=== PATIENT | female | born 1975 | race American Indian/Alaskan Native ===

== ENCOUNTER 2017-04-21 12:28 | Emergency (ER) | payer MEDICAID ==
[2017-04-21 13:13] LABS: Basophils % (Auto) 1.2 % (0.0-1.8); Hematocrit 33.8 % (30.3-42.9); Hemoglobin 10.9 gm/dl (10.1-14.3); Mean Corpuscular HGB Conc 32 % (30-34); Platelet Count 304 K/mm3 (140-440); Red Blood Count 5.28 M/mm3 (3.65-5.03); Red Cell Distribution Width 16.6 % (13.2-15.2); White Blood Count 9.1 K/mm3 (4.5-11.0)
[2017-04-21 13:24] LABS: Mean Corpuscular Hemoglobin 21 pg (28-32); Mean Corpuscular Volume 64 fl (79-97)
[2017-04-21 13:28] LABS: Anion Gap 18 mmol/L; BUN/Creatinine Ratio 24.28; Blood Urea Nitrogen 17 mg/dL (7-17); Calcium 8.9 mg/dL (8.4-10.2); Carbon Dioxide 24 mmol/L (22-30); Chloride 96.5 mmol/L (98-107); Glucose 283 mg/dL (65-100); Potassium 4.4 mmol/L (3.6-5.0); Sodium 134 mmol/L (137-145)
[2017-04-21 15:47] LABS: Bilirubin,Urine NEG (Negative); Blood,Urine NEG (Negative); Ketones,Urine NEG (Negative); Leukocyte Esterase,Urine NEG (Negative); Nitrite,Urine NEG (Negative); Urobilinogen,Urine < 2.0 mg/dL (<2.0); WBC,Urine < 1.0 /HPF (0.0-6.0)
[2017-04-21 19:59] VITALS: BP 123/82
[2017-04-21] MEDS ORDERED: NACL 0.9% 1000 ML 1,000 ML IV ONE (20:08)
[2017-04-21] MEDS ORDERED: MORPHINE IV ONE (21:03)
[2017-04-21] MEDS ORDERED: ZOFRAN IV ONE (21:03)
--- NOTE | 2017-04-21 23:24 | Emergency Department Report ---
HPI - General Chief Complaint: Hyperglycemia Time Seen by Provider: 04/21/17 20:06 - HPI HPI: The patient is a 41-year-old female presents for evaluation of abdominal pain. The patient reports upper abdominal pain for the past one week, progressive, constant for the past one day, 10/10 in severity, cramping in quality, exacerbated with retching. She reports associated intermittent lightheadedness with position changes, mild in severity, improved with supine positioning, and nausea, and multiple episodes of nonbilious, nonbloody emesis. The patient denies fever, chills, night sweats, diarrhea, blood in the stool, dark tarry stool, dysuria, hematuria, flank pain, genital discharge, inability to pass flatus. ED Past Medical Hx - Past Medical History Previous Medical History?: Yes Hx Hypertension: Yes Hx Heart Attack/AMI: No Hx Congestive Heart Failure: No Hx Diabetes: Yes Hx Deep Vein Thrombosis: No Hx Pulmonary Embolism: No Hx Liver Disease: No Hx Renal Disease: No Hx Sickle Cell Disease: No Hx Arthritis: No Hx Headaches / Migraines: Yes Hx Seizures: No Hx Kidney Stones: No Hx Psychiatric Treatment: Yes (Anxiety) Hx Asthma: Yes Hx COPD: No Hx Tuberculosis: No Hx Dementia: No Hx HIV: No Additional medical history: gastroparesis, DKA, neuropathy, peptic ulcer disease , high cholesterol - Surgical History Past Surgical History?: Yes Hx Coronary Stent: No Hx Open Heart Surgery: No Hx Pacemaker: No Hx Internal Defibrillator: No Hx Cholecystectomy: Yes Hx Appendectomy: No Hx Breast Surgery: No Additional Surgical History: - Social History Smoking Status: Never Smoker Substance Use Type: Prescribed - Medications Home Medications: Home Medications Medication Instructions Recorded Confirmed Last Taken Type ALPRAZolam [Xanax TAB] 1 mg PO TID PRN #30 tablet 05/08/15 11/23/15 11/20/15 09: 30 Rx Butalb/Acetamin/Caff 50-325-40 2 tab PO Q8H PRN #20 tablet 05/08/15 11/20/15 Unknown Rx [Fioricet] Carvedilol [Coreg] 3.125 mg PO BID #60 tablet 05/08/15 11/23/15 11/20/15 09:30 Rx Furosemide [Lasix TAB] 40 mg PO QDAY #30 tablet 10/02/1311/23/15 11/20/15 09: 30 Rx Insulin Glargine [Lantus VIAL] 60 units SQ BID #1 vial 05/08/15 11/23/15 09:30 Rx Insulin Lispro [HumaLOG VIAL] 30 unit SQ TID #1 vial 05/08/15 11/23/15 11/20/15 09:30 Rx Pravastatin (Nf) [Pravachol] 20 mg PO QHS #30 tablet 05/08/15 11/23/15 11/19/15 20:00 Rx Potassium Chloride [K-Dur] 10 meq PO TID 11/20/15 11/23/15 11/20/15 09:30 History Dicyclomine [Bentyl] 20 mg PO QID PRN #20 tablet 11/22/15 Unknown Rx ALBUTEROL Inhaler [ProAir HFA 2 puff IH QID PRN #1 inhalation 11/24/15 Unknown Rx Inhaler] Dicyclomine [Bentyl] 40 mg PO QID #20 tablet 04/02/16 Unknown Rx Ondansetron [Zofran TAB] 4 mg PO Q6HR PRN #20 tablet 04/02/16 Unknown Rx Promethazine [Phenergan TAB] 25 mg PO Q6HR PRN #30 tab 04/02/16 Unknown Rx Ondansetron [Zofran TAB] 4 mg PO Q8HR PRN #15 tablet 04/21/17 Unknown Rx traMADol [Ultram 50 MG tab] 50 mg PO Q6HR PRN #15 tablet 04/21/17 Unknown Rx ED Review of Systems ROS: Stated complaint: BLOOD SUGAR HIGH Other details as noted in HPI Constitutional: denies: fever ENT: denies: throat or neck pain Respiratory: denies: cough, shortness of breath Cardiovascular: denies: chest pain Endocrine: denies unexplained weight loss or gain Gastrointestinal: reports abdominal pain, nausea Genitourinary: denies: dysuria Musculoskeletal: denies: leg swelling Skin: denies: rash Neurological: denies: headache Hematological/Lymphatic: denies: easy bleeding or easy bruising Psych: denies sadness or hopelessness Physical Exam - Physical Exam Vital Signs: Vital Signs 04/21/17 04/21/17 04/21/17 12:47 19:30 21:38 Temperature 98.5 F 98.4 F Pulse Rate 90 92 H Respiratory 18 18 20 Rate Blood Pressure 111/64 Blood Pressure 123/82 [Right] O2 Sat by Pulse 98 99 Oximetry Physical Exam: General: well-nourished, well-developed, no acute distress Head: Normocephalic, atraumatic Eyes: normal sclera ENT: Mucous membranes are pale and dry Neck: No neck stiffness, no cervical adenopathy Respiratory: Breath sounds equal bilaterally, no wheezing, rales, or rhonchi Cardio: S1 and S2 present, no murmurs, rubs, gallops, capillary refill is delayed Abdomen: Normoactive bowel sounds, soft abdomen, left upper quadrant and right upper quadrant tenderness to palpation present, no rigidity, no guarding or rebound tenderness Chest WALL/Back: No tenderness to palpation of the chest wall, no CVA tenderness with percussion Musc: No pitting edema Skin: No rash Neuro: no facial drooping, normal speech Psych: Normal affect ED Course Vital Signs 04/21/17 04/21/17 04/21/17 12:47 19:30 21:38 Temperature 98.5 F 98.4 F Pulse Rate 90 92 H Respiratory 18 18 20 Rate Blood Pressure 111/64 Blood Pressure 123/82 [Right] O2 Sat by Pulse 98 99 Oximetry ED Medical Decision Making - Lab Data Result diagrams: 04/21/17 12:56 04/21/17 12:56 - Medical Decision Making The patient was seen and examined by myself. The patient is placed on a cardiac surgeon and continuous pulse ox. On initial evaluation, the patient was found to be in no distress. Evaluation orders are placed. Blood sugar on Accu- Chek 305. IV access is established and the patient is given 1 L normal saline fluid bolus for treatment of dehydration, and Zofran for nausea, and IV morphine for pain. The patient is given IV insulin for treatment of hyperglycemia as well. Lab results revealed elevated glucose level with normal bicarbonate level, venous pH, and anion gap, not consistent with DKA. Labs otherwise Were non-concerning including WBC, hemoglobin, hematocrit, renal function, LFTs, lipase, and urinalysis. The patient was reevaluated and reported that their symptoms were markedly improved. The patient is stable for discharge with outpatient follow-up. The patient is given follow-up and return instructions. The patient expressed understanding and agreed with the plan. The patient is discharged in stable condition. Critical care attestation.: If time is entered above; I have spent that time in minutes in the direct care of this critically ill patient, excluding procedure time. ED Disposition Clinical Impression: Acute hyperglycemia, Dehydration, Acute abdominal pain in left upper quadrant, Acute abdominal pain in right upper quadrant Disposition: - TO HOME OR SELFCARE Is pt being admited?: No Does the pt Need Aspirin: No Condition: Stable Instructions: Acute Abdominal Pain (ED), Dehydration (ED), Diabetic Hyperglycemia (ED) Additional Instructions: Do not take more than the prescribed dose of pain medicine, or combine or take the pain medicine prescribed to you today with other pain medicine, sleeping medicine or other sedatives, or with alcohol, as doing so may cause central nervous system sedation and respiratory depression, and potentially cause you to stop breathing and . Additionally, do not drive a vehicle, operate heavy machinery, or engage in any activity that would cause harm to yourself or others after taking the pain medicine prescribed to you. Prescriptions: Ondansetron [Zofran TAB] 4 mg PO Q8HR PRN #15 tablet PRN Reason: Nausea traMADol [Ultram 50 MG tab] 50 mg PO Q6HR PRN #15 tablet PRN Reason: Pain Referrals: PRIMARY CARE, [Primary Care Provider] - 3-5 Days Forms: Work/School Release Form(ED) Time of Disposition: 22:30
== END 2017-04-21 23:51 | disposition home or self-care (01) ==
LOC: ED 12:28
DX: E11.65 Type 2 diabetes mellitus with hyperglycemia (principal); K31.84 Gastroparesis; E13.10 Other specified diabetes mellitus with ketoacidosis without coma; E11.40 Type 2 diabetes mellitus with diabetic neuropathy, unspecified; R10.11 Right upper quadrant pain; R10.12 Left upper quadrant pain; E86.0 Dehydration; I10 Essential (primary) hypertension; J45.909 Unspecified asthma, uncomplicated; Z79.4 Long term (current) use of insulin
CPT/HCPCS: 36415; 80048; 81001; 82805; 82962; 85025; 96361; 96374; 96375; 99284; J2270; J2405; J7030; J1815

== ENCOUNTER 2017-07-15 15:46 | Emergency (ER) | payer MEDICAID ==
[2017-07-15] MEDS ORDERED: SUBLIMAZE IV ONE (16:45)
[2017-07-15] MEDS ORDERED: ZOFRAN IV ONE (16:45)
[2017-07-15] MEDS ORDERED: NACL 0.9% 1000 ML 1,000 ML IV ONE (16:48)
--- NOTE | 2017-07-15 16:50 | Emergency Department Report ---
HPI - General Chief Complaint: Pain General Time Seen by Provider: 07/15/17 16:36 - HPI HPI: Room 26 The patient is a 41-year-old female presented with a chief complaint of fatigue and muscle cramping. The patient states for the past 2 days she's been feeling fatigued and weak. Patient noticed dyspnea on exertion and intermittent cramping "jeffrey horses" in bilateral lower and upper extremities. The patient states her glucoses been trending upwards over the past week despite being compliant with her diabetes medication. The patient states she has had "charley horses" in the past when she was in DKA. Patient denies nausea vomiting or diarrhea. Patient denies any other forms of pain Location: [See above] Duration: [See above] Quality: Cramping Severity: Severe Modifying factors: [see above] Context: [see above] Mode of transportation: [not driving] ED Past Medical Hx - Past Medical History Hx Hypertension: Yes Hx Diabetes: Yes Hx Headaches / Migraines: Yes Hx Psychiatric Treatment: Yes (Anxiety) Hx Asthma: Yes Additional medical history: gastroparesis, DKA, neuropathy, peptic ulcer disease , high cholesterol - Surgical History Hx Cholecystectomy: Yes Additional Surgical History: - Family History Family history: no significant - Social History Smoking Status: Never Smoker Substance Use Type: Prescribed - Medications Home Medications: Home Medications Medication Instructions Recorded Confirmed Last Taken Type ALPRAZolam [Xanax TAB] 1 mg PO TID PRN #30 tablet 05/08/15 11/23/15 11/20/15 09: 30 Rx Butalb/Acetamin/Caff 50-325-40 2 tab PO Q8H PRN #20 tablet 05/08/15 11/20/15 Unknown Rx [Fioricet] Carvedilol [Coreg] 3.125 mg PO BID #60 tablet 05/08/15 11/23/15 11/20/15 09:30 Rx Furosemide [Lasix TAB] 40 mg PO QDAY #30 tablet 05/08/15 11/23/15 11/20/15 09: 30 Rx Insulin Glargine [Lantus VIAL] 60 units SQ BID #1 vial 05/08/15 11/23/15 09:30 Rx Insulin Lispro [HumaLOG VIAL] 30 unit SQ TID #1 vial 05/08/15 11/23/1511/19/16 09:30 Rx Pravastatin [Pravachol] 20 mg PO QHS #30 tablet 05/08/15 11/23/15 11/19/15 20: 00 Rx Potassium Chloride [K-Dur] 10 meq PO TID 11/20/15 11/23/15 11/20/15 09:30 History Dicyclomine [Bentyl] 20 mg PO QID PRN #20 tablet 11/22/15 Unknown Rx ALBUTEROL Inhaler [ProAir HFA 2 puff IH QID PRN #1 inhalation 11/24/15 Unknown Rx Inhaler] Dicyclomine [Bentyl] 40 mg PO QID #20 tablet 04/02/16 Unknown Rx Ondansetron [Zofran TAB] 4 mg PO Q6HR PRN #20 tablet 04/02/16 Unknown Rx Promethazine [Phenergan TAB] 25 mg PO Q6HR PRN #30 tab 04/02/16 Unknown Rx Ondansetron [Zofran TAB] 4 mg PO Q8HR PRN #15 tablet 04/21/17 Unknown Rx traMADol [Ultram 50 MG tab] 50 mg PO Q6HR PRN #15 tablet 04/21/17 Unknown Rx Cyclobenzaprine [Flexeril] 10 mg PO TID PRN #14 tablet 07/15/17 Unknown Rx ED Review of Systems ROS: Stated complaint: MUSCLE SPASMSIN ARMS,LEGS Other details as noted in HPI Constitutional: denies: fever Eyes: denies: eye pain ENT: denies: throat pain Respiratory: shortness of breath Cardiovascular: denies: chest pain Gastrointestinal: denies: abdominal pain, nausea, vomiting, diarrhea Genitourinary: denies: dysuria Musculoskeletal: myalgia Neurological: denies: headache Physical Exam - Physical Exam Vital Signs: Vital Signs 07/15/17 15:52 Temperature 97.6 F Pulse Rate 97 H Respiratory 20 Rate Blood Pressure 159/93 O2 Sat by Pulse 99 Oximetry Physical Exam: GENERAL: The patient is well-developed well-nourished female lying on stretcher appearing to be in moderate discomfort. [] HEENT: Normocephalic. Atraumatic. Extraocular motions are intact. Patient has moist mucous membranes. NECK: Supple. Trachea midline CHEST/LUNGS: Clear to auscultation. There is no respiratory distress noted. HEART/CARDIOVASCULAR: Regular. There is no tachycardia. There is no gallop rub or murmur. ABDOMEN: Abdomen is soft, nontender. Patient has normal bowel sounds. There is no abdominal distention. SKIN: There is no rash. There is no edema. There is no diaphoresis. NEURO: The patient is awake, alert, and oriented. The patient is cooperative. The patient has normal speech MUSCULOSKELETAL:There is no evidence of acute injury. ED Course Vital Signs 07/15/17 15:52 Temperature 97.6 F Pulse Rate 97 H Respiratory 20 Rate Blood Pressure 159/93 O2 Sat by Pulse 99 Oximetry ED Medical Decision Making - Lab Data Result diagrams: 07/15/17 17:08 07/15/17 17:08 Laboratory Tests 07/15/17 07/15/17 07/15/17 17:08 17:08 17:08 WBC 9.1 RBC 5.45 H Hgb 10.7 Hct 35.0 MCV 64 L MCH 20 L MCHC 31 RDW 17.9 H Plt Count 292 Lymph % (Auto) 12.7 L Hayes % (Auto) 4.7 Eos % (Auto) 0.3 Baso % (Auto) 0.8 Lymph # 1.2 Hayes # 0.4 Eos # 0.0 Baso # 0.1 Seg Neutrophils % 81.5 H Seg Neutrophils # 7.4 VBG pH Sodium 132 L Potassium 4.7 Chloride 94.7 L Carbon Dioxide 23 Anion Gap 19 BUN 16 Creatinine 0.8 Estimated GFR > 60 BUN/Creatinine Ratio 20 Glucose 518 H* POC Glucose Calcium 8.7 Magnesium Total Bilirubin 0.20 AST 10 ALT 13 Alkaline Phosphatase 83 Total Creatine Kinase 104 CK-MB (CK-2) 2.5 CK-MB (CK-2) Rel Index 2.4 Troponin T < 0.010 Total Protein 6.7 Albumin 4.1 Albumin/Globulin Ratio 1.6 TSH Free T4 HCG, Qual Negative 07/15/17 07/15/17 07/15/17 17:08 17:08 17:08 WBC RBC Hgb Hct MCV MCH MCHC RDW Plt Count Lymph % (Auto) Hayes % (Auto) Eos % (Auto) Baso % (Auto) Lymph # Hayes # Eos # Baso # Seg Neutrophils % Seg Neutrophils # VBG pH 7.383 Sodium Potassium Chloride Carbon Dioxide Anion Gap BUN Creatinine Estimated GFR BUN/Creatinine Ratio Glucose POC Glucose Calcium Magnesium 1.80 Total Bilirubin AST ALT Alkaline Phosphatase Total Creatine Kinase CK-MB (CK-2) CK-MB (CK-2) Rel Index Troponin T Total Protein Albumin Albumin/Globulin Ratio TSH 0.985 Free T4 1.25 HCG, Qual 07/15/17 07/15/17 07/15/17 18:25 19:41 20:41 WBC RBC Hgb Hct MCV MCH MCHC RDW Plt Count Lymph % (Auto) Hayes % (Auto) Eos % (Auto) Baso % (Auto) Lymph # Hayes # Eos # Baso # Seg Neutrophils % Seg Neutrophils # VBG pH Sodium Potassium Chloride Carbon Dioxide Anion Gap BUN Creatinine Estimated GFR BUN/Creatinine Ratio Glucose POC Glucose 480 H 341 H 275 H Calcium Magnesium Total Bilirubin AST ALT Alkaline Phosphatase Total Creatine Kinase CK-MB (CK-2) CK-MB (CK-2) Rel Index Troponin T Total Protein Albumin Albumin/Globulin Ratio TSH Free T4 HCG, Qual - Differential Diagnosis DKA, rhabdomyolysis, hypokalemia Critical care attestation.: If time is entered above; I have spent that time in minutes in the direct care of this critically ill patient, excluding procedure time. ED Disposition Clinical Impression: Muscle cramps, Hyperglycemia Disposition: DC-01 TO HOME OR SELFCARE Is pt being admited?: No Does the pt Need Aspirin: No Condition: Stable Instructions: Diabetic Hyperglycemia (ED) Additional Instructions: Return to the emergency department immediately should you develop worsening symptoms, fever, inability to tolerate food or liquid or any other concerns. Prescriptions: Cyclobenzaprine [Flexeril] 10 mg PO TID PRN #14 tablet PRN Reason: Muscle Spasm Referrals: INGRID HUNTER MD [Primary Care Provider] - 3-5 Days Time of Disposition: 20:46
[2017-07-15 17:21] LABS: Basophils % (Auto) 0.8 % (0.0-1.8); Eosinophils % (Auto) 0.3 % (0.0-4.3); Hemoglobin 10.7 gm/dl (10.1-14.3); Mean Corpuscular HGB Conc 31 % (30-34); Platelet Count 292 K/mm3 (140-440); Red Blood Count 5.45 M/mm3 (3.65-5.03); Red Cell Distribution Width 17.9 % (13.2-15.2); White Blood Count 9.1 K/mm3 (4.5-11.0)
[2017-07-15 17:29] LABS: Mean Corpuscular Hemoglobin 20 pg (28-32); Mean Corpuscular Volume 64 fl (79-97)
[2017-07-15 17:57] LABS: Creatine Kinase MB 2.5 ng/mL (0.0-4.0)
[2017-07-15 17:59] LABS: Alanine Aminotransferase 13 units/L (7-56); Albumin 4.1 g/dL (3.9-5); Albumin/Globulin Ratio 1.6 %; Alkaline Phosphatase 83 units/L (35-129); Anion Gap 19 mmol/L; BUN/Creatinine Ratio 20; Blood Urea Nitrogen 16 mg/dL (7-17); Calcium 8.7 mg/dL (8.4-10.2); Carbon Dioxide 23 mmol/L (22-30); Chloride 94.7 mmol/L (98-107); Creatine Kinase 104 units/L (30-135); Potassium 4.7 mmol/L (3.6-5.0); Sodium 132 mmol/L (137-145); Total Protein 6.7 g/dL (6.3-8.2)
[2017-07-15 18:10] LABS: Glucose 518 mg/dL (65-100)
[2017-07-15] MEDS ORDERED: NACL 0.9% 500 ML 500 ML IV ONE (19:45)
[2017-07-15 21:12] VITALS: BP 135/72
== END 2017-07-15 21:13 | disposition home or self-care (01) ==
LOC: ED 15:46
DX: M79.1 Myalgia (principal); E11.65 Type 2 diabetes mellitus with hyperglycemia; I10 Essential (primary) hypertension; G43.909 Migraine, unspecified, not intractable, without status migrainosus; J45.909 Unspecified asthma, uncomplicated
CPT/HCPCS: 36415; 80053; 82550; 82553; 82805; 82962; 83735; 84439; 84443; 84484; 84703; 85025; 96361; 96374; 96375; 96376; 99283; J2405; J3010; J7030; J7040; J1815

== ENCOUNTER 2018-02-11 12:57 | Emergency (ER) | payer MEDICAID ==
[2018-02-11 13:59] LABS: Hematocrit 35.8 % (30.3-42.9); Hemoglobin 11.2 gm/dl (10.1-14.3); Mean Corpuscular HGB Conc 31 % (30-34); Platelet Count 257 K/mm3 (140-440); Red Blood Count 5.62 M/mm3 (3.65-5.03); Red Cell Distribution Width 17.2 % (13.2-15.2)
[2018-02-11 14:01] LABS: Mean Corpuscular Hemoglobin 20 pg (28-32); Mean Corpuscular Volume 64 fl (79-97)
[2018-02-11 14:12] LABS: Alanine Aminotransferase 14 units/L (7-56); Albumin 4.3 g/dL (3.9-5); BUN/Creatinine Ratio 19; Blood Urea Nitrogen 15 mg/dL (7-17); Calcium 9.4 mg/dL (8.4-10.2); Hemolysis Index 43
[2018-02-11 14:33] LABS: Anisocytosis 1+; Eosinophils % (Manual) 0 % (0.0-4.3); Hypochromasia 2+; Total Cells Counted 100
[2018-02-11 14:34] LABS: Platelet Estimate Cons; Toxic Granulation 1+
--- NOTE | 2018-02-11 14:52 | Emergency Department Report ---
<GITA CARLSON III - Last Filed: 02/11/18 21:21> ED N/V/D HPI - General Chief complaint: Nausea/Vomiting/Diarrhea Stated complaint: HIGH BLOOD SUGAR Time Seen by Provider: 02/11/18 14:35 - Related Data Home Medications Medication Instructions Recorded Confirmed Last Taken Potassium Chloride [K-Dur] 10 meq PO TID 11/20/15 11/23/15 11/20/15 09:30 Previous Rx's Medication Instructions Recorded Last Taken Type ALPRAZolam [Xanax TAB] 1 mg PO TID PRN #30 tablet 05/08/15 11/20/15 09:30 Rx Butalb/Acetamin/Caff 50-325-40 2 tab PO Q8H PRN #20 tablet 05/08/15 Unknown Rx [Fioricet] Carvedilol [Coreg] 3.125 mg PO BID #60 tablet 05/08/15 11/20/15 09:30 Rx Furosemide [Lasix TAB] 40 mg PO QDAY #30 tablet 05/08/15 11/20/15 09:30 Rx Insulin Glargine [Lantus VIAL] 60 units SQ BID #1 vial 05/08/15 11/20/15 09:30 Rx Insulin Lispro [HumaLOG VIAL] 30 unit SQ TID #1 vial 05/08/15 11/20/15 09:30 Rx Pravastatin [Pravachol] 20 mg PO QHS #30 tablet 05/08/15 11/19/15 20:00 Rx Dicyclomine [Bentyl] 20 mg PO QID PRN #20 tablet 11/22/15 Unknown Rx ALBUTEROL Inhaler [ProAir HFA 2 puff IH QID PRN #1 inhalation 11/24/15 Unknown Rx Inhaler] Dicyclomine [Bentyl] 40 mg PO QID #20 tablet 04/02/16 Unknown Rx Promethazine [Phenergan TAB] 25 mg PO Q6HR PRN #30 tab 04/02/16 Unknown Rx Ondansetron [Zofran TAB] 4 mg PO Q8HR PRN #15 tablet 04/21/17 Unknown Rx traMADol [Ultram 50 MG tab] 50 mg PO Q6HR PRN #15 tablet 04/21/17 Unknown Rx Cyclobenzaprine [Flexeril] 10 mg PO TID PRN #14 tablet 07/15/17 Unknown Rx Ondansetron [Zofran TAB] 4 mg PO Q6HR PRN #20 tablet 02/11/18 Unknown Rx Allergies Allergy/AdvReac Type Severity Reaction Status Date / Time lisinopril Allergy Itching Verified 11/20/15 13:44 ED Review of Systems ROS: Stated complaint: HIGH BLOOD SUGAR Other details as noted in HPI ED Past Medical Hx - Medications Home Medications: Home Medications Medication Instructions Recorded Confirmed Last Taken Type ALPRAZolam [Xanax TAB] 1 mg PO TID PRN #30 tablet 05/08/15 11/23/15 11/20/15 09: 30 Rx Butalb/Acetamin/Caff 50-325-40 2 tab PO Q8H PRN #20 tablet 05/08/15 11/20/15 Unknown Rx [Fioricet] Carvedilol [Coreg] 3.125 mg PO BID #60 tablet 05/08/15 11/23/15 11/20/15 09:30 Rx Furosemide [Lasix TAB] 40 mg PO QDAY #30 tablet 05/08/15 11/23/15 11/20/15 09: 30 Rx Insulin Glargine [Lantus VIAL] 60 units SQ BID #1 vial 05/08/15 11/23/15 09:30 Rx Insulin Lispro [HumaLOG VIAL] 30 unit SQ TID #1 vial 05/08/15 11/23/15 11/20/15 09:30 Rx Pravastatin [Pravachol] 20 mg PO QHS #30 tablet 05/08/15 11/23/15 11/19/15 20: 00 Rx Potassium Chloride [K-Dur] 10 meq PO TID 11/20/15 11/23/15 11/20/15 09:30 History Dicyclomine [Bentyl] 20 mg PO QID PRN #20 tablet 11/22/15 Unknown Rx ALBUTEROL Inhaler [ProAir HFA 2 puff IH QID PRN #1 inhalation 11/24/15 Unknown Rx Inhaler] Dicyclomine [Bentyl] 40 mg PO QID #20 tablet 04/02/16 Unknown Rx Promethazine [Phenergan TAB] 25 mg PO Q6HR PRN #30 tab 04/02/16 Unknown Rx Ondansetron [Zofran TAB] 4 mg PO Q8HR PRN #15 tablet 04/21/17 Unknown Rx traMADol [Ultram 50 MG tab] 50 mg PO Q6HR PRN #15 tablet 04/21/17 Unknown Rx Cyclobenzaprine [Flexeril] 10 mg PO TID PRN #14 tablet 07/15/17 Unknown Rx Ondansetron [Zofran TAB] 4 mg PO Q6HR PRN #20 tablet 02/11/18 Unknown Rx ED Course Vital Signs 02/11/18 02/11/18 02/11/18 13:02 17:10 20:32 Temperature 97.7 F 98.4 F Pulse Rate 110 H 108 H Respiratory 20 20 20 Rate Blood Pressure 154/78 Blood Pressure 132/72 [Left] O2 Sat by Pulse 99 98 Oximetry - Reevaluation(s) Reevaluation #1: pt signed out to me to check ua from Dr Omer at 2030 work good except ua pending. Patient states she feels good. Patient states her nausea and vomiting have resolved. Patient states her abdominal pain and back pain have resolved. Patient is tolerating by mouth fluid patient is ambulatory and just finished using the bathroom. Patient is stable for discharge UA is negative for infection . 02/11/18 21:11 02/11/18 21:21 ED Medical Decision Making - Lab Data Result diagrams: 02/11/18 13:18 02/11/18 13:18 Critical care attestation.: If time is entered above; I have spent that time in minutes in the direct care of this critically ill patient, excluding procedure time. 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 Return to the ED if your condition worsens. Prescriptions: Ondansetron [Zofran TAB] 4 mg PO Q6HR PRN #20 tablet PRN Reason: Nausea And Vomiting Referrals: PRIMARY CARE, [Primary Care Provider] - 3-5 Days Time of Disposition: 21:14 <RAMSEY OMER - Last Filed: 02/12/18 16:53> ED N/V/D HPI - General Source: patient Mode of arrival: Ambulatory Limitations: No Limitations - History of Present Illness MD complaint: nausea, vomiting, abdominal pain -: days(s) (2) Description of Vomiting: watery, bilious Location: diffuse Radiation: none Severity: moderate Pain Scale: 5 Quality: cramping, sharp Consistency: constant Improves with: none Worsens with: none Associated Symptoms: loss of appetite, nausea/vomiting ED Review of Systems Comment: All other systems reviewed and negative Constitutional: denies: chills, fever Eyes: denies: eye pain, eye discharge ENT: denies: ear pain Respiratory: denies: cough, shortness of breath Cardiovascular: denies: chest pain, palpitations Endocrine: increased thirst Gastrointestinal: abdominal pain, nausea, vomiting. denies: diarrhea Genitourinary: denies: urgency, dysuria, frequency Musculoskeletal: denies: back pain Skin: denies: rash Neurological: denies: headache, weakness, numbness, paresthesias Psychiatric: denies: anxiety, depression Hematological/Lymphatic: denies: easy bleeding, easy bruising ED Past Medical Hx - Past Medical History Hx Hypertension: Yes Hx Diabetes: Yes Hx Headaches / Migraines: Yes Hx Psychiatric Treatment: Yes (Anxiety) Hx Asthma: Yes Additional medical history: gastroparesis, DKA, neuropathy, peptic ulcer disease , high cholesterol - Surgical History Hx Cholecystectomy: Yes Additional Surgical History: - Social History Smoking Status: Never Smoker Substance Use Type: None ED Physical Exam - General Limitations: No Limitations General appearance: alert, in no apparent distress, obese - Head Head exam: Present: atraumatic, normocephalic, normal inspection - Eye Eye exam: Present: normal appearance, PERRL, EOMI Pupils: Present: normal accommodation - ENT ENT exam: Present: normal exam, mucous membranes dry - Neck Neck exam: Present: normal inspection, full ROM. Absent: tenderness - Respiratory Respiratory exam: Present: normal lung sounds bilaterally. Absent: respiratory distress, wheezes - Cardiovascular Cardiovascular Exam: Present: regular rate, normal rhythm, normal heart sounds - GI/Abdominal GI/Abdominal exam: Present: soft, tenderness, guarding, hyperactive bowel sounds. Absent: distended, rebound - Rectal Rectal exam: Present: deferred - Extremities Exam Extremities exam: Present: normal inspection, full ROM. Absent: tenderness - Back Exam Back exam: Present: normal inspection, full ROM. Absent: tenderness - Neurological Exam Neurological exam: Present: alert, oriented X3, CN II-XII intact - Psychiatric Psychiatric exam: Present: normal affect, normal mood - Skin Skin exam: Present: warm, dry, intact, normal color, rash ED Course - Reevaluation(s) Reevaluation #1: 02/12/18 16:52 Patient was signed out to Dr. Carlson pending urinalysis result, reevaluation and disposition. ED Medical Decision Making - Lab Data Result diagrams: 02/11/18 13:18 02/11/18 13:18 - Radiology Data Radiology results: report reviewed, image reviewed - Medical Decision Making Diabetic Gastroparesis. Nausea and Vomiting. Abdominal Pain. ED Disposition Is pt being admited?: No Does the pt Need Aspirin: No
[2018-02-11] MEDS ORDERED: NACL 0.9% 1000 ML 1,000 ML IV ONE ×2 (14:55)
[2018-02-11] MEDS ORDERED: MORPHINE IV ONE (14:56)
[2018-02-11] MEDS ORDERED: REGLAN IV ONE (14:56)
--- NOTE | 2018-02-11 17:51 | Cat Scan Report ---
FINAL REPORT EXAM: CT ABDOMEN PELVIS W CON HISTORY: abdominal pain. nausea and vomiting TECHNIQUE: Spiral CT scanning of the abdomen and pelvis after the uneventful administration of IV contrast. Multiplanar reformations. PRIORS: None. FINDINGS: Abdomen: Visualized lung bases show mild atelectatic change or scarring bilaterally. Gallbladder surgically absent. Liver without significant abnormality. Spleen without significant abnormality. Pancreas without significant abnormality. Kidneys without significant abnormality. Left renal cyst measures approximately 1.6 cm. Adrenal glands without significant abnormality. Pelvis: Bowel grossly unremarkable, with mild diverticular change in the sigmoid colon. Appendix within normal limits. No significant free peritoneal fluid, discrete abscess or apparent adenopathy. Abdominal aorta non-aneurysmal. Tampon artifact noted in the vagina. IMPRESSION: 1. No acute findings. Please see above for further details.
[2018-02-11 20:35] VITALS: BP 132/72
[2018-02-11 20:59] LABS: HCG Qualitative,Urine Negative (Negative)
[2018-02-11 21:00] LABS: Bilirubin,Urine NEG (Negative); Blood,Urine MOD (Negative); Color,Urine Yellow (Yellow); Mucus,Urine FEW /HPF; Urobilinogen,Urine < 2.0 mg/dL (<2.0); WBC,Urine < 1.0 /HPF (0.0-6.0)
== END 2018-02-11 21:33 | disposition home or self-care (01) ==
LOC: ED 12:57
DX: K52.9 Noninfective gastroenteritis and colitis, unspecified (principal); E11.65 Type 2 diabetes mellitus with hyperglycemia; R11.2 Nausea with vomiting, unspecified; I10 Essential (primary) hypertension; G43.909 Migraine, unspecified, not intractable, without status migrainosus; F41.9 Anxiety disorder, unspecified; J45.909 Unspecified asthma, uncomplicated; E78.00 Pure hypercholesterolemia, unspecified; Z90.49 Acquired absence of other specified parts of digestive tract; Z79.4 Long term (current) use of insulin; Z88.8 Allergy status to other drugs, medicaments and biological substances
CPT/HCPCS: 36415; 51701; 74177; 80053; 81001; 81025; 82140; 82962; 83036; 83690; 85007; 85025; 96361; 96374; 96375; 99284; J2270; J2765; J7030; Q9967

== ENCOUNTER 2018-03-07 21:06 | Emergency (ER) | payer MEDICAID ==
[2018-03-07 22:11] LABS: Basophils # (Auto) 0.1 K/mm3 (0.0-0.1); Basophils % (Auto) 1.1 % (0.0-1.8); Eosinophils % (Auto) 0.5 % (0.0-4.3); Hematocrit 33.5 % (30.3-42.9); Hemoglobin 10.8 gm/dl (10.1-14.3); Lymphocytes # (Auto) 1.5 K/mm3 (1.2-5.4); Lymphocytes % (Auto) 17.3 % (13.4-35.0); Mean Corpuscular HGB Conc 32 % (30-34); Monocytes # (Auto) 0.5 K/mm3 (0.0-0.8); Monocytes % (Auto) 5.6 % (0.0-7.3); Platelet Count 258 K/mm3 (140-440); Red Blood Count 5.25 M/mm3 (3.65-5.03); Red Cell Distribution Width 17.7 % (13.2-15.2)
[2018-03-07 22:16] LABS: Mean Corpuscular Hemoglobin 21 pg (28-32); Mean Corpuscular Volume 64 fl (79-97)
[2018-03-07 22:30] LABS: BUN/Creatinine Ratio 13; Blood Urea Nitrogen 12 mg/dL (7-17); Calcium 9.4 mg/dL (8.4-10.2); Hemolysis Index 5
[2018-03-07] MEDS ORDERED: HumuLIN R SUB-Q ONE (22:41)
[2018-03-08] MEDS ORDERED: HumuLIN R ONE ×2 (05:24→05:27)
[2018-03-08] MEDS ORDERED: HumuLIN R IV ONE (10:03)
[2018-03-08] MEDS ORDERED: NACL 0.9% 1000 ML 1,000 ML IV ONE (10:03)
--- NOTE | 2018-03-08 10:58 | Emergency Department Report ---
ED General Adult HPI - General Chief complaint: Hyperglycemia Stated complaint: SOB/NAUSEA/HIGH BLOOD SUGAR Time Seen by Provider: 03/08/18 09:55 Source: patient Mode of arrival: Ambulatory Limitations: No Limitations - History of Present Illness Initial comments: Patient presents to emergency department per request of her primary care physician for evaluation of DKA. Patient has a history of what appears to be juvenile diabetes and states she's been in DKA before. Patient complains of her blood glucose levels been elevated at home for last couple days along with increased respirations. Patient also complains of being fatigued and having increased urination. Patient denies chest pain, abdominal pain, headaches. Radiation: non-radiation Improves with: none Worsens with: none Associated Symptoms: denies other symptoms Treatments Prior to Arrival: none - Related Data Home Medications Medication Instructions Recorded Confirmed Last Taken Potassium Chloride [K-Dur] 10 meq PO TID 11/20/15 11/23/15 11/20/15 09:30 Previous Rx's Medication Instructions Recorded Last Taken Type ALPRAZolam [Xanax TAB] 1 mg PO TID PRN #30 tablet 05/08/15 11/20/15 09:30 Rx Butalb/Acetamin/Caff 50-325-40 2 tab PO Q8H PRN #20 tablet 05/08/15 Unknown Rx [Fioricet] Carvedilol [Coreg] 3.125 mg PO BID #60 tablet 05/08/15 11/20/15 09:30 Rx Furosemide [Lasix TAB] 40 mg PO QDAY #30 tablet 05/08/15 11/20/15 09:30 Rx Insulin Glargine [Lantus VIAL] 60 units SQ BID #1 vial 05/08/15 11/20/15 09:30 Rx Insulin Lispro [HumaLOG VIAL] 30 unit SQ TID #1 vial 05/08/15 11/20/15 09:30 Rx Pravastatin [Pravachol] 20 mg PO QHS #30 tablet 05/08/15 11/19/15 20:00 Rx Dicyclomine [Bentyl] 20 mg PO QID PRN #20 tablet 11/22/15 Unknown Rx ALBUTEROL Inhaler [ProAir HFA 2 puff IH QID PRN #1 inhalation 11/24/15 Unknown Rx Inhaler] Dicyclomine [Bentyl] 40 mg PO QID #20 tablet 04/02/16 Unknown Rx Promethazine [Phenergan TAB] 25 mg PO Q6HR PRN #30 tab 04/02/16 Unknown Rx Ondansetron [Zofran TAB] 4 mg PO Q8HR PRN #15 tablet 04/21/17 Unknown Rx traMADol [Ultram 50 MG tab] 50 mg PO Q6HR PRN #15 tablet 04/21/17 Unknown Rx Cyclobenzaprine [Flexeril] 10 mg PO TID PRN #14 tablet 07/15/17 Unknown Rx Ondansetron [Zofran TAB] 4 mg PO Q6HR PRN #20 tablet 02/11/18 Unknown Rx HYDROcodone/APAP 5-325 [Friendship 1 each PO Q6HR PRN #12 tablet 03/08/18 Unknown Rx 5/325] Metoclopramide [Reglan] 10 mg PO TID #20 tab 03/08/18 Unknown Rx Sulfamethoxazole/Trimethoprim 1 each PO BID #14 tablet 03/08/18 Unknown Rx [Bactrim Ds Tablet] Allergies Allergy/AdvReac Type Severity Reaction Status Date / Time lisinopril Allergy Itching Verified 11/20/15 13:44 ED Review of Systems ROS: Stated complaint: SOB/NAUSEA/HIGH BLOOD SUGAR Other details as noted in HPI Comment: All other systems reviewed and negative Constitutional: denies: chills, fever Eyes: denies: eye pain, eye discharge, vision change ENT: denies: ear pain, throat pain Respiratory: denies: cough, shortness of breath, wheezing Cardiovascular: denies: chest pain, palpitations Endocrine: no symptoms reported Gastrointestinal: denies: abdominal pain, nausea, diarrhea Genitourinary: denies: urgency, dysuria, discharge Musculoskeletal: denies: back pain, joint swelling, arthralgia Skin: denies: rash, lesions Neurological: denies: headache, weakness, paresthesias Psychiatric: denies: anxiety, depression Hematological/Lymphatic: denies: easy bleeding, easy bruising ED Past Medical Hx - Past Medical History Hx Hypertension: Yes Hx Diabetes: Yes Hx Headaches / Migraines: Yes Hx Psychiatric Treatment: Yes (Anxiety) Hx Asthma: Yes Additional medical history: gastroparesis, DKA, neuropathy, peptic ulcer disease , high cholesterol - Surgical History Hx Cholecystectomy: Yes Additional Surgical History: - Social History Smoking Status: Never Smoker Substance Use Type: None - Medications Home Medications: Home Medications Medication Instructions Recorded Confirmed Last Taken Type ALPRAZolam [Xanax TAB] 1 mg PO TID PRN #30 tablet 05/08/15 11/23/15 11/20/15 09: 30 Rx Butalb/Acetamin/Caff 50-325-40 2 tab PO Q8H PRN #20 tablet 05/08/15 11/20/15 Unknown Rx [Fioricet] Carvedilol [Coreg] 3.125 mg PO BID #60 tablet 05/08/15 11/23/15 11/20/15 09:30 Rx Furosemide [Lasix TAB] 40 mg PO QDAY #30 tablet 05/08/15 11/23/15 11/20/15 09: 30 Rx Insulin Glargine [Lantus VIAL] 60 units SQ BID #1 vial 05/08/15 11/23/15 09:30 Rx Insulin Lispro [HumaLOG VIAL] 30 unit SQ TID #1 vial 05/08/15 11/23/15 11/20/15 09:30 Rx Pravastatin [Pravachol] 20 mg PO QHS #30 tablet 05/08/15 11/23/15 11/19/15 20: 00 Rx Potassium Chloride [K-Dur] 10 meq PO TID 11/20/15 11/23/15 11/20/15 09:30 History Dicyclomine [Bentyl] 20 mg PO QID PRN #20 tablet 11/22/15 Unknown Rx ALBUTEROL Inhaler [ProAir HFA 2 puff IH QID PRN #1 inhalation 11/24/15 Unknown Rx Inhaler] Dicyclomine [Bentyl] 40 mg PO QID #20 tablet 04/02/16 Unknown Rx Promethazine [Phenergan TAB] 25 mg PO Q6HR PRN #30 tab 04/02/16 Unknown Rx Ondansetron [Zofran TAB] 4 mg PO Q8HR PRN #15 tablet 04/21/17 Unknown Rx traMADol [Ultram 50 MG tab] 50 mg PO Q6HR PRN #15 tablet 04/21/17 Unknown Rx Cyclobenzaprine [Flexeril] 10 mg PO TID PRN #14 tablet 12/14/17 Unknown Rx Ondansetron [Zofran TAB] 4 mg PO Q6HR PRN #20 tablet 02/11/18 Unknown Rx HYDROcodone/APAP 5-325 [Friendship 1 each PO Q6HR PRN #12 tablet 03/08/18 Unknown Rx 5/325] Metoclopramide [Reglan] 10 mg PO TID #20 tab 03/08/18 Unknown Rx Sulfamethoxazole/Trimethoprim 1 each PO BID #14 tablet 03/08/18 Unknown Rx [Bactrim Ds Tablet] ED Physical Exam - General Limitations: No Limitations General appearance: alert, in no apparent distress - Head Head exam: Present: atraumatic, normocephalic - Eye Eye exam: Present: normal appearance - ENT ENT exam: Present: other (dry mucous membranes) - Neck Neck exam: Present: normal inspection - Respiratory Respiratory exam: Present: normal lung sounds bilaterally. Absent: respiratory distress, wheezes, rales - Cardiovascular Cardiovascular Exam: Present: normal rhythm, other (tachycardic). Absent: systolic murmur, diastolic murmur, rubs, gallop - GI/Abdominal GI/Abdominal exam: Present: soft, normal bowel sounds. Absent: distended, tenderness - Extremities Exam Extremities exam: Present: normal inspection - Back Exam Back exam: Present: normal inspection - Neurological Exam Neurological exam: Present: alert, oriented X3, CN II-XII intact, motor sensory deficit - Psychiatric Psychiatric exam: Present: normal affect, normal mood - Skin Skin exam: Present: warm, dry, intact, normal color. Absent: rash ED Course Vital Signs 03/07/18 03/08/18 21:39 11:47 Temperature 99.2 F Pulse Rate 107 H 94 H Respiratory 22 18 Rate Blood Pressure 172/86 Blood Pressure 142/78 [Right] O2 Sat by Pulse 97 98 Oximetry ED Medical Decision Making - Lab Data Result diagrams: 03/07/18 21:56 03/07/18 21:56 - Medical Decision Making Discussed results with patient Critical care attestation.: If time is entered above; I have spent that time in minutes in the direct care of this critically ill patient, excluding procedure time. ED Disposition Clinical Impression: Hyperglycemia due to type 1 diabetes mellitus, UTI (urinary tract infection) Disposition: DC-01 TO HOME OR SELFCARE Is pt being admited?: No Does the pt Need Aspirin: No Condition: Stable Instructions: Urinary Tract Infection in Women (ED), Diabetic Hyperglycemia (ED ), Diabetes Mellitus Type 2 in Adults (ED) Additional Instructions: return if worse Prescriptions: HYDROcodone/APAP 5-325 [Friendship 5/325] 1 each PO Q6HR PRN #12 tablet PRN Reason: Pain Metoclopramide [Reglan] 10 mg PO TID #20 tab Sulfamethoxazole/Trimethoprim [Bactrim Ds Tablet] 1 each PO BID #14 tablet Referrals: PRIMARY MD CLAY [Primary Care Provider] - 3-5 Days ERNST DSOUZA MD [Staff Physician] - 3-5 Days Time of Disposition: 13:18
--- NOTE | 2018-03-08 11:42 | XRay Report ---
Single view chest: Compared to 11/22/15. History: Tachycardia. Findings: Normal cardiomediastinal silhouette. Trachea is midline. No consolidation, pneumothorax or pleural effusion. Impression: No acute cardiopulmonary findings.
[2018-03-08] MEDS ORDERED: NORCO 5/325 ONE (12:04)
[2018-03-08 12:14] VITALS: BP 142/78
[2018-03-08] MEDS ORDERED: NORCO 5/325 PO ONE (12:15)
[2018-03-08 12:52] LABS: Bilirubin,Urine NEG (Negative); Blood,Urine LG (Negative); Color,Urine Yellow (Yellow); Urobilinogen,Urine < 2.0 mg/dL (<2.0)
[2018-03-08 12:53] LABS: RBC,Urine > 182.0 /HPF (0.0-6.0)
== END 2018-03-08 13:38 | disposition home or self-care (01) ==
LOC: ED 21:06
DX: E10.65 Type 1 diabetes mellitus with hyperglycemia (principal); N39.0 Urinary tract infection, site not specified; I10 Essential (primary) hypertension; G43.909 Migraine, unspecified, not intractable, without status migrainosus; F41.9 Anxiety disorder, unspecified; J45.909 Unspecified asthma, uncomplicated; E10.43 Type 1 diabetes mellitus with diabetic autonomic (poly)neuropathy; K31.84 Gastroparesis; E10.40 Type 1 diabetes mellitus with diabetic neuropathy, unspecified; E78.00 Pure hypercholesterolemia, unspecified; Z79.4 Long term (current) use of insulin; Z88.8 Allergy status to other drugs, medicaments and biological substances; Z90.49 Acquired absence of other specified parts of digestive tract
CPT/HCPCS: 36415; 71045; 80048; 81001; 82010; 82805; 82962; 84703; 85025; 93005; 93010; 96361; 96372; 96374; 99284; J7030; J1815

== ENCOUNTER 2018-08-09 11:44 | Emergency (ER) | payer MEDICAID ==
[2018-08-09 11:55] VITALS: BP 158/73
--- NOTE | 2018-08-09 12:33 | XRay Report ---
RIGHT FOOT, 3 views: History: Trauma to right foot/toe, swelling and bruising A subtle avulsion injury is identified from the base of the middle phalanx of the second or third toe seen on the lateral view only. This appears to involve the second toe, correlate with the patient. The remaining bony structures are intact. No joint pathology. IMPRESSION: Avulsion fracture, middle phalanx, second toe.
[2018-08-09] MEDS ORDERED: ULTRAM PO ONE (13:00)
--- NOTE | 2018-08-09 13:03 | Emergency Department Report ---
ED Lower Extremity HPI - General Chief Complaint: Extremity Injury, Lower Stated Complaint: LFT FOOT/PAIN Time Seen by Provider: 08/09/18 12:58 Source: patient Mode of arrival: Ambulatory Limitations: No Limitations - History of Present Illness -: days(s) (2) Injury: Toes: Right (2ND) Place: home Improves With: nothing Worsens With: movement - Related Data Home Medications Medication Instructions Recorded Confirmed Last Taken Potassium Chloride [K-Dur] 10 meq PO TID 11/20/15 11/23/15 11/20/15 09:30 Previous Rx's Medication Instructions Recorded Last Taken Type ALPRAZolam [Xanax TAB] 1 mg PO TID PRN #30 tablet 05/08/15 11/20/15 09:30 Rx Butalb/Acetamin/Caff 50-325-40 2 tab PO Q8H PRN #20 tablet 05/08/15 Unknown Rx [Fioricet] Carvedilol [Coreg] 3.125 mg PO BID #60 tablet 05/08/15 11/20/15 09:30 Rx Furosemide [Lasix TAB] 40 mg PO QDAY #30 tablet 05/08/15 11/20/15 09:30 Rx Insulin Glargine [Lantus VIAL] 60 units SQ BID #1 vial 05/08/15 11/20/15 09:30 Rx Insulin Lispro [HumaLOG VIAL] 30 unit SQ TID #1 vial 05/08/15 11/20/15 09:30 Rx Pravastatin [Pravachol] 20 mg PO QHS #30 tablet 05/08/15 11/19/15 20:00 Rx Dicyclomine [Bentyl] 20 mg PO QID PRN #20 tablet 11/22/15 Unknown Rx ALBUTEROL Inhaler (OR & NICU) 2 puff IH QID PRN #1 inhalation 11/24/15 Unknown Rx [ProAir HFA Inhaler] Dicyclomine [Bentyl] 40 mg PO QID #20 tablet 04/02/16 Unknown Rx Promethazine [Phenergan TAB] 25 mg PO Q6HR PRN #30 tab 04/02/16 Unknown Rx Ondansetron [Zofran TAB] 4 mg PO Q8HR PRN #15 tablet 04/21/17 Unknown Rx traMADol [Ultram 50 MG tab] 50 mg PO Q6HR PRN #15 tablet 04/21/17 Unknown Rx Cyclobenzaprine [Flexeril] 10 mg PO TID PRN #14 tablet 07/15/17 Unknown Rx Ondansetron [Zofran TAB] 4 mg PO Q6HR PRN #20 tablet 02/11/18 Unknown Rx HYDROcodone/APAP 5-325 [Gilbert 1 each PO Q6HR PRN #12 tablet 03/08/18 Unknown Rx 5/325] Metoclopramide [Reglan] 10 mg PO TID #20 tab 03/08/18 Unknown Rx Sulfamethoxazole/Trimethoprim 1 each PO BID #14 tablet 03/08/18 Unknown Rx [Bactrim Ds Tablet] Acetaminophen/Codeine [Tylenol 1 tab PO Q6H PRN #14 tab 07/18/18 Unknown Rx /Codeine # 3 tab] predniSONE [Deltasone] 50 mg PO QDAY 3 Days #3 tab 07/18/18 Unknown Rx Allergies Allergy/AdvReac Type Severity Reaction Status Date / Time lisinopril Allergy Itching Verified 11/20/15 13:44 ibuprofen [From Motrin] AdvReac Bleeding Verified 07/17/18 19:31 ED Review of Systems ROS: Stated complaint: LFT FOOT/PAIN Other details as noted in HPI Comment: All other systems reviewed and negative Constitutional: denies: see HPI Eyes: denies: eye pain ENT: denies: ear pain Respiratory: denies: cough Cardiovascular: denies: dyspnea on exertion Endocrine: denies: flushing Gastrointestinal: denies: abdominal pain Genitourinary: denies: urgency Musculoskeletal: other (R 2ND TOE PAIN). denies: back pain Skin: denies: lesions Neurological: denies: weakness Psychiatric: denies: anxiety Hematological/Lymphatic: denies: easy bleeding ED Past Medical Hx - Past Medical History Previous Medical History?: Yes Hx Hypertension: Yes Hx Diabetes: Yes Hx Headaches / Migraines: Yes Hx Psychiatric Treatment: Yes (Anxiety) Hx Asthma: Yes Additional medical history: gastroparesis, DKA, neuropathy, peptic ulcer dise ase, high cholesterol - Surgical History Past Surgical History?: Yes Hx Cholecystectomy: Yes Additional Surgical History: - Social History Smoking Status: Never Smoker Substance Use Type: None - Medications Home Medications: Home Medications Medication Instructions Recorded Confirmed Last Taken Type ALPRAZolam [Xanax TAB] 1 mg PO TID PRN #30 tablet 05/08/15 11/23/15 11/20/15 09:30 Rx Butalb/Acetamin/Caff 50-325-40 2 tab PO Q8H PRN #20 tablet 05/08/15 11/20/15 Unknown Rx [Fioricet] Carvedilol [Coreg] 3.125 mg PO BID #60 tablet 05/08/15 11/23/15 11/20/15 09:30 Rx Furosemide [Lasix TAB] 40 mg PO QDAY #30 tablet 05/08/15 11/23/15 11/20/15 09:30 Rx Insulin Glargine [Lantus VIAL] 60 units SQ BID #1 vial 05/08/15 11/23/15 11/20/15 09:30 Rx Insulin Lispro [HumaLOG VIAL] 30 unit SQ TID #1 vial 05/08/15 11/23/15 11/20/15 09:30 Rx Pravastatin [Pravachol] 20 mg PO QHS #30 tablet 05/08/15 11/23/15 11/19/15 20:00 Rx Potassium Chloride [K-Dur] 10 meq PO TID 11/20/15 11/23/15 11/20/15 09:30 History Dicyclomine [Bentyl] 20 mg PO QID PRN #20 tablet 11/22/15 Unknown Rx ALBUTEROL Inhaler (OR & NICU) 2 puff IH QID PRN #1 inhalation 11/24/15 Unknown Rx [ProAir HFA Inhaler] Dicyclomine [Bentyl] 40 mg PO QID #20 tablet 04/02/16 Unknown Rx Promethazine [Phenergan TAB] 25 mg PO Q6HR PRN #30 tab 04/02/16 Unknown Rx Ondansetron [Zofran TAB] 4 mg PO Q8HR PRN #15 tablet 04/21/17 Unknown Rx traMADol [Ultram 50 MG tab] 50 mg PO Q6HR PRN #15 tablet 04/21/17 Unknown Rx Cyclobenzaprine [Flexeril] 10 mg PO TID PRN #14 tablet 07/15/17 Unknown Rx Ondansetron [Zofran TAB] 4 mg PO Q6HR PRN #20 tablet 02/11/18 Unknown Rx HYDROcodone/APAP 5-325 [Gilbert 1 each PO Q6HR PRN #12 tablet 03/08/18 Unknown Rx 5/325] Metoclopramide [Reglan] 10 mg PO TID #20 tab 03/08/18 Unknown Rx Sulfamethoxazole/Trimethoprim 1 each PO BID #14 tablet 03/08/18 Unknown Rx [Bactrim Ds Tablet] Acetaminophen/Codeine [Tylenol 1 tab PO Q6H PRN #14 tab 07/18/18 Unknown Rx /Codeine # 3 tab] predniSONE [Deltasone] 50 mg PO QDAY 3 Days #3 tab 07/18/18 Unknown Rx ED Physical Exam - General Limitations: No Limitations General appearance: alert - Head Head exam: Present: atraumatic - Eye Eye exam: Present: normal appearance - ENT ENT exam: Present: normal exam - Neck Neck exam: Present: normal inspection - Respiratory Respiratory exam: Present: normal lung sounds bilaterally - Cardiovascular Cardiovascular Exam: Present: regular rate - GI/Abdominal GI/Abdominal exam: Present: soft - Rectal Rectal exam: Present: deferred - Expanded Lower Extremity Exam Right Lower Leg exam: Present: normal inspection Ankle exam: Present: normal inspection Foot/Toe exam: Present: swelling (OVER 2 TOE), ecchymosis Neuro vascular tendon exam: Present: no vascular compromise. Absent: abnormal cap refill Gait: Positive: observed and normal 1 - BRUISING 2 - SWELLING AND BRUISING ED Course Vital Signs 08/09/18 11:51 Temperature 98.8 F Pulse Rate 75 Respiratory 18 Rate Blood Pressure 158/73 O2 Sat by Pulse 100 Oximetry ED Lower Extremity MDM - Radiology Data Radiology results: report reviewed, image reviewed - Medical Decision Making FX 2ND TOE KENIA TAPE ORTHO SHOE MEDICATED FOR PAIN - Differential Diagnosis RO FX Critical care attestation.: If time is entered above; I have spent that time in minutes in the direct care of this critically ill patient, excluding procedure time. ED Disposition Clinical Impression: Toe fracture, Contusion Disposition: - TO HOME OR SELFCARE Is pt being admited?: No Does the pt Need Aspirin: No Condition: Stable Instructions: Toe Fracture (ED) Additional Instructions: ICE REST KEEP TAPED X 1 WEEK ORTHO SHOE FOR 1 WEEK FOLLOW UP WITH ORTHO REFERRAL BELOW OTC MOTRIN OR TYLENOL FOR PAIN IMMOBILIZING WILL HELP PAIN Referrals: DAVID PERKINS MD [Staff Physician] - 3-5 Days Time of Disposition: 13:02
== END 2018-08-09 13:30 | disposition home or self-care (01) ==
LOC: ED 11:44
DX: S92.521A Displaced fracture of middle phalanx of right lesser toe(s), initial encounter for closed fracture (principal); I10 Essential (primary) hypertension; G43.909 Migraine, unspecified, not intractable, without status migrainosus; E11.40 Type 2 diabetes mellitus with diabetic neuropathy, unspecified; E78.00 Pure hypercholesterolemia, unspecified; Z79.4 Long term (current) use of insulin; Z90.49 Acquired absence of other specified parts of digestive tract; Z88.6 Allergy status to analgesic agent; Z88.8 Allergy status to other drugs, medicaments and biological substances; X58.XXXA Exposure to other specified factors, initial encounter; Y93.89 Activity, other specified; Y92.89 Other specified places as the place of occurrence of the external cause; Y99.8 Other external cause status
CPT/HCPCS: 99283

== ENCOUNTER 2019-02-04 12:28 | Emergency (ER) | payer MEDICAID ==
[2019-02-04 12:41] VITALS: BP 168/94
--- NOTE | 2019-02-04 12:43 | Event Note ---
ED Screening Note Date of service: 02/04/19 Time: 12:39 ED Screening Note: This is a 43 y.o. F. that presents to the ER with left neck, shoulder, and left wrist pain s/p work injury. A large drum fell on the left side of her body. Patient states the drum fell onto left side of her head and neck. Denies LOC Reports dizziness Seen at [facility] but told to follow up in ER. This initial assessment/diagnostic orders/clinical plan/treatment(s) is/are subject to change based on patients health status, clinical progression and re- assessment by fellow clinical providers in the ED. Further treatment and workup at subsequent clinical providers discretion. Patient/guardian urged not to elope from the ED as their condition may be serious if not clinically assessed and managed. Initial orders include: CT of head, XR left shoulder, and C-spine
--- NOTE | 2019-02-04 13:27 | XRay Report ---
Cervical spine-4 views INDICATION: MAIN: neck pain PATIENT STATES THAT SHE HAD A 300 LB DRUM FALL ON HER AT WORK.. COMPARISON: None. IMPRESSION: Normal alignment. No significant discogenic DJD or facet arthropathy. No acute osseous or soft tissue abnormality. Signer Name: Romeo Johnson MD Signed: 02/04/2019 1:23 PM Workstation Name: [id number]
--- NOTE | 2019-02-04 13:27 | XRay Report ---
LEFT SHOULDER 3 VIEWS INDICATION / CLINICAL INFORMATION: Injury at work with left shoulder/AC joint pain. COMPARISON: None available. FINDINGS: BONES / JOINT(S): The joint spaces are well-maintained. There is no evidence of fracture or dislocati on. SOFT TISSUES: No significant abnormality. ADDITIONAL FINDINGS: The visualized portion of the left lung is clear. IMPRESSION: No acute abnormality. Signer Name: Drew Mullen MD Signed: 02/04/2019 1:23 PM Workstation Name: [id number]
--- NOTE | 2019-02-04 14:26 | XRay Report ---
THORACIC SPINE 2 VIEWS INDICATION / CLINICAL INFORMATION: Injury at work with back pain. COMPARISON: None available. FINDINGS: BONES / JOINT(S): The vertebral body heights and disc spaces are well-maintained. The pedicles are in tact. There is no evidence of fracture or subluxation. SOFT TISSUES: No significant abnormality. ADDITIONAL FINDINGS: None. IMPRESSION: No acute abnormality. Signer Name: Drew Mullen MD Signed: 02/04/2019 2:21 PM Workstation Name: [id number]
--- NOTE | 2019-02-04 14:27 | XRay Report ---
LUMBOSACRAL SPINE 3 VIEWS INDICATION / CLINICAL INFORMATION: Injury at work with low back pain. COMPARISON: None available. FINDINGS: BONES / JOINT(S): There is mild degenerative disc disease at L4-5. The pedicles are intact and the SI joints are normal. There is no evidence of fracture or subluxation. SOFT TISSUES: No significant abnormality. ADDITIONAL FINDINGS: None. IMPRESSION: No acute abnormality. Signer Name: Drew Mullen MD Signed: 02/04/2019 2:22 PM Workstation Name: [id number]
[2019-02-04] MEDS ORDERED: TYLENOL PO ONE (14:28)
--- NOTE | 2019-02-04 14:36 | Emergency Department Report ---
Head Injury w/o Laceration - HPI Chief Complaint: Head Injury Stated Complaint: W/C DRUM FELL ON HER Time Seen by Provider: 02/04/19 12:39 Occurred When: Today Mechanism: Direct Blow Severity: severe Head Inj w/o Lac: Yes Nausea, Yes Blurred Vision, Yes Headache, No Loss of Consciousness, No Altered Mental Status, No Focal Deficit, No Swelling, No Bruising, No Break in Skin, No Bleeding Other History: 43-year-old [place] female presents to the emergency room stating 300 pound drum fell on her head at work at 7:30 AM. Patient reports that he hit her head and sat there for about 2-3 minutes. Patient denies any loss of consciousness but reports that she was dizzy and feels like the room is spinning-like sensitivity and nausea. Patient has a past medical history of diabetes and hypertension she does take her medications but she has not taken anything for pain. Patient reports she was seen at [facility] and evaluated and sent to the emergency room for further evaluation. Also complaining of back pain neck pain and shoulder pain. ED General PMH - Social History Smoking Status: Never Smoker Head Injury W/O Lac Exam - Exam General: Vital signs noted. No distress. Alert and acting appropriately. Head: Yes Pupils are PERRL, No Hemotympanum, No Hematoma/Ecchymosis, No Epistaxis, No Stepoff/Deformity, No Laceration, No Abrasion Chest, Abd, & Ext: Yes Clear Lung Sounds, Yes Regular Heart Rhythm, No Neck Pain, No Chest Injury/Pain, No Heart Murmur, No Abdominal Tenderness, No Back Tenderness, No Extremity Injury Neuroligical (Head Inj W/O Lac: Yes Normal Speech, Yes Normal Gait, No Lethargy, No Disorientation, No Focal Numbness, No Focal Weakness ED Disposition Clinical Impression: Minor head injury without loss of consciousness Qualifiers: Encounter type: initial encounter Qualified Code(s): S09.90XA - Unspecified injury of head, initial encounter Back pain Qualifiers: Back pain location: thoracic back pain Chronicity: acute Back pain laterality: midline Qualified Code(s): M54.6 - Pain in thoracic spine Cervical strain, acute Qualifiers: Encounter type: initial encounter Qualified Code(s): S16.1XXA - Strain of muscle, fascia and tendon at neck level, initial encounter Disposition: DC-01 TO HOME OR SELFCARE Is pt being admited?: No Does the pt Need Aspirin: No Condition: Stable Additional Instructions: All x-rays were negative for any acute fractures or abnormalities. Take pain medication and muscle relaxant as prescribed. Please rest follow-up with [facility] or your primary care provider if symptoms persist or gets worse. Prescriptions: Baclofen [Lioresal] 10 mg PO TID #15 tab traMADol [Ultram 50 MG tab] 50 mg PO Q6HR PRN #12 tablet PRN Reason: Pain Referrals: [facility] MD KALEB [Primary Care Provider] - 3-5 Days Forms: Work/School Release Form(ED) ED Medical Decision Making - Radiology Data Radiology results: report reviewed Patient: LUDA FLORES MR#: [id number] : 1975 Acct:[id number] Age/Sex: 43 / F ADM Date: 02/04/19 Loc: ED Attending Dr: Ordering Physician: AMRIK KO Date of Service: 02/04/19 Procedure(s): XR spine thoracic 2V Accession Number(s): [id number] cc: AMRIK KO Fluoro Time In Minutes: THORACIC SPINE 2 VIEWS INDICATION / CLINICAL INFORMATION: Injury at work with back pain. COMPARISON: None available. FINDINGS: BONES / JOINT(S): The vertebral body heights and disc spaces are well- maintained. The pedicles are intact. There is no evidence of fracture or subluxation. SOFT TISSUES: No significant abnormality. ADDITIONAL FINDINGS: None. IMPRESSION: No acute abnormality. Signer Name: Drew Mullen MD Signed: 02/04/2019 2:21 PM Workstation Name: [id number] Transcribed By: RT Dictated By: Drew Mullen MD Electronically Authenticated By: Drew Mullen MD Signed Date/Time: 02/04/19 1421 DD/ 1420 TD/TT: Patient: LUDA FLORES MR#: [id number] : 1975 Acct:[id number] Age/Sex: 43 / F ADM Date: 02/04/19 Loc: ED Attending Dr: Ordering Physician: AMRIK KO Date of Service: 02/04/19 Procedure(s): XR spine lumbosacral 2-3V Accession Number(s): [id number] cc: AMRIK KO Fluoro Time In Minutes: LUMBOSACRAL SPINE 3 VIEWS INDICATION / CLINICAL INFORMATION: Injury at work with low back pain. COMPARISON: None available. FINDINGS: BONES / JOINT(S): There is mild degenerative disc disease at L4-5. The pedicles are intact and the SI joints are normal. There is no evidence of fracture or subluxation. SOFT TISSUES: No significant abnormality. ADDITIONAL FINDINGS: None. IMPRESSION: No acute abnormality. Signer Name: Drew Mullen MD Signed: 02/04/2019 2:22 PM Workstation Name: [id number] Transcribed By: RT Dictated By: Drew Mullen MD Electronically Authenticated By: Drew Mullen MD Signed Date/Time: 02/04/19 1422 DD/ 1421 TD/TT: Patient: LUDA FLORES MR#: [id number] : 1975 Acct:[id number] Age/Sex: 43 / F ADM Date: 02/04/19 Loc: ED Attending Dr: Ordering Physician: NICKY VASQUEZ Date of Service: 02/04/19 Procedure(s): XR shoulder 2+V LT Accession Number(s): [id number] cc: NICKY VASQUEZ Fluoro Time In Minutes: LEFT SHOULDER 3 VIEWS INDICATION / CLINICAL INFORMATION: Injury at work with left shoulder/AC joint pain. COMPARISON: None available. FINDINGS: BONES / JOINT(S): The joint spaces are well-maintained. There is no evidence of fracture or dislocation. SOFT TISSUES: No significant abnormality. ADDITIONAL FINDINGS: The visualized portion of the left lung is clear. IMPRESSION: No acute abnormality. Signer Name: Drew Mullen MD Signed: 02/04/2019 1:23 PM Workstation Name: [id number] Transcribed By: RT Dictated By: Drew Mullen MD Electronically Authenticated By: Drew Mullen MD Signed Date/Time: 02/04/19 1323 DD/ 1322 TD/TT: Patient: LUDA FLORES MR#: [id number] : 1975 Acct:[id number] Age/Sex: 43 / F ADM Date: 02/04/19 Loc: ED Attending Dr: Ordering Physician: NICKY VASQUEZ Date of Service: 02/04/19 Procedure(s): CT head/brain wo con Accession Number(s): [id number] cc: NICKY VASQUEZ CT HEAD WITHOUT CONTRAST INDICATION / CLINICAL INFORMATION: head injury, dizziness. TECHNIQUE: All CT scans at this location are performed using CT dose reduction for ALARA by means of automated exposure control. COMPARISON: Head CT 05/07/2015 FINDINGS: HEMORRHAGE: No evidence of intracranial hemorrhage or extra-axial fluid collection. EXTRA-AXIAL SPACES: Cortical sulci, sylvian fissures and basilar cisterns have an unremarkable appearance. VENTRICULAR SYSTEM: The ventricular system is of normal size and configuration. CEREBRAL PARENCHYMA: No areas of abnormal brain parenchymal attenuation are identified. There is no indication of recent infarction. MIDLINE SHIFT OR HERNIATION: There is no mass effect. CEREBELLUM / BRAINSTEM: Brainstem and cerebellum have an unremarkable appearance. INTRACRANIAL VESSELS:No ossified atherosclerotic plaque is seen along the course of the cavernous segment of the left internal carotid artery. A similar finding is seen at the distal left vertebral artery. These findings reflect the presence of premature intercranial atheroscle rotic disease. ORBITS: No abnormality.. SOFT TISSUES of HEAD: No significant abnormality. CALVARIUM: Evaluation of bone windows reveals no abnormalities. PARANASAL SINUSES / MASTOID AIR CELLS: Paranasal sinuses are free from inflammatory mucosal disease. Mastoid air cells are normally pneumatized. IMPRESSION: 1. No acute intracranial abnormality. No significant interval change. Signer Name: Mars Ceballos MD Signed: 02/04/2019 2:42 PM Workstation Name: [id number] Transcribed By: Dictated By: Mars Ceballos MD Electronically Authenticated By: Mars Ceballos MD Signed Date/Time: 02/04/19 1442 DD/ 1438 TD/TT: - Medical Decision Making 43-year-old male comes in for being hit in the head with a 300 pound drum. All x-rays are within normal limits. Patient was given Tylenol for pain management. Patient be discharged home with ibuprofen for pain and baclofen for muscle spasms. Patient will be taken out of work for a few days to rest. Patient is to follow-up with her primary care provider or [facility]. 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
--- NOTE | 2019-02-04 14:46 | Cat Scan Report ---
CT HEAD WITHOUT CONTRAST INDICATION / CLINICAL INFORMATION: head injury, dizziness. TECHNIQUE: All CT scans at this location are performed using CT dose reduction for ALARA by means of automated e xposure control. COMPARISON: Head CT 05/07/2015 FINDINGS: HEMORRHAGE: No evidence of intracranial hemorrhage or extra-axial fluid collection. EXTRA-AXIAL SPACES: Cortical sulci, sylvian fissures and basilar cisterns have an unremarkable appear ance. VENTRICULAR SYSTEM: The ventricular system is of normal size and configuration. CEREBRAL PARENCHYMA: No areas of abnormal brain parenchymal attenuation are identified. There is no i ndication of recent infarction. MIDLINE SHIFT OR HERNIATION: There is no mass effect. CEREBELLUM / BRAINSTEM: Brainstem and cerebellum have an unremarkable appearance. INTRACRANIAL VESSELS:No ossified atherosclerotic plaque is seen along the course of the cavernous seg ment of the left internal carotid artery. A similar finding is seen at the distal left vertebral monique ry. These findings reflect the presence of premature intercranial atherosclerotic disease. ORBITS: No abnormality.. SOFT TISSUES of HEAD: No significant abnormality. CALVARIUM: Evaluation of bone windows reveals no abnormalities. PARANASAL SINUSES / MASTOID AIR CELLS: Paranasal sinuses are free from inflammatory mucosal disease. Mastoid air cells are normally pneumatized. IMPRESSION: 1. No acute intracranial abnormality. No significant interval change. Signer Name: Mars Ceballos MD Signed: 02/04/2019 2:42 PM Workstation Name: [email or web address]
== END 2019-02-04 15:20 | disposition home or self-care (01) ==
LOC: ED 12:28
DX: S16.1XXA Strain of muscle, fascia and tendon at neck level, initial encounter (principal); S09.90XA Unspecified injury of head, initial encounter; M54.6 Pain in thoracic spine; W20.8XXA Other cause of strike by thrown, projected or falling object, initial encounter; Y93.89 Activity, other specified; Y92.89 Other specified places as the place of occurrence of the external cause; Y99.8 Other external cause status
CPT/HCPCS: 70450; 72040; 72070; 72100; 99284; Q9967

== ENCOUNTER 2019-07-13 14:05 | Emergency (ER) | payer MEDICAID ==
[2019-07-13 14:26] VITALS: BP 163/76
--- NOTE | 2019-07-13 14:28 | Event Note ---
ED Screening Note Date of service: 07/13/19 Time: 14:24 ED Screening Note: 43 y/o female comes in for SOB and lower leg edema. History of recent head concussion in January followed by neurologist. History of fever. Cough Tried OTC. This initial assessment/diagnostic orders/clinical plan/treatment(s) is/are subject to change based on patients health status, clinical progression and re- assessment by fellow clinical providers in the ED. Further treatment and workup at subsequent clinical providers discretion. Patient/guardian urged not to elope from the ED as their condition may be serious if not clinically assessed and managed. Initial orders include:
--- NOTE | 2019-07-13 15:14 | XRay Report ---
CHEST PA AND LATERAL VIEWS INDICATION: cough. COMPARISON: None. FINDINGS: Support devices: None. Heart: Within normal limits. Lungs/Pleura: No acute pulmonary or pleural findings. IMPRESSION: 1. No significant abnormality. Signer Name: Jonn Terrazas MD Signed: 07/13/2019 3:10 PM Workstation Name: [email or web address] in My [id number]
--- NOTE | 2019-07-13 16:18 | Emergency Department Report ---
Minor Respiratory - HPI Chief Complaint: Dyspnea/Respdistress Stated Complaint: COUGHING/ DIFFICULTY BREATHING Time Seen by Provider: 07/13/19 14:24 Duration: 2 weeks Pain Location: Chest Severity: mild Minor Respiratory: Yes Cough, Yes Sick Contacts, Yes Shortness of Breath, No Rhinorrhea, No Sore Throat, No Able to Tolerate Fluids, No Ear Pain, No Hemoptysis, No Chest Pain, No Fever Other History: This is a 43-year-old female who presents to ED complaining of coughing for the past 2 weeks. Patient also states that she's been having short ness of breath for the past week. Patient states she has a history of asthma and is out of her medication ED Review of Systems ROS: Stated complaint: COUGHING/ DIFFICULTY BREATHING Other details as noted in HPI Comment: All other systems reviewed and negative ED Past Medical Hx - Past Medical History Hx Hypertension: Yes Hx Diabetes: Yes Hx Headaches / Migraines: Yes Hx Psychiatric Treatment: Yes (Anxiety) Hx Asthma: Yes Additional medical history: gastroparesis, DKA, neuropathy, peptic ulcer disease, high cholesterol - Surgical History Hx Cholecystectomy: Yes Additional Surgical History: - Social History Smoking Status: Never Smoker Substance Use Type: None - Medications Home Medications: Home Medications Medication Instructions Recorded Confirmed Last Taken Type Butalb/Acetamin/Caff 50-325-40 2 tab PO Q8H PRN #20 tablet 05/08/15 11/20/15 Unknown Rx [Fioricet 50-325-40] Furosemide [Lasix TAB] 40 mg PO QDAY #30 tablet 05/08/15 11/23/15 11/20/15 09:30 Rx Insulin Glargine [Lantus VIAL] 60 units SQ BID #1 vial 05/08/15 11/23/15 11/20/15 09:30 Rx Insulin Lispro [HumaLOG VIAL] 30 unit SQ TID #1 vial 05/08/15 11/23/15 11/20/15 09:30 Rx Pravastatin [Pravachol] 20 mg PO QHS #30 tablet 05/08/15 11/23/15 11/19/15 20:00 Rx carvediloL [Coreg] 3.125 mg PO BID #60 tablet 05/08/15 11/23/15 11/20/15 09:30 Rx Dicyclomine [Bentyl] 20 mg PO QID PRN #20 tablet 11/22/15 Unknown Rx Baclofen [Lioresal] 10 mg PO TID #15 tab 02/04/19 Unknown Rx traMADoL [Ultram 50 MG tab] 50 mg PO Q6HR PRN #12 tablet 02/04/19 Unknown Rx ALBUTEROL Inhaler (OR & NICU) 2 puff IH QID PRN #1 inhalation 07/13/19 Unknown Rx [ProAir HFA Inhaler] Benzonatate [Tessalon Perles] 100 mg PO Q8HR #30 capsule 07/13/19 Unknown Rx Cyclobenzaprine [Flexeril 10 MG 10 mg PO QHS PRN #14 tablet 07/13/19 Unknown Rx TAB] Minor Respiratory Exam - Exam General: Vital signs noted. No distress. Alert and acting appropriately. HEENT: Yes Moist Mucous Membranes, No Pharyngeal Erythema, No Pharyngeal Exudates, No Rhinorrhea, No Conjuctival Injection, No Frontal Tenderness, No Maxillary Tenderness Ear: Neither TM Bulge, Neither TM Erythema, Neither EAC Pain, Neither EAC Discharge Neck: Yes Supple, No Adenopathy Lungs: Yes Good Air Exchange, No Wheezes, No Ronchi, No Stridor, No Cough, No Labored Respirations, No Retractions, No Use of Accessory Muscles, No Other Abnormal Lung Sounds Heart: Yes Regular, No Murmur Abdomen: Yes Normal Bowel Sounds, No Tenderness, No Peritoneal Signs Skin: No Rash, No Edema Neurologic: Alert and oriented, no deficits. Musculoskeletal: Unremarkable. ED Course Vital Signs 07/13/19 14:25 Temperature 98.0 F Pulse Rate 94 H Respiratory 16 Rate Blood Pressure 163/76 O2 Sat by Pulse 100 Oximetry ED Medical Decision Making - Radiology Data Radiology results: report reviewed, image reviewed CHEST PA AND LATERAL VIEWS INDICATION: cough. COMPARISON: None. FINDINGS: Support devices: None. Heart: Within normal limits. Lungs/Pleura: No acute pulmonary or pleural findings. IMPRESSION: 1. No significant abnormality. Signer Name: Jonn Terrazas MD Signed: 07/13/2019 3:10 PM Workstation Name: [id number] Transcribed By: ANGEL Dictated By: Jonn Terrazas MD Electronically Authenticated By: Jonn Terrazas MD Signed Date/Time: 07/13/19 1510 - Medical Decision Making 43-year-old female with asthma presents with upper respiratory infection bronchitis ED course: Patient received prednisone, cough suppressant in the ED. Chest x-ray ordered, chest x-ray shows no acute findings. Patient had no respiratory distress in the ED. Post evaluation: No wheezing heard, no use of accessory muscles, I discussed with the patient to follow up with her primary care physician. I discussed with the patient will be going home on with albuterol inhaler as well as nebulizer Vital signs are normalized, patient is saturation at 99% on room air. I discussed with the patient is symptoms worsen to return to ED immediately. Critical care attestation.: If time is entered above; I have spent that time in minutes in the direct care of this critically ill patient, excluding procedure time. ED Disposition Clinical Impression: Upper respiratory infection, Asthma Disposition: - TO HOME OR SELFCARE Is pt being admited?: No Does the pt Need Aspirin: No Condition: Stable Instructions: Asthma (ED), Upper Respiratory Infection (ED) Additional Instructions: Make sure to follow up with the primary care physician as discussed. Take all your medications as you've been prescribed. If you have any worsening symptoms or develop new symptoms please return to ED immediately. Prescriptions: Cyclobenzaprine [Flexeril 10 MG TAB] 10 mg PO QHS PRN #14 tablet PRN Reason: Muscle Spasm ALBUTEROL Inhaler (OR & NICU) [ProAir HFA Inhaler] 2 puff IH QID PRN #1 inhalation PRN Reason: Shortness Of Breath Benzonatate [Tessalon Perles] 100 mg PO Q8HR #30 capsule Referrals: PRIMARY CARE, [Primary Care Provider] - 3-5 Days [facility] [Outside] - 3-5 Days [facility] [Outside] - 3-[address] [facility] [Provider Group] - 3-5 Days [facility] [Provider Group] - 3-5 Days Forms: Work/School Release Form(ED) Time of Disposition: 16:25
[2019-07-13] MEDS ORDERED: predniSONE 20 MG TAB PO ONE (16:22)
== END 2019-07-13 17:01 | disposition home or self-care (01) ==
LOC: ED 14:05
DX: J45.909 Unspecified asthma, uncomplicated (principal); J06.9 Acute upper respiratory infection, unspecified; I10 Essential (primary) hypertension; E11.9 Type 2 diabetes mellitus without complications; G43.909 Migraine, unspecified, not intractable, without status migrainosus; F41.9 Anxiety disorder, unspecified; E78.00 Pure hypercholesterolemia, unspecified; Z79.899 Other long term (current) drug therapy; Z88.8 Allergy status to other drugs, medicaments and biological substances; Z88.6 Allergy status to analgesic agent; Z79.4 Long term (current) use of insulin
CPT/HCPCS: 71046; 99283; J7512

== ENCOUNTER 2019-09-01 13:39 | Inpatient (IN) | payer MEDICAID ==
--- NOTE | 2019-09-01 14:18 | Cat Scan Report ---
CT HEAD WITHOUT CONTRAST INDICATION : MAIN: CODE STROKE CALL [phone] LEFT SIDE WEAKNESS LAST KNOWN WELL TIME 1300. TECHNIQUE: Axial imaging performed from the skull apex through the skull base without IV contrast. All CT scans at this location are performed using CT dose reduction for ALARA by means of automated e xposure control. COMPARISON: 02/04/[address] FINDINGS: Noncontrast head CT demonstrates normal ventricles and sulci. Slight periventricular hypod ensities. No acute or recent infarct, hemorrhage, mass effect or midline shift. No abnormal extra-ax ial fluid collections. Grossly normal posterior fossa with preserved basilar cisterns. Normal imaged eye globes. Rightward nasal septal deviation. Hypoplastic/aplastic bilateral frontal sinuses. Clear remainder aerated paranasal sinuses and mastoid air cells. Intact calvarium. Normal s calp. Few radiopaque dental material and missing teeth noted. IMPRESSION: No acute intracranial CT abnormality, as described. Please note that MRI is more sensitive in detecting subtle acute ischemia. I phoned the above results to Dr. Aguayo in the ER, 1:10 PM EST, 09/01/2019. Signer Name: Amor Lehman Signed: 09/01/2019 2:14 PM Workstation Name: [id number]
--- NOTE | 2019-09-01 14:20 | Emergency Department Report ---
ED Neuro Deficit HPI - General Chief Complaint: Neuro Symptoms/Deficit Stated Complaint: POSS CVA Source: EMS Mode of arrival: Ambulatory Limitations: No Limitations - History of Present Illness Initial Comments: [facility] Date of Service: 09/01/2019 13:44:51 Impression: RO Acute Ischemic Stroke Left Hemispheric Infarct Comments: the patient has a normal blood pressure are reassuring CT of the head per preliminary review. Certainly cannot exclude stroke syndrome versus migrainous phenomenon given the nausea vomiting and headache that she's had for several days. Likely the nausea and vomiting are more related to her gastroparesis however. She hasn't really felt well for several days although it sounds like the more focal symptoms develop today. Her NIH is a 1 for which she feels like a hypersensitivity in the right face and arm and leg with a tingling not really a sensory deficit per se. For this reason her NIH is a one not really a tpa candidate. While she c/o speech issues when asked questions she spoke appropriately gave accurate hx/did not make errors and speech was clear and oriented. Metrics: Last Known Well: 09/01/2019 13:00:00 [facility] Notification Time: 09/01/2019 13:44:51 Arrival Time: 09/01/2019 13:39:00 Stamp Time: 09/01/2019 13:44:51 Time First Login Attempt: 09/01/2019 13:52:08 Video Start Time: 09/01/2019 13:52:08 Symptoms: right arm, numbness NIHSS Start Assessment Time: 09/01/2019 13:53:48 Patient is not a candidate for tPA. Patient was not deemed candidate for tPA thrombolytics because of Resolved symptoms. Video End Time: 09/01/2019 14:07:20 CT head showed no acute hemorrhage or acute core infarct. Presentation is not suggestive of Large Vessel Occlusive disease. Advanced imaging was not obtained as the presentation was not suggestive of Large Vessel Occlusive Disease. ED Physician notified of diagnostic impression and management plan on 09/01/2019 14:07:28 Our recommendations are outlined below. Recommendations: Activate Stroke Protocol Admission/Order Set Stroke/Telemetry Floor Neuro Checks Bedside Swallow Eval DVT Prophylaxis IV Fluids, Normal Saline Head of Bed Below 30 Degrees Euglycemia and Avoid Hyperthermia (PRN Acetaminophen) Initiate Aspirin 325 MG Daily Recommended Scan: MRI Head MRA Head Without Contrast Carotid Dopplers Echocardiogram - Transthoracic Echocardiogram Lipid Panel to Be Obtained, if Not Done in the Last Three Months Therapies: Physical Therapy, Occupational Therapy, Speech Therapy Assessment When Applicable Dysphaghia Screen: Swallow Evaluation, Bedside NPO Until Swallow Evaluation DVT prophylaxis: Choice of Primary Team Disposition: Follow up with Teleneurology Follow up Sign Out: Discussed with Emergency Department Provider History of Present Illness: Patient is a 43 year old Female. Patient was brought by EMS for symptoms of right arm, numbness She says her right arm is weak and heavy since 1pm. Shes had n/v for mx days, shes had a HATFIELD for several days also. Has DM with gastroparesis, HTN, also HLD. Her arm has improved it seems. she endorsed some trouble getting her words out as well and initially CT head showed no acute hemorrhage or acute core infarct. Examination: Pulse(142/67), Blood Glucose(350) 1A: Level of Consciousness - Alert; keenly responsive + 0 1B: Ask Month and Age - Both Questions Right + 0 1C: Blink Eyes & Squeeze Hands - Performs Both Tasks + 0 2: Test Horizontal Extraocular Movements - Normal + 0 3: Test Visual Byrd - No Visual Loss + 0 4: Test Facial Palsy (Use Grimace if Obtunded) - Normal symmetry + 0 5A: Test Left Arm Motor Drift - No Drift for 10 Seconds + 0 5B: Test Right Arm Motor Drift - No Drift for 10 Seconds + 0 6A: Test Left Leg Motor Drift - No Drift for 5 Seconds + 0 6B: Test Right Leg Motor Drift - No Drift for 5 Seconds + 0 7: Test Limb Ataxia (FNF/Heel-Berg) - No Ataxia + 0 8: Test Sensation - Mild-Moderate Loss: Less Sharp/More Dull + 1 9: Test Language/Aphasia - Normal; No aphasia + 0 10: Test Dysarthria - Normal + 0 11: Test Extinction/Inattention - No abnormality + 0 NIHSS Score: 1 Patient was informed the Neurology Consult would happen via TeleHealth consult by way of interactive audio and video telecommunications and consented to receiving care in this manner. Due to the immediate potential for life-threatening deterioration due to underlying acute neurologic illness, I spent 35 minutes providing critical care. This time includes time for face to face visit via telemedicine, review of medical records, imaging studies and discussion of findings with providers, the patient and/or family. Dr Bouchra Patricio [facility] Case [id number] - Related Data Home Medications: Previous Rx's Medication Instructions Recorded Last Taken Type Butalb/Acetamin/Caff 50-325-40 2 tab PO Q8H PRN #20 tablet 05/08/15 Unknown Rx [Fioricet 50-325-40] Furosemide [Lasix TAB] 40 mg PO QDAY #30 tablet 05/08/15 11/20/15 09:30 Rx Insulin Glargine [Lantus VIAL] 60 units SQ BID #1 vial 05/08/15 11/20/15 09:30 Rx Insulin Lispro [HumaLOG VIAL] 30 unit SQ TID #1 vial 05/08/15 11/20/15 09:30 Rx Pravastatin [Pravachol] 20 mg PO QHS #30 tablet 05/08/15 11/19/15 20:00 Rx carvediloL [Coreg] 3.125 mg PO BID #60 tablet 05/08/15 11/20/15 09:30 Rx Dicyclomine [Bentyl] 20 mg PO QID PRN #20 tablet 11/22/15 Unknown Rx Baclofen [Lioresal] 10 mg PO TID #15 tab 02/04/19 Unknown Rx traMADoL [Ultram 50 MG tab] 50 mg PO Q6HR PRN #12 tablet 02/04/19 Unknown Rx Albuterol INH(or & Nicu Only) 2 puff IH QID PRN #1 inhalation 07/13/19 Unknown Rx [ProAir HFA Inhaler] Benzonatate [Tessalon Perles] 100 mg PO Q8HR #30 capsule 07/13/19 Unknown Rx Cyclobenzaprine [Flexeril 10 MG 10 mg PO QHS PRN #14 tablet 07/13/19 Unknown Rx TAB] Allergies/Adverse Reactions: Allergies Allergy/AdvReac Type Severity Reaction Status Date / Time lisinopril Allergy Itching Verified 07/13/19 14:10 Penicillins Allergy Unknown Verified 07/13/19 14:10 ibuprofen [From Motrin] AdvReac Bleeding Verified 07/13/19 14:10 ED Review of Systems ROS: Stated complaint: POSS CVA Other details as noted in HPI ED Past Medical Hx - Past Medical History Previous Medical History?: Yes Hx Hypertension: Yes Hx Diabetes: Yes Hx Headaches / Migraines: Yes Hx Psychiatric Treatment: Yes (Anxiety) Hx Asthma: Yes Additional medical history: gastroparesis, DKA, neuropathy, peptic ulcer disease, high cholesterol - Surgical History Past Surgical History?: Yes Hx Cholecystectomy: Yes Additional Surgical History: - Social History Smoking Status: Never Smoker Substance Use Type: None - Medications Home Medications: Home Medications Medication Instructions Recorded Confirmed Last Taken Type Butalb/Acetamin/Caff 50-325-40 2 tab PO Q8H PRN #20 tablet 05/08/15 11/20/15 Unknown Rx [Fioricet 50-325-40] Furosemide [Lasix TAB] 40 mg PO QDAY #30 tablet 05/08/15 11/23/15 11/20/15 09:30 Rx Insulin Glargine [Lantus VIAL] 60 units SQ BID #1 vial 05/08/15 11/23/15 11/20/15 09:30 Rx Insulin Lispro [HumaLOG VIAL] 30 unit SQ TID #1 vial 05/08/15 11/23/15 11/20/15 09:30 Rx Pravastatin [Pravachol] 20 mg PO QHS #30 tablet 05/08/15 11/23/15 11/19/15 20:00 Rx carvediloL [Coreg] 3.125 mg PO BID #60 tablet 05/08/15 11/23/15 11/20/15 09:30 Rx Dicyclomine [Bentyl] 20 mg PO QID PRN #20 tablet 11/22/15 Unknown Rx Baclofen [Lioresal] 10 mg PO TID #15 tab 02/04/19 Unknown Rx traMADoL [Ultram 50 MG tab] 50 mg PO Q6HR PRN #12 tablet 02/04/19 Unknown Rx Albuterol INH(or & Nicu Only) 2 puff IH QID PRN #1 inhalation 07/13/19 Unknown Rx [ProAir HFA Inhaler] Benzonatate [Tessalon Perles] 100 mg PO Q8HR #30 capsule 07/13/19 Unknown Rx Cyclobenzaprine [Flexeril 10 MG 10 mg PO QHS PRN #14 tablet 07/13/19 Unknown Rx TAB] ED Neuro Physical Exam - General Limitations: No Limitations Suspected Stroke: Yes - NIHSS Assessment Interval: Baseline 1a. Level of Consciousness: alert/keenly responsive 1b. LOC Questions: answers both correctly 1c. LOC Commands: performs tasks correctly 2. Best Gaze: normal 3. Visual: no visual loss 4. Facial Palsy: normal symmetrical movement 5b. Motor Arm Right: no drift 5a. Motor Arm Left: no drift 6a. Motor Leg Left: no drift 6b. Motor Leg Right: no drift 7. Limb Ataxia: absent 8. Sensory: mild/moderate sensory loss 9. Best Language: no aphasia 10. Dysarthria: normal 11. Extinction/Inattention: no abnormality Total Score: 1 Stroke Severity: Minor Stroke ED Course Vital Signs 09/01/19 14:09 Temperature 98.3 F Pulse Rate 89 Respiratory 12 Rate Blood Pressure 142/67 Blood Pressure 142/67 [Right] O2 Sat by Pulse 98 Oximetry Critical care attestation.: If time is entered above; I have spent that time in minutes in the direct care of this critically ill patient, excluding procedure time. ED Disposition Clinical Impression: Stroke Qualifiers: CVA mechanism: unspecified Qualified Code(s): I63.9 - Cerebral infarction, unspecified Disposition: OP ADMIT IP TO THIS HOSP Is pt being admited?: Yes Condition: Stable
[2019-09-01 14:23] LABS: Basophils # (Auto) 0.1 K/mm3 (0.0-0.1); Basophils % (Auto) 0.7 % (0.0-1.8); Eosinophils % (Auto) 0.2 % (0.0-4.3); Hemoglobin 7.7 gm/dl (10.1-14.3); Lymphocytes # (Auto) 1.4 K/mm3 (1.2-5.4); Lymphocytes % (Auto) 12.8 % (13.4-35.0); Mean Corpuscular HGB Conc 34 % (30-34); Mean Corpuscular Volume 69 fl (79-97); Monocytes # (Auto) 0.7 K/mm3 (0.0-0.8); Platelet Count 274 K/mm3 (140-440); Red Blood Count 3.32 M/mm3 (3.65-5.03); Red Cell Distribution Width 15.8 % (13.2-15.2)
--- NOTE | 2019-09-01 14:30 | Emergency Department Report ---
ED Neuro Deficit HPI - General Chief Complaint: Neuro Symptoms/Deficit Stated Complaint: POSS CVA Time Seen by Provider: 09/01/19 14:02 Source: EMS Mode of arrival: Ambulatory Limitations: No Limitations - History of Present Illness Initial Comments: Patient is a 43-year-old female that presented some marginal complaints of facial and Oddi tingling. Patient states her symptoms started at 1 PM. Patient states she also had some dizziness just prior. Patient states she had some chest pain as well. Patient states HER symptoms started at 1 PM. Patient states that her symptoms are constant. Patient states that her chest pain has resolved. Patient states her chest pain was a 3 out of 10. Patient states she only has chest pain when she palpates her chest. Patient states that the tingling is bilateral face and bilateral extremities. -: Sudden Location: left face, right face, left arm, right arm, left leg, right leg History of same: No Place: home Severity: severe Quality: constant Improves With: time, rest Worsens With: none On Anticoagulants: No Context: sudden onset Associated Symptoms: weakness. denies: confusion, chest pain, cough, diaphoresis, fever/chills, headaches, loss of appetite, malise, nausea/vomiting, vertigo, seizures, shortness of breath, syncope Treatments Prior to Arrival: none - Related Data Home Medications: Previous Rx's Medication Instructions Recorded Last Taken Type Butalb/Acetamin/Caff 50-325-40 2 tab PO Q8H PRN #20 tablet 05/08/15 Unknown Rx [Fioricet 50-325-40] Furosemide [Lasix TAB] 40 mg PO QDAY #30 tablet 05/08/15 11/20/15 09:30 Rx Insulin Glargine [Lantus VIAL] 60 units SQ BID #1 vial 05/08/15 11/20/15 09:30 Rx Insulin Lispro [HumaLOG VIAL] 30 unit SQ TID #1 vial 05/08/15 11/20/15 09:30 Rx Pravastatin [Pravachol] 20 mg PO QHS #30 tablet 05/08/15 11/19/15 20:00 Rx carvediloL [Coreg] 3.125 mg PO BID #60 tablet 05/08/15 11/20/15 09:30 Rx Dicyclomine [Bentyl] 20 mg PO QID PRN #20 tablet 11/22/15 Unknown Rx Baclofen [Lioresal] 10 mg PO TID #15 tab 02/04/19 Unknown Rx traMADoL [Ultram 50 MG tab] 50 mg PO Q6HR PRN #12 tablet 02/04/19 Unknown Rx Albuterol INH(or & Nicu Only) 2 puff IH QID PRN #1 inhalation 07/13/19 Unknown Rx [ProAir HFA Inhaler] Benzonatate [Tessalon Perles] 100 mg PO Q8HR #30 capsule 07/13/19 Unknown Rx Cyclobenzaprine [Flexeril 10 MG 10 mg PO QHS PRN #14 tablet 07/13/19 Unknown Rx TAB] Allergies/Adverse Reactions: Allergies Allergy/AdvReac Type Severity Reaction Status Date / Time lisinopril Allergy Itching Verified 07/13/19 14:10 Penicillins Allergy Unknown Verified 07/13/19 14:10 ibuprofen [From Motrin] AdvReac Bleeding Verified 07/13/19 14:10 ED Review of Systems ROS: Stated complaint: POSS CVA Other details as noted in HPI Constitutional: weakness. denies: chills, fever Eyes: denies: eye pain, eye discharge, vision change ENT: denies: ear pain, throat pain Respiratory: denies: cough, shortness of breath, wheezing Cardiovascular: denies: chest pain, palpitations Endocrine: no symptoms reported Gastrointestinal: denies: abdominal pain, nausea, diarrhea Genitourinary: denies: urgency, dysuria, discharge Musculoskeletal: denies: back pain, joint swelling, arthralgia Skin: denies: rash, lesions Neurological: weakness. denies: headache Psychiatric: denies: anxiety, depression Hematological/Lymphatic: denies: easy bleeding, easy bruising ED Past Medical Hx - Past Medical History Previous Medical History?: Yes Hx Hypertension: Yes Hx Diabetes: Yes Hx Headaches / Migraines: Yes Hx Psychiatric Treatment: Yes (Anxiety) Hx Asthma: Yes Additional medical history: gastroparesis, DKA, neuropathy, peptic ulcer disease, high cholesterol - Surgical History Past Surgical History?: Yes Hx Cholecystectomy: Yes Additional Surgical History: - Family History Family history: no significant - Social History Smoking Status: Never Smoker Substance Use Type: None - Medications Home Medications: Home Medications Medication Instructions Recorded Confirmed Last Taken Type Butalb/Acetamin/Caff 50-325-40 2 tab PO Q8H PRN #20 tablet 05/08/15 11/20/15 Unknown Rx [Fioricet 50-325-40] Furosemide [Lasix TAB] 40 mg PO QDAY #30 tablet 05/08/15 11/23/15 11/20/15 09:30 Rx Insulin Glargine [Lantus VIAL] 60 units SQ BID #1 vial 05/08/15 11/23/15 11/20/15 09:30 Rx Insulin Lispro [HumaLOG VIAL] 30 unit SQ TID #1 vial 05/08/15 11/23/15 11/20/15 09:30 Rx Pravastatin [Pravachol] 20 mg PO QHS #30 tablet 05/08/15 11/23/15 11/19/15 20:00 Rx carvediloL [Coreg] 3.125 mg PO BID #60 tablet 05/08/15 11/23/15 11/20/15 09:30 Rx Dicyclomine [Bentyl] 20 mg PO QID PRN #20 tablet 11/22/15 Unknown Rx Baclofen [Lioresal] 10 mg PO TID #15 tab 02/04/19 Unknown Rx traMADoL [Ultram 50 MG tab] 50 mg PO Q6HR PRN #12 tablet 02/04/19 Unknown Rx Albuterol INH(or & Nicu Only) 2 puff IH QID PRN #1 inhalation 07/13/19 Unknown Rx [ProAir HFA Inhaler] Benzonatate [Tessalon Perles] 100 mg PO Q8HR #30 capsule 07/13/19 Unknown Rx Cyclobenzaprine [Flexeril 10 MG 10 mg PO QHS PRN #14 tablet 07/13/19 Unknown Rx TAB] ED Neuro Physical Exam - General Limitations: No Limitations General appearance: alert, in no apparent distress Suspected Stroke: No - Head Head exam: Present: atraumatic, normocephalic - Eye Eye exam: Present: normal appearance, PERRL, EOMI Pupils: Present: normal accommodation - ENT ENT exam: Present: mucous membranes moist - Neck Neck exam: Present: normal inspection - Respiratory Respiratory exam: Present: normal lung sounds bilaterally, chest wall tenderness. Absent: respiratory distress, wheezes - Cardiovascular Cardiovascular Exam: Present: regular rate, normal rhythm. Absent: systolic murmur, diastolic murmur, rubs, gallop - GI/Abdominal GI/Abdominal exam: Present: soft, normal bowel sounds - Extremities Exam Extremities exam: Present: normal inspection - Back Exam Back exam: Present: normal inspection - Neurological Exam Neurological exam: Present: alert, oriented X3 - NIHSS Assessment Interval: Baseline 1a. Level of Consciousness: alert/keenly responsive 1b. LOC Questions: answers both correctly 1c. LOC Commands: performs tasks correctly 2. Best Gaze: normal 3. Visual: no visual loss 4. Facial Palsy: normal symmetrical movement 5b. Motor Arm Right: no drift 5a. Motor Arm Left: no drift 6a. Motor Leg Left: no drift 6b. Motor Leg Right: no drift 7. Limb Ataxia: absent 8. Sensory: normal 9. Best Language: no aphasia 10. Dysarthria: normal 11. Extinction/Inattention: no abnormality Total Score: 0 Stroke Severity: No Stroke Symptoms - Psychiatric Psychiatric exam: Present: normal affect, normal mood - Skin Skin exam: Present: warm, dry, intact, normal color. Absent: rash ED Course Vital Signs 09/01/19 09/01/19 09/01/19 13:56 14:01 14:09 Temperature 98.3 F Pulse Rate 92 H 89 Respiratory 10 L 12 Rate Blood Pressure 121/68 142/67 142/67 Blood Pressure 142/67 [Right] O2 Sat by Pulse 98 Oximetry 09/01/19 09/01/19 09/01/19 14:15 14:26 14:31 Temperature Pulse Rate 91 H 92 H Respiratory 10 L 18 15 Rate Blood Pressure 142/67 121/68 Blood Pressure [Right] O2 Sat by Pulse 98 100 100 Oximetry 09/01/19 09/01/19 09/01/19 14:45 15:01 15:15 Temperature Pulse Rate 90 94 H 97 H Respiratory 10 L 15 12 Rate Blood Pressure 121/68 148/73 148/73 Blood Pressure [Right] O2 Sat by Pulse 99 99 99 Oximetry 09/01/19 09/01/19 09/01/19 15:31 15:45 16:01 Temperature Pulse Rate 92 H 102 H 99 H Respiratory 13 14 10 L Rate Blood Pressure 148/73 148/73 151/73 Blood Pressure [Right] O2 Sat by Pulse 100 100 100 Oximetry 09/01/19 09/01/19 09/01/19 16:15 16:31 16:45 Temperature Pulse Rate 95 H 95 H 95 H Respiratory 17 9 L 19 Rate Blood Pressure 151/73 151/73 151/73 Blood Pressure [Right] O2 Sat by Pulse 100 100 100 Oximetry 09/01/19 09/01/19 09/01/19 17:01 17:18 17:31 Temperature Pulse Rate 91 H 95 H Respiratory 14 14 Rate Blood Pressure 152/78 152/78 Blood Pressure [Right] O2 Sat by Pulse 100 98 99 Oximetry 09/01/19 09/01/19 09/01/19 17:45 18:01 18:15 Temperature Pulse Rate 97 H 96 H 99 H Respiratory 13 14 16 Rate Blood Pressure 152/78 158/70 158/70 Blood Pressure [Right] O2 Sat by Pulse 100 99 99 Oximetry 09/01/19 09/01/19 09/01/19 18:21 18:31 18:41 Temperature Pulse Rate 96 H 104 H 95 H Respiratory 14 14 15 Rate Blood Pressure 158/70 158/70 158/70 Blood Pressure [Right] O2 Sat by Pulse 98 100 97 Oximetry 09/01/19 09/01/19 09/01/19 18:51 19:01 19:11 Temperature Pulse Rate 96 H 98 H 100 H Respiratory 14 18 12 Rate Blood Pressure 158/70 125/59 125/59 Blood Pressure [Right] O2 Sat by Pulse 99 99 96 Oximetry - Reevaluation(s) Reevaluation #1: Discussed all results with patient. I discussed plan of care with patient. I discussed admission with patient. Patient agrees with admission. Patient will be admitted to the hospitalist service. 09/01/19 15:31 - Consultations Consultation #1: Neurology recommendations received. 09/01/19 14:04 Consultation #2: Hospitalist consult for admission. Hospitalist admitted patient. 09/01/19 15:33 - Lab Data Result diagrams: 09/01/19 14:08 09/01/19 14:08 Lab Results 09/01/19 09/01/19 09/01/19 Range/Units 14:08 14:08 14:08 WBC 10.9 (4.5-11.0) K/mm3 RBC 3.32 L (3.65-5.03) M/mm3 Hgb 7.7 L (10.1-14.3) gm/dl Hct 23.0 L (30.3-42.9) % MCV 69 L (79-97) fl MCH 23 L (28-32) pg MCHC 34 (30-34) % RDW 15.8 H (13.2-15.2) % Plt Count 274 (140-440) K/mm3 Lymph % (Auto) 12.8 L (13.4-35.0) % [place] % (Auto) 6.0 (0.0-7.3) % Eos % (Auto) 0.2 (0.0-4.3) % Baso % (Auto) 0.7 (0.0-1.8) % Lymph # 1.4 (1.2-5.4) K/mm3 [place] # 0.7 (0.0-0.8) K/mm3 Eos # 0.0 (0.0-0.4) K/mm3 Baso # 0.1 (0.0-0.1) K/mm3 Seg Neutrophils % 80.3 H (40.0-70.0) % Seg Neutrophils # 8.8 H (1.8-7.7) K/mm3 PT 13.1 (12.2-14.9) Sec. INR 0.98 (0.87-1.13) APTT 24.5 (24.2-36.6) Sec. Thrombin Time 14.7 L (15.1-19.6) Sec. Sodium 137 (137-145) mmol/L Potassium 4.4 (3.6-5.0) mmol/L Chloride 99.9 (98-107) mmol/L Carbon Dioxide 23 (22-30) mmol/L Anion Gap 19 mmol/L BUN 20 H (7-17) mg/dL Creatinine 1.1 (0.7-1.2) mg/dL Estimated GFR > 60 ml/min BUN/Creatinine Ratio 18 % Glucose 352 H (65-100) mg/dL Calcium 8.8 (8.4-10.2) mg/dL Troponin T < 0.010 (0.00-0.029) ng/mL - EKG Data -: EKG Interpreted by Fl EKG shows normal: sinus rhythm, axis, intervals, QRS complexes, ST-T waves Rate: normal - Radiology Data Radiology results: report reviewed CT HEAD WITHOUT CONTRAST INDICATION : MAIN: CODE STROKE CALL [phone] LEFT SIDE WEAKNESS LAST KNOWN WELL TIME 1300. TECHNIQUE: Axial imaging performed from the skull apex through the skull base without IV contrast. All CT scans at this location are performed using CT dose reduction for ALARA by means of automated exposure control. COMPARISON: 02/04/[address] FINDINGS: Noncontrast head CT demonstrates normal ventricles and sulci. Slight periventricular hypodensities. No acute or recent infarct, hemorrhage, mass effect or midline shift. No abnormal extra-axial fluid collections. Grossly normal posterior fossa with preserved basilar cisterns. Normal imaged eye globes. Rightward nasal septal deviation. Hypoplastic/aplastic bilateral frontal sinuses. Clear remainder aerated paranasal sinuses and mastoid air cells. Intact calvarium. Normal scalp. Few radiopaque dental material and missing teeth noted. IMPRESSION: No acute intracranial CT abnormality, as described. Please note that MRI is more sensitive in detecting subtle acute ischemia. - Medical Decision Making Patient is a 43-year-old female Emergency room with complaints of dizziness, no chest wall pain, numbness and tingling of her entire body. Patient was seen by her neurologist. Upon initial evaluation in triage, a code stroke was initiated. Neurologist recommends admission for further evaluation. CT of the head was done. Labs were unremarkable except for anemia. - Differential Diagnosis CVA, weakness, numbness, neuropathy, electrolyte imbalance, anemia. Critical Care Time: Yes Critical care time in (mins) excluding proc time.: 45 Critical care attestation.: If time is entered above; I have spent that time in minutes in the direct care of this critically ill patient, excluding procedure time. Critical Care Time: 45 minutes ED Disposition Clinical Impression: Hyperglycemia, Weakness, Numbness and tingling of both lower extremities, Numbness and tingling of both upper extremities, Facial numbness, Slurred speech, Dizziness Anemia Qualifiers: Anemia type: unspecified type Qualified Code(s): D64.9 - Anemia, unspecified Disposition: DC-09 OP ADMIT IP TO THIS HOSP Is pt being admited?: Yes Does the pt Need Aspirin: No Condition: Critical Time of Disposition: 15:35
[2019-09-01 14:33] LABS: INR 0.98 (0.87-1.13)
[2019-09-01 14:34] LABS: Partial Thromboplastin Time 24.5 Sec. (24.2-36.6); Thrombin Time 14.7 Sec. (15.1-19.6)
[2019-09-01 14:38] LABS: BUN/Creatinine Ratio 18; Blood Urea Nitrogen 20 mg/dL (7-17); Calcium 8.8 mg/dL (8.4-10.2); Hemolysis Index 1
[2019-09-01] MEDS ORDERED: CYCLOBENZAPRINE 10 MG TAB PO PRN (21:58)
[2019-09-01] MEDS ORDERED: DICYCLOMINE 20 MG TAB PO PRN (21:58)
[2019-09-01] MEDS ORDERED: BUTALB/ACETAMINOPHEN/CAFFEINE TAB PO PRN (21:58)
[2019-09-01] MEDS ORDERED: ALBUTEROL 8.5 GM INHALATION IH PRN (21:58)
[2019-09-01] MEDS ORDERED: ALBUTEROL 2.5 MG/3 ML NEBU IH PRN (22:30)
[2019-09-01] MEDS: PRAVASTATIN 20 MG TAB PO SCH (22:50)
[2019-09-01] MEDS: INSULIN GLARGINE 100 UNITS/ML SUB-Q SCH (22:55)
[2019-09-01] MEDS: carvediloL 3.125 MG TAB PO SCH (22:55)
[2019-09-01] MEDS: INSULIN LISPRO 100 UNIT/ML SUB-Q SCH (23:17)
[2019-09-02] MEDS: BENZONATATE 100 MG CAP PO SCH ×3 (06:41→22:18)
[2019-09-02 07:08] LABS: Chol/HDL Ratio 5.62 %
[2019-09-02] MEDS: INSULIN LISPRO 100 UNIT/ML SUB-Q SCH ×7 (08:32→22:20)
[2019-09-02] MEDS: BACLOFEN 10 MG TAB PO SCH ×3 (08:36→22:19)
--- NOTE | 2019-09-02 10:54 | Vascular Lab Report ---
"DUPLEX DOPPLER ULTRASOUND CAROTID, BILATERAL INDICATION: stroke. FINDINGS: RIGHT CAROTID: Mild atherosclerotic plaque. Right CCA velocity: 138 cm/sec. Right ICA peak systolic velocity: 87 cm/sec. ICA/CCA PSV Ratio: 1.5. Right Vertebral Artery: Antegrade flow. LEFT CAROTID: Minimal to mild atherosclerotic plaque. Left CCA velocity: 1:30 cm/sec. Left ICA peak systolic velocity: 15 cm/sec. ICA/CCA PSV Ratio: 0.9. Left Vertebral Artery: Antegrade flow. IMPRESSION: 1. Right Internal Carotid Artery: Less than 50% diameter stenosis. 2. Left Internal Carotid Artery: Less than 50% diameter stenosis. Velocity criteria are extrapolated from diameter data as defined by the Society of Radiologists in Ul trasound Consensus Conference, Radiology 2003; 229;340-346. Degree of || ICA PSV || Plaque || ICA/CCA Stenosis (%) || (cm/sec) || estimate (%) || PSV Ratio - Normal...............<125..............None.................<2.0 - <50....................<125..............<50....................<2.0 - 50-69................125-230.........>50....................2.0-4.0 - >70 but <100....>230..............>50....................>4.0 - Near...................High, low, .....visible................variable occlusion or none - Total...................None.............visible;................N/A occlusion no lumen to NASCET. Signer Name: Anthony Pichardo MD Signed: 09/02/2019 10:50 AM Workstation Name: [id number]"
[2019-09-02] MEDS: carvediloL 3.125 MG TAB PO SCH ×2 (11:58→22:19)
[2019-09-02] MEDS: ASPIRIN 325 MG TAB PO SCH (11:58)
[2019-09-02] MEDS ORDERED: FLU VACC QUAD 2019-20 (3 YR UP)/PF 60 MCG/0.5 ML SYRINGE IM ONE (12:00)
--- NOTE | 2019-09-02 12:02 | Progress Note ---
Subjective Date of service: 09/02/19 Interval history: patiient seen and went over all details of histort cklearly episode was either TIA or seizure could have been partial seizure since she was on Topamax... suspect checkinh MRI good idea... she has neurrologist Dr. Daly. prior hx of type I diabetes and concussion Objective - Vital Sign Vital Signs - 12hr 09/02/19 09/02/19 09/02/19 00:33 04:24 04:59 Temperature 98.0 F Pulse Rate 98 H 98 H 85 Respiratory 18 18 Rate Blood Pressure 110/53 Blood Pressure 132/57 [Right] O2 Sat by Pulse 97 Oximetry 09/02/19 07:51 Temperature 98.2 F Pulse Rate Respiratory 18 Rate Blood Pressure 109/40 Blood Pressure [Right] O2 Sat by Pulse Oximetry - Laboratory Findings CBC and BMP: 09/01/19 14:08 09/01/19 14:08 Abnormal Lab Findings: Abnormal Labs 09/01/19 09/01/19 09/01/19 14:08 14:08 14:08 RBC 3.32 L Hgb 7.7 L Hct 23.0 L MCV 69 L MCH 23 L RDW 15.8 H Lymph % (Auto) 12.8 L Seg Neutrophils % 80.3 H Seg Neutrophils # 8.8 H Thrombin Time 14.7 L BUN 20 H Glucose 352 H POC Glucose Hemoglobin A1c Triglycerides Cholesterol LDL Cholesterol Direct HDL Cholesterol 09/01/19 09/02/19 09/02/19 21:07 05:27 05:27 RBC Hgb Hct MCV MCH RDW Lymph % (Auto) Seg Neutrophils % Seg Neutrophils # Thrombin Time BUN Glucose POC Glucose 358 H Hemoglobin A1c 12.5 H Triglycerides 338 H Cholesterol 208 H LDL Cholesterol Direct 137 H HDL Cholesterol 37 L 09/02/19 09/02/19 07:59 11:21 RBC Hgb Hct MCV MCH RDW Lymph % (Auto) Seg Neutrophils % Seg Neutrophils # Thrombin Time BUN Glucose POC Glucose 193 H 62 L Hemoglobin A1c Triglycerides Cholesterol LDL Cholesterol Direct HDL Cholesterol
[2019-09-02] MEDS: INSULIN GLARGINE 100 UNITS/ML SUB-Q SCH ×2 (12:30→22:21)
[2019-09-02] MEDS ORDERED: NON-FORMULARY EACH (Alprazolam [Xanax Tab] 2 MG) PO SCH (12:45)
[2019-09-02] MEDS: ALPRAZolam 1 MG TAB PO SCH ×3 (12:49→22:19)
--- NOTE | 2019-09-02 13:19 | Event Note ---
Date: 09/01/19 See history and physical in the reports TIA versus acute CVA Right-sided numbness facial and right upper and right lower extremity Multiple comorbid conditions including hypertension and generalized anxiety disorder Insulin-dependent diabetes, Asthma
--- NOTE | 2019-09-02 14:10 | History and Physical Report ---
CHIEF COMPLAINT: Right-sided numbness since 1:00 p.m. HISTORY OF PRESENT ILLNESS: A 43-year-old female with past medical history of insulin-dependent diabetes, hypertension, hyperlipidemia, and generalized anxiety disorder, comes in for dizziness and right-sided facial numbness and right upper and lower extremity numbness. The patient also says that her chest pain has resolved. The patient stated the chest pain is on palpation of the chest wall. The patient states that the tingling is in the right upper and right lower extremity persists. No altered sensorium. No weakness in the right upper and right lower extremities. PAST MEDICAL HISTORY: Significant for: 1. Migraine. 2. CHF. 3. Insulin-dependent diabetes. 4. Hyperlipidemia. 5. Hypertension. 6. Asthma. 7. Muscle spasms. PAST SURGICAL HISTORY: Cholecystectomy, . FAMILY HISTORY: No significant family history. SOCIAL HISTORY: Does not smoke. No alcohol, no recreational drugs. REVIEW OF SYSTEMS: Significant for right facial and right upper and lower extremity numbness. Otherwise, review of systems is negative. PHYSICAL EXAMINATION: GENERAL: Middle-aged female, lying in bed comfortably. VITAL SIGNS: Blood pressure 110/53, temperature is 98, pulse is 98, respirations are 18. HEENT: Unremarkable. Pupils equal and reactive. NECK: Supple, no lymphadenopathy, no thyromegaly. LUNGS: Clear to auscultation and percussion. Good air entry. CARDIOVASCULAR: S1, S2 heard. No gallop, no murmur, no rub. Apical impulse in left fifth intercostal space and midclavicular line. ABDOMEN: Soft and benign. No hepatosplenomegaly, no guarding, no rigidity. Hernial orifices are normal. EXTREMITIES: Good pedal pulses. No pedal edema. CENTRAL NERVOUS SYSTEM: Alert and oriented x 4, nonfocal exam. Sensory system normal on the right side. The left side was also normal. Touch pain, vibration sense are normal. SKIN: Normal. LABORATORY DATA: White count is 10,900, H and H is 7.7 and 23, MCV is 69, MCHC is 23, platelet count is normal. Sodium is 137, potassium is 4.4, chloride is 99.9, BUN and creatinine is 20 and 1.1, glucose is 352. Troponin is less than 0.010. A1c is 12.5. Cholesterol is 208. Triglycerides are 338, LDL is 137, HDL is 37. Head CT was normal. No acute findings. DIAGNOSTIC DATA: EKG shows normal sinus rhythm, heart rate of 90 per minute, no acute ST-T wave changes. ASSESSMENT AND PLAN: 1. Transient ischemic attack versus acute cerebrovascular accident. The patient admitted in observation status. The patient to get MRI and carotid duplex scan and if necessary, echocardiogram. Neurology consult requested. 2. Hypertension. Continue antihypertensives. 3. Diabetes. Continue insulin and coverage. 4. Generalized anxiety disorder. Continue Xanax 3 times a day. 5. Hyperlipidemia. Continue statins. 6. Asthma. Continue albuterol inhaler. 7. Deep venous thrombosis prophylaxis, heparin 5000 q. 12. JOB# [id number] LUKE/YOU BOWIE
[2019-09-02] MEDS: FUROSEMIDE 40 MG TAB PO SCH (17:37)
[2019-09-02 18:39] LABS: % Iron Saturation 4.25 %
[2019-09-02] MEDS: traMADol 50 MG TAB PO PRN (18:41)
--- NOTE | 2019-09-02 20:28 | Magnetic Resonance Report ---
MRI BRAIN WITHOUT CONTRAST INDICATION / CLINICAL INFORMATION: stroke. TECHNIQUE: Multiplanar, multisequence MR images of the brain were obtained. COMPARISON: The study is compared to the previous MRI of 05/07/2015. FINDINGS: BRAIN / INTRACRANIAL CONTENTS: On the FLAIR sequences I, there are a couple small hyperintense foci i nvolving the frontal white matter which are nonspecific though may reflect microvascular changes at. The findings appear to developed from the previous MRI. However, the diffusion imaging reveals no zully dence of acute infarction. The ventricular system is within normal limits in size and configuration. No extra-axial fluid collec tions or significant mass effect is identified. CRANIOCERVICAL JUNCTION: No significant abnormality. VASCULAR FLOW-VOIDS: No significant abnormality. ORBITS: No significant abnormality of visualized orbits. SINUSES / MASTOIDS: No significant abnormality of the visualized paranasal sinuses or mastoid air thaddeus ls. ADDITIONAL FINDINGS: None. IMPRESSION: 1. There are a couple small hyperintense foci involving frontal white matter which are nonspecific th ough may reflect microvascular angiopathy. The MRI the brain is otherwise unremarkable without eviden ce of acute infarction. Signer Name: Torsten Stoll MD Signed: 09/02/2019 8:24 PM Workstation Name: [id number]
[2019-09-02] MEDS: PRAVASTATIN 20 MG TAB PO SCH (22:19)
[2019-09-03] MEDS: BENZONATATE 100 MG CAP PO SCH ×3 (06:10→21:18)
[2019-09-03] MEDS: ALPRAZolam 1 MG TAB PO SCH ×4 (06:11→21:30)
[2019-09-03] MEDS: INSULIN LISPRO 100 UNIT/ML SUB-Q SCH ×7 (08:39→21:19)
[2019-09-03] MEDS: BACLOFEN 10 MG TAB PO SCH ×3 (08:40→21:18)
[2019-09-03] MEDS: INSULIN GLARGINE 100 UNITS/ML SUB-Q SCH ×3 (08:40→21:20)
[2019-09-03] MEDS: ASPIRIN 325 MG TAB PO SCH (10:44)
[2019-09-03] MEDS: carvediloL 3.125 MG TAB PO SCH ×2 (10:44→21:18)
[2019-09-03] MEDS: FUROSEMIDE 40 MG TAB PO SCH (10:44)
[2019-09-03] MEDS: traMADol 50 MG TAB PO PRN (13:49)
--- NOTE | 2019-09-03 20:36 | Consultation ---
History of Present Illness Consult date: 09/03/19 Requesting physician: KATARZYNA JULIO Reason for consult: menorrhagia History of present illness: Patient is a 43-year-old white female LMP 08/08/19 that presented to [facility] ER with some marginal complaints of facial and Rt side tingling and numbness. Patient states her symptoms started at 1 PM. Patient states she also had some dizziness just prior. Patient states she had some chest pain as well. Patient states HER symptoms started at 1 PM. Patient states that her symptoms are constant. Patient states that her chest pain has resolved. Patient states her chest pain was a 3 out of 10. Patient states she only has chest pain when she palpates her chest. Patient states that the tingling is rt face and rt e xtremity. Resolved now. She also complained of prolonged heavy vaginal bleeding for which I have been consulted to address since she does not have a local Bottle Tester. Her H/H was 7.7/23.0 and pelvic u/s showed an enlarged uterus 10.6 x 4.7 x 5.2cm with an endometrial echo complex measuring 5mm, and a simple left ovarian cyst. Her bleeding is currently minimal. Past History Past Medical History: asthma, heart disease (CHF), hypertension, diabetes (IDDM), high cholesterol, migraines Past Surgical History: cholecystectomy, section Social history: no significant social history, single Medications and Allergies Allergies Allergy/AdvReac Type Severity Reaction Status Date / Time lisinopril Allergy Itching Verified 07/13/19 14:10 Penicillins Allergy Unknown Verified 07/13/19 14:10 ibuprofen [From Motrin] AdvReac Bleeding Verified 07/13/19 14:10 Home Medications Medication Instructions Recorded Confirmed Last Taken Type Butalb/Acetamin/Caff 50-325-40 2 tab PO Q8H PRN #20 tablet 05/08/15 09/02/19 Unknown Rx [Fioricet 50-325-40] Furosemide [Lasix TAB] 40 mg PO QDAY #30 tablet 05/08/15 09/02/19 11/20/15 09:30 Rx Insulin Glargine [Lantus VIAL] 60 units SQ BID #1 vial 05/08/15 09/02/19 11/20/15 09:30 Rx Insulin Lispro [HumaLOG VIAL] 30 unit SQ TID #1 vial 05/08/15 09/02/19 09/01/19 Rx Pravastatin [Pravachol] 20 mg PO QHS #30 tablet 05/08/15 09/02/19 09/01/19 Rx carvediloL [Coreg] 3.125 mg PO BID #60 tablet 05/08/15 09/02/19 09/01/19 Rx Dicyclomine [Bentyl] 20 mg PO QID PRN #20 tablet 11/22/15 09/02/19 Unknown Rx Baclofen [Lioresal] 10 mg PO TID #15 tab 02/04/19 09/02/19 09/01/19 Rx traMADoL [Ultram 50 MG tab] 50 mg PO Q6HR PRN #12 tablet 02/04/19 09/02/19 Unknown Rx Albuterol INH(or & Nicu Only) 2 puff IH QID PRN #1 inhalation 07/13/19 09/02/19 Unknown Rx [ProAir HFA Inhaler] Benzonatate [Tessalon Perles] 100 mg PO Q8HR #30 capsule 07/13/19 09/02/19 Unknown Rx Cyclobenzaprine [Flexeril 10 MG 10 mg PO QHS PRN #14 tablet 07/13/19 09/02/19 Unknown Rx TAB] ALPRAZolam [Xanax TAB] 2 mg PO TID 09/02/19 09/02/19 1 Day Ago History ~09/01/19 Active Meds: Active Medications Acetaminophen/Butalbital/Caffeine (Fioricet) 2 tab PO Q8H PRN PRN Reason: Headache Last Admin: 09/01/19 23:07 Dose: 2 tab Documented by: Albuterol (Proventil) 2.5 mg IH Q4HRT PRN PRN Reason: Shortness Of Breath Alprazolam (Xanax) 2 mg PO Q8HR [facility] Last Admin: 09/03/19 18:33 Dose: 2 mg Documented by: Aspirin (Aspirin) 325 mg PO QDAY [facility] Last Admin: 09/03/19 10:44 Dose: 325 mg Documented by: Baclofen (Lioresal) 10 mg PO TID [facility] Last Admin: 09/03/19 13:49 Dose: 10 mg Documented by: Benzonatate (Tessalon Perles) 100 mg PO Q8HR [facility] Last Admin: 09/03/19 13:49 Dose: 100 mg Documented by: Carvedilol (Coreg) 3.125 mg PO BID [facility] Last Admin: 09/03/19 10:44 Dose: 3.125 mg Documented by: Cyclobenzaprine HCl (Flexeril) 10 mg PO QHS PRN PRN Reason: Muscle Spasm Last Admin: 09/02/19 00:25 Dose: 10 mg Documented by: Dicyclomine HCl (Bentyl) 20 mg PO QID PRN PRN Reason: Epigastric pain Furosemide (Lasix) 40 mg PO QDAY [facility] Last Admin: 09/03/19 10:44 Dose: 40 mg Documented by: Insulin Glargine (Lantus) 45 units SUB-Q BID [facility] Last Admin: 09/03/19 10:44 Dose: Not Given Documented by: Insulin Human Lispro (Humalog) 30 unit SUB-Q TIDAC [facility] Last Admin: 09/03/19 17:25 Dose: 30 unit Documented by: Insulin Human Lispro (Humalog) 0 unit SUB-Q ACHS [facility]; Protocol Last Admin: 09/03/19 16:08 Dose: Not Given Documented by: Pravastatin Sodium (Pravachol) 20 mg PO QHS [facility] Last Admin: 09/02/19 22:19 Dose: 20 mg Documented by: Sodium Chloride (Sodium Chloride Flush Syringe 10 Ml) 10 ml IV PRN PRN PRN Reason: LINE FLUSH Tramadol HCl (Ultram) 50 mg PO Q6HR PRN PRN Reason: Pain, Moderate (4-6) Last Admin: 09/03/19 13:49 Dose: 50 mg Documented by: Review of Systems All systems: negative - Vital Signs Vital signs: Vital Signs BP 121/68 09/01/19 13:56 Temp Pulse Resp BP Pulse Ox 98.2 F 102 H 18 142/63 95 09/03/19 08:23 09/03/19 04:54 09/03/19 08:23 09/03/19 08:23 09/03/19 04:54 - Physical Exam Cardiovascular: Regular rate Lungs: Positive: Clear to auscultation Abdomen: Positive: normal appearance, soft Uterus: Positive: enlarged Extremities: Positive: normal Results Result Diagrams: 09/04/19 06:34 09/04/19 06:34 Abnormal lab results 02/08/2109/03/19 09/03/19 Range/Units 21:21 07:55 11:07 POC Glucose 332 H 372 H 404 H (70-105) 09/03/19 Range/Units 20:41 POC Glucose 126 H (70-105) All other labs normal. Ultrasound: report reviewed Assessment and Plan - Patient Problems (1) Menorrhagia with irregular cycle Onset Date: 09/04/19 Current Visit: Yes Status: Chronic Plan to address problem: A: Menorrhagia - most likely due to endometrial hyperplasia IDDM Chronic hypertension TIA Obesity P: Discussed with pt that she will need further evaluation in the office....such as a Pap and endometrial biopsy Follow up in the office next week (2) TIA (transient ischemic attack) Onset Date: 09/04/19 Current Visit: Yes Status: Acute (3) ALEJANDRA (generalized anxiety disorder) Onset Date: 09/04/19 Current Visit: Yes Status: Chronic (4) IDDM (insulin dependent diabetes mellitus) Onset Date: 09/04/19 Current Visit: Yes Status: Chronic (5) Hyperglycemia due to type 2 diabetes mellitus Onset Date: 09/04/19 Current Visit: No Status: Chronic Qualifiers: Diabetes mellitus terminal clerk insulin use: with terminal clerk use Qualified Code(s): E11.65 - Type 2 diabetes mellitus with hyperglycemia; Z79.4 - buttermaker helper (current) use of insulin (6) Morbid obesity with BMI of 45.0-49.9, adult Onset Date: 09/04/19 Current Visit: No Status: Chronic
[2019-09-03] MEDS: PRAVASTATIN 20 MG TAB PO SCH (21:18)
--- NOTE | 2019-09-03 22:59 | Ultrasound Report ---
Pelvic Ultrasound HISTORY: Menorrhagia. TECHNIQUE: Grayscale and color imaging performed. COMPARISON: CT abdomen from 02/11/2018 FINDINGS: Uterus measures 10.6 x 4.7 x 5.2 cm with endometrial echo complex measuring 5 mm. Both ovar ies are normal in size with a simple cyst on the left measuring 3.3 cm in maximal dimension. No pelvi c free fluid identified. IMPRESSION: Simple left ovarian cyst. Otherwise unremarkable exam. Signer Name: Romeo Johnson MD Signed: 09/03/2019 10:54 PM Workstation Name: [id number]
--- NOTE | 2019-09-04 06:10 | Progress Note ---
Assessment and Plan - Patient Problems (1) TIA (transient ischemic attack) Current Visit: Yes Status: Acute Plan to address problem: TIA victoria MR pending (2) IDDM (insulin dependent diabetes mellitus) Current Visit: Yes Status: Chronic Plan to address problem: Cont home insulin and coverage (3) Hypertension Current Visit: No Status: Chronic Qualifiers: Hypertension type: essential hypertension Qualified Code(s): I10 - Essential (primary) hypertension Plan to address problem: Cont antihypertensives (4) ALEJANDRA (generalized anxiety disorder) Current Visit: Yes Status: Chronic Plan to address problem: Cont anxiolytics (5) Anemia Current Visit: Yes Status: Chronic Qualifiers: Anemia type: iron deficiency Qualified Code(s): D64.9 - Anemia, unspecified Plan to address problem: Sec to menorrhagia (6) DVT prophylaxis Current Visit: Yes Status: Acute Plan to address problem: On SCD's and GI prophylaxis Subjective Date of service: 09/02/19 Principal diagnosis: TIA Interval history: Patient is a 43-year-old female that presented some marginal complaints of facial and Rt side tingling and numbness. Patient states her symptoms started at 1 PM. Patient states she also had some dizziness just prior. Patient states she had some chest pain as well. Patient states HER symptoms started at 1 PM. Patient states that her symptoms are constant. Patient states that her chest pain has resolved. Patient states her chest pain was a 3 out of 10. Patient states she only has chest pain when she palpates her chest. Patient states that the tingling is rt face and rt extremity.Resolved now. Objective - Constitutional Vitals: Vital Signs - 12hr 09/03/19 09/03/19 09/03/19 20:28 20:52 21:18 Temperature 98.1 F Pulse Rate 103 H 103 H 112 H Respiratory 18 Rate Blood Pressure 150/73 150/73 O2 Sat by Pulse 98 Oximetry 09/04/19 09/04/19 09/04/19 00:02 01:37 05:00 Temperature 97.8 F 97.8 F 98.2 F Pulse Rate 108 H 111 H 107 H Respiratory 20 20 20 Rate Blood Pressure 176/92 118/54 128/56 O2 Sat by Pulse 97 87 100 Oximetry General appearance: Present: no acute distress, well-nourished - EENT Eyes: PERRL, EOM intact ENT: hearing intact, clear oral mucosa Ears: bilateral: normal - Neck Neck: supple, normal ROM - Respiratory Respiratory effort: normal Respiratory: bilateral: CTA - Breasts Breasts: normal - Cardiovascular Heart rate: 78 Rhythm: regular Heart Sounds: Present: S1 & S2. Absent: gallop, rub Extremities: no ischemia, pulses intact, No edema, normal color, Full ROM - Gastrointestinal General gastrointestinal: Present: soft, non-tender, non-distended, normal bowel sounds - Genitourinary Female genitourinary: normal - Integumentary Integumentary: clear, warm, dry - Musculoskeletal Musculoskeletal: 1, strength equal bilaterally - Neurologic Neurologic: moves all extremities - Psychiatric Psychiatric: memory intact, appropriate mood/affect, intact judgment & insight - Labs CBC & Chem 7: 09/01/19 14:08 09/01/19 14:08 Labs: Abnormal lab results 09/03/19 09/03/19 09/03/19 Range/Units 07:55 11:07 20:41 POC Glucose 372 H 404 H 126 H (70-105)
[2019-09-04] MEDS: BENZONATATE 100 MG CAP PO SCH ×2 (06:20→14:42)
[2019-09-04] MEDS: ALPRAZolam 1 MG TAB PO SCH ×3 (06:21→17:50)
--- NOTE | 2019-09-04 06:21 | Death Summary ---
Summary - Providers Consults: 09/01/19 Consult to Physician [CONS] Routine Comment: Consulting Provider: JAXON LOPEZ Physician Instructions: Reason For Exam: TIA/CVA 09/01/19 22:01 Occupational Therapy Evaluate and Treat [CONS] Routine Comment: Reason For Exam: Neuro deficits Physical Therapy Evaluation and Treat [CONS] Routine Comment: Reason For Exam: Neuro deficits 09/03/19 18:51 Consult to Physician [CONS] Routine Comment: Consulting Provider: JENIFER WILLS Physician Instructions: Reason For Exam: Menorrhagia Attending: KATARZYNA JULIO - summary Date of admission: 09/01/19 18:08 - Final diagnosis (1) TIA (transient ischemic attack) Note: Final diagnosis: (2) IDDM (insulin dependent diabetes mellitus) Note: Final diagnosis: (3) Hypertension Qualifiers: Hypertension type: essential hypertension Qualified Code(s): I10 - Essential (primary) hypertension Note: Final diagnosis: (4) ALEJANDRA (generalized anxiety disorder) Note: Final diagnosis: (5) Anemia Qualifiers: Anemia type: iron deficiency Qualified Code(s): D64.9 - Anemia, unspecified Note: Final diagnosis: (6) DVT prophylaxis Note: Final diagnosis:
--- NOTE | 2019-09-04 06:28 | Progress Note ---
Assessment and Plan - Patient Problems (1) TIA (transient ischemic attack) Current Visit: Yes Status: Acute Plan to address problem: TIA victoria MRI normal. ASA 61 mg po qd (2) IDDM (insulin dependent diabetes mellitus) Current Visit: Yes Status: Chronic Plan to address problem: Cont home insulin and coverage (3) Hypertension Current Visit: No Status: Chronic Qualifiers: Hypertension type: essential hypertension Qualified Code(s): I10 - Essential (primary) hypertension Plan to address problem: Cont antihypertensives (4) ALEJANDRA (generalized anxiety disorder) Current Visit: Yes Status: Chronic Plan to address problem: Cont anxiolytics (5) Anemia Current Visit: Yes Status: Chronic Qualifiers: Anemia type: iron deficiency Qualified Code(s): D64.9 - Anemia, unspecified Plan to address problem: Sec to menorrhagia Iron deficient Iron supplements (6) Menorrhagia Current Visit: Yes Status: Acute Qualifiers: Menorrhagia type: with regular cycle Qualified Code(s): N92.0 - Excessive and frequent menstruation with regular cycle Plan to address problem: Discharge held up b/c if vaginal bleeding Pelvic ultrasound and Biodiesel Division Manager consult requested (7) DVT prophylaxis Current Visit: Yes Status: Acute Plan to address problem: On SCD's and GI prophylaxis (8) Discharge planning issues Current Visit: Yes Status: Acute Plan to address problem: Patient may be discharge in AM if H/h above 7 and on iron supplements and f/u with EMT DISPATCHER for menorrhagia Subjective Date of service: 09/03/19 Principal diagnosis: TIA Interval history: Patient is a 43-year-old female that presented some marginal complaints of facial and Rt side tingling and numbness. Patient states her symptoms started at 1 PM. Patient states she also had some dizziness just prior. Patient states she had some chest pain as well. Patient states HER symptoms started at 1 PM. Patient states that her symptoms are constant. Patient states that her chest pain has resolved. Patient states her chest pain was a 3 out of 10. Patient states she only has chest pain when she palpates her chest. Patient states that the tingling is rt face and rt extremity.Resolved now. Patient says she feels weak and having excessive vaginal bleeding which is c/w her periods . Objective - Constitutional Vitals: Vital Signs - 12hr 09/03/19 09/03/19 09/03/19 20:28 20:52 21:18 Temperature 98.1 F Pulse Rate 103 H 103 H 112 H Respiratory 18 Rate Blood Pressure 150/73 150/73 O2 Sat by Pulse 98 Oximetry 09/04/19 09/04/19 09/04/19 00:02 01:37 05:00 Temperature 97.8 F 97.8 F 98.2 F Pulse Rate 108 H 111 H 107 H Respiratory 20 20 20 Rate Blood Pressure 176/92 118/54 128/56 O2 Sat by Pulse 97 87 100 Oximetry General appearance: Present: no acute distress, well-nourished - EENT Eyes: PERRL, EOM intact ENT: hearing intact, clear oral mucosa Ears: bilateral: normal - Neck Neck: supple, normal ROM - Respiratory Respiratory effort: normal Respiratory: bilateral: CTA - Breasts Breasts: normal - Cardiovascular Heart rate: 78 Rhythm: regular Heart Sounds: Present: S1 & S2. Absent: gallop, rub Extremities: pulses intact, No edema, normal color, Full ROM - Gastrointestinal General gastrointestinal: Present: soft, non-tender, non-distended, normal bowel sounds - Genitourinary Female genitourinary: normal - Integumentary Integumentary: clear, warm, dry - Musculoskeletal Musculoskeletal: 1, strength equal bilaterally - Neurologic Neurologic: moves all extremities - Psychiatric Psychiatric: memory intact, appropriate mood/affect, intact judgment & insight - Labs CBC & Chem 7: 09/01/19 14:08 09/01/19 14:08 Labs: Abnormal lab results 09/03/19 09/03/19 09/03/19 Range/Units 07:55 11:07 20:41 POC Glucose 372 H 404 H 126 H (70-105)
--- NOTE | 2019-09-04 06:43 | Progress Note ---
Subjective Date of service: 09/04/19 Principal diagnosis: TIA Interval history: checked over the MRI and there is no acute stroke the MRI may likwly be representing the old concussion it is OK to discharge and follow up with her outpatient neurologist the MRI is clearly not acute stroke White matter changes most commonly is diabetic issue... she is Type I onset age 13 diabetic Objective - Vital Sign Vital Signs - 12hr 09/03/19 09/03/19 09/03/19 20:28 20:52 21:18 Temperature 98.1 F Pulse Rate 103 H 103 H 112 H Respiratory 18 Rate Blood Pressure 150/73 150/73 O2 Sat by Pulse 98 Oximetry 09/04/19 09/04/19 09/04/19 00:02 01:37 05:00 Temperature 97.8 F 97.8 F 98.2 F Pulse Rate 108 H 111 H 107 H Respiratory 20 20 20 Rate Blood Pressure 176/92 118/54 128/56 O2 Sat by Pulse 97 87 100 Oximetry - Laboratory Findings CBC and BMP: 09/01/19 14:08 09/01/19 14:08 Abnormal Lab Findings: Abnormal Labs 09/01/19 09/01/19 09/01/19 14:08 14:08 14:08 RBC 3.32 L Hgb 7.7 L Hct 23.0 L MCV 69 L MCH 23 L RDW 15.8 H Lymph % (Auto) 12.8 L Seg Neutrophils % 80.3 H Seg Neutrophils # 8.8 H Thrombin Time 14.7 L BUN 20 H Glucose 352 H POC Glucose Hemoglobin A1c Iron Triglycerides Cholesterol LDL Cholesterol Direct HDL Cholesterol 09/01/19 09/02/19 09/02/19 21:07 05:27 05:27 RBC Hgb Hct MCV MCH RDW Lymph % (Auto) Seg Neutrophils % Seg Neutrophils # Thrombin Time BUN Glucose POC Glucose 358 H Hemoglobin A1c 12.5 H Iron Triglycerides 338 H Cholesterol 208 H LDL Cholesterol Direct 137 H HDL Cholesterol 37 L 09/02/19 09/02/19 09/02/19 07:59 11:21 12:05 RBC Hgb Hct MCV MCH RDW Lymph % (Auto) Seg Neutrophils % Seg Neutrophils # Thrombin Time BUN Glucose POC Glucose 193 H 62 L 130 H Hemoglobin A1c Iron Triglycerides Cholesterol LDL Cholesterol Direct HDL Cholesterol 09/02/19 09/02/19 09/02/19 16:49 17:50 21:21 RBC Hgb Hct MCV MCH RDW Lymph % (Auto) Seg Neutrophils % Seg Neutrophils # Thrombin Time BUN Glucose POC Glucose 355 H 332 H Hemoglobin A1c Iron 15 L Triglycerides Cholesterol LDL Cholesterol Direct HDL Cholesterol 09/03/19 09/03/19 09/03/19 07:55 11:07 20:41 RBC Hgb Hct MCV MCH RDW Lymph % (Auto) Seg Neutrophils % Seg Neutrophils # Thrombin Time BUN Glucose POC Glucose 372 H 404 H 126 H Hemoglobin A1c Iron Triglycerides Cholesterol LDL Cholesterol Direct HDL Cholesterol
[2019-09-04 06:53] LABS: Basophils # (Auto) 0.1 K/mm3 (0.0-0.1); Basophils % (Auto) 0.9 % (0.0-1.8); Eosinophils # (Auto) 0.1 K/mm3 (0.0-0.4); Eosinophils % (Auto) 0.8 % (0.0-4.3); Hematocrit 20.9 % (30.3-42.9); Lymphocytes % (Auto) 11.5 % (13.4-35.0); Mean Corpuscular HGB Conc 33 % (30-34); Monocytes # (Auto) 0.5 K/mm3 (0.0-0.8); Monocytes % (Auto) 5.7 % (0.0-7.3); Platelet Count 241 K/mm3 (140-440)
[2019-09-04 06:55] LABS: Mean Corpuscular Volume 70 fl (79-97)
[2019-09-04 07:30] LABS: BUN/Creatinine Ratio 15; Blood Urea Nitrogen 16 mg/dL (7-17); Calcium 9.1 mg/dL (8.4-10.2); Hemolysis Index 3
[2019-09-04] MEDS: INSULIN LISPRO 100 UNIT/ML SUB-Q SCH ×6 (08:22→18:10)
[2019-09-04] MEDS: BACLOFEN 10 MG TAB PO SCH ×2 (08:24→14:42)
[2019-09-04] MEDS ORDERED: SODIUM CHLORIDE 0.9% 500 ML 500 ML IV ONE (10:00)
[2019-09-04] MEDS: carvediloL 3.125 MG TAB PO SCH (10:04)
[2019-09-04] MEDS: ASPIRIN 325 MG TAB PO SCH (10:05)
[2019-09-04] MEDS: FUROSEMIDE 40 MG TAB PO SCH (10:13)
[2019-09-04] MEDS: INSULIN GLARGINE 100 UNITS/ML SUB-Q SCH (11:42)
[2019-09-04] MEDS ORDERED: SODIUM CHLORIDE 0.9% 500 ML 500 ML ONE (12:42)
--- NOTE | 2019-09-04 12:51 | Discharge Summary ---
Providers - Providers Date of Admission: 09/01/19 18:08 Attending physician: BARRON SINCLAIR MD 09/01/19 Consult to Physician [CONS] Routine Comment: Consulting Provider: JAXON LOPEZ Physician Instructions: Reason For Exam: TIA/CVA 09/01/19 22:01 Occupational Therapy Evaluate and Treat [CONS] Routine Comment: Reason For Exam: Neuro deficits Physical Therapy Evaluation and Treat [CONS] Routine Comment: Reason For Exam: Neuro deficits 09/03/19 18:51 Consult to Physician [CONS] Routine Comment: Consulting Provider: JENIFER WILLS Physician Instructions: Reason For Exam: Menorrhagia Primary care physician: INGRID HUNTER Hospitalization Condition: Stable Hospital course: follow with TC OPERATOR fOLLOW WITH JESSICA TIA ruled out DM with Hyperglycemia Hyponatremia Disposition: TO HOME OR SELFCARE Exam - Constitutional Vitals: Temp Pulse Resp BP Pulse Ox 98.8 F 114 H 20 167/71 100 09/04/19 11:12 09/04/19 11:12 09/04/19 11:12 09/04/19 11:12 09/04/19 11:12 Plan Activity: advance as tolerated, fall precautions Diet: low fat Special Instructions: record daily BP diary, smoking cessation Follow up with: INGRID HUNTER MD [Primary Care Provider] - 3-5 Days JAXON LOPEZ MD [Staff Physician] - 7 Days JENIFER WILLS MD [Staff Physician] - 7 Days
[2019-09-04] MEDS: traMADol 50 MG TAB PO PRN (16:49)
[2019-09-04 16:59] VITALS: BP 134/74
== END 2019-09-04 18:48 | disposition home or self-care (01) | DRG 638 ==
LOC: ED 13:39 → 4A 18:08 → 3A 09-04 00:11
PROVIDERS: ADMIT Internal Medicine; ATTEND Internal Medicine
PROC: 30233N1 Transfusion of Nonautologous Red Blood Cells into Peripheral Vein, Percutaneous Approach (ICD-10-PCS; principal; 2019-09-04)
DX: E11.65 Type 2 diabetes mellitus with hyperglycemia (principal); E87.1 Hypo-osmolality and hyponatremia; Z68.43 Body mass index [BMI] 50.0-59.9, adult; N92.0 Excessive and frequent menstruation with regular cycle; J45.909 Unspecified asthma, uncomplicated; G43.909 Migraine, unspecified, not intractable, without status migrainosus; E78.5 Hyperlipidemia, unspecified; I11.0 Hypertensive heart disease with heart failure; E11.43 Type 2 diabetes mellitus with diabetic autonomic (poly)neuropathy; I50.9 Heart failure, unspecified; K31.84 Gastroparesis; E11.40 Type 2 diabetes mellitus with diabetic neuropathy, unspecified; K27.9 Peptic ulcer, site unspecified, unspecified as acute or chronic, without hemorrhage or perforation; E78.00 Pure hypercholesterolemia, unspecified; F41.1 Generalized anxiety disorder; E66.01 Morbid (severe) obesity due to excess calories; D64.9 Anemia, unspecified; N83.202 Unspecified ovarian cyst, left side; Z90.49 Acquired absence of other specified parts of digestive tract; Z88.1 Allergy status to other antibiotic agents; Z88.8 Allergy status to other drugs, medicaments and biological substances; Z88.6 Allergy status to analgesic agent; Z79.4 Long term (current) use of insulin
CPT/HCPCS: 36415; 36430; 70450; 70551; 76856; 80048; 80061; 82607; 82962; 83036; 83550; 84484; 85025; 85610; 85652; 85670; 85730; 86850; 86900; 86901; 86920; 90686; 93005; 93010; 93306; 93880; G0378; A9270-GY; J1815; J7040; P9016

== ENCOUNTER 2019-09-05 11:43 | Observation (INO) | payer MEDICAID ==
--- NOTE | 2019-09-05 12:25 | Emergency Department Report ---
ED General Adult HPI - General Stated complaint: CHEST PAIN Time Seen by Provider: 09/05/19 12:07 Source: patient, family, EMS Mode of arrival: Stretcher Limitations: No Limitations - History of Present Illness Initial comments: 43 yo AA female, dc from hosp yesterday, called 911 this AM due to l arm weakness, spotty vision in right eye, and chest pain. Pt tells me she was dc h ome p being told she had TIA - see EMR. PMH obese HTN HLD DM I talsemia Fe def anemia DUB- [employer] saw last week LMP- DUB stopped yesterday; pt was transfused yesterday. migraines anxiety hx heart palpitations Echo last week normal Stress test 5 years ago normal per pt Neuro consult on arrival see studies in EMR On arrival pos pronator drift LUE; I did not appreciate weakness (while on stre tcher to LLE). No difficulty with speech. Symmetric face. A/O x 3. BP 132/89, ST 105, sat room air 99% Pt describes chest pain as sharp radiating to her back. No n/v/d. No fever or chills. No headache. Endorses generalized weakness. -: Sudden, days(s) Location: chest Radiation: back Quality: stabbing Consistency: intermittent Improves with: none Worsens with: none Associated Symptoms: headaches, nausea/vomiting, weakness Treatments Prior to Arrival: other - Related Data Home Medications Medication Instructions Recorded Confirmed Last Taken ALPRAZolam [Xanax TAB] 2 mg PO TID 09/02/19 09/02/19 1 Day Ago ~09/01/19 Previous Rx's Medication Instructions Recorded Last Taken Type Butalb/Acetamin/Caff 50-325-40 2 tab PO Q8H PRN #20 tablet 05/08/15 Unknown Rx [Fioricet 50-325-40] Furosemide [Lasix TAB] 40 mg PO QDAY #30 tablet 05/08/15 11/20/15 09:30 Rx Insulin Glargine [Lantus VIAL] 60 units SQ BID #1 vial 05/08/15 11/20/15 09:30 Rx Insulin Lispro [HumaLOG VIAL] 30 unit SQ TID #1 vial 05/08/15 09/01/19 Rx Pravastatin [Pravachol] 20 mg PO QHS #30 tablet 05/08/15 09/01/19 Rx carvediloL [Coreg] 3.125 mg PO BID #60 tablet 05/08/15 09/01/19 Rx Allergies Allergy/AdvReac Type Severity Reaction Status Date / Time lisinopril Allergy Itching Verified 07/13/19 14:10 Penicillins Allergy Unknown Verified 07/13/19 14:10 ibuprofen [From Motrin] AdvReac Bleeding Verified 07/13/19 14:10 ED Review of Systems ROS: Stated complaint: CHEST PAIN Other details as noted in HPI Comment: All other systems reviewed and negative ED Past Medical Hx - Past Medical History Previous Medical History?: Yes Hx Hypertension: Yes Hx CVA: Yes Hx Heart Attack/AMI: No Hx Congestive Heart Failure: No Hx Diabetes: Yes Hx Deep Vein Thrombosis: No Hx Pulmonary Embolism: No Hx GERD: No Hx Liver Disease: No Hx Renal Disease: No Hx of Cancer: No Hx Sickle Cell Disease: No Hx Arthritis: No Hx Headaches / Migraines: Yes Hx Seizures: No Hx Kidney Stones: No Hx Psychiatric Treatment: Yes (Anxiety) Hx Asthma: Yes Hx COPD: No Hx Tuberculosis: No Hx Dementia: No Hx HIV: No Additional medical history: gastroparesis, DKA, neuropathy, peptic ulcer disea se, high cholesterol, thalcemia, low Fe, obese, palpitations (at one time was on metoprolol, DUB - Surgical History Past Surgical History?: Yes Hx Coronary Stent: No Hx Open Heart Surgery: No Hx Pacemaker: No Hx Internal Defibrillator: No Hx Cholecystectomy: Yes Hx Appendectomy: No Hx Breast Surgery: No Additional Surgical History: - Family History Family history: other (fam hx cad) - Social History Smoking Status: Never Smoker Substance Use Type: None - Medications Home Medications: Home Medications Medication Instructions Recorded Confirmed Last Taken Type Butalb/Acetamin/Caff 50-325-40 2 tab PO Q8H PRN #20 tablet 05/08/15 09/02/19 Unknown Rx [Fioricet 50-325-40] Furosemide [Lasix TAB] 40 mg PO QDAY #30 tablet 05/08/15 09/02/19 11/20/15 09:30 Rx Insulin Glargine [Lantus VIAL] 60 units SQ BID #1 vial 05/08/15 09/02/19 11/20/15 09:30 Rx Insulin Lispro [HumaLOG VIAL] 30 unit SQ TID #1 vial 05/08/15 09/02/19 09/01/19 Rx Pravastatin [Pravachol] 20 mg PO QHS #30 tablet 05/08/15 09/02/19 09/01/19 Rx carvediloL [Coreg] 3.125 mg PO BID #60 tablet 05/08/15 09/02/19 09/01/19 Rx ALPRAZolam [Xanax TAB] 2 mg PO TID 09/02/19 09/02/19 1 Day Ago History ~09/01/19 ED Physical Exam - General General appearance: alert, in no apparent distress - Head Head exam: Present: atraumatic, normocephalic - Eye Eye exam: Present: normal appearance - ENT ENT exam: Present: mucous membranes moist - Neck Neck exam: Present: normal inspection - Respiratory Respiratory exam: Present: normal lung sounds bilaterally. Absent: respiratory distress - Cardiovascular Cardiovascular Exam: Present: regular rate, normal rhythm. Absent: systolic murmur, diastolic murmur, rubs, gallop - GI/Abdominal GI/Abdominal exam: Present: soft, normal bowel sounds - Extremities Exam Extremities exam: Present: normal inspection - Back Exam Back exam: Present: normal inspection - Neurological Exam Neurological exam: Present: alert, oriented X3 - Psychiatric Psychiatric exam: Present: normal affect, normal mood - Skin Skin exam: Present: warm, dry, intact, normal color. Absent: rash ED Course Vital Signs 09/05/19 09/05/19 09/05/19 12:33 12:44 15:46 Temperature 97.9 F Pulse Rate 100 H 98 H Respiratory 17 17 16 Rate Blood Pressure 115/64 Blood Pressure 138/80 [Left] O2 Sat by Pulse 98 98 100 Oximetry 09/05/19 16:30 Temperature Pulse Rate 95 H Respiratory 10 L Rate Blood Pressure 152/87 Blood Pressure [Left] O2 Sat by Pulse 98 Oximetry - Reevaluation(s) Reevaluation #1: 09/05/19 14:45 home rx insulin coreg losartan xanax topamax zocor Fe every 3 months ED Medical Decision Making - Lab Data Result diagrams: 09/05/19 13:03 09/05/19 13:03 - EKG Data -: EKG Interpreted by Ak EKG shows normal: sinus rhythm Rate: normal - EKG Data When compared to previous EKG there are: no significant change Interpretation: no acute changes - Radiology Data Radiology results: report reviewed, image reviewed - Medical Decision Making Labs 09/05/19 09/05/19 09/05/19 13:03 13:03 13:26 WBC 9.6 RBC 3.41 L Hgb 7.8 L Hct 24.4 L MCV 71 L MCH 23 L MCHC 32 RDW 16.5 H Plt Count 244 Lymph % (Auto) 11.7 L [place] % (Auto) 7.5 H Eos % (Auto) 1.2 Baso % (Auto) 0.6 Lymph # 1.1 L [place] # 0.7 Eos # 0.1 Baso # 0.1 Seg Neutrophils % 79.0 H Seg Neutrophils # 7.6 Sodium 136 L Potassium 4.4 Chloride 97.8 L Carbon Dioxide 23 Anion Gap 20 BUN 19 H Creatinine 0.8 Estimated GFR > 60 BUN/Creatinine Ratio 24 Glucose 304 H POC Glucose 316 H Calcium 8.6 Total Bilirubin 0.30 AST 16 ALT 16 Alkaline Phosphatase 70 Troponin T 0.082 H D Total Protein 6.5 Albumin 3.7 L Albumin/Globulin Ratio 1.3 Vital Signs 09/05/19 09/05/19 12:33 12:44 Temperature 97.9 F Pulse Rate 100 H Respiratory 17 17 Rate Blood Pressure 138/80 [Left] O2 Sat by Pulse 98 98 Oximetry pt dc from hosp yesterday- see EMR consult to tele neuro- see reqs. labs noted ua pending CT head noted ekg noted xray chest noted CTA pending hyperglycemia treated- NS/insulin trop noted- 12 lead NAP echo last week normal Hgb 7.8- in trending hx pt is normallu -; she has had DUB cards notified- Dr Keane- serial trop/EKG/transfuse/Echo in AM; admit to [facility] [place] [address] Tyler HOWARD 1. CTA pending 2. serial trop/EKG 3. transfuse 1 U RBC 4. see neuro recs Dr Lara aware of admit. - Differential Diagnosis ro tia/demand ischemia/ACS/ao dissection/anxiety Critical care attestation.: If time is entered above; I have spent that time in minutes in the direct care of this critically ill patient, excluding procedure time. ED Disposition Clinical Impression: Hyperglycemia, Morbid obesity with BMI of 45.0-49.9, adult, Elevated troponin, Chest pain, Symptomatic anemia, IDDM (insulin dependent diabetes mellitus) Anemia Qualifiers: Anemia type: iron deficiency Qualified Code(s): D64.9 - Anemia, unspecified Disposition: OP ADMIT IP TO THIS HOSP Is pt being admited?: Yes Does the pt Need Aspirin: No Condition: Stable Instructions: Diabetes Mellitus Type 2 in Adults (ED) Referrals: INGRID HUNTER MD [Primary Care Provider] - 3-5 Days Time of Disposition: 16:28
[2019-09-05 13:47] LABS: Basophils # (Auto) 0.1 K/mm3 (0.0-0.1); Basophils % (Auto) 0.6 % (0.0-1.8); Eosinophils # (Auto) 0.1 K/mm3 (0.0-0.4); Eosinophils % (Auto) 1.2 % (0.0-4.3); Hematocrit 24.4 % (30.3-42.9); Hemoglobin 7.8 gm/dl (10.1-14.3); Lymphocytes # (Auto) 1.1 K/mm3 (1.2-5.4); Lymphocytes % (Auto) 11.7 % (13.4-35.0); Mean Corpuscular HGB Conc 32 % (30-34); Mean Corpuscular Volume 71 fl (79-97); Monocytes # (Auto) 0.7 K/mm3 (0.0-0.8); Monocytes % (Auto) 7.5 % (0.0-7.3); Platelet Count 244 K/mm3 (140-440); Red Blood Count 3.41 M/mm3 (3.65-5.03); Red Cell Distribution Width 16.5 % (13.2-15.2)
--- NOTE | 2019-09-05 13:57 | XRay Report ---
CHEST 1 VIEW INDICATION / CLINICAL INFORMATION: weakness upt. COMPARISON: 07/13/2019 FINDINGS: SUPPORT DEVICES: None. HEART / MEDIASTINUM: No significant abnormality. LUNGS / PLEURA: No significant pulmonary or pleural abnormality. No pneumothorax. ADDITIONAL FINDINGS: No significant additional findings. IMPRESSION: 1. No acute findings. Signer Name: Kai Conrad MD Signed: 09/05/2019 1:53 PM Workstation Name: [id number]
[2019-09-05 14:12] LABS: Alanine Aminotransferase 16 units/L (7-56); Albumin 3.7 g/dL (3.9-5); BUN/Creatinine Ratio 24; Blood Urea Nitrogen 19 mg/dL (7-17); Calcium 8.6 mg/dL (8.4-10.2); Hemolysis Index 0
--- NOTE | 2019-09-05 14:17 | Cat Scan Report ---
CT HEAD WITHOUT CONTRAST INDICATION / CLINICAL INFORMATION: R sided weakness. TECHNIQUE: All CT scans at this location are performed using CT dose reduction for ALARA by means of automated e xposure control. COMPARISON: 09/01/2019 FINDINGS: HEMORRHAGE: No evidence of intracranial hemorrhage or extra-axial fluid collection. EXTRA-AXIAL SPACES: Cortical sulci, sylvian fissures and basilar cisterns are within normal limits si ze. VENTRICULAR SYSTEM: The ventricular system is of normal size and configuration. CEREBRAL PARENCHYMA: No areas of abnormal brain parenchymal attenuation are identified. There is no i ndication of recent infarction. MIDLINE SHIFT OR HERNIATION: There is no mass effect. CEREBELLUM / BRAINSTEM: Brainstem and cerebellum have an unremarkable appearance. INTRACRANIAL VESSELS:No abnormalities are identified on this noncontrast head CT. ORBITS: visualized portions of the orbits have an unremarkable appearance. SOFT TISSUES of HEAD: No significant abnormality. CALVARIUM: Evaluation of bone windows reveals no abnormalities. PARANASAL SINUSES / MASTOID AIR CELLS: Paranasal sinuses are free from inflammatory mucosal disease. Mastoid air cells are normally pneumatized. ADDITIONAL FINDINGS: None. IMPRESSION: 1. No acute intracranial abnormality. Signer Name: Soto Marquez MD Signed: 09/05/2019 2:13 PM Workstation Name: [id number]
[2019-09-05] MEDS ORDERED: ASPIRIN EC 81 MG TAB PO ONE (14:38)
[2019-09-05] MEDS ORDERED: SODIUM CHLORIDE 0.9% 1000 ML 1,000 ML IV ONE (14:44)
[2019-09-05] MEDS ORDERED: INSULIN REGULAR, HUMAN 100 UNITS/1 ML IV ONE (14:45)
--- NOTE | 2019-09-05 14:57 | Consultation ---
History of Present Illness History of present illness: [facility] Impression: Blurred vision, anemia, left sided weakness, r/o stroke Comments: Stat Recommendations: Check CTA chest to r/o aortic dissection. MRI Brain without contrast. Statin if no contraindications. IV fluids. Lipid Profile, HbA1C. Permissive HTN. Inpatient neurology consultation Inpatient stroke evaluation as per Neurology/ Internal Medicine Please call with questions CC: dizzy, left sided weakness, fall, blurry vision, chest pain. History of Present Illness: Patient is a 43 YO F with h/o Recent TIA who presented with left-sided weakness, dizziness, blurry vision and chest pain. Patient states that she was recently discharged yesterday after a TIA and when she went home she started feeling dizzy and had left-sided weakness. She also had a fall. She states that this morning when she woke up her vision was blurry. She is also complaining of chest pain radiating to her back. She had a blood transfusion yesterday due to uterine bleeding for 4 weeks. Diagnostic: CT Head: No acute Intracranial findings. Exam: NIH Stroke Scale/Score (NIHSS) RESULT SUMMARY: 2 points NIH Stroke Scale INPUTS: 1A: Level of consciousness > 0 = Alert; keenly responsive 1B: Ask month and age > 1 = 1 question right 1C: 'Blink eyes' & 'squeeze hands' > 0 = Performs both tasks 2: Horizontal extraocular movements > 0 = Normal 3: Visual george > 1 = Partial hemianopia 4: Facial palsy > 0 = Normal symmetry 5A: Left arm motor drift > 0 = No drift for 10 seconds 5B: Right arm motor drift > 0 = No drift for 10 seconds 6A: Left leg motor drift > 0 = No drift for 5 seconds 6B: Right leg motor drift > 0 = No drift for 5 seconds 7: Limb Ataxia > 0 = No ataxia 8: Sensation > 0 = Normal; no sensory loss 9: Language/aphasia > 0 = Normal; no aphasia 10: Dysarthria > 0 = Normal 11: Extinction/inattention > 0 = No abnormality Medical Decision Making: - Extensive number of diagnosis or management options are considered above. - Extensive amount of complex data reviewed. - High risk of complication and/or morbidity or mortality are associated with differential diagnostic considerations above. - There may be Uncertain outcome and increased probability of prolonged functional impairment or high probability of severe prolonged functional impairment associated with some of these differential diagnosis. Medical Data Reviewed: 1.Data reviewed include clinical labs, radiology, Medical Tests; 2.Tests results discussed w/performing or interpreting physician; 3.Obtaining/reviewing old medical records; 4.Obtaining case history from another source; 5.Independent review of image, tracing or specimen. Patient was informed the neurology consult would happen via telehealth consult by way of interactive audio and video telecommunications and consented to r eceiving care in this manner. Medications and Allergies Allergies Allergy/AdvReac Type Severity Reaction Status Date / Time lisinopril Allergy Itching Verified 07/13/19 14:10 Penicillins Allergy Unknown Verified 07/13/19 14:10 ibuprofen [From Motrin] AdvReac Bleeding Verified 07/13/19 14:10 Home Medications Medication Instructions Recorded Confirmed Last Taken Type Butalb/Acetamin/Caff 50-325-40 2 tab PO Q8H PRN #20 tablet 05/08/15 09/02/19 Unknown Rx [Fioricet 50-325-40] Furosemide [Lasix TAB] 40 mg PO QDAY #30 tablet 05/08/15 09/02/19 11/20/15 09:30 Rx Insulin Glargine [Lantus VIAL] 60 units SQ BID #1 vial 05/08/15 09/02/19 11/20/15 09:30 Rx Insulin Lispro [HumaLOG VIAL] 30 unit SQ TID #1 vial 05/08/15 09/02/19 09/01/19 Rx Pravastatin [Pravachol] 20 mg PO QHS #30 tablet 05/08/15 09/02/19 09/01/19 Rx carvediloL [Coreg] 3.125 mg PO BID #60 tablet 05/08/15 09/02/19 09/01/19 Rx Dicyclomine [Bentyl] 20 mg PO QID PRN #20 tablet 11/22/15 09/02/19 Unknown Rx Baclofen [Lioresal] 10 mg PO TID #15 tab 02/04/19 09/02/19 09/01/19 Rx traMADoL [Ultram 50 MG tab] 50 mg PO Q6HR PRN #12 tablet 02/04/19 09/02/19 Unknown Rx Albuterol INH(or & Nicu Only) 2 puff IH QID PRN #1 inhalation 07/13/19 09/02/19 Unknown Rx [ProAir HFA Inhaler] Benzonatate [Tessalon Perles] 100 mg PO Q8HR #30 capsule 07/13/19 09/02/19 Unknown Rx Cyclobenzaprine [Flexeril 10 MG 10 mg PO QHS PRN #14 tablet 07/13/19 09/02/19 Unknown Rx TAB] ALPRAZolam [Xanax TAB] 2 mg PO TID 09/02/19 09/02/19 1 Day Ago History ~09/01/19 Active Meds: Active Medications Sodium Chloride (Nacl 0.9% 1000 Ml) 1,000 mls @ 999 mls/hr IV BOLUS ONE Stop: 09/05/19 15:44 Physical Examination - Vital Signs Vital Signs: Vital Signs Temp Pulse Resp BP Pulse Ox 97.9 F 100 H 17 138/80 98 09/05/19 12:33 09/05/19 12:33 09/05/19 12:33 09/05/19 12:33 09/05/19 12:33 Results - Laboratory Findings CBC and BMP: 09/05/19 13:03 09/05/19 13:03 Abnormal Lab Findings: Abnormal Labs 09/05/19 09/05/19 09/05/19 13:03 13:03 13:26 RBC 3.41 L Hgb 7.8 L Hct 24.4 L MCV 71 L MCH 23 L RDW 16.5 H Lymph % (Auto) 11.7 L [place] % (Auto) 7.5 H Lymph # 1.1 L Seg Neutrophils % 79.0 H Sodium 136 L Chloride 97.8 L BUN 19 H Glucose 304 H POC Glucose 316 H Troponin T 0.082 H D Albumin 3.7 L
[2019-09-05] MEDS ORDERED: ASPIRIN EC 325 MG TAB PO ONE (15:26)
[2019-09-05] MEDS ORDERED: ACETAMINOPHEN 500 MG TAB PO ONE (15:56)
[2019-09-05 16:24] LABS: Iron 22 ug/dL (37-170); Total Iron Binding Capacity 375 mcg/dL (250-450)
[2019-09-05] MEDS ORDERED: SODIUM CHLORIDE 0.9% 500 ML 500 ML IV ONE (17:30)
--- NOTE | 2019-09-05 18:20 | Cat Scan Report ---
CT angio chest INDICATION / CLINICAL INFORMATION: chest pain. Precontrast bolus timing images were obtained followed by postcontrast axial and reformat olive images. 3-plane MIP reconstructions were performed at an independent workstation by the technologist. TECHNIQUE: All CT scans at this location are performed using CT dose reduction for ALARA by means of automated e xposure control. COMPARISON: None available. FINDINGS: Contrast enhancement of the pulmonary arteries is normal bilaterally. No evidence of pulmonary embolu s. No mediastinal adenopathy. No evidence of airspace consolidation. Mild dependent atelectasis is seen bilaterally. Limited images of the upper abdomen are negative. No skeletal abnormality IMPRESSION: 1. Negative pulmonary CTA. Signer Name: Kai Conrad MD Signed: 09/05/2019 6:15 PM Workstation Name: [id number]
[2019-09-05] MEDS ORDERED: diphenhydrAMINE 50 MG/ML VIAL IV ONE (19:02)
[2019-09-05] MEDS ORDERED: SODIUM CHLORIDE 0.45% 1000 ML 1,000 ML IV SCH (23:45)
[2019-09-05] MEDS ORDERED: MAGNESIUM HYDROXIDE (MOM) ORAL LIQD UDC PO PRN (23:59)
[2019-09-05] MEDS ORDERED: ONDANSETRON 4 MG/2 ML INJ IV PRN (23:59)
[2019-09-05] MEDS ORDERED: METOCLOPRAMIDE 10 MG TAB PO PRN (23:59)
[2019-09-06] MEDS ORDERED: DEXTROSE 50% IN WATER (25GM) 50 ML SYRINGE IV PRN (00:06)
[2019-09-06] MEDS ORDERED: hydrALAZINE 20 MG/1 ML INJ IV PRN (00:09)
[2019-09-06] MEDS ORDERED: HEPARIN 10,000 UNITS/10 ML VIAL IV ONE ×2 (00:24→01:00)
--- NOTE | 2019-09-06 00:42 | History and Physical Report ---
History of Present Illness Date of examination: 09/05/19 Date of admission: 09/05/2019 Chief complaint: left sided weakness, blurred vision History of present illness: 43-year-old -[place] female with history of morbid obesity, hypertension, HLD, insulin-dependent diabetes, anemia, anxiety, palpitations, asthma, and menorrhagia who presents to [facility] ED with complaints of left-sided weakness and blurred vision. Of note patient was admitted on 09/01/2019 with complaints of neuro deficits and suspicion of TIA/stroke. CT head and MRI brain were negative. Carotid Dopplers negative and echo showed EF 55 to 60% with normal wall motion. Patient was seen and evaluated by neurology who recommended outpatient follow-up. She was also treated for anemia secondary to menorrhagia and received 1 unit PRBC. She was discharged on 09/04/2019. Patient states she w chandni up this morning and her vision was blurred. Actually she complains of substernal left-sided chest pain with radiation to left shoulder. Patient describes the pain as sharp and rates it 8/10. The pain is intermittent. She denies nausea, emesis, diaphoresis, slurred speech, or gait dysfunction,. Patient found to have elevated troponin. Cardiology consulted and started on heparin drip. Will admit to telemetry for further evaluation and treatment. Past History Past Medical History: anemia, diabetes, hypertension, hyperlipidemia, other (Asthma, menorrhagia, anxiety, palpitations, morbid obesity) Past Surgical History: cholecystectomy, Social history: lives with family Medications and Allergies Allergies Allergy/AdvReac Type Severity Reaction Status Date / Time lisinopril Allergy Itching Verified 07/13/19 14:10 Penicillins Allergy Unknown Verified 07/13/19 14:10 ibuprofen [From Motrin] AdvReac Bleeding Verified 07/13/19 14:10 Home Medications Medication Instructions Recorded Confirmed Last Taken Type Furosemide [Lasix TAB] 40 mg PO QDAY #30 tablet 05/08/15 09/05/19 11/20/15 09:30 Rx Pravastatin [Pravachol] 20 mg PO QHS #30 tablet 05/08/15 09/05/19 09/01/19 Rx ALPRAZolam [Xanax TAB] 2 mg PO TID 09/02/19 09/05/19 1 Day Ago History ~09/01/19 Insulin Glargine [Lantus VIAL] 75 units SQ BID 09/05/19 09/05/19 Unknown History Insulin Lispro [HumaLOG VIAL] 35 unit SQ TID 09/05/19 09/05/19 Unknown History carvediloL [Coreg] 12 mg PO BID 09/05/19 09/05/19 Unknown History Active Meds: Active Medications Acetaminophen (Tylenol) 650 mg PO Q4H PRN PRN Reason: Pain, Mild (1-3) Atorvastatin Calcium (Lipitor) 40 mg PO QHS JAILENE Bisacodyl (Dulcolax) 10 mg MN QDAY PRN PRN Reason: Constipation Dextrose (D50w (25gm) Syringe) 50 ml IV Q30MIN PRN; Protocol PRN Reason: Hypoglycemia Furosemide (Lasix) 40 mg PO QDAY JAILENE Heparin Sodium (Porcine) (Heparin) 5,000 unit SUB-Q Q12HR JAILENE Heparin Sodium (Porcine) (Heparin 10,000 Units/10 Ml) 15,200 unit 60 unit/kg (18465 unit) IV ONCE ONE Stop: 09/06/19 00:25 Hydralazine HCl (Apresoline) 5 mg IV Q4HR PRN PRN Reason: Blood Pressure Sodium Chloride (Nacl 0.45% 1000 Ml) 1,000 mls @ 42 mls/hr IV DIRECT JAILENE Stop: 09/06/19 12:00 Heparin Sodium/Sodium Chloride (Heparin/ 0.45% Nacl-25,000 Unit/500 Ml) 25,000 unit in 500 mls @ 75.87 mls/hr IV TITRATE JAILENE; Protocol Insulin Human Lispro (Humalog) 0 unit SUB-Q Q6HR JAILENE; Protocol Magnesium Hydroxide (Milk Of Magnesia) 30 ml PO Q4H PRN PRN Reason: Constipation Metoclopramide HCl (Reglan) 10 mg PO Q6H PRN PRN Reason: Nausea And Vomiting Morphine Sulfate (Morphine) 2 mg IV Q4H PRN PRN Reason: Pain, Moderate (4-6) Nitroglycerin (Nitro-Bid 2%) 1 inch TP TIDNTG JAILENE; Protocol Ondansetron HCl (Zofran) 4 mg IV Q8H PRN PRN Reason: Nausea And Vomiting Sodium Chloride (Sodium Chloride Flush Syringe 10 Ml) 10 ml IV PRN PRN PRN Reason: LINE FLUSH Review of Systems All systems: negative Eyes: bilateral: blurred vision, decreased vision Cardiovascular: chest pain, shortness of breath Respiratory: cough Menstruation: other (Menorrhagia) Neurological: other (Left-sided weakness) Psychiatric: anxiety Exam - Physical Exam Narrative exam: Physical exam General appearance: Present: No acute distress, alert and oriented 3, morbidly obese, adult female - EENT Eyes: Present: PERRL, EOM intact ENT: hearing intact, normal dentition - Neck Neck: Present: supple, normal ROM - Respiratory Respiratory effort: Non-labored Respiratory: Clear throughout - Cardiovascular Heart rate: 97 (bpm) Rhythm: Sinus rhythm Heart Sounds: Present: S1 & S2. Absent: rub, click - Extremities Extremities: no ischemia, pulses intact, - Peripheral Assessment Peripheral Pulses: within normal limits - Abdominal General gastrointestinal: soft, non-tender, normal bowel sounds - Integumentary Integumentary: Present: warm, dry - Musculoskeletal Musculoskeletal: Able to move all extremities, 4/5 motor strength to left upper lower extremities no drift, 5/5 motor strength to right upper and lower extremity -Neurological Neurological: CN II-XII intact - Psychiatric Psychiatric: Appropriate for situation ,cooperative - Constitutional Vitals: Temp Pulse Resp BP Pulse Ox 98.4 F 100 H 13 155/80 100 09/05/19 21:00 09/05/19 23:45 09/05/19 23:45 09/05/19 23:45 09/05/19 23:30 NESTOR score - Nestor Score Age > 65: (0) No Aspirin use within the Past 7 Days: (0) No 3 or more CAD Risk Factors: (1) Yes 2 or more Angina events in past 24 hrs: (1) Yes Known CAD with more than 50% Stenosis: (0) No Elevated Cardiac Markers: (1) Yes ST Deviation Greater than 0.5mm: (0) No NESTOR Score: 3 Results - Labs CBC & Chem 7: 09/06/19 00:13 09/05/19 13:03 Labs: Laboratory Last Values WBC 9.6 K/mm3 (4.5-11.0) 09/05/19 13:03 RBC 3.41 M/mm3 (3.65-5.03) L 09/05/19 13:03 Hgb 7.8 gm/dl (10.1-14.3) L 09/05/19 13:03 Hct 24.4 % (30.3-42.9) L 09/05/19 13:03 MCV 71 fl (79-97) L 09/05/19 13:03 MCH 23 pg (28-32) L 09/05/19 13:03 MCHC 32 % (30-34) 09/05/19 13:03 RDW 16.5 % (13.2-15.2) H 09/05/19 13:03 Plt Count 244 K/mm3 (140-440) 09/05/19 13:03 Lymph % (Auto) 11.7 % (13.4-35.0) L 09/05/19 13:03 [place] % (Auto) 7.5 % (0.0-7.3) H 09/05/19 13:03 Eos % (Auto) 1.2 % (0.0-4.3) 09/05/19 13:03 Baso % (Auto) 0.6 % (0.0-1.8) 09/05/19 13:03 Lymph # 1.1 K/mm3 (1.2-5.4) L 09/05/19 13:03 [place] # 0.7 K/mm3 (0.0-0.8) 09/05/19 13:03 Eos # 0.1 K/mm3 (0.0-0.4) 09/05/19 13:03 Baso # 0.1 K/mm3 (0.0-0.1) 09/05/19 13:03 Seg Neutrophils % 79.0 % (40.0-70.0) H 09/05/19 13:03 Seg Neutrophils # 7.6 K/mm3 (1.8-7.7) 09/05/19 13:03 VBG pH 7.420 (7.320-7.420) 09/05/19 15:35 Sodium 136 mmol/L (137-145) L 09/05/19 13:03 Potassium 4.4 mmol/L (3.6-5.0) 09/05/19 13:03 Chloride 97.8 mmol/L (98-107) L 09/05/19 13:03 Carbon Dioxide 23 mmol/L (22-30) 09/05/19 13:03 Anion Gap 20 mmol/L 09/05/19 13:03 BUN 19 mg/dL (7-17) H 09/05/19 13:03 Creatinine 0.8 mg/dL (0.7-1.2) 09/05/19 13:03 Estimated GFR > 60 ml/min 09/05/19 13:03 BUN/Creatinine Ratio 24 % 09/05/19 13:03 Glucose 304 mg/dL (65-100) H 09/05/19 13:03 POC Glucose 161 (70-105) H 09/05/19 22:10 Calcium 8.6 mg/dL (8.4-10.2) 09/05/19 13:03 Iron 22 ug/dL (37-170) L 09/05/19 15:23 TIBC 375 mcg/dL (250-450) 09/05/19 15:23 Total Bilirubin 0.30 mg/dL (0.1-1.2) 09/05/19 13:03 AST 16 units/L (5-40) 09/05/19 13:03 ALT 16 units/L (7-56) 09/05/19 13:03 Alkaline Phosphatase 70 units/L (35-129) 09/05/19 13:03 Troponin T 0.093 ng/mL (0.00-0.029) H 09/05/19 15:23 Total Protein 6.5 g/dL (6.3-8.2) 09/05/19 13:03 Albumin 3.7 g/dL (3.9-5) L 09/05/19 13:03 Albumin/Globulin Ratio 1.3 % 09/05/19 13:03 HCG, Qual Negative (Negative) 09/05/19 15:23 Blood Type A POSITIVE 09/05/19 15:30 Antibody Screen Negative 09/05/19 15:30 Crossmatch See Detail 09/05/19 15:30 - Imaging and Cardiology Imaging and Cardiology: CT Head: FINDINGS: HEMORRHAGE: No evidence of intracranial hemorrhage or extra-axial fluid collection. EXTRA-AXIAL SPACES: Cortical sulci, sylvian fissures and basilar cisterns are within normal limits size. VENTRICULAR SYSTEM: The ventric ular system is of normal size and configuration. CEREBRAL PARENCHYMA: No areas of abnormal brain parenchymal attenuation are identified. There is no indication of recent infarction. MIDLINE SHIFT OR HERNIATION: There is no mass effect. CEREBELLUM / BRAINSTEM: Brainstem and cerebellum have an unremarkable appearance. INTRACRANIAL VESSELS:No abnormalities are identified on this noncontrast head CT. ORBITS: visualized portions of the orbits have an unremarkable appearance. SOFT TISSUES of HEAD: No significant abnormality. CALVARIUM: Evaluation of bone windows reveals no abnormalities. PARANASAL S INUSES / MASTOID AIR CELLS: Paranasal sinuses are free from inflammatory mucosal disease. Mastoid air cells are normally pneumatized. ADDITIONAL FINDINGS: None. IMPRESSION: 1. No acute intracranial abnormality. CT Angio Chest: FINDINGS: Contrast enhancement of the pulmonary arteries is normal bilaterally. No evidence of pulmonary embolus. No mediastinal adenopathy. No evidence of airspace consolidation. Mild dependent atelectasis is seen bilaterally. Limited images of the upper abdomen are negative. No skeletal abnormality IMPRESSION: 1. Negative pulmonary CTA. CXR: FINDINGS: SUPPORT DEVICES: None. HEART / MEDIASTINUM: No significant abnormality. LUNGS / PLEURA: No significant pulmonary or pleural abnormality. No pneumothorax. ADDITIONAL FINDINGS: No significant additional findings. Assessment and Plan Assessment and plan: 43-year-old -[place] female with history of morbid obesity, hypertension, HLD, insulin-dependent diabetes, anemia, anxiety, palpitations, asthma, and menorrhagia who presents to [facility] ED with complaints of left-sided weakness and blurred vision. Acute Chest Pain -C/o chest pain with radiation to left shoulder -Initiate chest pain protocol -Continuous telemetry monitoring -Continue supportive care -Pain mgmt -Troponin elevated x2 , will continue to trend -Initiate heparin protocol and start heparin drip -EF 55 to 60% seen on echo done 09/02/2019 -EKG unrevealing for acute ischemic abnormalities -Cardiology consulted R/O TIA R/O CVA -CT Head negative -Bilateral carotid Dopplers negative (09/02/2019) -Tele-Neurology consulted; recommendations appreciated -MRI brain pending -Neuro Checks -PT/OT eval pending -Speech eval Pending -Lipid panel pending -Allow for permissive hypertension -Continue statin -Neurology consulted IDDM -POC BG monitoring -SSI coverage prn -Hold scheduled Lantus until patient is no longer n.p.o. -HgbA1C pending HTN -Monitor BP -Hold antihypertensives -Allow for permissive hypertension Anemia -Hemoglobin on admission 7.8 (trending up from 7.0) -S/P 1u PRBC on 09/04/2019 -Hx menorrhagia -Continue to monitor hemoglobin -Transfuse as needed Morbid Obesity -BMI 105.3kg -Counseled for diet and lifestyle modifications for 10 minutes -May benefit from OP weight mgmt program DVT PPX -on Heparin Advance Directives: No VTE prophylaxis?: Chemical Plan of care discussed with patient/family: Yes
[2019-09-06] MEDS ORDERED: HEPARIN 10,000 UNITS/10 ML VIAL ONE ×2 (00:45→00:49)
[2019-09-06 00:58] LABS: Hematocrit 28.3 % (30.3-42.9); Hemoglobin 9.4 gm/dl (10.1-14.3)
[2019-09-06] MEDS ORDERED: HEPARIN/ 0.45% NACL DRIP 25,000 UNIT/500 ML BAG IV SCH (01:00)
[2019-09-06] MEDS ORDERED: MORPHINE 2 MG/1 ML INJ ONE (01:35)
[2019-09-06] MEDS: MORPHINE 2 MG/1 ML INJ IV PRN ×3 (01:39→21:15)
[2019-09-06 01:47] LABS: INR 0.94 (0.87-1.13); Partial Thromboplastin Time 28.2 Sec. (24.2-36.6)
[2019-09-06 05:23] LABS: Chol/HDL Ratio 4.93 %
[2019-09-06] MEDS: NITROGLYCERIN 2% OINT 1 GM TP SCH ×3 (06:23→17:31)
[2019-09-06] MEDS: INSULIN LISPRO 100 UNIT/ML SUB-Q SCH ×4 (06:25→22:50)
--- NOTE | 2019-09-06 09:54 | Consultation ---
History of Present Illness Consult date: 09/06/19 Reason for Consult: left side numbness,headache and dizziness History of present illness: 43-year-old -Irish female with history of morbid obesity, hypertension, HLD, insulin-dependent diabetes, anemia, anxiety, palpitations, asthma, and menorrhagia who presents to [facility] with complaints of left-sided weakness and blurred vision this isassociated with hedache on and off for over 6 months after she had head trauma at work according to her she was evaluated by neurologist as well as psychiatry for above she is on multiple medications including Ultram,Fiorcet,Flexeril and recently she is taking Topamax for the last 2 months . Of note patient was admitted on 09/01/2019 with complaints of neuro deficits and suspicion of TIA/stroke. CT head and MRI brain were negative. Carotid Dopplers negative and echo showed EF 55 to 60% with normal wall motion. Patient was seen and evaluated by neurology who recommended outpatient follow-up. She was also treated for anemia secondary to menorrhagia and received 1 unit PRBC. She was discharged on 09/04/2019. Patient states she woke up this morning and her vision was blurred. Actually she complains of substernal left-sided chest pain with radiation to left shoulder. Patient describes the pain as sharp and rates it 8/10. The pain is intermittent. She denies nausea, emesis, diap horesis, slurred speech, or gait dysfunction,. Patient found to have elevated troponin 0,093 - 0,089- 0,079 and she is placed on heparine IV . Cardiology consulted Past History Past Medical History: anemia, diabetes, hypertension, hyperlipidemia, other (Ast hma, menorrhagia, anxiety, palpitations, morbid obesity) Past Surgical History: cholecystectomy, Social history: lives with family Medications and Allergies Allergies Allergy/AdvReac Type Severity Reaction Status Date / Time lisinopril Allergy Itching Verified 07/13/19 14:10 Penicillins Allergy Unknown Verified 07/13/19 14:10 ibuprofen [From Motrin] AdvReac Bleeding Verified 07/13/19 14:10 Home Medications Medication Instructions Recorded Confirmed Last Taken Type Furosemide [Lasix TAB] 40 mg PO QDAY #30 tablet 05/08/15 09/05/19 11/20/15 09:30 Rx Pravastatin [Pravachol] 20 mg PO QHS #30 tablet 05/08/15 09/05/19 09/01/19 Rx ALPRAZolam [Xanax TAB] 2 mg PO TID 09/02/19 09/05/19 1 Day Ago History ~09/01/19 Insulin Glargine [Lantus VIAL] 75 units SQ BID 09/05/19 09/05/19 Unknown History Insulin Lispro [HumaLOG VIAL] 35 unit SQ TID 09/05/19 09/05/19 Unknown History carvediloL [Coreg] 12 mg PO BID 09/05/19 09/05/19 Unknown History Past History Past Medical History: anemia, diabetes, hypertension, hyperlipidemia, other (Asthma, menorrhagia, anxiety, palpitations, morbid obesity) Past Surgical History: cholecystectomy, Social history: lives with family Medications and Allergies Allergies Allergy/AdvReac Type Severity Reaction Status Date / Time lisinopril Allergy Itching Verified 07/13/19 14:10 Penicillins Allergy Unknown Verified 07/13/19 14:10 ibuprofen [From Motrin] AdvReac Bleeding Verified 07/13/19 14:10 Home Medications Medication Instructions Recorded Confirmed Last Taken Type Furosemide [Lasix TAB] 40 mg PO QDAY #30 tablet 05/08/15 09/05/19 11/20/15 09:30 Rx Pravastatin [Pravachol] 20 mg PO QHS #30 tablet 05/08/15 09/05/19 09/01/19 Rx ALPRAZolam [Xanax TAB] 2 mg PO TID 09/02/19 09/05/19 1 Day Ago History ~09/01/19 Insulin Glargine [Lantus VIAL] 75 units SQ BID 09/05/19 09/05/19 Unknown History Insulin Lispro [HumaLOG VIAL] 35 unit SQ TID 09/05/19 09/05/19 Unknown History carvediloL [Coreg] 12 mg PO BID 09/05/19 09/05/19 Unknown History Active Meds: Active Medications Acetaminophen (Tylenol) 650 mg PO Q4H PRN PRN Reason: Pain, Mild (1-3) Atorvastatin Calcium (Lipitor) 40 mg PO QHS JAILENE Bisacodyl (Dulcolax) 10 mg GA QDAY PRN PRN Reason: Constipation Dextrose (D50w (25gm) Syringe) 50 ml IV Q30MIN PRN; Protocol PRN Reason: Hypoglycemia Hydralazine HCl (Apresoline) 5 mg IV Q4HR PRN PRN Reason: Blood Pressure Sodium Chloride (Nacl 0.45% 1000 Ml) 1,000 mls @ 42 mls/hr IV DIRECT JAILENE Stop: 09/06/19 12:00 Last Admin: 09/06/19 06:24 Dose: 42 mls/hr Documented by: Heparin Sodium/Sodium Chloride (Heparin/ 0.45% Nacl-25,000 Unit/500 Ml) 25,000 unit in 500 mls @ 20 mls/hr IV TITRATE [facility]; Protocol Last Admin: 09/06/19 01:04 Dose: 1,000 units/hr, 20 mls/hr Documented by: Insulin Human Lispro (Humalog) 0 unit SUB-Q Q6HR [facility]; Protocol Last Admin: 09/06/19 06:25 Dose: Not Given Documented by: Magnesium Hydroxide (Milk Of Magnesia) 30 ml PO Q4H PRN PRN Reason: Constipation Metoclopramide HCl (Reglan) 10 mg PO Q6H PRN PRN Reason: Nausea And Vomiting Morphine Sulfate (Morphine) 2 mg IV Q4H PRN PRN Reason: Pain, Moderate (4-6) Last Admin: 09/06/19 08:57 Dose: 2 mg Documented by: Nitroglycerin (Nitro-Bid 2%) 1 inch TP TIDNTG [facility]; Protocol Last Admin: 09/06/19 06:23 Dose: 1 inch Documented by: Ondansetron HCl (Zofran) 4 mg IV Q8H PRN PRN Reason: Nausea And Vomiting Sodium Chloride (Sodium Chloride Flush Syringe 10 Ml) 10 ml IV PRN PRN PRN Reason: LINE FLUSH Review of Systems All systems: negative Physical Examination - Vital Signs Vital Signs: Vital Signs Temp Pulse Resp BP Pulse Ox 97.9 F 100 H 17 138/80 98 09/05/19 12:33 09/05/19 12:33 09/05/19 12:33 09/05/19 12:33 09/05/19 12:33 - Constitutional General appearance: uncomfortable - EENT EENT: Present: PERRL, mucous membranes moist - Respiratory Respiratory: Present: chest non-tender, lungs clear, rhonchi - Cardiovascular Cardiovascular: Present: regular rate, normal S1, normal S2 Extremities: Present: no peripheral edema bilatateraly, no clubbing, cyanosis, no inflammation, no ischemia or petechiae - Gastrointestinal Gastrointestinal: Present: normoactive bowel sounds - Integumentary Integumentary: Present: normal - Neurologic Cranial nerve examination: anosmic, PERRL, EOMI, V1/V2/V3 grossly intact, face symmetric, tongue midline, intact, other (fundus is clear) Speech examination: intact Sensorimotor examination: intact Detailed motor examination: other Reflexes: 1+: ankle, bicep, knee, tricep - Musculoskeletal Musculoskeletal: Present: other (complain of left arm pain and left side neck tenderness ) - Level of Consciousness 1a. Level of Consciousness: alert/keenly responsive - LOC Questions 1b. LOC Questions: answers both correctly - LOC Command 1c. LOC Commands: performs tasks correctly - Best Gaze 2. Best Gaze: normal - Visual 3. Visual: no visual loss - Facial Palsy 4. Facial Palsy: normal symmetrical movement - Motor Arm 5a. Motor Arm Left: no drift 5b. Motor Arm Right: no drift - Motor Leg 6a. Motor Leg Left: no drift 6b. Motor Leg Right: no drift - Limb Ataxia 7. Limb Ataxia: absent - Sensory 8. Sensory: normal - Best Language 9. Best Language: no aphasia - Dysarthria 10. Dysarthria: normal - Extinction and Inattention 11. Extinction/Inattention: no abnormality - Scoring Total Score: 0 Stroke Severity: No Stroke Symptoms Results - Laboratory Findings CBC and BMP: 09/06/19 00:13 09/05/19 13:03 Abnormal Lab Findings: Abnormal Labs 09/05/19 09/05/19 09/05/19 13:03 13:03 13:26 RBC 3.41 L Hgb 7.8 L Hct 24.4 L MCV 71 L MCH 23 L RDW 16.5 H Lymph % (Auto) 11.7 L [place] % (Auto) 7.5 H Lymph # 1.1 L Seg Neutrophils % 79.0 H Heparin Anti-Xa Level Sodium 136 L Chloride 97.8 L BUN 19 H Glucose 304 H POC Glucose 316 H Iron Troponin T 0.082 H D Albumin 3.7 L Triglycerides Cholesterol LDL Cholesterol Direct Crossmatch 09/05/19 09/05/19 09/05/19 15:23 15:23 15:30 RBC Hgb Hct MCV MCH RDW Lymph % (Auto) [place] % (Auto) Lymph # Seg Neutrophils % Heparin Anti-Xa Level Sodium Chloride BUN Glucose POC Glucose Iron 22 L Troponin T 0.093 H Albumin Triglycerides Cholesterol LDL Cholesterol Direct Crossmatch See Detail 09/05/19 09/06/19 09/06/19 22:10 00:13 00:13 RBC Hgb 9.4 L Hct 28.3 L MCV MCH RDW Lymph % (Auto) [place] % (Auto) Lymph # Seg Neutrophils % Heparin Anti-Xa Level Sodium Chloride BUN Glucose POC Glucose 161 H Iron Troponin T 0.084 H Albumin Triglycerides Cholesterol LDL Cholesterol Direct Crossmatch 09/06/19 09/06/19 09/06/19 04:21 04:21 07:22 RBC Hgb Hct MCV MCH RDW Lymph % (Auto) [place] % (Auto) Lymph # Seg Neutrophils % Heparin Anti-Xa Level 0.16 L Sodium Chloride BUN Glucose POC Glucose Iron Troponin T 0.079 H Albumin Triglycerides 237 H Cholesterol 212 H LDL Cholesterol Direct 146 H Crossmatch 09/06/19 08:49 RBC Hgb Hct MCV MCH RDW Lymph % (Auto) [place] % (Auto) Lymph # Seg Neutrophils % Heparin Anti-Xa Level Sodium Chloride BUN Glucose POC Glucose 119 H Iron Troponin T Albumin Triglycerides Cholesterol LDL Cholesterol Direct Crossmatch Assessment and Plan 1- This is 43 ys old female presented with complain of left side weakness and pain since yesterday associated with blurred vision and headache she was discharged from hospital on 09/04 after she was evaluated for possible CVA work up was unrevealing 2- Episode of dizziness on standing and tendency to fall she is with underlying anemia related to menorhagia just had Blood transfusion yesterday. 3- Recurrent headache for over 5-6 months after head trauma at work and resultant increase left arm pain !! according to her she is getting steroid shot in addition to flexeril, Ultram,Fiorcet and recently been started on topamax 50 mg daily. 4- Episode of CP with elevated cardiac enzymes on admission started on heparin IV and cardiology consulted 5- Underlying anxiety for some time followed by psychiatry according to her she is on xanax 2 mg tid and Prozac 40 mg daily 6- Weight gain she gained over 50 lbs in the last year with possible underlying sleep apnea . 7- Hyperlipidemia [id number] PLAN 1- Repeat MRI brain ? cva 2- Reglan IV 5 mg prn for headache and nausea 3- restart Topamax at 100 mg daily 4- cardiology opinion as far antiplatlet ? 5- keep Lipitor at 40 mg daily 6- TSH 7- Weight loss , and diet control 8- Pt therapy 9- Prozac 40 mg daily 10- xanax 2 mg tid 11- Consider sleep study on D/C ? sleep apnea. will follow
[2019-09-06] MEDS ORDERED: FUROSEMIDE 40 MG TAB PO SCH (10:00)
[2019-09-06] MEDS ORDERED: HEPARIN 5,000 UNIT/1 ML VIAL SUB-Q SCH (10:00)
[2019-09-06] MEDS ORDERED: METOCLOPRAMIDE 10 MG/2 ML INJ IV PRN ×2 (10:16→10:50)
--- NOTE | 2019-09-06 10:18 | Progress Note ---
Assessment and Plan Assessment and plan: 43-year-old woman who was recently admitted to the hospital with a variety of complaints. Today she is complaining of blurred vision, spots in her vision, chest pain on the left side of her chest. Left upper and lower extremity weakness. Neurological complaints Patient appears to be malingering. Neurology input appreciated, awaiting MRI MRA head. Patient is convinced she has postconcussive syndrome from a head injury she had January last year. Psychosomatic disorder;?? Mental health consults. Diabetes Consistent carbohydrate diet, sliding scale insulin, check A1c Chest pain; cardiology input appreciated for stress test tomorrow. History Interval history: She still continues to complain of vague symptoms including constant chest pain, left-sided weakness, blurred vision, spots in her vision. And generally feeling unwell and unstable. Review of systems Constitutional: No fevers, no malaise, no joint pains CVS: no orthopnea, no pedal edema GI: No abdominal pain, no diarrhea, no vomiting, no constipation Respiratory: , no wheezing, no coughing Hospitalist Physical - Physical exam Narrative exam: General.: Appears well, no distress, nontoxic HEENT: Moist mucous membranes, extraocular muscles intact, no lymphadenopathy Neck: supple Cardiac: S1-S2 heard Lungs: clear to auscultation bilaterally Abdomen: soft , nontender, nondistended, bowel sounds positive Extremities: no edema clubbing or cyanosis Skin: no rash or lesions Neurologic: no gross focal deficits Psych: calm, and cooperative - Constitutional Vitals: Temp Pulse Resp BP Pulse Ox 98.1 F 92 H 18 137/67 98 09/06/19 04:27 09/06/19 04:27 09/06/19 04:27 09/06/19 06:23 09/06/19 04:27 OXANA score - Oxana Score Age > 65: (0) No Aspirin use within the Past 7 Days: (0) No 3 or more CAD Risk Factors: (1) Yes 2 or more Angina events in past 24 hrs: (1) Yes Known CAD with more than 50% Stenosis: (0) No Elevated Cardiac Markers: (1) Yes ST Deviation Greater than 0.5mm: (0) No OXANA Score: 3 Results - Labs CBC & Chem 7: 09/06/19 00:13 09/05/19 13:03 Labs: Laboratory Last Values WBC 9.6 K/mm3 (4.5-11.0) 09/05/19 13:03 RBC 3.41 M/mm3 (3.65-5.03) L 09/05/19 13:03 Hgb 9.4 gm/dl (10.1-14.3) L 09/06/19 00:13 Hct 28.3 % (30.3-42.9) L 09/06/19 00:13 MCV 71 fl (79-97) L 09/05/19 13:03 MCH 23 pg (28-32) L 09/05/19 13:03 MCHC 32 % (30-34) 09/05/19 13:03 RDW 16.5 % (13.2-15.2) H 09/05/19 13:03 Plt Count 233 K/mm3 (140-440) 09/06/19 00:13 Lymph % (Auto) 11.7 % (13.4-35.0) L 09/05/19 13:03 [place] % (Auto) 7.5 % (0.0-7.3) H 09/05/19 13:03 Eos % (Auto) 1.2 % (0.0-4.3) 09/05/19 13:03 Baso % (Auto) 0.6 % (0.0-1.8) 09/05/19 13:03 Lymph # 1.1 K/mm3 (1.2-5.4) L 09/05/19 13:03 [place] # 0.7 K/mm3 (0.0-0.8) 09/05/19 13:03 Eos # 0.1 K/mm3 (0.0-0.4) 09/05/19 13:03 Baso # 0.1 K/mm3 (0.0-0.1) 09/05/19 13:03 Seg Neutrophils % 79.0 % (40.0-70.0) H 09/05/19 13:03 Seg Neutrophils # 7.6 K/mm3 (1.8-7.7) 09/05/19 13:03 PT 12.7 Sec. (12.2-14.9) 09/06/19 00:58 INR 0.94 (0.87-1.13) 09/06/19 00:58 APTT 28.2 Sec. (24.2-36.6) 09/06/19 00:58 Heparin Anti-Xa Level 0.16 U.I./ml (0.3-0.7) L 09/06/19 07:22 VBG pH 7.420 (7.320-7.420) 09/05/19 15:35 Sodium 136 mmol/L (137-145) L 09/05/19 13:03 Potassium 4.4 mmol/L (3.6-5.0) 09/05/19 13:03 Chloride 97.8 mmol/L (98-107) L 09/05/19 13:03 Carbon Dioxide 23 mmol/L (22-30) 09/05/19 13:03 Anion Gap 20 mmol/L 09/05/19 13:03 BUN 19 mg/dL (7-17) H 09/05/19 13:03 Creatinine 0.8 mg/dL (0.7-1.2) 09/05/19 13:03 Estimated GFR > 60 ml/min 09/05/19 13:03 BUN/Creatinine Ratio 24 % 09/05/19 13:03 Glucose 304 mg/dL (65-100) H 09/05/19 13:03 POC Glucose 119 (70-105) H 09/06/19 08:49 Calcium 8.6 mg/dL (8.4-10.2) 09/05/19 13:03 Iron 22 ug/dL (37-170) L 09/05/19 15:23 TIBC 375 mcg/dL (250-450) 09/05/19 15:23 Total Bilirubin 0.30 mg/dL (0.1-1.2) 09/05/19 13:03 AST 16 units/L (5-40) 09/05/19 13:03 ALT 16 units/L (7-56) 09/05/19 13:03 Alkaline Phosphatase 70 units/L (35-129) 09/05/19 13:03 Troponin T 0.079 ng/mL (0.00-0.029) H 09/06/19 04:21 Total Protein 6.5 g/dL (6.3-8.2) 09/05/19 13:03 Albumin 3.7 g/dL (3.9-5) L 09/05/19 13:03 Albumin/Globulin Ratio 1.3 % 09/05/19 13:03 Triglycerides 237 mg/dL (2-149) H 09/06/19 04:21 Cholesterol 212 mg/dL (50-199) H 09/06/19 04:21 LDL Cholesterol Direct 146 mg/dL (50-130) H 09/06/19 04:21 HDL Cholesterol 43 mg/dL (40-59) 09/06/19 04:21 Cholesterol/HDL Ratio 4.93 % 09/06/19 04:21 HCG, Qual Negative (Negative) 09/05/19 15:23 Blood Type A POSITIVE 09/05/19 15:30 Antibody Screen Negative 09/05/19 15:30 Crossmatch See Detail 09/05/19 15:30 Active Medications - Current Medications Current Medications: Generic Name Dose Route Start Last Admin Trade Name Freq PRN Reason Stop Dose Admin Acetaminophen 650 mg 09/05/19 23:59 Tylenol PO Q4H PRN Pain, Mild (1-3) Aspirin 81 mg 09/06/19 11:00 Halfprin Ec PO QDAY [facility] Atorvastatin Calcium 40 mg 09/06/19 22:00 Lipitor PO QHS JAILENE Bisacodyl 10 mg 09/05/19 23:59 Dulcolax [place] QDAY PRN Constipation Dextrose 50 ml 09/06/19 00:06 D50w (25gm) Syringe IV Q30MIN PRN Hypoglycemia Protocol Hydralazine HCl 5 mg 09/06/19 00:09 Apresoline IV Q4HR PRN Blood Pressure Sodium Chloride 1,000 mls @ 42 mls/hr 09/05/19 23:45 09/06/19 06:24 Nacl 0.45% 1000 Ml IV 09/06/19 12:00 42 mls/hr DIRECT JAILENE Administration Insulin Human Lispro 0 unit 09/06/19 06:00 09/06/19 06:25 Humalog SUB-Q Not Given Q6HR [facility] Protocol Magnesium Hydroxide 30 ml 09/05/19 23:59 Milk Of Magnesia PO Q4H PRN Constipation Metoclopramide HCl 10 mg 09/05/19 23:59 Reglan PO Q6H PRN Nausea And Vomiting Morphine Sulfate 2 mg 09/06/19 00:02 09/06/19 08:57 Morphine IV 2 mg Q4H PRN Administration Pain, Moderate (4-6) Nitroglycerin 1 inch 09/06/19 06:00 09/06/19 06:23 Nitro-Bid 2% TP 1 inch TIDNTG [facility] Administration Protocol Ondansetron HCl 4 mg 09/05/19 23:59 Zofran IV Q8H PRN Nausea And Vomiting Sodium Chloride 10 ml 09/05/19 23:59 Sodium Chloride Flush Syringe 10 Ml IV PRN PRN LINE FLUSH
[2019-09-06] MEDS: ACETAMINOPHEN 325 MG TAB PO PRN (10:36)
--- NOTE | 2019-09-06 11:14 | Consultation ---
History of Present Illness Consult date: 09/06/19 Requesting physician: LEMUEL CORREA Consult reason: chest pain, elevated troponin History of present illness: The pt is a 43-year-old -[place] female with history of morbid obesity, hypertension, HLD, insulin-dependent diabetes, menorrhagia, anemia requiring PRBC transfusions, ? beta thalassemia, iron deficiency requiring iron transfusions, anxiety, asthma. She is previously unknown to our practice. She presented with complaints of left-sided weakness, blurred vision, "seeing spots", palpitations, dizziness and vertigo, and chest pain. Patient was admitted on 09/01/2019 with complaints of neuro deficits and suspicion of TIA/stroke. CT head and MRI brain were negative. Carotid Dopplers negative and echo showed EF 55 to 60% with normal wall motion. Patient was seen and evaluated by neurology who recommended outpatient follow-up. She was also treated for anemia secondary to menorrhagia and received 1 unit PRBC. She was discharged on 09/04/2019. Patient states she woke up on the morning following discharge and noted left-sided weakness, blurred vision, "seeing spots", palpitations, dizziness and vertigo. She got up and was walking into her kitchen when she noted the onset of chest pain. She describes her chest pain as a left- sided constant stabbing pain which radiates into her upper back. She denies any known prior cardiac issues. She reports that her mother has had several AMI with PCI. Past History Past Medical History: anemia, diabetes, hypertension, hyperlipidemia, other (Asthma, menorrhagia, anxiety, palpitations, morbid obesity) Past Surgical History: cholecystectomy, Social history: lives with family Medications and Allergies Allergies Allergy/AdvReac Type Severity Reaction Status Date / Time lisinopril Allergy Itching Verified 07/13/19 14:10 Penicillins Allergy Unknown Verified 07/13/19 14:10 ibuprofen [From Motrin] AdvReac Bleeding Verified 07/13/19 14:10 Home Medications Medication Instructions Recorded Confirmed Last Taken Type Furosemide [Lasix TAB] 40 mg PO QDAY #30 tablet 05/08/15 09/05/19 11/20/15 09:30 Rx Pravastatin [Pravachol] 20 mg PO QHS #30 tablet 05/08/15 09/05/19 09/01/19 Rx ALPRAZolam [Xanax TAB] 2 mg PO TID 09/02/19 09/05/19 1 Day Ago History ~09/01/19 Insulin Glargine [Lantus VIAL] 75 units SQ BID 09/05/19 09/05/19 Unknown History Insulin Lispro [HumaLOG VIAL] 35 unit SQ TID 09/05/19 09/05/19 Unknown History carvediloL [Coreg] 12 mg PO BID 09/05/19 09/05/19 Unknown History Active Meds: Active Medications Acetaminophen (Tylenol) 650 mg PO Q4H PRN PRN Reason: Pain, Mild (1-3) Last Admin: 09/06/19 10:36 Dose: 650 mg Documented by: Alprazolam (Xanax) 1 mg PO Q8HR [facility] Aspirin (Halfprin Ec) 81 mg PO QDAY JAILENE Atorvastatin Calcium (Lipitor) 40 mg PO QHS JAILENE Bisacodyl (Dulcolax) [address] QDAY PRN PRN Reason: Constipation Dextrose (D50w (25gm) Syringe) 50 ml IV Q30MIN PRN; Protocol PRN Reason: Hypoglycemia Fluoxetine HCl (Prozac) 40 mg PO QDAY JAILENE Hydralazine HCl (Apresoline) 5 mg IV Q4HR PRN PRN Reason: Blood Pressure Sodium Chloride (Nacl 0.45% 1000 Ml) 1,000 mls @ 42 mls/hr IV DIRECT JAILENE Stop: 09/06/19 12:00 Last Admin: 09/06/19 06:24 Dose: 42 mls/hr Documented by: Insulin Human Lispro (Humalog) 0 unit SUB-Q Q6HR [facility]; Protocol Last Admin: 09/06/19 06:25 Dose: Not Given Documented by: Magnesium Hydroxide (Milk Of Magnesia) 30 ml PO Q4H PRN PRN Reason: Constipation Metoclopramide HCl (Reglan) 10 mg IV Q6H PRN PRN Reason: haedache, nausea Morphine Sulfate (Morphine) 2 mg IV Q4H PRN PRN Reason: Pain, Moderate (4-6) Last Admin: 09/06/19 08:57 Dose: 2 mg Documented by: Nitroglycerin (Nitro-Bid 2%) 1 inch TP TIDNTG [facility]; Protocol Last Admin: 09/06/19 06:23 Dose: 1 inch Documented by: Ondansetron HCl (Zofran) 4 mg IV Q8H PRN PRN Reason: Nausea And Vomiting Last Admin: 09/06/19 10:36 Dose: 4 mg Documented by: Sodium Chloride (Sodium Chloride Flush Syringe 10 Ml) 10 ml IV PRN PRN PRN Reason: LINE FLUSH Topiramate (Topamax) 100 mg PO QHS JAILENE Review of Systems Constitutional: weakness, no weight loss, no weight gain, no fever, no chills, no sweats Ears, nose, mouth and throat: no ear pain, no nose pain, no sinus pressure, no sinus pain Cardiovascular: chest pain, palpitations, lightheadedness, no orthopnea, no edema, no syncope, no shortness of breath, no dyspnea on exertion Respiratory: no cough, no shortness of breath, no congestion, no wheezing, no pain on inspiration Gastrointestinal: no abdominal pain, no nausea, no vomiting, no diarrhea, no constipation, no change in bowel habits Genitourinary Female: no pelvic pain, no flank pain, no dysuria, no urinary frequency, no urgency Musculoskeletal: muscle weakness (left-sided), no neck stiffness, no neck pain, no shooting arm pain, no arm numbness/tingling, no low back pain, no shooting leg pain Integumentary: no rash, no pruritis, no redness, no sores, no wounds Neurological: weakness (left-sided), vertigo, other (blurred vision and "seeing spots"), no head injury, no paralysis, no seizures, no syncope Psychiatric: anxiety Endocrine: no cold intolerance, no heat intolerance Hematologic/Lymphatic: no easy bruising Allergic/Immunologic: no urticaria Physical Examination Vital Signs Temp Pulse Resp BP Pulse Ox 97.9 F 100 H 17 138/80 98 09/05/19 12:33 09/05/19 12:33 09/05/19 12:33 09/05/19 12:33 09/05/19 12:33 General appearance: no acute distress HEENT: Positive: PERRL, Normocephaly, Mucus Membranes Moist Neck: Positive: neck supple, trachea midline Cardiac: Positive: Reg Rate and Rhythm, S1/S2 Lungs: Positive: Decreased Breath Sounds Neuro: Positive: Grossly Intact Abdomen: Negative: Tender Skin: Negative: Rash Musculoskeletal: No Pain Extremities: Absent: edema Results 09/06/19 00:13 09/05/19 13:03 Cardiac Enzymes 09/05/19 Range/Units 13:03 AST 16 (5-40) units/L Coagulation 09/06/19 Range/Units 00:58 PT 12.7 (12.2-14.9) Sec. INR 0.94 (0.87-1.13) APTT 28.2 (24.2-36.6) Sec. Lipids 09/06/19 Range/Units 04:21 Triglycerides 237 H (2-149) mg/dL Cholesterol 212 H (50-199) mg/dL HDL Cholesterol 43 (40-59) mg/dL Cholesterol/HDL Ratio 4.93 % CBC 09/05/19 09/06/19 Range/Units 13:03 00:13 WBC 9.6 (4.5-11.0) K/mm3 RBC 3.41 L (3.65-5.03) M/mm3 Hgb 7.8 L 9.4 L (10.1-14.3) gm/dl Hct 24.4 L 28.3 L (30.3-42.9) % Plt Count 244 233 (140-440) K/mm3 Lymph # 1.1 L (1.2-5.4) K/mm3 [place] # 0.7 (0.0-0.8) K/mm3 Eos # 0.1 (0.0-0.4) K/mm3 Baso # 0.1 (0.0-0.1) K/mm3 Comprehensive Metabolic Panel 09/05/19 Range/Units 13:03 Sodium 136 L (137-145) mmol/L Potassium 4.4 (3.6-5.0) mmol/L Chloride 97.8 L (98-107) mmol/L Carbon Dioxide 23 (22-30) mmol/L BUN 19 H (7-17) mg/dL Creatinine 0.8 (0.7-1.2) mg/dL Glucose 304 H (65-100) mg/dL Calcium 8.6 (8.4-10.2) mg/dL AST 16 (5-40) units/L ALT 16 (7-56) units/L Alkaline Phosphatase 70 (35-129) units/L Total Protein 6.5 (6.3-8.2) g/dL Albumin 3.7 L (3.9-5) g/dL - Imaging and Cardiology Echo: report reviewed (09/01/2019: EF 55-60%) EKG: report reviewed, image reviewed EKG interpretations - Telemetry EKG Rhythm: Sinus Rhythm - EKG Sinus rhythms and dysrhythmias: sinus rhythm Assessment and Plan Brain MRI pending. Neurology is following. Chest pain currently resolved. AMI r/o. Plan for lexiscan MPI stress test in AM. NPO after MN. The patient has been seen in conjunction with Dr. Smith who agrees with the assessment and plan of care. - Patient Problems (1) Chest pain Current Visit: Yes Status: Acute (2) Elevated troponin Current Visit: Yes Status: Acute (3) TIA (transient ischemic attack) Current Visit: Yes Status: Suspected (4) Menorrhagia Current Visit: Yes Status: Chronic Qualifiers: Menorrhagia type: with regular cycle Qualified Code(s): N92.0 - Excessive and frequent menstruation with regular cycle (5) Anemia Current Visit: Yes Status: Chronic Qualifiers: Anemia type: iron deficiency (6) Diabetes Current Visit: Yes Status: Chronic (7) Hypertension Current Visit: Yes Status: Chronic Qualifiers: Hypertension type: essential hypertension (8) Hyperlipidemia Current Visit: Yes Status: Chronic (9) Obesity Current Visit: Yes Status: Chronic (10) Anxiety Current Visit: Yes Status: Chronic
[2019-09-06] MEDS: FLUoxetine 20 MG CAP PO SCH (11:39)
[2019-09-06] MEDS: ASPIRIN EC 81 MG TAB PO SCH (11:39)
[2019-09-06] MEDS: ALPRAZolam 1 MG TAB PO SCH ×2 (11:39→21:09)
--- NOTE | 2019-09-06 14:29 | Fluoroscopy Report ---
BARIUM SWALLOW Indication: sticking food. Dysphagia Technique: Single contrast barium technique utilized to evaluate the esophagus. FINDINGS: To begin the exam, swallowing was evaluated in the lateral position under direct fluorosco py. Swallowing was normal. No mucosal irregularity, mass, mass effect, or critical stenosis. There were no abnormal tertiary c ontractions as seen with dysmotility. No gastroesophageal reflux. IMPRESSION: Unremarkable exam. Fluoroscopic time: 1.1 minutes Number of fluoroscopic images: 29 Signer Name: Pérez Damian Jr, MD Signed: 09/06/2019 2:25 PM Workstation Name: [id number]
--- NOTE | 2019-09-06 15:22 | Magnetic Resonance Report ---
MRI BRAIN WITHOUT CONTRAST INDICATION / CLINICAL INFORMATION: Stroke, weakness, syncope. TECHNIQUE: Multisequence, multiplanar images were obtained. COMPARISON: MR brain dated 09/02/2019, CT head dated 09/05/2019 FINDINGS: CEREBRAL and CEREBELLAR HEMISPHERES: No evidence of mass or mass effect. No midline shift. No acute hemorrhage. No diffusion restriction to suggest acute infarct. No extra-axial fluid collection. M inimal nonspecific T2 signal abnormalities are again noted in the white matter which is probably rela olive to chronic microangiopathy. VENTRICLES: Normal in size and configuration for age. VISUALIZED ORBITS: No significant abnormality. VISUALIZED PARANASAL SINUSES: No significant abnormality. ADDITIONAL FINDINGS: None. IMPRESSION: No acute intracranial abnormality. Minimal nonspecific chronic white matter changes. No change since 09/02/2019 exam. MRA HEAD WITHOUT CONTRAST HISTORY: Stroke, weakness, syncope COMPARISON: None. TECHNIQUE: Routine MRA of the head is performed. 3-D/MIP reformats postprocessed. CONTRAST: None. FINDINGS: The images are slightly limited by patient motion. Intracranial vertebral arteries: No significant abnormality. Basilar artery: No significant abnormality. Posterior cerebral arteries: No significant abnormality. Intracranial internal carotid arteries: No significant abnormality. Anterior cerebral arteries: No significant abnormality. Middle cerebral arteries: No significant abnormality. Additional findings: Small bilateral posterior communicating arteries are identified. IMPRESSION: Unremarkable MRA head. Signer Name: Pérez Damian Jr, MD Signed: 09/06/2019 3:17 PM Workstation Name: [id number]
[2019-09-06] MEDS ORDERED: TOPIRAMATE TAB 100 MG TAB PO SCH (22:00)
[2019-09-06] MEDS ORDERED: SODIUM CHLORIDE 0.9% 1000 ML 1,000 ML IV SCH (22:30)
[2019-09-06] MEDS ORDERED: SODIUM CHLORIDE 0.9% 500 ML IVPB IV ONE (22:31)
[2019-09-06] MEDS ORDERED: INSULIN LISPRO 100 UNIT/ML SUB-Q ONE (22:32)
[2019-09-07] MEDS: NITROGLYCERIN 2% OINT 1 GM TP SCH ×2 (05:33→13:04)
[2019-09-07] MEDS: INSULIN LISPRO 100 UNIT/ML SUB-Q SCH ×2 (07:30→13:01)
[2019-09-07] MEDS ORDERED: REGADENOSON 0.4 MG/5 ML INJ IV ONE (08:56)
--- NOTE | 2019-09-07 09:34 | Treadmill Report ---
LEXISCAN STRESS TEST REPORT REASON FOR STUDY: Chest pain. STRESS TEST PROTOCOL: The patient received 0.4 mg of Lexiscan intravenously over 10 seconds. Tc-99m Tetrofosmin was subsequently injected. Baseline ECG: Normal sinus rhythm. Lexiscan ECG: No ischemic changes. No chest pain. No arrhythmias. IMPRESSION: Electrocardiographically negative stress test. Nuclear imaging report to follow. JOB# [id number] [facility]
[2019-09-07] MEDS ORDERED: INSULIN GLARGINE 100 UNITS/ML SUB-Q SCH (11:30)
[2019-09-07] MEDS ORDERED: INSULIN LISPRO 100 UNIT/ML SUB-Q SCH (11:30)
--- NOTE | 2019-09-07 11:39 | Progress Note ---
Assessment and Plan 1- This is 43 ys old female presented with complain of left side weakness and pain since yesterday associated with blurred vision and headache she was discharged from hospital on 09/04 after she was evaluated for possible CVA work up was unrevealing ,again MRi/MRA brain are unremarkable with no sign of CVA noted finding explained to pt. 2- Episode of dizziness on standing and tendency to fall she is with underlying anemia related to menorhagia just had Blood transfusion yesterday. 3- Recurrent headache for over 5-6 months after head trauma at work and resultant increase left arm pain !! according to her she is getting steroid shot in addition to flexeril, Ultram,Fiorcet and recently been started on topamax 50 mg daily.hedache is better today as well as blurred vision 4- Episode of CP with elevated cardiac enzymes on admission started on heparin IV and cardiology consulted, stress test is unremarkable awaiting result of echo and lexiscan 5- Underlying anxiety for some time followed by psychiatry according to her she is on xanax 2 mg tid and Prozac 40 mg daily 6- Weight gain she gained over 50 lbs in the last year with possible underlying sleep apnea . 7- Hyperlipidemia LDl#146 PLAN 1- cardiology opinion as far antiplatlet ? and managment of CP 2- increase Lipitor to 80 mg daily 3- TSH pending 4- Weight loss , and diet control 5- Pt therapy 6- Prozac 40 mg daily 7- xanax 2 mg tid 8- Consider sleep study on D/C ? sleep apnea. 9- follow up with her neurologist ? post traumatic headache 10- follow up with gynacology RE anemia and menorhagia will sign off Subjective Date of service: 09/07/19 Principal diagnosis: blurred vison ,Headache and left side weakness Interval history: doing better no headache , blurred vision improved still complain of occasional flutter in her eyes ??? and complain of stuttering speech according to her intermittent ??? her MRI/MRA brain are unremarkable Stress test today is unremarkable Lexiscan is pending , Echo is pending Objective - Vital Sign Vital Signs - 12hr 09/07/19 09/07/19 09/07/19 00:00 00:37 04:13 Temperature 98.3 F 98.1 F Pulse Rate 100 H 103 H 92 H Respiratory 18 18 Rate Blood Pressure 150/69 133/62 O2 Sat by Pulse 93 92 Oximetry 09/07/19 09/07/19 09/07/19 08:56 09:18 09:20 Temperature Pulse Rate Respiratory Rate Blood Pressure 153/71 153/76 109/52 O2 Sat by Pulse Oximetry 09/07/19 09/07/19 09/07/19 09:21 09:23 09:26 Temperature Pulse Rate Respiratory Rate Blood Pressure 150/69 151/73 150/78 O2 Sat by Pulse Oximetry - General Apperance Constitutional: comfortable - EENT EENT: PERRL, mucous membranes moist - Respiratory Respiratory: chest non-tender, lungs clear - Cardiovascular Cardiovascular: regular rate, normal S1, normal S2 Extremities: no peripheral edema bilat, no clubbing, cyanosis - Gastrointestinal Gastrointestinal: normoactive bowel sounds - Integumentary Integumentary: normal - Neurologic Cranial nerve examination: PERRL, EOMI, V1/V2/V3 grossly intact, face symmetric, intact Speech examination: intact Detailed motor examination: grossly full strength in Detailed sensory examination: intact - Musculoskeletal Musculoskeletal: other (chest tender to touch ) - Laboratory Findings CBC and BMP: 09/06/19 00:13 09/06/19 21:26 Abnormal Lab Findings: Abnormal Labs 09/05/19 09/05/19 09/05/19 13:03 13:03 13:26 RBC 3.41 L Hgb 7.8 L Hct 24.4 L MCV 71 L MCH 23 L RDW 16.5 H Lymph % (Auto) 11.7 L [place] % (Auto) 7.5 H Lymph # 1.1 L Seg Neutrophils % 79.0 H Heparin Anti-Xa Level Sodium 136 L Chloride 97.8 L BUN 19 H Glucose 304 H POC Glucose 316 H Iron Troponin T 0.082 H D Albumin 3.7 L Triglycerides Cholesterol LDL Cholesterol Direct Crossmatch 09/05/19 09/05/19 09/05/19 15:23 15:23 15:30 RBC Hgb Hct MCV MCH RDW Lymph % (Auto) [place] % (Auto) Lymph # Seg Neutrophils % Heparin Anti-Xa Level Sodium Chloride BUN Glucose POC Glucose Iron 22 L Troponin T 0.093 H Albumin Triglycerides Cholesterol LDL Cholesterol Direct Crossmatch See Detail 09/05/19 09/06/19 09/06/19 22:10 00:13 00:13 RBC Hgb 9.4 L Hct 28.3 L MCV MCH RDW Lymph % (Auto) [place] % (Auto) Lymph # Seg Neutrophils % Heparin Anti-Xa Level Sodium Chloride BUN Glucose POC Glucose 161 H Iron Troponin T 0.084 H Albumin Triglycerides Cholesterol LDL Cholesterol Direct Crossmatch 09/06/19 09/06/19 09/06/19 04:21 04:21 07:22 RBC Hgb Hct MCV MCH RDW Lymph % (Auto) [place] % (Auto) Lymph # Seg Neutrophils % Heparin Anti-Xa Level 0.16 L Sodium Chloride BUN Glucose POC Glucose Iron Troponin T 0.079 H Albumin Triglycerides 237 H Cholesterol 212 H LDL Cholesterol Direct 146 H Crossmatch 09/06/19 09/06/19 09/06/19 08:49 20:47 21:05 RBC Hgb Hct MCV MCH RDW Lymph % (Auto) [place] % (Auto) Lymph # Seg Neutrophils % Heparin Anti-Xa Level Sodium Chloride BUN Glucose POC Glucose 119 H > 500 H > 500 H Iron Troponin T Albumin Triglycerides Cholesterol LDL Cholesterol Direct Crossmatch 09/06/19 09/07/19 21:26 10:39 RBC Hgb Hct MCV MCH RDW Lymph % (Auto) [place] % (Auto) Lymph # Seg Neutrophils % Heparin Anti-Xa Level < 0.10 L Sodium Chloride BUN Glucose 665 H* POC Glucose Iron Troponin T Albumin Triglycerides Cholesterol LDL Cholesterol Direct Crossmatch
--- NOTE | 2019-09-07 12:00 | Treadmill Report ---
THALLIUM REPORT REASON FOR STUDY: Chest pain. IMAGING PROTOCOL: The patient received 10 mCi of technetium-99m Tetrofosmin for rest imaging, and 28 mCi of technetium-99m Tetrofosmin for stress imaging. Imaging for all procedures was completed 30-90 minutes following the initial injection of Technetium 99m Tetrofosmin. SPECT imaging in the 180 degree arc was performed in the right anterior oblique projection. Computerized reconstruction of the images was performed for analysis. NUCLEAR IMAGING RESULTS: Normal left ventricular cavity size with no change from stress to rest. Distribution of radionuclide within the left ventricle revealed a small area of photo-induction involving the anterior and anteroapical region. The degree of photo-induction is mild. Rest imaging does not show any significant improvement in this defect. Gated SPECT imaging revealed normal global LV systolic function with no significant wall motion abnormalities. The calculated left ventricular ejection fraction is 62%. IMPRESSION: Small fixed anterior and anteroapical defect. Normal global LV systolic function with no significant wall motion abnormalities. EF 62%. These findings suggest a small area of prior infarction in the left anterior descending coronary artery territory. However, the defect noted in this patient may also be artifactual. No evidence of significant stress-induced ischemia. JOB# [id number] [facility]
[2019-09-07] MEDS: ASPIRIN EC 81 MG TAB PO SCH (12:57)
[2019-09-07] MEDS: FLUoxetine 20 MG CAP PO SCH (12:57)
[2019-09-07 13:10] VITALS: BP 150/76
[2019-09-07] MEDS: ACETAMINOPHEN 325 MG TAB PO PRN (13:22)
--- NOTE | 2019-09-07 13:23 | Discharge Summary ---
Providers - Providers Date of Admission: 09/05/19 23:21 Attending physician: ANDRE FUCHS MD 09/05/19 17:27 Consult to Cardiology [CONS] Urgent Consulting Provider: ANA LUISA ASHFORD Reason For Exam: NTSEMI II 09/05/19 23:44 Speech Therapy Evaluation and Treat [CONS] Stat Reason For Exam: failed swallow screen 09/05/19 23:59 Consult to Physician [CONS] Routine Comment: Consulting Provider: KAYLEY VELA Physician Instructions: Reason For Exam: R/O TIA/CVA Occupational Therapy Evaluate and Treat [CONS] Routine Comment: Reason For Exam: Neuro deficits Physical Therapy Evaluation and Treat [CONS] Routine Comment: Reason For Exam: Neuro deficits 09/06/19 Consult to Cardiac Rehabilitation [CONS] Routine Reason For Exam: Phase I Consult to Physician [CONS] Routine Comment: Consulting Provider: ANA LUISA ASHFORD Physician Instructions: Reason For Exam: elevated troponin ??NTSEMI type II 09/06/19 14:12 Consult to Mental Health [CONS] Routine Reason For Exam: behavioral disturbance 09/06/19 14:14 Consult to Dietitian/Nutrition [CONS] Routine Physician Instructions: Reason For Exam: Reason for Consult: Diet education Primary care physician: INGRID HUNTER Hospitalization Condition: Stable Hospital course: Dysphasia? For MBS Original Note: Assessment and Plan Assessment and plan: 43-year-old woman who was recently admitted to the hospital with a variety of complaints. Today she is complaining of blurred vision, spots in her vision, chest pain on the left side of her chest. Left upper and lower extremity weakness. Neurological complaints due to psychosomatic disorder . Neurology input appreciated, MRI did not show any changes. Patient is convinced she has postconcussive syndrome from a head injury she had January of last year. Patient later related that she is dealing with a lot of family stress and not sleeping well., Her symptoms are most likely psychosomatic. Recommended outpatient psychiatry or psychology eval. And stress management techniques Preventative health counseling performed for 17 minutes Psychosomatic disorder Diabetes Consistent carbohydrate diet, sliding scale insulin, check A1c Chest pain; cardiology input appreciated for stress test tomorrow. Obesity; counseled on weight loss Disposition: - TO HOME OR SELFCARE Time spent for discharge: 33 mins Core Measure Documentation - Palliative Care Palliative Care/ Comfort Measures: Not Applicable - Core Measures Any of the following diagnoses?: none Exam - Constitutional Vitals: Temp Pulse Resp BP Pulse Ox 98.7 F 78 18 150/76 97 09/07/19 12:35 09/07/19 13:04 09/07/19 12:35 09/07/19 13:04 09/07/19 12:35 General appearance: Present: no acute distress, well-nourished - EENT Eyes: Present: PERRL ENT: hearing intact, clear oral mucosa - Neck Neck: Present: supple, normal ROM - Respiratory Respiratory effort: normal Respiratory: bilateral: CTA - Cardiovascular Heart Sounds: Present: S1 & S2. Absent: rub, click - Extremities Extremities: pulses symmetrical, No edema Peripheral Pulses: within normal limits - Abdominal General gastrointestinal: Present: soft, non-tender, non-distended, normal bowel sounds Female genitourinary: Present: normal - Integumentary Integumentary: Present: clear, warm, dry - Musculoskeletal Musculoskeletal: gait normal, strength equal bilaterally - Psychiatric Psychiatric: appropriate mood/affect, intact judgment & insight - Neurologic Neurologic: CNII-XII intact, moves all extremities Plan Follow up with: INGRID HUNTER MD [Primary Care Provider] - 3-5 Days Prescriptions: Topiramate [Topamax] 100 mg PO QHS #30 tablet FLUoxetine [PROzac] 40 mg PO QDAY #30 capsule
[2019-09-07 13:25] LABS: BUN/Creatinine Ratio 18; Blood Urea Nitrogen 14 mg/dL (7-17); Hemolysis Index 25
--- NOTE | 2019-09-07 13:31 | Progress Note ---
Assessment and Plan Neurology following. Chest pain currently resolved. Lexiscan MPI stress test completed today - negative. F/u echo pending. Currently stable cardiac status. Pt can discharge home from a Cardiology standpoint. Recommend f/u in our office with Dr. Smith within 1-2 weeks ([phone]). The patient has been seen in conjunction with Dr. Smith who agrees with the assessment and plan of care. - Patient Problems (1) Chest pain Current Visit: Yes Status: Acute (2) Elevated troponin Current Visit: Yes Status: Acute (3) TIA (transient ischemic attack) Current Visit: Yes Status: Suspected (4) Menorrhagia Current Visit: Yes Status: Chronic Qualifiers: Menorrhagia type: with regular cycle Qualified Code(s): N92.0 - Excessive and frequent menstruation with regular cycle (5) Anemia Current Visit: Yes Status: Chronic Qualifiers: Anemia type: iron deficiency (6) Hypertension Current Visit: Yes Status: Chronic Qualifiers: Hypertension type: essential hypertension (7) Hyperlipidemia Current Visit: Yes Status: Chronic (8) Diabetes Current Visit: Yes Status: Chronic (9) Obesity Current Visit: Yes Status: Chronic (10) Anxiety Current Visit: Yes Status: Chronic Subjective Date of service: 09/07/19 Principal diagnosis: ?TIA, CP, elevated trop Interval history: Pt for stress test today. No current cardiac complaints. Sinus tachy 100s on Tele. Objective Vital Signs Temp Pulse Resp BP Pulse Ox 09/07/19 13:22 20 09/07/19 13:04 78 150/76 09/07/19 12:35 98.7 F 104 H 18 143/73 97 09/07/19 09:26 150/78 09/07/19 09:23 151/73 09/07/19 09:21 150/69 09/07/19 09:20 109/52 09/07/19 09:18 153/76 09/07/19 08:56 153/71 09/07/19 04:13 98.1 F 92 H 18 133/62 92 09/07/19 00:37 98.3 F 103 H 18 150/69 93 09/07/19 00:00 100 H 09/06/19 20:24 98.5 F 111 H 18 142/68 99 09/06/19 16:36 97.6 F 105 H 18 149/67 99 - Physical Examination General: No Apparent Distress HEENT: Positive: PERRL, Normocephaly, Mucus Membranes Moist Neck: Positive: neck supple, trachea midline Cardiac: Positive: Reg Rate and Rhythm, S1/S2, Tachycardia Lungs: Positive: clear to auscultation, No Wheeze, Rales, Rhonchi Neuro: Positive: Grossly Intact Abdomen: Positive: Soft, Active Bowel Sounds. Negative: Tender Skin: Negative: Rash, Wound Musculoskeletal: No Pain Extremities: Present: normal, upper extr. pulses, lower extr. pulses. Absent: edema - Labs and Meds Comprehensive Metabolic Panel 09/06/19 09/07/19 Range/Units 21:26 12:13 Sodium 134 L (137-145) mmol/L Potassium 5.1 H (3.6-5.0) mmol/L Chloride 97.5 L (98-107) mmol/L Carbon Dioxide 19 L (22-30) mmol/L BUN 14 (7-17) mg/dL Creatinine 0.8 (0.7-1.2) mg/dL Glucose 665 H* 461 H (65-100) mg/dL Calcium 9.0 (8.4-10.2) mg/dL - Imaging and Cardiology EKG: report reviewed, image reviewed Nuclear stress test: report reviewed Echo: pending, report reviewed (09/01/2019: EF 55-60%) - Telemetry EKG Rhythm: Sinus Tachycardia - EKG Sinus rhythms and dysrhythmias: sinus rhythm
[2019-09-07] MEDS ORDERED: ALPRAZolam 1 MG TAB PO SCH (14:00)
[2019-09-07] MEDS ORDERED: NON-FORMULARY EACH (Alprazolam [Xanax Tab] 2 MG) PO SCH (14:00)
--- NOTE | 2019-09-07 15:45 | Consultation ---
History of Present Illness - Reason for Consult Consult date: 09/07/19 Reason for consult: psychiatric assessment - Chief Complaint Chief complaint: left sided weakness, blurred vision - History of Present Psychiatric Illness ms Berrios is a 43-year-old single female the patient stated that she was brought to the hospital because of medical problems. Patient reports that she has a history of anxiety and depression, the patient is alert and oriented 4, she is dressed appropriately for the weather, she maintain eye contact.The patient stated that she does see a psychiatric outpatient, she reports taking Xanax 2 mg twice a day and Prozac 40 mg daily. The patient denies suicidal or homicidal ideation. The patient denies visual or auditory hallucinations the patient reports history of depression but noted that her depression is under control. She reports that she is sleeping and eating well. The patient states that she is compliant with her medication management and doesn't require any additional medication or support. The patient stated that she also attend out- patient calls counseling. PAST PSYCHIATRIC HISTORY: Diagnoses: anxiety and depression Suicide attempts or Self-harm behavior: no Prior psychiatric hospitalizations: no Substance Abuse history:no Previous psychiatric medications tried: Xanax and Prozac Outpatient treatment: yes PAST MEDICAL HISTORY: Family Psychiatric History None reported or documented SOCIAL HISTORY Marital Status:single Living Arrangements: family Employment Status: employed Access to guns/weapons: denies Education:ged History of Abuse: denies Legal History:no ROS: Constitutional: Negative for weight loss ENT: Negative for stridor Respiratory: Negative for cough or hemoptysis All other systems reviewed and are negative MENTAL STATUS General Appearance and Behavior: age appropriate, good eye contact, cooperative with questioning and polite Cooperation: Cooperative Psychomotor Behavior: within normal limits Mood: OK Affect and affective range: Congruent with stated mood Thought Process: Fluent/Logical and Goal-directed Thought Content: Within reality Speech: Normal volume and Regular rate and rhythm Intellectual Functioning Average Suicidal Ideation: Denies SI Homicidal Ideation: Denies HI Impulse Control: intact Insight and Judgment: normal insight and judgment Memory: Normal Attention: Normal Orientation: alert and oriented RECOMMENDATIONS MEDICATIONS: continue current psychiatric medication in chart Risks, benefits and alternatives of medications discussed with the patient, questions answered and consent obtained from patient. PSYCHOTHERAPY: Supportive psychotherapy provided MEDICAL: Per primary team [employer] EMPLOYEE: DISPOSITION: Per primary team; no indication for acute inpatient psychiatric hospitalization at this time.Based on my evaluation, the patient is able to demonstrate understanding, appreciation and reasoning regarding her medical condition and need for treatment. At this time I do believe that the patient has decision-making capacity. The patient should be compliant with medications, not to use drugs and not to drink alcohol. The patient understands that if suicidal ideas, homicidal ideas, or any end angering thoughts arise, the patient should immediately seek for emergent assistance including but not limited to crisis hot line and emergency room. Follow up with outpatient Psychiatrist and PCP within 7 - 14 days of discharge LEGAL STATUS:voluntary FOLLOW-UP: sign off Medications and Allergies Allergies Allergy/AdvReac Type Severity Reaction Status Date / Time lisinopril Allergy Itching Verified 07/13/19 14:10 Penicillins Allergy Unknown Verified 07/13/19 14:10 ibuprofen [From Motrin] AdvReac Bleeding Verified 07/13/19 14:10 Home Medications Medication Instructions Recorded Confirmed Last Taken Type Furosemide [Lasix TAB] 40 mg PO QDAY #30 tablet 05/08/15 09/05/19 11/20/15 09:30 Rx Pravastatin [Pravachol] 20 mg PO QHS #30 tablet 05/08/15 09/05/19 09/01/19 Rx ALPRAZolam [Xanax TAB] 2 mg PO TID 09/02/19 09/05/19 1 Day Ago History ~09/01/19 Insulin Glargine [Lantus VIAL] 75 units SQ BID 09/05/19 09/05/19 Unknown History Insulin Lispro [HumaLOG VIAL] 35 unit SQ TID 09/05/19 09/05/19 Unknown History carvediloL [Coreg] 12 mg PO BID 09/05/19 09/05/19 Unknown History FLUoxetine [PROzac] 40 mg PO QDAY #30 capsule 09/07/19 Unknown Rx Topiramate [Topamax] 100 mg PO QHS #30 tablet 09/07/19 Unknown Rx Active Meds: Active Medications Acetaminophen (Tylenol) 650 mg PO Q4H PRN PRN Reason: Pain, Mild (1-3) Last Admin: 09/07/19 13:22 Dose: 650 mg Documented by: Alprazolam (Xanax) 2 mg PO TID JAILENE Last Admin: 09/07/19 13:02 Dose: 2 mg Documented by: Aspirin (Halfprin Ec) 81 mg PO QDAY ON LICENSE OF [facility] Last Admin: 09/07/19 12:57 Dose: 81 mg Documented by: Atorvastatin Calcium (Lipitor) 80 mg PO QHS ON LICENSE OF [facility] Bisacodyl (Dulcolax) 10 mg CO QDAY PRN PRN Reason: Constipation Carvedilol (Coreg) 12.5 mg PO BID ON LICENSE OF [facility] Dextrose (D50w (25gm) Syringe) 50 ml IV Q30MIN PRN; Protocol PRN Reason: Hypoglycemia Fluoxetine HCl (Prozac) 40 mg PO QDAY ON LICENSE OF [facility] Last Admin: 09/07/19 12:57 Dose: 40 mg Documented by: Hydralazine HCl (Apresoline) 5 mg IV Q4HR PRN PRN Reason: Blood Pressure Sodium Chloride (Nacl 0.9% 1000 Ml) 1,000 mls @ 125 mls/hr IV DIRECT ON LICENSE OF [facility] Last Admin: 09/06/19 22:41 Dose: 125 mls/hr Documented by: Insulin Glargine (Lantus) 75 units SUB-Q BID ON LICENSE OF [facility] Last Admin: 09/07/19 12:57 Dose: 75 units Documented by: Insulin Human Lispro (Humalog) 0 unit SUB-Q ACHS ON LICENSE OF [facility]; Protocol Last Admin: 09/07/19 13:01 Dose: 1 unit Documented by: Insulin Human Lispro (Humalog) 35 unit SUB-Q AC ON LICENSE OF [facility] Last Admin: 09/07/19 13:04 Dose: 35 unit Documented by: Magnesium Hydroxide (Milk Of Magnesia) 30 ml PO Q4H PRN PRN Reason: Constipation Metoclopramide HCl (Reglan) 10 mg IV Q6H PRN PRN Reason: haedache, nausea Morphine Sulfate (Morphine) 2 mg IV Q4H PRN PRN Reason: Pain, Moderate (4-6) Last Admin: 09/06/19 21:15 Dose: 2 mg Documented by: Nitroglycerin (Nitro-Bid 2%) 1 inch TP TIDNTG ON LICENSE OF [facility]; Protocol Last Admin: 09/07/19 13:04 Dose: 1 inch Documented by: Ondansetron HCl (Zofran) 4 mg IV Q8H PRN PRN Reason: Nausea And Vomiting Last Admin: 09/06/19 10:36 Dose: 4 mg Documented by: Sodium Chloride (Sodium Chloride Flush Syringe 10 Ml) 10 ml IV PRN PRN PRN Reason: LINE FLUSH Topiramate (Topamax) 100 mg PO QHS ON LICENSE OF [facility] Last Admin: 09/06/19 21:09 Dose: 100 mg Documented by: Mental Status Exam - Vital signs Last Vital Signs Temp 98.7 F 09/07/19 12:35 Pulse 78 09/07/19 13:04 Resp 20 09/07/19 13:22 BP 150/76 09/07/19 13:04 Pulse Ox 97 09/07/19 12:35 Results Result Diagrams: 09/06/19 00:13 09/07/19 12:13 Abnormal lab results 09/06/19 09/06/19 09/06/19 Range/Units 20:47 21:05 21:26 Heparin Anti-Xa Level (0.3-0.7) U.I./ml Sodium (137-145) mmol/L Potassium (3.6-5.0) mmol/L Chloride (98-107) mmol/L Carbon Dioxide (22-30) mmol/L Glucose 665 H* (65-100) mg/dL POC Glucose > 500 H > 500 H (70-105) 09/07/19 09/07/19 09/07/19 Range/Units 10:39 11:33 12:13 Heparin Anti-Xa Level < 0.10 L (0.3-0.7) U.I./ml Sodium 134 L (137-145) mmol/L Potassium 5.1 H (3.6-5.0) mmol/L Chloride 97.5 L (98-107) mmol/L Carbon Dioxide 19 L (22-30) mmol/L Glucose 461 H (65-100) mg/dL POC Glucose 416 H (70-105) All other labs normal.
[2019-09-07] MEDS ORDERED: carvediloL 3.125 MG TAB PO SCH (22:00)
[2019-09-07] MEDS ORDERED: carvediloL 12.5 MG TAB PO SCH (22:00)
== END 2019-09-07 17:30 | disposition home or self-care (01) ==
LOC: ED 11:43 → 4A 23:21
PROVIDERS: ADMIT Internal Medicine Geriatric Medicine; ATTEND Internal Medicine
DX: R07.89 Other chest pain (principal); G45.9 Transient cerebral ischemic attack, unspecified; E11.9 Type 2 diabetes mellitus without complications; I10 Essential (primary) hypertension; D64.9 Anemia, unspecified; E11.65 Type 2 diabetes mellitus with hyperglycemia; E66.01 Morbid (severe) obesity due to excess calories; E78.5 Hyperlipidemia, unspecified; F41.9 Anxiety disorder, unspecified; J45.909 Unspecified asthma, uncomplicated; G43.909 Migraine, unspecified, not intractable, without status migrainosus; Z90.49 Acquired absence of other specified parts of digestive tract; Z98.891 History of uterine scar from previous surgery; Z79.4 Long term (current) use of insulin; Z68.42 Body mass index [BMI] 45.0-49.9, adult
CPT/HCPCS: 36415; 36430; 70450; 70544; 70551; 71045; 71275; 74220; 78452; 80048; 80053; 80061; 82805; 82947; 82962; 83550; 84443; 84484; 84703; 85014; 85018; 85025; 85049; 85520; 85610; 85730; 86850; 86900; 86901; 86920; 92610; 93005; 93010; 93017; 96361; 96365; 96366; 96372; 96375; 96376; 97162; 99284; A9270; A9502; G0378; J1200; J1644; J2270; J2405; J2785; J7030; J7040; P9016; Q9967; J1815

== ENCOUNTER 2020-07-29 11:19 | Emergency (ER) | payer MEDICAID ==
--- NOTE | 2020-07-29 11:31 | Emergency Department Report ---
Blank Doc - Documentation Documentation: 44-year-old female that presents with SOB, nausea. vomiting, CP. This initial assessment/diagnostic orders/clinical plan/treatment(s) is/are subject to change based on patient's health status, clinical progression and re- assessment by fellow clinical providers in the ED. Further treatment and workup at subsequent clinical providers discretion. Patient/guardians urged not to elope from the ED as their condition may be serious if not clinically assessed and managed. Initial orders include: 1- Patient sent to MAIN for further evaluation and treatment 2- cardiac workup
[2020-07-29 12:20] LABS: Hematocrit 37.5 % (30.3-42.9); Hemoglobin 13.1 gm/dl (10.1-14.3); Mean Corpuscular HGB Conc 35 % (30-34); Platelet Count 317 K/mm3 (140-440); Red Blood Count 5.43 M/mm3 (3.65-5.03)
[2020-07-29 12:21] LABS: Mean Corpuscular Volume 69 fl (79-97)
[2020-07-29 12:30] LABS: INR 0.92 (0.87-1.13)
[2020-07-29 12:31] LABS: Partial Thromboplastin Time 28.2 Sec. (24.2-36.6)
[2020-07-29 12:50] LABS: Alanine Aminotransferase 15 units/L (7-56); Albumin 4.6 g/dL (3.9-5); Blood Urea Nitrogen 16 mg/dL (7-17); Calcium 10.2 mg/dL (8.4-10.2); Hemolysis Index 24
[2020-07-29 12:52] LABS: BUN/Creatinine Ratio 23; Total Cells Counted 100
[2020-07-29] MEDS ORDERED: ONDANSETRON 4 MG ODT TAB PO ONE (12:52)
[2020-07-29 12:53] LABS: Anisocytosis 1+; Hypochromasia 1+; Large Platelets Few; Platelet Estimate Consistent w Auto
--- NOTE | 2020-07-29 13:02 | XRay Report ---
CHEST 2 VIEWS INDICATION / CLINICAL INFORMATION: Chest Pain. COMPARISON: 05/08/2020 FINDINGS: SUPPORT DEVICES: None. HEART / MEDIASTINUM: No significant abnormality. LUNGS / PLEURA: No significant pulmonary or pleural abnormality. No pneumothorax. ADDITIONAL FINDINGS: No significant additional findings. IMPRESSION: No significant abnormality or interval change from 05/08/2020 Signer Name: Lasha Alas MD FACR Signed: 07/29/2020 12:57 PM Workstation Name: [id number]
[2020-07-29] MEDS ORDERED: METOCLOPRAMIDE 10 MG TAB PO ONE (23:35)
[2020-07-30 05:43] VITALS: BP 144/90
== END 2020-07-30 12:00 ==
LOC: ED 11:19
DX: R06.02 Shortness of breath (principal); Z53.21 Procedure and treatment not carried out due to patient leaving prior to being seen by health care provider
CPT/HCPCS: 36415; 71046; 80053; 82962; 83690; 84484; 84703; 85007; 85025; 85610; 85730; 93005; Q0162

== ENCOUNTER 2020-09-28 22:40 | Observation (INO) | payer BC, MEDICAID ==
--- NOTE | 2020-09-28 23:37 | Event Note ---
ED Screening Note Date of service: 09/28/20 Time: 23:35 ED Screening Note: Patient is a 44-year-old female with a history of morbid obesity, [id number] diabetes, hypertension, hyperlipidemia and anxiety with depression who presents to the ED with complaint of acute onset persistent sh ortness of breath, chest pain, generalized weakness and lightheadedness. Patient states that the symptoms are similar to what she felt about 8 months ago when she was admitted to the hospital for COVID-19 viral infection, and had to stay in the hospital for almost 1 month. Patient states that she was also exposed to one of her family members who had tested positive for COVID-19 viral infection the last 1 week. Patient denies fever, chills, cough, nausea and vomiting, diarrhea, dizziness, syncope, abdominal pain or change in vision. This initial assessment/diagnostic orders/clinical plan/treatment(s) is/are subject to change based on patients health status, clinical progression and re- assessment by fellow clinical providers in the ED. Further treatment and workup at subsequent clinical providers discretion. Patient/guardian urged not to elope from the ED as their condition may be serious if not clinically assessed and managed. Initial orders include: CBC, CMP, troponin, BNP, chest x-ray, EKG
--- NOTE | 2020-09-29 00:04 | XRay Report ---
CHEST 1 VIEW 09/28/2020 11:57 PM INDICATION / CLINICAL INFORMATION: Dyspnea, chest pain. COMPARISON: 07/29/2020 FINDINGS: SUPPORT DEVICES: None. HEART / MEDIASTINUM: No significant abnormality. LUNGS / PLEURA: No significant pulmonary or pleural abnormality. No pneumothorax. ADDITIONAL FINDINGS: No significant additional findings. IMPRESSION: 1. No acute findings. Signer Name: Satya Monzon MD Signed: 09/28/2020 11:59 PM Workstation Name: [id number]
[2020-09-29 00:42] LABS: Basophils # (Auto) 0.1 K/mm3 (0.0-0.1); Basophils % (Auto) 0.6 % (0.0-1.8); Eosinophils # (Auto) 0.1 K/mm3 (0.0-0.4); Eosinophils % (Auto) 0.9 % (0.0-4.3); Hematocrit 37.4 % (30.3-42.9); Hemoglobin 12.5 gm/dl (10.1-14.3); Lymphocytes # (Auto) 1.5 K/mm3 (1.2-5.4); Lymphocytes % (Auto) 12.3 % (13.4-35.0); Mean Corpuscular HGB Conc 33 % (30-34); Mean Corpuscular Volume 73 fl (79-97); Monocytes # (Auto) 0.7 K/mm3 (0.0-0.8); Monocytes % (Auto) 5.6 % (0.0-7.3); Platelet Count 307 K/mm3 (140-440); Red Cell Distribution Width 17.4 % (13.2-15.2)
[2020-09-29 01:05] LABS: Albumin 4.1 g/dL (3.9-5); BUN/Creatinine Ratio 16; Blood Urea Nitrogen 19 mg/dL (7-17); Calcium 9.2 mg/dL (8.4-10.2); Hemolysis Index 15
[2020-09-29 01:27] LABS: Alanine Aminotransferase < 5 units/L (7-56)
--- NOTE | 2020-09-29 01:52 | Emergency Department Report ---
ED Chest Pain HPI - General Chief Complaint: Chest Pain Stated Complaint: CHEST PAIN;SOB;HEADACHE PUI?: No Time Seen by Provider: 09/29/20 01:42 Source: patient Mode of arrival: Ambulatory Limitations: No Limitations - History of Present Illness Initial Comments: 44-year-old female that presents emergency room with complaints of chest pain, shortness of breath, dizziness, headache, fatigue. Patient states her symptoms started 4 days ago. Patient states her chest pain is a 8 out of 10. Patient states her chest pain is better with rest and worse with exertion. Patient states her shortness of breath is better with rest and worse with exertion. Patient states her chest pain is nonradiating. Patient states her chest pain is in the left chest. Patient states her headache is a 8 out of 10. Patient states she is having dyspnea on exertion. Patient states her dizziness is better with rest and worse with movement. Patient denies fever and chills. Patient states she had a recent Covid exposure. Patient states she had COVID-19 back in January 2020 and required a long hospitalization and was on a ventilator for 32 days. MD Complaint: chest pain -: Sudden Onset: during rest Pain Location: left chest Severity: severe Severity scale (0 -10): 8 Quality: sharp Consistency: constant Improves With: rest Worsens With: exertion re: dyspnea. denies: nausea, vomting, diaphoresis, sense of impending doom Other Symptoms: denies: cough, fever, syncope, rash, acid taste in mouth, leg swelling, palpitations, burping Treatments Prior to Arrival: aspirin Aspirin use within the Past 7 Days: (1) Yes - Related Data On Oral Contraceptives: No Home Medications Medication Instructions Recorded Confirmed Last Taken ALPRAZolam [Xanax TAB] 2 mg PO TID 09/02/19 05/08/20 1 Day Ago ~05/07/20 Insulin Glargine [Lantus VIAL] 75 units SQ BID 09/05/19 05/08/20 1 Day Ago ~05/07/20 Insulin Lispro [HumaLOG VIAL] 35 unit SQ TID 09/05/19 05/08/20 1 Day Ago ~05/07/20 Gabapentin 100 mg PO BID 05/08/20 05/08/20 1 Day Ago ~05/07/20 Losartan [Cozaar] 100 mg PO QDAY 05/08/20 05/08/20 1 Day Ago ~05/07/20 Previous Rx's Medication Instructions Recorded Last Taken Type Furosemide [Lasix TAB] 40 mg PO QDAY #30 tablet 05/08/15 1 Day Ago Rx ~05/07/20 Pravastatin [Pravachol] 20 mg PO QHS #30 tablet 05/08/15 1 Day Ago Rx ~05/07/20 FLUoxetine [PROzac] 40 mg PO QDAY #30 capsule 09/07/19 1 Day Ago Rx ~05/07/20 Topiramate [Topamax] 100 mg PO QHS #30 tablet 09/07/19 1 Day Ago Rx ~05/07/20 Doxycycline Hyclate [Doxycycline 100 mg PO Q12HR #14 tab 05/10/20 Unknown Rx Hyclate TAB] Fluconazole (Nf) [Diflucan TAB] 150 mg PO ONCE #1 tablet 05/10/20 Unknown Rx Metoprolol [Lopressor TAB] 50 mg PO BID #30 tablet 05/10/20 Unknown Rx levoFLOXacin [Levaquin TAB] 750 mg PO Q24HR #7 tablet 05/10/20 Unknown Rx methIMAzole [Tapazole] 10 mg PO Q8HR #180 tablet 05/10/20 Unknown Rx Allergies Allergy/AdvReac Type Severity Reaction Status Date / Time lisinopril Allergy Itching Verified 07/13/19 14:10 Penicillins Allergy Unknown Verified 07/13/19 14:10 ibuprofen [From Motrin] AdvReac Bleeding Verified 07/13/19 14:10 Heart Score - HEART Score History: Moderately suspicious EKG: Non-specific Age: < 45 Risk factors: > 3 risk factors or hx of atherosclerotic disease Troponin: < normal limit HEART Score: 4 ED Review of Systems ROS: Stated complaint: CHEST PAIN;SOB;HEADACHE Other details as noted in HPI Constitutional: denies: chills, fever Eyes: denies: eye pain, eye discharge, vision change ENT: denies: ear pain, throat pain Respiratory: shortness of breath. denies: cough, wheezing Cardiovascular: chest pain, dyspnea on exertion. denies: palpitations Endocrine: no symptoms reported Gastrointestinal: denies: abdominal pain, nausea, diarrhea Genitourinary: denies: urgency, dysuria, discharge Musculoskeletal: denies: back pain, joint swelling, arthralgia Skin: denies: rash, lesions Neurological: as per HPI, headache. denies: weakness, paresthesias Psychiatric: denies: anxiety, depression Hematological/Lymphatic: denies: easy bleeding, easy bruising ED Past Medical Hx - Past Medical History Previous Medical History?: Yes Hx Hypertension: Yes Hx CVA: Yes Hx Heart Attack/AMI: No Hx Congestive Heart Failure: Yes (Newly Diagnosed) Hx Diabetes: Yes Hx Deep Vein Thrombosis: No Hx Pulmonary Embolism: No Hx GERD: No Hx Liver Disease: No Hx Renal Disease: No Hx Sickle Cell Disease: No Hx Arthritis: No Hx Headaches / Migraines: Yes Hx Seizures: No Hx Kidney Stones: No Hx Psychiatric Treatment: Yes (Anxiety) Hx Asthma: Yes Hx COPD: No Hx Tuberculosis: No Hx Dementia: No Hx HIV: No Additional medical history: gastroparesis, DKA, neuropathy, peptic ulcer disease, high cholesterol, thalassemia, low Fe, obese, palpitations (at one time was on metoprolol, DUB, Covid on Life Support 32 days March 2020 - Surgical History Past Surgical History?: Yes Hx Coronary Stent: No Hx Open Heart Surgery: No Hx Pacemaker: No Hx Internal Defibrillator: No Hx Cholecystectomy: Yes Hx Appendectomy: No Hx Breast Surgery: No Additional Surgical History: - Family History Family history: no significant - Social History Smoking Status: Never Smoker Substance Use Type: None - Medications Home Medications: Home Medications Medication Instructions Recorded Confirmed Last Taken Type Furosemide [Lasix TAB] 40 mg PO QDAY #30 tablet 05/08/15 05/08/20 1 Day Ago Rx ~05/07/20 Pravastatin [Pravachol] 20 mg PO QHS #30 tablet 05/08/15 05/08/20 1 Day Ago Rx ~05/07/20 ALPRAZolam [Xanax TAB] 2 mg PO TID 09/02/19 05/08/20 1 Day Ago History ~05/07/20 Insulin Glargine [Lantus VIAL] 75 units SQ BID 09/05/19 05/08/20 1 Day Ago History ~05/07/20 Insulin Lispro [HumaLOG VIAL] 35 unit SQ TID 09/05/19 05/08/20 1 Day Ago History ~05/07/20 FLUoxetine [PROzac] 40 mg PO QDAY #30 capsule 09/07/19 05/08/20 1 Day Ago Rx ~05/07/20 Topiramate [Topamax] 100 mg PO QHS #30 tablet 09/07/19 05/08/20 1 Day Ago Rx ~05/07/20 Gabapentin 100 mg PO BID 05/08/20 05/08/20 1 Day Ago History ~05/07/20 Losartan [Cozaar] 100 mg PO QDAY 05/08/20 05/08/20 1 Day Ago History ~05/07/20 Doxycycline Hyclate [Doxycycline 100 mg PO Q12HR #14 tab 05/10/20 Unknown Rx Hyclate TAB] Fluconazole (Nf) [Diflucan TAB] 150 mg PO ONCE #1 tablet 05/10/20 Unknown Rx Metoprolol [Lopressor TAB] 50 mg PO BID #30 tablet 05/10/20 Unknown Rx levoFLOXacin [Levaquin TAB] 750 mg PO Q24HR #7 tablet 05/10/20 Unknown Rx methIMAzole [Tapazole] 10 mg PO Q8HR #180 tablet 05/10/20 Unknown Rx ED Physical Exam - General Limitations: No Limitations General appearance: alert, in no apparent distress - Head Head exam: Present: atraumatic, normocephalic - Eye Eye exam: Present: normal appearance - ENT ENT exam: Present: mucous membranes moist - Neck Neck exam: Present: normal inspection - Respiratory Respiratory exam: Present: normal lung sounds bilaterally. Absent: respiratory distress - Cardiovascular Cardiovascular Exam: Present: regular rate, normal rhythm. Absent: systolic murmur, diastolic murmur, rubs, gallop - GI/Abdominal GI/Abdominal exam: Present: soft, normal bowel sounds - Extremities Exam Extremities exam: Present: normal inspection - Back Exam Back exam: Present: normal inspection - Neurological Exam Neurological exam: Present: alert, oriented X3 - Psychiatric Psychiatric exam: Present: normal affect, normal mood - Skin Skin exam: Present: warm, dry, intact, normal color. Absent: rash ED Course Vital Signs 09/28/20 23:30 Temperature 98.2 F Pulse Rate 88 Respiratory 20 Rate Blood Pressure 150/85 O2 Sat by Pulse 100 Oximetry - Reevaluation(s) Reevaluation #1: I discussed all results with patient. I discussed plan of care with patient. Patient agrees with plan of care and admission. Patient to be admitted to the hospitalist service. 09/29/20 02:55 - Consultations Consultation #1: Hospitalist consulted for admission. Hospitalist to admit patient. 09/29/20 02:55 OXANA score - Oxana Score Age > 65: (0) No Aspirin use within the Past 7 Days: (0) No 3 or more CAD Risk Factors: (1) Yes 2 or more Angina events in past 24 hrs: (1) Yes Known CAD with more than 50% Stenosis: (0) No Elevated Cardiac Markers: (1) Yes ST Deviation Greater than 0.5mm: (0) No OXANA Score: 3 ED Medical Decision Making - Lab Data Result diagrams: 09/28/20 23:50 09/28/20 23:50 - EKG Data -: EKG Interpreted by Me EKG shows normal: sinus rhythm, axis, intervals, QRS complexes, ST-T waves Rate: normal - Radiology Data Radiology results: report reviewed, image reviewed interpreted by me: Chest x-ray: No pneumonia, no pneumothorax, no foreign body, no osseous findings, no acute findings CHEST 1 VIEW 09/28/2020 11:57 PM INDICATION / CLINICAL INFORMATION: Dyspnea, chest pain. COMPARISON: 07/29/2020 FINDINGS: SUPPORT DEVICES: None. HEART / MEDIASTINUM: No significant abnormality. LUNGS / PLEURA: No significant pulmonary or pleural abnormality. No pneumothorax. ADDITIONAL FINDINGS: No significant additional findings. IMPRESSION: 1. No acute findings. - Medical Decision Making Patient is a 44-year-old female that presents emergency room with complaints of chest pain, shortness of breath, headache, fatigue. Patient also complained of dyspnea on exertion. Patient had labs done. Patient's labs are essentially unremarkable. Patient has an elevated heart score due to her cardiac co- morbidities. Patient had a EKG and chest x-ray. Patient's EKG and chest x-ray were reviewed by me. Patient EKG shows no acute findings and is in sinus rhythm and no changes to the ST segment. Patient's chest x-ray is negative for acute findings. Patient's cardiac enzymes were negative. Patient admitted to the hospital service for further evaluation and treatment. Due to the patient's risk factors, the patient will require a rule out ACS. - Differential Diagnosis ACS, chest pain, shortness of breath, headache, fatigue, BUITRAGO. Critical Care Time: Yes Critical care time in (mins) excluding proc time.: 35 Critical care attestation.: If time is entered above; I have spent that time in minutes in the direct care of this critically ill patient, excluding procedure time. Critical Care Time: 35 minutes ED Disposition Clinical Impression: SOB (shortness of breath), BUITRAGO (dyspnea on exertion), Dizziness Chest pain Qualifiers: Chest pain type: unspecified Qualified Code(s): R07.9 - Chest pain, unspecified Disposition: [id number] OP ADMIT IP TO THIS HOSP Is pt being admited?: Yes Does the pt Need Aspirin: No Condition: Critical Instructions: Chest Pain (ED) Referrals: JOELLEN BANKS DC [Primary Care Provider] - 3-5 Days Time of Disposition: 02:58
[2020-09-29] MEDS ORDERED: ONDANSETRON 4 MG/2 ML INJ IV PRN (03:24)
[2020-09-29] MEDS ORDERED: MAGNESIUM HYDROXIDE (MOM) ORAL LIQD UDC PO PRN (03:24)
[2020-09-29] MEDS ORDERED: DEXTROSE 50% IN WATER (25GM) 50 ML SYRINGE IV PRN (03:24)
[2020-09-29] MEDS ORDERED: ACETAMINOPHEN 325 MG TAB PO PRN (03:24)
[2020-09-29] MEDS ORDERED: NITROGLYCERIN 0.4 MG TAB SUBL SL PRN (03:24)
--- NOTE | 2020-09-29 03:51 | History and Physical Report ---
History of Present Illness Date of examination: 09/29/20 Date of admission: 09/29/20 02:58 Chief complaint: Chest pain History of present illness: 44-year-old female with known history of hypertension, CHF, dyslipidemia and diabetes mellitus presenting to the emergency room today complaining of chest pain. She has had associated shortness of breath headache and dizziness. Symptoms were said to have started about 4 days ago. Chest pain is substernal and on a scale of 10 was about 8/10 in severity. Pain is worse on exertion and gets better upon resting. Chest pain is nonradiating. No no relieving or exacerbating factor. Patient indicates that she had COVID-19 sometime in January 2020 which required prolonged hospitalization during which she was on the ventilator for about a month. She has had a recent Covid exposure however she denies any fever or chills, no cough, no nausea, no vomiting and no diarrhea. Work-up so far in the emergency room including chest x-ray, EKG, troponin have been within normal limits. Patient is admitted for chest pain evaluation. Past History Past Medical History: diabetes, heart failure, hypertension, migraines, stroke, other (Asthma, anxiety, neuropathy, peptic ulcer disease, thalassemia, obesity, gastroparesis, history of Covid in 2019) Past Surgical History: cholecystectomy, Social history: no significant social history Family history: no significant family history Medications and Allergies Allergies Allergy/AdvReac Type Severity Reaction Status Date / Time lisinopril Allergy Itching Verified 07/13/19 14:10 Penicillins Allergy Unknown Verified 07/13/19 14:10 ibuprofen [From Motrin] AdvReac Bleeding Verified 07/13/19 14:10 Home Medications Medication Instructions Recorded Confirmed Last Taken Type Furosemide [Lasix TAB] 40 mg PO QDAY #30 tablet 05/08/15 05/08/20 1 Day Ago Rx ~05/07/20 Pravastatin [Pravachol] 20 mg PO QHS #30 tablet 05/08/15 05/08/20 1 Day Ago Rx ~05/07/20 ALPRAZolam [Xanax TAB] 2 mg PO TID 09/02/19 05/08/20 1 Day Ago History ~05/07/20 Insulin Glargine [Lantus VIAL] 75 units SQ BID 09/05/19 05/08/20 1 Day Ago History ~05/07/20 Insulin Lispro [HumaLOG VIAL] 35 unit SQ TID 09/05/19 05/08/20 1 Day Ago History ~05/07/20 FLUoxetine [PROzac] 40 mg PO QDAY #30 capsule 09/07/19 05/08/20 1 Day Ago Rx ~05/07/20 Topiramate [Topamax] 100 mg PO QHS #30 tablet 09/07/19 05/08/20 1 Day Ago Rx ~05/07/20 Gabapentin 100 mg PO BID 05/08/20 05/08/20 1 Day Ago History ~05/07/20 Losartan [Cozaar] 100 mg PO QDAY 05/08/20 05/08/20 1 Day Ago History ~05/07/20 Doxycycline Hyclate [Doxycycline 100 mg PO Q12HR #14 tab 05/10/20 Unknown Rx Hyclate TAB] Fluconazole (Nf) [Diflucan TAB] 150 mg PO ONCE #1 tablet 05/10/20 Unknown Rx Metoprolol [Lopressor TAB] 50 mg PO BID #30 tablet 05/10/20 Unknown Rx levoFLOXacin [Levaquin TAB] 750 mg PO Q24HR #7 tablet 05/10/20 Unknown Rx methIMAzole [Tapazole] 10 mg PO Q8HR #180 tablet 05/10/20 Unknown Rx Active Meds: Active Medications Acetaminophen (Acetaminophen 325 Mg Tab) 650 mg PO Q6H PRN PRN Reason: Pain, Mild (1-3) Acetaminophen (Acetaminophen 325 Mg Tab) 650 mg PO Q4H PRN PRN Reason: Pain MILD(1-3)/Fever >100.5/[place] Dextrose (Dextrose 50% In Water (25gm) 50 Ml Syringe) 50 ml IV Q30MIN PRN; Protocol PRN Reason: Hypoglycemia Heparin Sodium (Porcine) (Heparin 5,000 Unit/1 Ml Vial) 5,000 unit SUB-Q Q8HR JAILENE Insulin Human Lispro (Insulin Lispro 100 Unit/Ml) 0 unit SUB-Q ACHS JAILENE; Protocol Magnesium Hydroxide (Magnesium Hydroxide (Mom) Oral Liqd Udc) 30 ml PO Q4H PRN PRN Reason: Constipation Nitroglycerin (Nitroglycerin 0.4 Mg Tab Subl) 0.4 mg SL Q5M PRN PRN Reason: Chest Pain Ondansetron HCl (Ondansetron 4 Mg/2 Ml Inj) 4 mg IV Q8H PRN PRN Reason: Nausea And Vomiting Sodium Chloride (Sodium Chloride 0.9% 10 Ml Flush Syringe) 10 ml IV PRN PRN PRN Reason: LINE FLUSH Sodium Chloride (Sodium Chloride 0.9% 10 Ml Flush Syringe) 10 ml IV BID JAILENE Sodium Chloride (Sodium Chloride 0.9% 10 Ml Flush Syringe) 10 ml IV PRN PRN PRN Reason: LINE FLUSH Review of Systems Constitutional: no fever, no chills Ears, nose, mouth and throat: no nasal congestion, no sore throat Cardiovascular: chest pain, no palpitations Respiratory: no cough, no shortness of breath, no wheezing Gastrointestinal: no abdominal pain, no nausea, no vomiting, no diarrhea Genitourinary Female: no pelvic pain, no flank pain, no dysuria, no hematuria Musculoskeletal: no neck pain, no low back pain Exam - Constitutional Vitals: Temp Pulse Resp BP Pulse Ox 98.2 F 88 20 150/85 100 09/28/20 23:30 09/28/20 23:30 09/28/20 23:30 09/28/20 23:30 09/28/20 23:30 General appearance: Present: no acute distress, well-nourished, obese - EENT Eyes: Present: PERRL, EOM intact. Absent: scleral icterus ENT: hearing intact, clear oral mucosa, dentition normal - Neck Neck: Present: supple, normal ROM - Respiratory Respiratory effort: normal Respiratory: bilateral: CTA - Cardiovascular Rhythm: regular Heart Sounds: Present: S1 & S2. Absent: gallop, systolic murmur, diastolic murmur, rub, click - Extremities Extremities: no ischemia, pulses intact, pulses symmetrical, No edema, normal temperature, normal color, Full ROM Peripheral Pulses: within normal limits - Abdominal General gastrointestinal: Present: soft, non-tender, non-distended, normal bowel sounds. Absent: mass - Integumentary Integumentary: Present: clear, warm, dry. Absent: rash - Musculoskeletal Musculoskeletal: strength equal bilaterally - Psychiatric Psychiatric: appropriate mood/affect, intact judgment & insight, memory intact, cooperative - Neurologic Neurologic: CNII-XII intact, moves all extremities HEART Score - HEART Score History: Slightly suspicious EKG: Non-specific Age: < 45 Risk factors: > 3 risk factors or hx of atherosclerotic disease Troponin: Troponin T < 0.010 ng/mL (0.00-0.029) 09/29/20 01:57 Troponin: < normal limit HEART Score: 3 Results - Labs CBC & Chem 7: 09/28/20 23:50 09/28/20 23:50 Labs: Abnormal lab results 09/28/20 09/28/20 Range/Units 23:50 23:50 WBC 11.9 H (4.5-11.0) K/mm3 RBC 5.10 H (3.65-5.03) M/mm3 MCV 73 L (79-97) fl MCH 24 L (28-32) pg RDW 17.4 H (13.2-15.2) % Lymph % (Auto) 12.3 L (13.4-35.0) % Seg Neutrophils % 80.6 H (40.0-70.0) % Seg Neutrophils # 9.6 H (1.8-7.7) K/mm3 Sodium 135 L (137-145) mmol/L Chloride 97.7 L (98-107) mmol/L BUN 19 H (7-17) mg/dL Glucose 266 H (65-100) mg/dL AST < 5 L (5-40) units/L ALT < 5 L (7-56) units/L Assessment and Plan - Patient Problems (1) Chest pain Current Visit: Yes Status: Acute Qualifiers: Chest pain type: unspecified Qualified Code(s): R07.9 - Chest pain, unspecified Plan to address problem: Patient admitted and placed on telemetry. Will check serial cardiac enzymes. Patient placed on aspirin, sublingual nitroglycerin IV morphine as needed for pain. We will consult cardiology for evaluation. (2) Hyperlipidemia Current Visit: No Status: Acute Qualifiers: Hyperlipidemia type: mixed hyperlipidemia Qualified Code(s): E78.2 - Mixed hyperlipidemia Plan to address problem: We will continue routine home medications and monitor lipid profile. (3) Diabetes Current Visit: No Status: Chronic Plan to address problem: We will monitor Accu-Cheks closely. (4) ALEJANDRA (generalized anxiety disorder) Onset Date: 09/04/19 Current Visit: No Status: Chronic Plan to address problem: We will continue routine medications. (5) Hypertension Current Visit: No Status: Chronic Qualifiers: Hypertension type: essential hypertension Plan to address problem: Blood pressure stable. Continue routine home medications. (6) Morbid obesity with BMI of 45.0-49.9, adult Onset Date: 09/04/19 Current Visit: No Status: Chronic Plan to address problem: We will encourage lifestyle modification. Dietary consult placed for evaluation. (7) Hyperthyroidism Current Visit: No Status: Acute Plan to address problem: We will continue routine medications. (8) DVT prophylaxis Current Visit: No Status: Acute Plan to address problem: Patient placed on subcutaneous heparin. (9) Full code status Current Visit: No Status: Acute Plan to address problem: Patient is full code.
[2020-09-29] MEDS: ACETAMINOPHEN 325 MG TAB PO PRN ×2 (06:00→22:42)
[2020-09-29] MEDS: HEPARIN 5,000 UNIT/1 ML VIAL SUB-Q SCH ×3 (06:00→21:40)
[2020-09-29] MEDS: methIMAzole 5 MG TAB PO SCH ×3 (06:01→21:40)
[2020-09-29] MEDS ORDERED: NON-FORMULARY EACH (Alprazolam [Xanax Tab] 2 MG Tablet) PO SCH (08:00)
--- NOTE | 2020-09-29 10:02 | Event Note ---
Date: 09/29/20 Patient 44-year-old recently admitted today with a history of hypertension, congestive heart failure, diabetes, hyperlipidemia presented with a 4-day history of exertional chest pain associated with shortness of breath described as 8 out of 10 nonradiating. #1 chest pain patient currently chest pain-free on IV morphine sublingual nitroglycerin aspirin cardiac enzymes so far unremarkable. #2 hypertension at present has optimal control placed back on beta-venice. #3 hyperlipidemia continue antiplatelet therapy. #4 diabetes Accu-Cheks cover with sliding scale insulin. #5 hyperthyroid resume tapazole #6 morbid obesity we will continue education about weight loss dietary supplementation and decrease caloric intake. #7 generalized anxiety disorder. Restart benzodiazepine.
[2020-09-29] MEDS: FLUoxetine 20 MG CAP PO SCH (10:40)
[2020-09-29] MEDS: ALPRAZolam 1 MG TAB PO SCH ×3 (10:40→20:39)
[2020-09-29] MEDS: INSULIN LISPRO 100 UNIT/ML SUB-Q SCH ×4 (10:41→22:34)
[2020-09-29] MEDS: FUROSEMIDE 40 MG TAB PO SCH (10:41)
[2020-09-29] MEDS: METOPROLOL TARTRATE 50 MG TAB PO SCH ×2 (10:41→21:40)
--- NOTE | 2020-09-29 11:29 | Consultation ---
History of Present Illness Consult date: 09/29/20 Requesting physician: EDITH CRUM Consult reason: chest pain, shortness of breath History of present illness: 44-year-old female with a PMH of morbid obesity, IDDM, hypertension, hyperlipidemia, and anxiety disorder presented to [facility] emergency department complaining of shortness of breath and chest pain. In the emergency department the patient's triglycerides were 209. Chest x-ray was negative for any acute findings. The patient admits that she had a Covid prolonged admission in January of last year.A 12-lead EKG from the emergency department revealed sinus rhythm with no acute ST segment changes. The patient was negative cardiac enzymes x3. Past History Past Medical History: diabetes, heart failure, hypertension, migraines, stroke, other (Asthma, anxiety, neuropathy, peptic ulcer disease, thalassemia, obesity, gastroparesis, history of Covid in 2019) Past Surgical History: cholecystectomy, Social history: no significant social history Family history: no significant family history Medications and Allergies Allergies Allergy/AdvReac Type Severity Reaction Status Date / Time lisinopril Allergy Itching Verified 07/13/19 14:10 Penicillins Allergy Unknown Verified 07/13/19 14:10 ibuprofen [From Motrin] AdvReac Bleeding Verified 07/13/19 14:10 Home Medications Medication Instructions Recorded Confirmed Last Taken Type Furosemide [Lasix TAB] 40 mg PO QDAY #30 tablet 05/08/15 09/29/20 1 Day Ago Rx ~05/07/20 Pravastatin [Pravachol] 20 mg PO QHS #30 tablet 05/08/15 09/29/20 1 Day Ago Rx ~05/07/20 ALPRAZolam [Xanax TAB] 2 mg PO TID 09/02/19 09/29/20 1 Day Ago History ~05/07/20 Insulin Glargine [Lantus VIAL] 75 units SQ BID 09/05/19 09/29/20 1 Day Ago History ~05/07/20 Insulin Lispro [HumaLOG VIAL] 35 unit SQ TID 09/05/19 09/29/20 1 Day Ago History ~05/07/20 FLUoxetine [PROzac] 40 mg PO QDAY #30 capsule 09/07/19 09/29/20 1 Day Ago Rx ~05/07/20 Topiramate [Topamax] 100 mg PO QHS #30 tablet 09/07/19 09/29/20 1 Day Ago Rx ~05/07/20 Gabapentin 100 mg PO BID 05/08/20 09/29/20 1 Day Ago History ~05/07/20 Losartan [Cozaar] 100 mg PO QDAY 05/08/20 09/29/20 1 Day Ago History ~05/07/20 Doxycycline Hyclate [Doxycycline 100 mg PO Q12HR #14 tab 05/10/20 09/29/20 Unknown Rx Hyclate TAB] Fluconazole (Nf) [Diflucan TAB] 150 mg PO ONCE #1 tablet 05/10/20 09/29/20 Unknown Rx Metoprolol [Lopressor TAB] 50 mg PO BID #30 tablet 05/10/20 09/29/20 Unknown Rx levoFLOXacin [Levaquin TAB] 750 mg PO Q24HR #7 tablet 05/10/20 09/29/20 Unknown Rx methIMAzole [Tapazole] 10 mg PO Q8HR #180 tablet 05/10/20 09/29/20 Unknown Rx Active Meds: Active Medications Acetaminophen (Acetaminophen 325 Mg Tab) 650 mg PO Q4H PRN PRN Reason: Pain MILD(1-3)/Fever >100.5/[place] Last Admin: 09/29/20 06:00 Dose: 650 mg Documented by: Alprazolam (Alprazolam 1 Mg Tab) 2 mg PO TID [facility] Last Admin: 09/29/20 10:40 Dose: 2 mg Documented by: Dextrose (Dextrose 50% In Water (25gm) 50 Ml Syringe) 50 ml IV Q30MIN PRN; Protocol PRN Reason: Hypoglycemia Fluoxetine HCl (Fluoxetine 20 Mg Cap) 40 mg PO QDAY [facility] Last Admin: 09/29/20 10:40 Dose: 40 mg Documented by: Furosemide (Furosemide 40 Mg Tab) 40 mg PO QDAY [facility] Last Admin: 09/29/20 10:41 Dose: 40 mg Documented by: Heparin Sodium (Porcine) (Heparin 5,000 Unit/1 Ml Vial) 5,000 unit SUB-Q Q8HR [facility] Last Admin: 09/29/20 06:00 Dose: 5,000 unit Documented by: Insulin Human Lispro (Insulin Lispro 100 Unit/Ml) 0 unit SUB-Q [facility]; Protocol Last Admin: 09/29/20 10:41 Dose: 2 unit Documented by: Magnesium Hydroxide (Magnesium Hydroxide (Mom) Oral Liqd Udc) 30 ml PO Q4H PRN PRN Reason: Constipation Methimazole (Methimazole 5 Mg Tab) 10 mg PO Q8HR [facility] Last Admin: 09/29/20 06:01 Dose: 10 mg Documented by: Metoprolol Tartrate (Metoprolol Tartrate 50 Mg Tab) 50 mg PO BID [facility] Last Admin: 09/29/20 10:41 Dose: 50 mg Documented by: Nitroglycerin (Nitroglycerin 0.4 Mg Tab Subl) 0.4 mg SL Q5M PRN PRN Reason: Chest Pain Ondansetron HCl (Ondansetron 4 Mg/2 Ml Inj) 4 mg IV Q8H PRN PRN Reason: Nausea And Vomiting Pravastatin Sodium (Pravastatin 20 Mg Tab) 20 mg PO QHS [facility] Sodium Chloride (Sodium Chloride 0.9% 10 Ml Flush Syringe) 10 ml IV PRN PRN PRN Reason: LINE FLUSH Sodium Chloride (Sodium Chloride 0.9% 10 Ml Flush Syringe) 10 ml IV BID [facility] Last Admin: 09/29/20 10:41 Dose: 10 ml Documented by: Topiramate (Topiramate Tab 100 Mg Tab) 100 mg PO QHS [facility] Review of Systems Constitutional: weight gain, no weight loss, no fever, no chills, no sweats Ears, nose, mouth and throat: deferred Breasts: deferred Cardiovascular: chest pain, no edema, no syncope Respiratory: no cough, no hemoptysis Gastrointestinal: no nausea, no vomiting Musculoskeletal: no neck stiffness, no neck pain Integumentary: no rash, no pruritis Neurological: no head injury, no transient paralysis Physical Examination Vital Signs Temp Pulse Resp BP Pulse Ox 98.2 F 88 20 150/85 100 09/28/20 23:30 09/28/20 23:30 09/28/20 23:30 09/28/20 23:30 09/28/20 23:30 General appearance: no acute distress HEENT: Positive: PERRL Neck: Positive: neck supple, trachea midline Cardiac: Positive: Reg Rate and Rhythm Lungs: Positive: Normal Exam, clear to auscultation Neuro: Positive: Grossly Intact Abdomen: Positive: Unremarkable, Soft, Active Bowel Sounds Skin: Negative: Clear Extremities: Present: lower extr. pulses, warm. Absent: edema Results 09/28/20 23:50 09/28/20 23:50 Cardiac Enzymes 09/28/20 Range/Units 23:50 AST < 5 L (5-40) units/L Lipids 09/29/20 Range/Units 06:21 Triglycerides 209 H (2-149) mg/dL Cholesterol 240 H (50-199) mg/dL HDL Cholesterol 40 (40-59) mg/dL Cholesterol/HDL Ratio 6.00 % CBC 09/28/20 Range/Units 23:50 WBC 11.9 H (4.5-11.0) K/mm3 RBC 5.10 H (3.65-5.03) M/mm3 Hgb 12.5 (10.1-14.3) gm/dl Hct 37.4 (30.3-42.9) % Plt Count 307 (140-440) K/mm3 Lymph # (Auto) 1.5 (1.2-5.4) K/mm3 [place] # (Auto) 0.7 (0.0-0.8) K/mm3 Eos # (Auto) 0.1 (0.0-0.4) K/mm3 Baso # (Auto) 0.1 (0.0-0.1) K/mm3 Comprehensive Metabolic Panel 09/28/20 Range/Units 23:50 Sodium 135 L (137-145) mmol/L Potassium 4.5 (3.6-5.0) mmol/L Chloride 97.7 L (98-107) mmol/L Carbon Dioxide 24 (22-30) mmol/L BUN 19 H (7-17) mg/dL Creatinine 1.2 (0.6-1.2) mg/dL Glucose 266 H (65-100) mg/dL Calcium 9.2 (8.4-10.2) mg/dL AST < 5 L (5-40) units/L ALT < 5 L (7-56) units/L Alkaline Phosphatase 113 (35-129) units/L Total Protein 6.8 (6.3-8.2) g/dL Albumin 4.1 (3.9-5) g/dL EKG interpretations - Telemetry EKG Rhythm: Sinus Rhythm Assessment and Plan 44-year-old female PMH Morbid obesity IDDM Hypertension Hyperlipidemia Anxiety disorder Covid hospitalization in January 2020 Echocardiogram 05/21: EF 50 to 55%, mild LVH, grade 1 diastolic dysfunction Myocardial perfusion scan 09/21: No ischemia, small fixed anterior and anteroapical defect, EF 62% Atypical chest pain Continue metoprolol 50 mg twice daily Consider changing pravastatin to atorvastatin versus rosuvastatin unless contraindicated Monitor potassium and magnesium
[2020-09-29] MEDS ORDERED: PRAVASTATIN 20 MG TAB PO SCH (22:00)
[2020-09-29] MEDS: TOPIRAMATE TAB 100 MG TAB PO SCH (22:34)
[2020-09-30 05:32] LABS: Basophils # (Auto) 0.1 K/mm3 (0.0-0.1); Eosinophils # (Auto) 0.1 K/mm3 (0.0-0.4); Eosinophils % (Auto) 1.2 % (0.0-4.3); Hematocrit 36.9 % (30.3-42.9); Hemoglobin 12.1 gm/dl (10.1-14.3); Lymphocytes # (Auto) 1.4 K/mm3 (1.2-5.4); Lymphocytes % (Auto) 16.9 % (13.4-35.0); Mean Corpuscular HGB Conc 33 % (30-34); Mean Corpuscular Volume 74 fl (79-97); Monocytes # (Auto) 0.5 K/mm3 (0.0-0.8); Monocytes % (Auto) 5.7 % (0.0-7.3); Platelet Count 272 K/mm3 (140-440); Red Blood Count 5.02 M/mm3 (3.65-5.03); Red Cell Distribution Width 16.5 % (13.2-15.2)
[2020-09-30 05:45] LABS: BUN/Creatinine Ratio 29; Blood Urea Nitrogen 23 mg/dL (7-17); Calcium 8.7 mg/dL (8.4-10.2); Hemolysis Index 22
[2020-09-30 05:50] LABS: INR 0.91 (0.87-1.13)
[2020-09-30] MEDS: HEPARIN 5,000 UNIT/1 ML VIAL SUB-Q SCH ×3 (06:04→21:58)
[2020-09-30] MEDS: methIMAzole 5 MG TAB PO SCH ×2 (06:05→06:25)
[2020-09-30] MEDS: ALPRAZolam 1 MG TAB PO SCH ×3 (08:30→21:59)
[2020-09-30] MEDS: FLUoxetine 20 MG CAP PO SCH (09:10)
[2020-09-30] MEDS: FUROSEMIDE 40 MG TAB PO SCH (09:11)
[2020-09-30] MEDS: INSULIN LISPRO 100 UNIT/ML SUB-Q SCH ×4 (09:20→21:58)
[2020-09-30] MEDS: METOPROLOL TARTRATE 50 MG TAB PO SCH ×2 (09:20→21:59)
--- NOTE | 2020-09-30 10:46 | Progress Note ---
Assessment and Plan - Patient Problems (1) Headache Current Visit: Yes Status: Acute Plan to address problem: At present headaches have been described as pressure vice brazing furnace feeder in the forehead and also pressure and tension in the neck area consistent with tension headaches. Patient also has been under stress will start Fioricet. (2) Chest pain Current Visit: Yes Status: Acute Qualifiers: Chest pain type: unspecified Qualified Code(s): R07.9 - Chest pain, unspecified Plan to address problem: Chest pain resolved. This is very atypical at best. Patient has had negative stress test and normal echocardiogram recently. Current work-up so far negative your cardiac enzymes and EKG findings. (3) BUITRAGO (dyspnea on exertion) Current Visit: Yes Status: Acute Plan to address problem: All may be secondary to her morbid obesity. And obesity hypoventilation syndrome. (4) Accelerated hypertension Current Visit: No Status: Acute Plan to address problem: Optimal control blood pressure on metoprolol 50 mg twice daily. (5) Anxiety disorder Onset Date: 05/17/13 Current Visit: No Status: Acute Plan to address problem: Resume Xanax. Patient does not appear anxious now. (6) Generalized anxiety disorder Current Visit: No Status: Acute (7) Obesity hypoventilation syndrome Current Visit: No Status: Acute Plan to address problem: Continue oxygen will require sleep eval upon discharge. (8) Diabetes Current Visit: No Status: Chronic Plan to address problem: Very well controlled continue present management. Continue sliding scale treatment for now. (9) History of 2019 novel coronavirus disease (COVID-19) Current Visit: No Status: Chronic Plan to address problem: Patient with history of COVID-19 early March require prolonged intubation. Patient very concerned about exposure again. Unlikely to require Covid again however repeat Covid test as well as influenza. Patient may have just generalized flu. (10) Hyperlipidemia Current Visit: No Status: Acute Qualifiers: Hyperlipidemia type: mixed hyperlipidemia Qualified Code(s): E78.2 - Mixed hyperlipidemia Plan to address problem: Currently not controlled optimally with pravastatin will change to atorvastatin. (11) Hyperthyroidism Current Visit: Yes Status: Acute Plan to address problem: Patient no longer is under medical management for this and will discontinue it. Subjective Date of service: 09/30/20 Principal diagnosis: Shortness of breath Interval history: 09/30/2020 Patient this a.m. complains of headache. And backache. At present denies any chest pain. Patient states she feels uncomfortable as if she had Covid in [place]. States symptoms are very similar. Patient does not have any fever. Appetite is good. Patient is in no distress. Did discuss yesterday about recent stress test and echocardiogram findings. We have Pending and influenza test pending. And COVID-19 test pending Objective - Constitutional Vitals: Vital Signs - 12hr 09/29/20 09/29/20 09/30/20 23:00 23:42 09:20 Pulse Rate 81 73 Respiratory 18 Rate Blood Pressure 132/67 General appearance: Present: no acute distress, well-nourished - EENT Eyes: PERRL, EOM intact ENT: hearing intact, clear oral mucosa Ears: bilateral: normal - Neck Neck: supple, normal ROM - Respiratory Respiratory effort: normal Respiratory: bilateral: CTA - Breasts Breasts: normal - Cardiovascular Rhythm: regular Heart Sounds: Present: S1 & S2. Absent: gallop, rub Extremities: pulses intact, No edema, normal color, Full ROM - Gastrointestinal General gastrointestinal: Present: soft, non-tender, non-distended, normal bowel sounds - Genitourinary Female genitourinary: normal - Integumentary Integumentary: clear, warm, dry - Musculoskeletal Musculoskeletal: 1, strength equal bilaterally - Neurologic Neurologic: moves all extremities - Psychiatric Psychiatric: memory intact, appropriate mood/affect, intact judgment & insight - Labs CBC & Chem 7: 09/30/20 04:46 09/30/20 04:46 Labs: Abnormal lab results 09/29/20 09/29/20 09/29/20 Range/Units 11:59 16:24 21:17 MCV (79-97) fl MCH (28-32) pg RDW (13.2-15.2) % Seg Neutrophils % (40.0-70.0) % Sodium (137-145) mmol/L BUN (7-17) mg/dL Glucose (65-100) mg/dL POC Glucose 141 H 197 H 212 H (70-105) mg/dL 09/30/20 09/30/20 09/30/20 Range/Units 04:46 04:46 08:19 MCV 74 L (79-97) fl MCH 24 L (28-32) pg RDW 16.5 H (13.2-15.2) % Seg Neutrophils % 75.2 H (40.0-70.0) % Sodium 133 L (137-145) mmol/L BUN 23 H (7-17) mg/dL Glucose 199 H (65-100) mg/dL POC Glucose 209 H (70-105) mg/dL HEART Score - HEART Score EKG: Non-specific Age: < 45 Risk factors: > 3 risk factors or hx of atherosclerotic disease Troponin: Troponin T < 0.010 ng/mL (0.00-0.029) 09/29/20 09:53 Troponin: < normal limit
[2020-09-30] MEDS: BUTALB/ACETAMINOPHEN/CAFFEINE TAB PO PRN ×2 (11:28→19:13)
--- NOTE | 2020-09-30 11:48 | Progress Note ---
Assessment and Plan No new cardiac concerns. Atypical chest pain. AMI ruled out. Pharmacological MPI pending Covid 19 test results- tentatively scheduled for tomorrow. Continue current cardiac regimen. Will follow. Echocardiogram 05/21: EF 50 to 55%, mild LVH, grade 1 diastolic dysfunction Myocardial perfusion scan 09/21: No ischemia, small fixed anterior and anteroapical defect, EF 62% This patient was seen in conjunction with Dr Armas, who agrees with this assessment and plan of care. - Patient Problems (1) Chest pain Current Visit: Yes Status: Acute Qualifiers: Chest pain type: unspecified Qualified Code(s): R07.9 - Chest pain, unspecified (2) BUITRAGO (dyspnea on exertion) Current Visit: Yes Status: Acute (3) Person under investigation for COVID-19 Current Visit: Yes Status: Acute (4) Diabetes Current Visit: Yes Status: Chronic (5) History of 2019 novel coronavirus disease (COVID-19) Current Visit: Yes Status: Chronic (6) Hyperlipidemia Current Visit: Yes Status: Chronic (7) Hypertension Current Visit: Yes Status: Chronic Qualifiers: Hypertension type: essential hypertension Qualified Code(s): I10 - Essential (primary) hypertension (8) Anxiety Current Visit: Yes Status: Chronic (9) Hx of TIA (transient ischemic attack) and stroke Current Visit: Yes Status: Chronic Subjective Date of service: 09/30/20 Principal diagnosis: Shortness of breath Interval history: Patient is resting in bed comfortably. Alert & Oriented. No new cardiac complain ts. Tele reviewed: Sinus Rhythm, HR 75. Objective Last Vital Signs Temp 97.6 F 09/29/20 21:16 Pulse 73 09/30/20 09:20 Resp 18 09/29/20 23:42 BP 132/67 09/30/20 09:20 Pulse Ox 100 09/29/20 22:00 - Physical Examination HEENT: Positive: PERRL Neck: Positive: neck supple, trachea midline Cardiac: Positive: Reg Rate and Rhythm, S1/S2 Lungs: Positive: clear to auscultation, Normal Breath Sounds Neuro: Positive: Grossly Intact Abdomen: Positive: Unremarkable, Soft, Active Bowel Sounds Skin: Negative: Rash, Wound Extremities: Present: lower extr. pulses, warm. Absent: edema - Labs and Meds Coagulation 09/30/20 Range/Units 04:46 PT 12.2 (12.2-14.9) Sec. INR 0.91 (0.87-1.13) CBC 09/30/20 Range/Units 04:46 WBC 8.2 (4.5-11.0) K/mm3 RBC 5.02 (3.65-5.03) M/mm3 Hgb 12.1 (10.1-14.3) gm/dl Hct 36.9 (30.3-42.9) % Plt Count 272 (140-440) K/mm3 Lymph # (Auto) 1.4 (1.2-5.4) K/mm3 [place] # (Auto) 0.5 (0.0-0.8) K/mm3 Eos # (Auto) 0.1 (0.0-0.4) K/mm3 Baso # (Auto) 0.1 (0.0-0.1) K/mm3 Comprehensive Metabolic Panel 09/30/20 Range/Units 04:46 Sodium 133 L (137-145) mmol/L Potassium 4.3 (3.6-5.0) mmol/L Chloride 98.6 (98-107) mmol/L Carbon Dioxide 22 (22-30) mmol/L BUN 23 H (7-17) mg/dL Creatinine 0.8 (0.6-1.2) mg/dL Glucose 199 H (65-100) mg/dL Calcium 8.7 (8.4-10.2) mg/dL - Imaging and Cardiology EKG: report reviewed, image reviewed Pharmacologic stress test: pending (Myocardial perfusion scan 09/21: No ischemia, small fixed anterior and anteroapical defect, EF 62%) Echo: report reviewed (Echocardiogram 05/21: EF 50 to 55%, mild LVH, grade 1 diastolic dysfunction)
[2020-09-30] MEDS: TOPIRAMATE TAB 100 MG TAB PO SCH (21:58)
[2020-09-30] MEDS: GABAPENTIN 100 MG CAP PO SCH (23:11)
[2020-10-01] MEDS: HEPARIN 5,000 UNIT/1 ML VIAL SUB-Q SCH ×3 (05:36→21:45)
--- NOTE | 2020-10-01 07:54 | Discharge Summary ---
Providers - Providers Date of Admission: 09/29/20 02:58 Date of discharge: 10/01/20 Attending physician: KATHRIN WILHELM 09/29/20 Consult to Cardiac Rehabilitation [CONS] Routine Reason For Exam: Phase I 09/29/20 03:24 Consult to Cardiology [CONS] Routine Consulting Provider: CANDELARIO FLORENCE Reason For Exam: chest pain Consult to Dietitian/Nutrition [CONS] Routine Physician Instructions: Reason For Exam: Reason for Consult: Diet education Primary care physician: JOELLEN BANKS DC Hospitalization Reason for admission: cp, sob Condition: Critical Hospital course: 44-year-old female with a PMH of morbid obesity, IDDM, hypertension, hyperlipidemia, and anxiety disorder presented to [facility] emergency department complaining of shortness of breath and chest pain. In the emergency department the patient's triglycerides were 209. Chest x-ray was negative for any acute findings. The patient admits that she had a Covid prolonged admission in January of last year.A 12-lead EKG from the emergency department revealed sinus rhythm with no acute ST segment changes. The patient was negative cardiac enzymes x3. The patient was seen by cardiology and felt that the chest pain was atypical and AMI was ruled out. Patient had repeat Covid testing which was found to be negative. Patient will have follow-up MPI this morning and if found to be negative patient will be discharged home. Etiology of chest pain likely secondary to GERD. Dyspnea related to obesity hypoventilation syndrome. Dedicated discharge time 35 minutes. Disposition: [place] TO HOME OR SELFCARE Time spent for discharge: 35 - Discharge Diagnoses (1) GERD (gastroesophageal reflux disease) Status: Acute (2) Chest pain Status: Acute Qualifiers: Chest pain type: unspecified Qualified Code(s): R07.9 - Chest pain, unspecified (3) Hyperthyroidism Status: Acute (4) Hyperlipidemia Status: Chronic (5) Hypertension Status: Chronic Qualifiers: Hypertension type: essential hypertension Qualified Code(s): I10 - Essential (primary) hypertension (6) Obesity hypoventilation syndrome Status: Acute Core Measure Documentation - Palliative Care Palliative Care/ Comfort Measures: Not Applicable - Core Measures Any of the following diagnoses?: none Exam - Constitutional Vitals: Temp Pulse Resp BP Pulse Ox 97.0 F L 75 16 115/54 96 10/01/20 06:27 10/01/20 06:27 10/01/20 06:27 10/01/20 06:48 10/01/20 06:27 General appearance: Present: no acute distress, well-nourished - EENT Eyes: Present: PERRL ENT: hearing intact, clear oral mucosa - Neck Neck: Present: supple, normal ROM - Respiratory Respiratory effort: normal Respiratory: bilateral: CTA - Cardiovascular Heart Sounds: Present: S1 & S2. Absent: rub, click - Extremities Extremities: pulses symmetrical, No edema Peripheral Pulses: within normal limits - Abdominal General gastrointestinal: Present: soft, non-tender, non-distended, normal bowel sounds Female genitourinary: Present: normal - Integumentary Integumentary: Present: clear, warm, dry - Musculoskeletal Musculoskeletal: gait normal, strength equal bilaterally - Psychiatric Psychiatric: appropriate mood/affect, intact judgment & insight - Neurologic Neurologic: CNII-XII intact, moves all extremities Plan Activity: advance as tolerated Weight Bearing Status: Weight Bear as Tolerated Diet: low fat, low cholesterol, low salt, diabetic Follow up with: JOELLEN BANKS DC [Primary Care Provider] - 3-5 Days SELWYN ECHEVERRIA MD [Staff Physician] - 7 Days Prescriptions: Losartan [Cozaar] 100 mg PO QDAY #30 Butalb/Acetamin/Caff 50-325-40 [Fioricet 50-325-40] 1 tab PO Q4H PRN #12 tablet PRN Reason: Headache Gabapentin 100 mg PO BID #60 cap Furosemide [Lasix TAB] 40 mg PO QDAY #30 tablet AtorvaSTATin [Lipitor] 20 mg PO QHS #30 tablet Metoprolol [Lopressor TAB] 50 mg PO BID #30 tablet Pravastatin [Pravachol] 20 mg PO QHS #30 tablet FLUoxetine [PROzac] 40 mg PO QDAY #30 capsule Topiramate [Topamax] 100 mg PO QHS #30 tablet ALPRAZolam [Xanax TAB] 2 mg PO TID #15
[2020-10-01] MEDS ORDERED: REGADENOSON 0.4 MG/5 ML INJ IV ONE (09:23)
[2020-10-01] MEDS: INSULIN LISPRO 100 UNIT/ML SUB-Q SCH ×4 (10:09→21:47)
--- NOTE | 2020-10-01 10:36 | Progress Note ---
Assessment and Plan No new cardiac concerns. Atypical chest pain. AMI ruled out. Lexiscan MPI Stress Test results are pending. Pt had rest images today, but due to fioricet consumption pt was converted to 2 day protocol. Stress images to be completed in AM. Myocardial perfusion scan 09/21: No ischemia, small fixed anterior and anteroapical defect, EF 62% Echocardiogram 05/21: EF 50 to 55%, mild LVH, grade 1 diastolic dysfunction Continue current cardiac regimen. Will follow. This patient was seen in conjunction with Dr Armas, who agrees with this assessment and plan of care. - Patient Problems (1) Chest pain Current Visit: Yes Status: Acute Qualifiers: Chest pain type: unspecified Qualified Code(s): R07.9 - Chest pain, unspecified (2) BUITRAGO (dyspnea on exertion) Current Visit: Yes Status: Acute (3) Diabetes Current Visit: Yes Status: Chronic (4) History of 2019 novel coronavirus disease (COVID-19) Current Visit: Yes Status: Chronic (5) Hyperlipidemia Current Visit: Yes Status: Chronic (6) Hypertension Current Visit: Yes Status: Chronic Qualifiers: Hypertension type: essential hypertension Qualified Code(s): I10 - Essential (primary) hypertension (7) Anxiety Current Visit: Yes Status: Chronic (8) Hx of TIA (transient ischemic attack) and stroke Current Visit: Yes Status: Chronic Subjective Date of service: 10/01/20 Principal diagnosis: Shortness of breath Interval history: Patient is resting in bed comfortably. Alert & Oriented. No new cardiac complaints. Tele reviewed: Sinus Rhythm, HR 74. Objective Last Vital Signs Temp 97.0 F L 10/01/20 06:27 Pulse 75 10/01/20 06:27 Resp 16 10/01/20 06:27 BP 115/54 10/01/20 06:48 Pulse Ox 96 10/01/20 06:27 - Physical Examination HEENT: Positive: PERRL Neck: Positive: neck supple, trachea midline Cardiac: Positive: Reg Rate and Rhythm, S1/S2 Lungs: Positive: clear to auscultation, Normal Breath Sounds Neuro: Positive: Grossly Intact Abdomen: Positive: Unremarkable, Soft, Active Bowel Sounds Skin: Negative: Rash, Wound Extremities: Present: upper extr. pulses, lower extr. pulses, warm. Absent: delroy ma - Imaging and Cardiology EKG: report reviewed, image reviewed Echo: report reviewed (Echocardiogram 05/21: EF 50 to 55%, mild LVH, grade 1 diastolic dysfunction) - Telemetry EKG Rhythm: Sinus Rhythm
[2020-10-01] MEDS: ALPRAZolam 1 MG TAB PO SCH ×3 (12:31→21:44)
[2020-10-01] MEDS: METOPROLOL TARTRATE 50 MG TAB PO SCH ×2 (12:45→21:45)
[2020-10-01] MEDS: FLUoxetine 20 MG CAP PO SCH (12:45)
[2020-10-01] MEDS: GABAPENTIN 100 MG CAP PO SCH ×2 (12:46→21:42)
[2020-10-01] MEDS: FUROSEMIDE 40 MG TAB PO SCH (12:46)
[2020-10-01] MEDS: TOPIRAMATE TAB 100 MG TAB PO SCH (22:49)
[2020-10-02] MEDS: HEPARIN 5,000 UNIT/1 ML VIAL SUB-Q SCH ×2 (05:26→14:20)
[2020-10-02] MEDS: INSULIN LISPRO 100 UNIT/ML SUB-Q SCH ×3 (07:30→16:20)
[2020-10-02] MEDS ORDERED: REGADENOSON 0.4 MG/5 ML INJ IV ONE ×2 (08:46→08:51)
--- NOTE | 2020-10-02 10:49 | Progress Note ---
Assessment and Plan S/p completion of lexiscan MPI stress test today, stress test is negative. Chest pain currently resolved. AMI r/o. Currently stable cardiac status. Pt may discharge from cardiology standpoint. Recommend follow up in our office with Dr. Champion within 1-2 weeks of discharge ([phone]). The patient has been seen in conjunction with Dr. Armas who agrees with the assessment and plan of care. - Patient Problems (1) Chest pain Current Visit: Yes Status: Resolved Qualifiers: Chest pain type: unspecified Qualified Code(s): R07.9 - Chest pain, unspecified (2) BUITRAGO (dyspnea on exertion) Current Visit: Yes Status: Acute (3) Diabetes Current Visit: Yes Status: Chronic (4) History of 2019 novel coronavirus disease (COVID-19) Current Visit: Yes Status: Chronic (5) Hyperlipidemia Current Visit: Yes Status: Chronic (6) Hypertension Current Visit: Yes Status: Chronic Qualifiers: Hypertension type: essential hypertension Qualified Code(s): I10 - Essential (primary) hypertension (7) Anxiety Current Visit: Yes Status: Chronic (8) Hx of TIA (transient ischemic attack) and stroke Current Visit: Yes Status: Chronic Subjective Date of service: 10/02/20 Principal diagnosis: Shortness of breath Interval history: pt for completion of stress test today, no current complaints. tele reviewed - in SR HR 80s. Objective Last Vital Signs Temp 98.0 F 10/02/20 07:30 Pulse 71 10/02/20 07:30 Resp 18 10/02/20 07:30 BP 110/68 10/02/20 09:06 Pulse Ox 96 10/02/20 07:30 - Physical Examination General: No Apparent Distress HEENT: Positive: PERRL Neck: Positive: neck supple, trachea midline Cardiac: Positive: Reg Rate and Rhythm, S1/S2 Lungs: Positive: Decreased Breath Sounds Neuro: Positive: Grossly Intact Abdomen: Positive: Unremarkable, Soft, Active Bowel Sounds Skin: Negative: Rash, Wound Extremities: Present: upper extr. pulses, lower extr. pulses, warm. Absent: edema - Imaging and Cardiology EKG: report reviewed, image reviewed Echo: report reviewed (Echocardiogram 05/21: EF 50 to 55%, mild LVH, grade 1 diastolic dysfunction) - Telemetry EKG Rhythm: Sinus Rhythm
[2020-10-02] MEDS: METOPROLOL TARTRATE 50 MG TAB PO SCH (10:56)
[2020-10-02] MEDS: FLUoxetine 20 MG CAP PO SCH (10:56)
[2020-10-02] MEDS: FUROSEMIDE 40 MG TAB PO SCH (10:56)
[2020-10-02] MEDS: GABAPENTIN 100 MG CAP PO SCH (10:56)
[2020-10-02] MEDS: ALPRAZolam 1 MG TAB PO SCH ×2 (10:56→14:00)
--- NOTE | 2020-10-02 12:04 | Progress Note ---
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 Patient also has been under stress will start Fioricet. (2) Chest pain Current Visit: Yes Status: Acute Qualifiers: Chest pain type: unspecified Qualified Code(s): R07.9 - Chest pain, unspecified Plan to address problem: Chest pain resolved. This is very atypical at best. Patient has had negative stress test and normal echocardiogram recently. Current work-up so far negative your cardiac enzymes and EKG findings. (3) BUITRAGO (dyspnea on exertion) Current Visit: Yes Status: Acute Plan to address problem: All may be secondary to her morbid obesity. And obesity hypoventilation syndrome. (4) Accelerated hypertension Current Visit: No Status: Acute Plan to address problem: Optimal control blood pressure on metoprolol 50 mg twice daily. (5) Anxiety disorder Onset Date: 05/17/13 Current Visit: No Status: Acute Plan to address problem: Resume Xanax. Patient does not appear anxious now. (6) Generalized anxiety disorder Current Visit: No Status: Acute (7) Obesity hypoventilation syndrome Current Visit: No Status: Acute Plan to address problem: Continue oxygen will require sleep eval upon discharge. (8) Diabetes Current Visit: No Status: Chronic Plan to address problem: Very well controlled continue present management. Continue sliding scale treatment for now. (9) History of 2019 novel coronavirus disease (COVID-19) Current Visit: No Status: Chronic Plan to address problem: Patient with history of COVID-19 early March require prolonged intubation. Patient very concerned about exposure again. Unlikely to require Covid again however repeat Covid test as well as influenza. Patient may have just generalized flu. (10) Hyperlipidemia Current Visit: No Status: Acute Qualifiers: Hyperlipidemia type: mixed hyperlipidemia Qualified Code(s): E78.2 - Mixed hyperlipidemia Plan to address problem: Currently not controlled optimally with pravastatin will change to atorvastatin. (11) Hyperthyroidism Current Visit: Yes Status: Acute Plan to address problem: Patient no longer is under medical management for this and will discontinue it. - Patient Problems (1) GERD (gastroesophageal reflux disease) Current Visit: Yes Status: Acute (2) Chest pain Current Visit: Yes Status: Acute Qualifiers: Chest pain type: unspecified Qualified Code(s): R07.9 - Chest pain, unspecified (3) Hyperthyroidism Current Visit: Yes Status: Acute (4) Hyperlipidemia Current Visit: Yes Status: Chronic (5) Hypertension Current Visit: Yes Status: Chronic Qualifiers: Hypertension type: essential hypertension Qualified Code(s): I10 - Ess ential (primary) hypertension (6) Obesity hypoventilation syndrome Current Visit: No Status: Acute History Interval history: No new issues overnight. Hospitalist Physical - Constitutional Vitals: Temp Pulse Resp BP Pulse Ox 98.0 F 71 18 110/68 96 10/02/20 07:30 10/02/20 07:30 10/02/20 07:30 10/02/20 09:06 10/02/20 07:30 General appearance: Present: no acute distress, well-nourished - EENT Eyes: Present: PERRL, EOM intact ENT: hearing intact, clear oral mucosa, dentition normal - Neck Neck: Present: supple, normal ROM - Respiratory Respiratory effort: normal Respiratory: bilateral: CTA - Cardiovascular Rhythm: regular Heart Sounds: Present: S1 & S2. Absent: gallop, rub - Extremities Extremities: no ischemia, No edema, Full ROM - Abdominal General gastrointestinal: soft, non-tender, non-distended, normal bowel sounds - Integumentary Integumentary: Present: clear, warm, dry - Neurologic Neurologic: CNII-XII intact, moves all extremities HEART Score - HEART Score EKG: Non-specific Age: < 45 Risk factors: > 3 risk factors or hx of atherosclerotic disease Troponin: Troponin T < 0.010 ng/mL (0.00-0.029) 09/29/20 09:53 Troponin: < normal limit Results - Labs CBC & Chem 7: 09/30/20 04:46 09/30/20 04:46 Labs: Laboratory Last Values WBC 8.2 K/mm3 (4.5-11.0) 09/30/20 04:46 RBC 5.02 M/mm3 (3.65-5.03) 09/30/20 04:46 Hgb 12.1 gm/dl (10.1-14.3) 09/30/20 04:46 Hct 36.9 % (30.3-42.9) 09/30/20 04:46 MCV 74 fl (79-97) L 09/30/20 04:46 MCH 24 pg (28-32) L 09/30/20 04:46 MCHC 33 % (30-34) 09/30/20 04:46 RDW 16.5 % (13.2-15.2) H 09/30/20 04:46 Plt Count 272 K/mm3 (140-440) 09/30/20 04:46 Lymph % (Auto) 16.9 % (13.4-35.0) 09/30/20 04:46 [place] % (Auto) 5.7 % (0.0-7.3) 09/30/20 04:46 Eos % (Auto) 1.2 % (0.0-4.3) 09/30/20 04:46 Baso % (Auto) 1.0 % (0.0-1.8) 09/30/20 04:46 Lymph # (Auto) 1.4 K/mm3 (1.2-5.4) 09/30/20 04:46 [place] # (Auto) 0.5 K/mm3 (0.0-0.8) 09/30/20 04:46 Eos # (Auto) 0.1 K/mm3 (0.0-0.4) 09/30/20 04:46 Baso # (Auto) 0.1 K/mm3 (0.0-0.1) 09/30/20 04:46 Seg Neutrophils % 75.2 % (40.0-70.0) H 09/30/20 04:46 Seg Neutrophils # 6.2 K/mm3 (1.8-7.7) 09/30/20 04:46 PT 12.2 Sec. (12.2-14.9) 09/30/20 04:46 INR 0.91 (0.87-1.13) 09/30/20 04:46 Sodium 133 mmol/L (137-145) L 09/30/20 04:46 Potassium 4.3 mmol/L (3.6-5.0) 09/30/20 04:46 Chloride 98.6 mmol/L (98-107) 09/30/20 04:46 Carbon Dioxide 22 mmol/L (22-30) 09/30/20 04:46 Anion Gap 17 mmol/L 09/30/20 04:46 BUN 23 mg/dL (7-17) H 09/30/20 04:46 Creatinine 0.8 mg/dL (0.6-1.2) 09/30/20 04:46 Estimated GFR > 60 ml/min 09/30/20 04:46 BUN/Creatinine Ratio 29 % 09/30/20 04:46 Glucose 199 mg/dL (65-100) H 09/30/20 04:46 POC Glucose 375 mg/dL (70-105) H 10/02/20 07:34 Calcium 8.7 mg/dL (8.4-10.2) 09/30/20 04:46 Total Bilirubin < 0.20 mg/dL (0.1-1.2) 09/28/20 23:50 AST < 5 units/L (5-40) L 09/28/20 23:50 ALT < 5 units/L (7-56) L 09/28/20 23:50 Alkaline Phosphatase 113 units/L (35-129) 09/28/20 23:50 Troponin T < 0.010 ng/mL (0.00-0.029) 09/29/20 09:53 NT-Pro-B Natriuret Pep 351.3 pg/mL (0-450) 09/28/20 23:50 Total Protein 6.8 g/dL (6.3-8.2) 09/28/20 23:50 Albumin 4.1 g/dL (3.9-5) 09/28/20 23:50 Albumin/Globulin Ratio 1.5 % 09/28/20 23:50 Triglycerides 209 mg/dL (2-149) H 09/29/20 06:21 Cholesterol 240 mg/dL (50-199) H 09/29/20 06:21 LDL Cholesterol Direct 181 mg/dL (50-130) H 09/29/20 06:21 HDL Cholesterol 40 mg/dL (40-59) 09/29/20 06:21 Cholesterol/HDL Ratio 6.00 % 09/29/20 06:21 Coronavirus (PCR) Negative (Negative) 09/30/20 Unknown [facility]/IV: Voiding Method Toilet Active Medications - Current Medications Current Medications: Generic Name Dose Route Start Last Admin Trade Name Freq PRN Reason Stop Dose Admin Acetaminophen 650 mg 09/29/20 03:24 09/29/20 22:42 Acetaminophen 325 Mg Tab PO 650 mg Q4H PRN Administration Pain MILD(1-3)/Fever >100.5 Alprazolam 2 mg 09/29/20 08:00 10/02/20 10:56 Alprazolam 1 Mg Tab PO 2 mg TID JAILENE Administration Atorvastatin Calcium 20 mg 09/30/20 22:00 10/01/20 21:44 Atorvastatin 20 Mg Tab PO 20 mg QHS JAILENE Administration Dextrose 50 ml 09/29/20 03:24 Dextrose 50% In Water (25gm) 50 Ml Syringe IV Q30MIN PRN Hypoglycemia Protocol Fluoxetine HCl 40 mg 09/29/20 10:00 10/02/20 10:56 Fluoxetine 20 Mg Cap PO 40 mg QDAY JAILENE Administration Furosemide 40 mg 09/29/20 10:00 10/02/20 10:56 Furosemide 40 Mg Tab PO 40 mg QDAY JAILENE Administration Gabapentin 100 mg 09/30/20 23:00 10/02/20 10:56 Gabapentin 100 Mg Cap PO 100 mg BID JAILENE Administration Heparin Sodium (Porcine) 5,000 unit 09/29/20 06:00 10/02/20 05:26 Heparin 5,000 Unit/1 Ml Vial SUB-Q 5,000 unit Q8HR JAILENE Administration Insulin Human Lispro 0 unit 09/29/20 07:30 10/02/20 10:55 Insulin Lispro 100 Unit/Ml SUB-Q 8 unit ACHS JAILENE Administration Protocol Magnesium Hydroxide 30 ml 09/29/20 03:24 Magnesium Hydroxide (Mom) Oral Liqd Udc PO Q4H PRN Constipation Metoprolol Tartrate 50 mg 09/29/20 10:00 10/02/20 10:56 Metoprolol Tartrate 50 Mg Tab PO 50 mg BID JAILENE Administration Nitroglycerin 0.4 mg 09/29/20 03:24 Nitroglycerin 0.4 Mg Tab Subl SL Q5M PRN Chest Pain Ondansetron HCl 4 mg 09/29/20 03:24 Ondansetron 4 Mg/2 Ml Inj IV Q8H PRN Nausea And Vomiting Sodium Chloride 10 ml 09/29/20 03:24 Sodium Chloride 0.9% 10 Ml Flush Syringe IV PRN PRN LINE FLUSH Sodium Chloride 10 ml 09/29/20 10:00 10/01/20 21:51 Sodium Chloride 0.9% 10 Ml Flush Syringe IV 10 ml BID JAILENE Administration Topiramate 100 mg 09/29/20 22:00 10/01/20 22:49 Topiramate Tab 100 Mg Tab PO 100 mg QHS JAILENE Administration Nutrition/Malnutrition Assess - Dietary Evaluation Nutrition/Malnutrition Findings: Nutrition Notes Start: 09/29/20 10:01 Freq: Status: Active Protocol: Document 09/30/20 11:34 MK (Rec: 09/30/20 11:36 MK [id number]) Nutrition Notes Initial or Follow up Brief Note Current Diagnosis Diabetes,Hypertension,Heart Failure,Stroke,Hyperlipidemia Other Pertinent Diagnosis COVID PUI, chest pain, gastroparsis Current Diet Cardiac, Consistent CHO Subjective/Other Information FU for diet education. 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 Pt given DM education and states she struggles with meal times, often having her first meal at noon and last meal at 8pm with a bedtime snack at midnight. Pt given education about small meals in the morning and tips for choosing healthy meals when dining out. #1 Nutrition Diagnosis Limited adherence to nutrition -related recommendations Etiology lack of adquate prior education As Evidenced by Signs and Symptoms pt unsure of what to eat in the morning and healthy meals when eating out Nutrition Intervention Teaching Recipient Patient Learning Readiness Good Teaching Methods Discussion,Handout Response to Teaching Verbalize understanding Education Handouts Provided Planning Healthy Meals Tips for Dining Out Barriers to Learning No Barriers RD phone number provided Yes Patient aware of follow up options Yes Revisit per MD consult or patient Sign Off request:
[2020-10-02 12:27] VITALS: BP 124/68
--- NOTE | 2020-10-04 16:31 | Treadmill Report ---
PHARMACOLOGICAL STRESS MYOCARDIAL IMAGING REPORT. This being performed on middle-aged female for evaluation of persistent chest pain. Baseline EKG showed sinus rhythm with no significant ST-T changes. The patient tolerated IV regadenoson well. Had some complaint of dyspnea, but no chest pain, no EKG changes and no arrhythmia noted. The patient had myocardial perfusion images using technetium 99m sestamibi agent at rest followed by perfusion images and gating post-vasodilation with IV regadenoson. Perfusion images post-vasodilation showed mild anterior defect, which was felt to be breast attenuation. Resting images showed mild apical defect, which also was felt to be artifactual. Post-vasodilation gaiting showed ejection fraction to be 67% with normal end-diastolic and end-systolic volumes. Ejection fraction was calculated to be 67%. No wall motion abnormalities noted. Transient ischemic dilation ratio was found to be 1.18. FINAL IMPRESSION: 1. The patient tolerated IV regadenoson well without any significant side effects. 2. The patient's EKG showed sinus rhythm with no significant ST-T changes with vasodilation. 3. Perfusion images showed no significant reversible perfusion defect to suggest ischemia. Mild anterior defect, which was felt to be from breast attenuation was noted. Normal left ventricular systolic function noted with calculated ejection fraction of 67% with no wall motion abnormalities. 4. This low probability test for future cardiovascular events with no evidence of significant ischemia and normal left ventricular systolic function. JOB# [id number] SEDA/YOU
== END 2020-10-02 17:14 | disposition home or self-care (01) ==
LOC: ED 22:40 → 4A 09-29 02:58 → 3A 09-29 17:27 → 4A 10-01 18:26
PROVIDERS: ADMIT Internal Medicine Geriatric Medicine; ATTEND Hospitalist
DX: R07.89 Other chest pain (principal); Z20.822 Contact with and (suspected) exposure to COVID-19; I11.0 Hypertensive heart disease with heart failure; I50.9 Heart failure, unspecified; E11.9 Type 2 diabetes mellitus without complications; E78.5 Hyperlipidemia, unspecified; F41.9 Anxiety disorder, unspecified; E66.9 Obesity, unspecified; E05.90 Thyrotoxicosis, unspecified without thyrotoxic crisis or storm; R42 Dizziness and giddiness; G43.909 Migraine, unspecified, not intractable, without status migrainosus; K27.9 Peptic ulcer, site unspecified, unspecified as acute or chronic, without hemorrhage or perforation; E66.2 Morbid (severe) obesity with alveolar hypoventilation; G62.9 Polyneuropathy, unspecified; D56.9 Thalassemia, unspecified; K31.84 Gastroparesis; R06.00 Dyspnea, unspecified; Z90.49 Acquired absence of other specified parts of digestive tract; Z98.891 History of uterine scar from previous surgery; Z68.42 Body mass index [BMI] 45.0-49.9, adult; Z86.73 Personal history of transient ischemic attack (TIA), and cerebral infarction without residual deficits; Z79.4 Long term (current) use of insulin
CPT/HCPCS: 36415; 71045; 78452; 80048; 80053; 80061; 82962; 83880; 84484; 85025; 85610; 87641; 93005; 93017; 96372; 99291; A9270; A9502; G0378; J1644; J2785; U0003; J1815

== ENCOUNTER 2021-02-18 17:17 | Inpatient (IN) | payer BC, MEDICAID ==
--- NOTE | 2021-02-18 18:05 | Emergency Department Report ---
ED General Adult HPI - General Chief complaint: Chest Pain Stated complaint: My legs are swollen, my arms are swollen, my chest is hurting me, I am dizzy, I have back pain, and my belly is hurting me PUI?: No Time Seen by Provider: 02/18/21 18:03 Source: patient, RN notes reviewed, old records reviewed Mode of arrival: Stretcher Limitations: Physical Limitation - History of Present Illness Initial comments: Past medical history: BMI 53, insulin-dependent diabetes, TIA, anxiety During the entire history and physical examination, I am chaperoned by Jessica Martínez The patient is a 45-year-old female. She presents to the ER with multiple complaints. Her first complaint is feeling like she has gained weight, feeling like her abdomen is swollen, her bilateral upper extremities are swollen, that she has lower extremity swelling. She denies travel, surgery, , immobilization, DVT and pulmonary embolism risk factors. The patient does not have a diagnosis of obstructive sleep apnea that she is aware of, but she snores quite a bit at night. Her next complaint is central chest pain, which radiates to the neck and back. This has been present for a few hours to a few days. The pain increases with palpation and decreases with rest. Patient denies travel, surgery, DVT and pulmonary embolism risk factors. She is not sure if she is taken aspirin recently. She had a nuclear stress test at this hospital September 2020, which was negative for acute findings. Her next complaint is paralumbar back pain which does not radiate anywhere. She also endorses simultaneous suprapubic and lower abdominal cramping and pain. She is not sure if she is having dysuria. She denies the possibility of . She denies hematemesis, but thinks that she had bloody stool today. She also complains of having subjective left arm weakness and numbness, and feeling unsteady on her feet for about a week. -: Gradual, days(s) Location: chest, back, abdomen, left, upper extremity Consistency: intermittent Improves with: other Worsens with: other - Related Data Home Medications Medication Instructions Recorded Confirmed Last Taken Insulin Glargine [Lantus VIAL] 75 units SQ BID 09/05/19 09/29/20 1 Day Ago ~05/07/20 Insulin Lispro [HumaLOG VIAL] 35 unit SQ TID 09/05/19 09/29/20 1 Day Ago ~05/07/20 Previous Rx's Medication Instructions Recorded Last Taken Type Doxycycline Hyclate [Doxycycline 100 mg PO Q12HR #14 tab 05/10/20 Unknown Rx Hyclate TAB] Fluconazole (Nf) [Diflucan TAB] 150 mg PO ONCE #1 tablet 05/10/20 Unknown Rx levoFLOXacin [Levaquin TAB] 750 mg PO Q24HR #7 tablet 05/10/20 Unknown Rx methIMAzole [Tapazole] 10 mg PO Q8HR #180 tablet 05/10/20 Unknown Rx ALPRAZolam [Xanax TAB] 2 mg PO TID #15 10/01/20 Unknown Rx AtorvaSTATin [Lipitor] 20 mg PO QHS #30 tablet 10/01/20 Unknown Rx Butalb/Acetamin/Caff 50-325-40 1 tab PO Q4H PRN #12 tablet 10/01/20 Unknown Rx [Fioricet 50-325-40] FLUoxetine [PROzac] 40 mg PO QDAY #30 capsule 10/01/20 Unknown Rx Furosemide [Lasix TAB] 40 mg PO QDAY #30 tablet 10/01/20 Unknown Rx Gabapentin 100 mg PO BID capsule 10/01/20 Unknown Rx Gabapentin 100 mg PO BID #60 cap 10/01/20 Unknown Rx Losartan [Cozaar] 100 mg PO QDAY #30 10/01/20 Unknown Rx Metoprolol [Lopressor TAB] 50 mg PO BID #30 tablet 10/01/20 Unknown Rx Pravastatin [Pravachol] 20 mg PO QHS #30 tablet 10/01/20 Unknown Rx Topiramate [Topamax] 100 mg PO QHS #30 tablet 10/01/20 Unknown Rx Allergies Allergy/AdvReac Type Severity Reaction Status Date / Time lisinopril Allergy Itching Verified 07/13/19 14:10 Penicillins Allergy Unknown Verified 07/13/19 14:10 ibuprofen [From Motrin] AdvReac Bleeding Verified 07/13/19 14:10 ED Review of Systems ROS: Stated complaint: SWOLLEN ARMS AND ABDOMEN Other details as noted in HPI Constitutional: weakness, other (Denies loss of taste and smell). denies: fever Eyes: denies: vision change Respiratory: shortness of breath. denies: cough Cardiovascular: chest pain Gastrointestinal: abdominal pain. denies: hematemesis, melena, hematochezia Genitourinary: denies: dysuria Musculoskeletal: back pain Neurological: weakness, numbness, abnormal gait Hematological/Lymphatic: denies: easy bleeding ED Past Medical Hx - Past Medical History Previous Medical History?: Yes Hx Hypertension: Yes Hx CVA: Yes Hx Heart Attack/AMI: No Hx Congestive Heart Failure: Yes (Newly Diagnosed) Hx Diabetes: Yes Hx Deep Vein Thrombosis: No Hx Pulmonary Embolism: No Hx GERD: No Hx Liver Disease: No Hx Renal Disease: No Hx Sickle Cell Disease: No Hx Arthritis: No Hx Headaches / Migraines: Yes Hx Seizures: No Hx Kidney Stones: No Hx Psychiatric Treatment: Yes (Anxiety) Hx Asthma: Yes Hx COPD: No Hx Tuberculosis: No Hx Dementia: No Hx HIV: No Additional medical history: gastroparesis, DKA, neuropathy, peptic ulcer disease, high cholesterol, thalassemia, low Fe, obese, palpitations (at one time was on metoprolol, DUB, Covid on Life Support 32 days March 2020 - Surgical History Past Surgical History?: Yes Hx Coronary Stent: No Hx Open Heart Surgery: No Hx Pacemaker: No Hx Internal Defibrillator: No Hx Cholecystectomy: Yes Hx Appendectomy: No Hx Breast Surgery: No Additional Surgical History: - Social History Smoking Status: Never Smoker Substance Use Type: None - Medications Home Medications: Home Medications Medication Instructions Recorded Confirmed Last Taken Type Insulin Glargine [Lantus VIAL] 75 units SQ BID 09/05/19 09/29/20 1 Day Ago History ~05/07/20 Insulin Lispro [HumaLOG VIAL] 35 unit SQ TID 09/05/19 09/29/20 1 Day Ago History ~05/07/20 Doxycycline Hyclate [Doxycycline 100 mg PO Q12HR #14 tab 05/10/20 09/29/20 Unknown Rx Hyclate TAB] Fluconazole (Nf) [Diflucan TAB] 150 mg PO ONCE #1 tablet 05/10/20 09/29/20 Unknown Rx levoFLOXacin [Levaquin TAB] 750 mg PO Q24HR #7 tablet 05/10/20 09/29/20 Unknown Rx methIMAzole [Tapazole] 10 mg PO Q8HR #180 tablet 05/10/20 09/29/20 Unknown Rx ALPRAZolam [Xanax TAB] 2 mg PO TID #15 10/01/20 Unknown Rx AtorvaSTATin [Lipitor] 20 mg PO QHS #30 tablet 10/01/20 Unknown Rx Butalb/Acetamin/Caff 50-325-40 1 tab PO Q4H PRN #12 tablet 10/01/20 Unknown Rx [Fioricet 50-325-40] FLUoxetine [PROzac] 40 mg PO QDAY #30 capsule 10/01/20 Unknown Rx Furosemide [Lasix TAB] 40 mg PO QDAY #30 tablet 10/01/20 Unknown Rx Gabapentin 100 mg PO BID capsule 10/01/20 Unknown Rx Gabapentin 100 mg PO BID #60 cap 10/01/20 Unknown Rx Losartan [Cozaar] 100 mg PO QDAY #30 10/01/20 Unknown Rx Metoprolol [Lopressor TAB] 50 mg PO BID #30 tablet 10/01/20 Unknown Rx Pravastatin [Pravachol] 20 mg PO QHS #30 tablet 10/01/20 Unknown Rx Topiramate [Topamax] 100 mg PO QHS #30 tablet 10/01/20 Unknown Rx ED Physical Exam - General Limitations: No Limitations General appearance: alert, in no apparent distress, obese - Head Head exam: Present: atraumatic, normocephalic - Eye Eye exam: Present: normal appearance, PERRL, EOMI, other (Visual acuity intact to finger counting, color perception, reading at a close distance). Absent: nystagmus - ENT ENT exam: Present: normal exam, normal orophraynx, mucous membranes moist, normal external ear exam - Neck Neck exam: Present: normal inspection, full ROM. Absent: tenderness, meningismus - Respiratory Respiratory exam: Present: normal lung sounds bilaterally, chest wall tenderness. Absent: respiratory distress, wheezes, rales, rhonchi, stridor, decreased breath sounds - Cardiovascular Cardiovascular Exam: Present: regular rate, normal rhythm, normal heart sounds. Absent: bradycardia, tachycardia, irregular rhythm, systolic murmur, diastolic murmur, rubs, gallop - GI/Abdominal GI/Abdominal exam: Present: soft, tenderness, other (Right flank/right lower quadrant tender). Absent: distended, guarding, rebound, rigid, pulsatile mass - Rectal Rectal exam: Present: normal inspection, normal rectal tone, heme (-) stool, other (Chaperoned by Jessica Martínez). Absent: heme (+) stool, black stool, bloody stool, fecal impaction, hemorrhoids - Extremities Exam Extremities exam: Present: normal inspection, full ROM, pedal edema (1+ edema in the bilateral lower extremities), other (2+ pulses noted in the bilateral upper and lower extremities. There is no palpable cord. negative Homans sign. Muscular compartments are soft. The pelvis is stable.). Absent: calf tenderness - Back Exam Back exam: Present: normal inspection, CVA tenderness (R), paraspinal tenderness. Absent: tenderness - Neurological Exam Neurological exam: Present: alert (There is no past-pointing. There is normal [id number]. There is no pronator drift.), oriented X3, normal gait (Normal gait. Unable to tolerate Romberg examination. Unable to perform tandem gait.), other (No facial droop. Tongue midline. Extraocular movements intact bilaterally. Facial sensation intact to light touch in V1, V2, V3 distribution bilaterally. 5 and a 5 strength in 4 extremities. Sensation intact to light touch in 4 extremities.). Absent: motor sensory deficit - Psychiatric Psychiatric exam: Present: anxious - Skin Skin exam: Present: warm, dry, intact, normal color. Absent: rash ED Course Vital Signs 02/18/21 02/18/21 17:30 17:32 Temperature 98.6 F Pulse Rate 90 90 Respiratory 22 18 Rate Blood Pressure 153/68 O2 Sat by Pulse 97 97 Oximetry - Reevaluation(s) Reevaluation #1: 02/18/21 19:13 Differential diagnosis, including but not limited to: Costochondritis, GERD, gastritis, hiatal hernia, pneumonia, acute coronary syndrome, pulmonary embolism, TIA, anxiety, conversion disorder, subacute stroke, renal colic, urinary tract infection, appendicitis, mechanical back pain, arthritis, obstr uctive sleep apnea Assessment and plan: 45-year-old female with multiple complaints. On my initial examination, the patient is afebrile, moving 4 extremities, in no acute distress, and she is noted to be holding a cell phone with her left hand, in front of her left face, and conversing with an unknown individual. Complaints #1, chest pain. The patient is not currently tachycardic, tachypneic or hypoxic. She denies travel, surgery, immobilization, DVT and pulmonary embolism risk factors, and she is PERC negative. She is low risk by Wells criteria. She has a number of cardiovascular risk factors, and she is moderate risk for major adverse cardiac event as per heart score. Obtain EKG, troponin, D-dimer, x-ray the chest. Recent stress test reviewed and appreciated. Likely admit for acute chest pain. Complaint #2, lower abdominal pain, and back pain. Back pain reproducible. She states that she is not . Treat symptoms, obtain urinalysis, test, noncontrast CT scan of the abdomen pelvis. Suspect that back pain is secondary to BMI of 53. Patient is a 41 allergic to ibuprofen and/or NSAIDs. Rectal exam performed, negative for bleeding. Would hold narcotics given articulated complaint of shortness of breath. Complaint #3, shortness of breath. Patient morbidly obese, suspect undiagnosed obstructive sleep apnea, physical deconditioning, and probable pulmonary hypertension. Obtain x-ray of the chest, EKG, appropriate laboratory studies, administer supplemental oxygen as needed. Complaints #5, subjective left arm weakness, and feeling unsteady for 1 week. Not a TPA candidate as symptoms present for greater than 4.5 hours. NIH score of 0 on my exam. Not suggestive of large vessel occlusion. Also noted to be manipulating a holding cell phone in her left arm, having a full conversation with an individual on the cell phone, holding it in front of her face, with no difficulty. History appears to be Inconsistent. Nevertheless, obtain noncontrast CT scan of the brain, and neurology consultation. Admit patient to the medical service once initial diagnostics have resulted. Have discussed this plan of care with the patient. She has verbalized understanding. She is amenable to this plan of care. 02/18/21 19:14 02/18/21 19:33 I have discussed the patient's history, physical, overall clinical impression and plan of care with neurology on-call, Dr. John Lechuga We both agreed this patient is not a TPA candidate given symptoms present for about a week, nonspecific symptomatology, as well as NIH score of 0. We also agree that emergent CT angiogram head and neck is not necessary at this time, given NIH score of 0. He is in agreement with the plan to admit this patient for her multiple medical complaints, and if still dizzy while on the inpatient side of things, inpatient team may consider acquisition of MRI. 02/18/21 21:28 CT scan of the brain negative for acute findings. CT scan abdomen pelvis and x- ray of the chest suggest cardiomegaly, and pulmonary vascular congestion. plavix ordered given nsaid allergy. Lasix ordered. Hospital physician, Dr. Mojgan Canela [place] [facility] [place] 21:31 02/18/21 21:32 ED Medical Decision Making - Lab Data Result diagrams: 02/18/21 18:56 02/18/21 18:56 Vital Signs 02/18/21 02/18/21 17:30 17:32 Temperature 98.6 F Pulse Rate 90 90 Respiratory 22 18 Rate Blood Pressure 153/68 O2 Sat by Pulse 97 97 Oximetry - EKG Data -: EKG Interpreted by [facility] EKG shows normal: sinus rhythm Rate: normal - EKG Data 02/18/21 19:11 EKG #1 as interpreted at 18: 45 Sinus rhythm, 89 bpm. Normal axis, QTC 450 ms. Borderline poor R wave progression, low voltage in the lateral leads. Abnormal EKG. Not a STEMI. Appears unchanged when compared to prior EKG from 09/29/2020 - Radiology Data Radiology results: pending, report reviewed, image reviewed CT ABDOMEN AND PELVIS WITHOUT CONTRAST INDICATION: Acute lower abdominal pain, acute lower back pain CONTRAST: Without IV COMPARISON: 02/11/[address] scans at this location are performed using CT dose reduction for ALARA by means of automated exposure control. NOTE: Resolution is decreased and artifact is introduced by the patient's size. FINDINGS: Lung bases show mildly patchy increased interstitial markings including myelogram glass type interstitial ma rkings. Findings could relate to patchy pulmonary edema although acute interstitial pneumonitis is not excluded. No pneumoperitoneum is seen. Gallbladder has been removed. No biliary dilatation is seen. Pancreas shows no lesions or inflammation. Liver shows mild fatty infiltration and is mildly enl arged with a length of 20.2 cm. Spleen is not enlarged significantly. No lymphadenopathy is seen. No free fluid is noted. Colonic diverticulosis is seen without convincing evidence of acute diverticulitis. Appendix appears within normal limits. No evidence of bowel obstruction is seen. Small left renal cyst is noted. Mild bilateral nephrolithiasis is seen. No urinary obstructive changes are seen. Ureters appear within normal limits. Urinary bladder is mildly distended without obvious focal lesion. No adnexal masses are seen. Small bilateral ovarian cysts probably are physiologic. IMPRESSION: No acute abnormalities are seen Signer Name: Aramis Guerrero MD Signed: 02/18/2021 7:51 PM Workstation Name: [id number] CT head/brain wo con INDICATION: dizzy weak. TECHNIQUE: Routine CT head. All CT scans at this location are performed using CT dose reduction for ALARA by means of automated exposure control. COMPARISON: MRI brain from 09/06/2019 FINDINGS: Intracranial: Keller-white matter differentiation is maintained. No intracranial hemorrhage. No extra axial collection. No hydrocephalus. No herniation. Hypoattenuation in the brain parenchyma corresponds to the previously seen T2 signal hyperintensity. Sinuses: Paranasal sinuses and mastoid air cells are essentially clear. Orbits: Globes are intact. Calvarium: No acute fracture. IMPRESSION: 1. No acute intracranial abnormality. Signer Name: Casimiro Ovalle MD Signed: 02/18/2021 7:08 PM Workstation Name: [id number] CHEST 2 2021 INDICATION / CLINICAL INFORMATION: cp dyspneas COMPARISON: 09/28/2020 FINDINGS: SUPPORT DEVICES: None. HEART / MEDIASTINUM: Mild cardiomegaly is again seen LUNGS / PLEURA: Slight congestion is seen. No pleural effusions are noted. There may be slight interstitial edema. No definite focal areas of pneumonitis are seen. No pneumothorax. ADDITIONAL FINDINGS: No significant additional findings. IMPRESSION: No significant acute abnormality Signer Name: Aramis Guerrero MD Signed: 02/18/2021 7:46 PM Workstation Name: [id number] Critical care attestation.: If time is entered above; I have spent that time in minutes in the direct care of this critically ill patient, excluding procedure time. ED Disposition Clinical Impression: BMI 50.0-59.9, adult, Acute dyspnea, Acute chest pain, Acute abdominal pain, Dizziness, Obesity, BUITRAGO (dyspnea on exertion), Headache Disposition: OP ADMIT IP TO THIS HOSP Is pt being admited?: Yes Does the pt Need Aspirin: Yes Condition: Stable Instructions: Chest Pain (ED) Referrals: PRIMARY CARE, [Primary Care Provider] - 3-5 Days Heart Score - HEART Score History: Moderately suspicious EKG: Non-specific Age: < 45 Risk factors: > 3 risk factors or hx of atherosclerotic disease Troponin: < normal limit HEART Score: 4 - EKG Read Time Time EKG Completed: 18:45 EKG Read Time: 18:45 - Critical Actions Critical Actions: 4-6 pts:12-16.6% risk of adverse cardiac event. Should be admitted - Assessment Assessment Interval: Baseline - Level of Consciousness 1a. Level of Consciousness: alert/keenly responsive - LOC Questions 1b. LOC Questions: answers both correctly - LOC Command 1c. LOC Commands: performs tasks correctly - Best Gaze 2. Best Gaze: normal - Visual 3. Visual: no visual loss - Facial Palsy 4. Facial Palsy: normal symmetrical movement - Motor Arm 5a. Motor Arm Left: no drift 5b. Motor Arm Right: no drift - Motor Leg 6a. Motor Leg Left: no drift 6b. Motor Leg Right: no drift - Limb Ataxia 7. Limb Ataxia: absent - Sensory 8. Sensory: normal - Best Language 9. Best Language: no aphasia - Dysarthria 10. Dysarthria: normal - Extinction and Inattention 11. Extinction/Inattention: no abnormality - Scoring Total Score: 0 Stroke Severity: No Stroke Symptoms
[2021-02-18] MEDS ORDERED: ACETAMINOPHEN 325 MG TAB PO ONE (18:33)
[2021-02-18 19:15] LABS: Basophils # (Auto) 0.1 K/mm3 (0.0-0.1); Basophils % (Auto) 0.7 % (0.0-1.8); Eosinophils # (Auto) 0.1 K/mm3 (0.0-0.4); Eosinophils % (Auto) 0.5 % (0.0-4.3); Hematocrit 33.5 % (30.3-42.9); Hemoglobin 10.6 gm/dl (10.1-14.3); Lymphocytes # (Auto) 1.2 K/mm3 (1.2-5.4); Lymphocytes % (Auto) 9.2 % (13.4-35.0); Mean Corpuscular HGB Conc 32 % (30-34); Mean Corpuscular Volume 67 fl (79-97); Monocytes # (Auto) 0.6 K/mm3 (0.0-0.8); Monocytes % (Auto) 4.7 % (0.0-7.3); Platelet Count 315 K/mm3 (140-440); Red Blood Count 4.98 M/mm3 (3.65-5.03); Red Cell Distribution Width 16.8 % (13.2-15.2)
[2021-02-18 19:29] LABS: INR 0.9 (0.87-1.13)
[2021-02-18 19:30] LABS: Partial Thromboplastin Time 28.6 Sec. (24.2-36.6); Thrombin Time 15.8 Sec. (15.1-19.6)
[2021-02-18 19:38] LABS: Alanine Aminotransferase 15 units/L (7-56); Albumin 4.1 g/dL (3.9-5); BUN/Creatinine Ratio 18; Blood Urea Nitrogen 14 mg/dL (7-17); Calcium 9.1 mg/dL (8.4-10.2); Hemolysis Index 2
[2021-02-18 19:40] LABS: Creatine Kinase MB 3.9 ng/mL (0.0-4.0)
--- NOTE | 2021-02-18 20:12 | Cat Scan Report ---
CT head/brain wo con INDICATION: dizzy weak. TECHNIQUE: Routine CT head. All CT scans at this location are performed using CT dose reduction for A DELMA by means of automated exposure control. COMPARISON: MRI brain from 09/06/2019 FINDINGS: Intracranial: Keller-white matter differentiation is maintained. No intracranial hemorrhage. No extra a xial collection. No hydrocephalus. No herniation. Hypoattenuation in the brain parenchyma corresponds to the previously seen T2 signal hyperintensity. Sinuses: Paranasal sinuses and mastoid air cells are essentially clear. Orbits: Globes are intact. Calvarium: No acute fracture. IMPRESSION: 1. No acute intracranial abnormality. Signer Name: Casimiro Ovalle MD Signed: 02/18/2021 8:08 PM Workstation Name: [id number]
--- NOTE | 2021-02-18 20:18 | Consultation ---
History of Present Illness History of present illness: [place] [facility] Consult Note # Demographics Consult Type: General Neurology Patient Location: Emergency Room First Name: Bessie Last Name: Agustina Date of : 09/23/1988 Age: 45 Gender: Female Time of Initial Page (Eastern Time): 02/18/2021, 19:20 Time of Return Call (Eastern Time): 02/18/2021, 19:21 # HPI History: 45 year-old female presents with chest pain, shortness of breath, dizziness, and left arm paresthesias. The dizziness has been for 1 week. The left arm paresthesias began today. # Exam Vitals: vital signs reviewed # PMH-FH-SH Past Medical History: hyperlipidemia hypertension TIA # Assessment Impression: Dizziness with left arm paresthesias, chest pain, and shortness of breath - cannot exclude minor stroke # Plan Thrombolytic/Intervention: NOT IV Thrombolysis or IA Intervention candidate Thrombolytic Exclusion: > 4.5 hours Intraarterial Exclusion: non-disabling Labs: CBC comprehensive metabolic panel Imaging: (urgency: STAT): CT Head without contrast Imaging: (urgency: routine): MRI Brain without contrast Therapy/Evaluation: NPO until swallow evaluation PT/OT evaluation speech/swallow consultation Other: permissive hypertension telemetry monitoring I have discussed my recommendations with the referring provider Disposition: admit Medications and Allergies Allergies Allergy/AdvReac Type Severity Reaction Status Date / Time lisinopril Allergy Itching Verified 07/13/19 14:10 Penicillins Allergy Unknown Verified 07/13/19 14:10 ibuprofen [From Motrin] AdvReac Bleeding Verified 07/13/19 14:10 Home Medications Medication Instructions Recorded Confirmed Last Taken Type Insulin Glargine [Lantus VIAL] 75 units SQ BID 09/05/19 09/29/20 1 Day Ago Hist ory ~05/07/20 Insulin Lispro [HumaLOG VIAL] 35 unit SQ TID 09/05/19 09/29/20 1 Day Ago History ~05/07/20 Doxycycline Hyclate [Doxycycline 100 mg PO Q12HR #14 tab 05/10/20 09/29/20 Unkn own Rx Hyclate TAB] Fluconazole (Nf) [Diflucan TAB] 150 mg PO ONCE #1 tablet 05/10/20 09/29/20 Unknown Rx levoFLOXacin [Levaquin TAB] 750 mg PO Q24HR #7 tablet 05/10/20 09/29/20 Unknown Rx methIMAzole [Tapazole] 10 mg PO Q8HR #180 tablet 05/10/20 09/29/20 Unknown Rx ALPRAZolam [Xanax TAB] 2 mg PO TID #15 10/01/20 Unknown Rx AtorvaSTATin [Lipitor] 20 mg PO QHS #30 tablet 10/01/20 Unknown Rx Butalb/Acetamin/Caff 50-325-40 1 tab PO Q4H PRN #12 tablet 10/01/20 Unknown Rx [Fioricet 50-325-40] FLUoxetine [PROzac] 40 mg PO QDAY #30 capsule 10/01/20 Unknown Rx Furosemide [Lasix TAB] 40 mg PO QDAY #30 tablet 10/01/20 Unknown Rx Gabapentin 100 mg PO BID capsule 10/01/20 Unknown Rx Gabapentin 100 mg PO BID #60 cap 10/01/20 Unknown Rx Losartan [Cozaar] 100 mg PO QDAY #30 10/01/20 Unknown Rx Metoprolol [Lopressor TAB] 50 mg PO BID #30 tablet 10/01/20 Unknown Rx Pravastatin [Pravachol] 20 mg PO QHS #30 tablet 10/01/20 Unknown Rx Topiramate [Topamax] 100 mg PO QHS #30 tablet 10/01/20 Unknown Rx Physical Examination - Vital Signs Vital Signs: Vital Signs Temp Pulse Resp BP Pulse Ox 98.6 F 90 22 153/68 97 02/18/21 17:30 02/18/21 17:30 02/18/21 17:30 02/18/21 17:30 02/18/21 17:30 Results - Laboratory Findings CBC and BMP: 02/18/21 18:56 02/18/21 18:56 Abnormal Lab Findings: Abnormal Labs 02/18/21 02/18/21 18:56 18:56 WBC 12.8 H MCV 67 L MCH 21 L RDW 16.8 H Lymph % (Auto) 9.2 L Seg Neutrophils % 84.9 H Seg Neutrophils # 10.8 H CK-MB (CK-2) Rel Index 4.4 H NT-Pro-B Natriuret Pep 859.3 H
--- NOTE | 2021-02-18 20:51 | XRay Report ---
CHEST 2 VIEWS 2021 INDICATION / CLINICAL INFORMATION: cp dyspneas COMPARISON: 09/28/2020 FINDINGS: SUPPORT DEVICES: None. HEART / MEDIASTINUM: Mild cardiomegaly is again seen LUNGS / PLEURA: Slight congestion is seen. No pleural effusions are noted. There may be slight inters titial edema. No definite focal areas of pneumonitis are seen. No pneumothorax. ADDITIONAL FINDINGS: No significant additional findings. IMPRESSION: No significant acute abnormality Signer Name: Aramis Guerrero MD Signed: 02/18/2021 8:46 PM Workstation Name: [id number]
--- NOTE | 2021-02-18 20:55 | Cat Scan Report ---
CT ABDOMEN AND PELVIS WITHOUT CONTRAST INDICATION: Acute lower abdominal pain, acute lower back pain CONTRAST: Without IV COMPARISON: 02/11/[address] scans at this location are performed using CT dose reduction for ALARA by means of automated e xposure control. NOTE: Resolution is decreased and artifact is introduced by the patient's size. FINDINGS: Lung bases show mildly patchy increased interstitial markings including myelogram glass typ e interstitial markings. Findings could relate to patchy pulmonary edema although acute interstitial pneumonitis is not excluded. No pneumoperitoneum is seen. Gallbladder has been removed. No biliary dilatation is seen. Pancreas sh ows no lesions or inflammation. Liver shows mild fatty infiltration and is mildly enlarged with a xochitl gth of 20.2 cm. Spleen is not enlarged significantly. No lymphadenopathy is seen. No free fluid is no olive. Colonic diverticulosis is seen without convincing evidence of acute diverticulitis. Appendix appears within normal limits. No evidence of bowel obstruction is seen. Small left renal cyst is noted. Mild bilateral nephrolithiasis is seen. No urinary obstructive change s are seen. Ureters appear within normal limits. Urinary bladder is mildly distended without obvious focal lesion. No adnexal masses are seen. Small bilateral ovarian cysts probably are physiologic. IMPRESSION: No acute abnormalities are seen Signer Name: Aramis Guerrero MD Signed: 02/18/2021 8:51 PM Workstation Name: [id number]
[2021-02-18] MEDS ORDERED: FUROSEMIDE 40 MG/4 ML INJ IV ONE (21:29)
[2021-02-18] MEDS ORDERED: ASPIRIN 81 MG TAB CHEW PO ONE (21:30)
[2021-02-18] MEDS ORDERED: CLOPIDOGREL 75 MG TAB PO ONE (21:31)
[2021-02-18] MEDS ORDERED: traMADol 50 MG TAB PO PRN (22:26)
[2021-02-18] MEDS ORDERED: ACETAMINOPHEN 325 MG TAB PO PRN (22:26)
[2021-02-18] MEDS ORDERED: NITROGLYCERIN 0.4 MG TAB SUBL SL PRN (22:26)
[2021-02-18] MEDS ORDERED: DEXTROSE 50% IN WATER (25GM) 50 ML SYRINGE IV PRN (22:26)
[2021-02-18] MEDS ORDERED: MORPHINE 4 MG/1 ML INJ IV PRN (22:26)
--- NOTE | 2021-02-18 22:53 | History and Physical Report ---
History of Present Illness Date of examination: 02/18/21 Date of admission: 02/18/21 21:30 Chief complaint: Chest Pain History of present illness: 45-year-old female with known history of hypertension, diabetes mellitus, newly diagnosed CHF and hyperlipidemia presents to the emergency room today with multiple medical complaints including chest pain, progressive lower extremity swelling, abdominal swelling and discomfort, unsteady gait and tingling sensation in the left upper extremity. Symptoms were said to have started earlier today. Chest pain is said to be midsternal and radiated towards the neck and left shoulder. Pain is said to be worse on exertion and feels better upon resting. Patient denies any headache, no dizziness, no nausea or vomiting, no fever or chills, she has had some shortness of breath shortness of breath, denies sick contacts and no recent travel. Patient had a recent stress test in September 2020 which was negative for any acute findings. She was just also recently diagnosed with CHF and she has an ejection fraction of 50 to 55% on echocardiogram done in May 2020. Work-up in the emergency room today EKG did not show any acute findings, troponin was within normal limits. BNP was about 859. Chest x-ray was unremarkable. However CT of the abdomen and pelvis revealed findings concerning for patchy pulmonary edema otherwise no acute abnormality seen. Patient is being admitted for chest pain, CHF exacerbation and possible TIA. Past History Past Medical History: migraines, stroke, other (gastroparesis, DKA, neuropathy, peptic ulcer disease, high cholesterol, thalassemia, low Fe, obese, palpitations (at one time was on metoprolol, DUB, Covid on Life Support 32 days March 2020) Past Surgical History: cholecystectomy, Social history: no significant social history (gastroparesis, DKA, neuropathy, peptic ulcer disease, high cholesterol, thalassemia, low Fe, obese, palpitations (at one time was on metoprolol, DUB, Covid on Life Support 32 days March 2020) Family history: no significant family history Medications and Allergies Allergies Allergy/AdvReac Type Severity Reaction Status Date / Time lisinopril Allergy Itching Verified 07/13/19 14:10 Penicillins Allergy Unknown Verified 07/13/19 14:10 ibuprofen [From Motrin] AdvReac Bleeding Verified 07/13/19 14:10 Home Medications Medication Instructions Recorded Confirmed Last Taken Type Insulin Glargine [Lantus VIAL] 75 units SQ BID 09/05/19 09/29/20 1 Day Ago History ~05/07/20 Insulin Lispro [HumaLOG VIAL] 35 unit SQ TID 09/05/19 09/29/20 1 Day Ago History ~05/07/20 Doxycycline Hyclate [Doxycycline 100 mg PO Q12HR #14 tab 05/10/20 09/29/20 Unknown Rx Hyclate TAB] Fluconazole (Nf) [Diflucan TAB] 150 mg PO ONCE #1 tablet 05/10/20 09/29/20 Unknown Rx levoFLOXacin [Levaquin TAB] 750 mg PO Q24HR #7 tablet 05/10/20 09/29/20 Unknown Rx methIMAzole [Tapazole] 10 mg PO Q8HR #180 tablet 05/10/20 09/29/20 Unknown Rx ALPRAZolam [Xanax TAB] 2 mg PO TID #15 10/01/20 Unknown Rx AtorvaSTATin [Lipitor] 20 mg PO QHS #30 tablet 10/01/20 Unknown Rx Butalb/Acetamin/Caff 50-325-40 1 tab PO Q4H PRN #12 tablet 10/01/20 Unknown Rx [Fioricet 50-325-40] FLUoxetine [PROzac] 40 mg PO QDAY #30 capsule 10/01/20 Unknown Rx Furosemide [Lasix TAB] 40 mg PO QDAY #30 tablet 10/01/20 Unknown Rx Gabapentin 100 mg PO BID capsule 10/01/20 Unknown Rx Gabapentin 100 mg PO BID #60 cap 10/01/20 Unknown Rx Losartan [Cozaar] 100 mg PO QDAY #30 10/01/20 Unknown Rx Metoprolol [Lopressor TAB] 50 mg PO BID #30 tablet 10/01/20 Unknown Rx Pravastatin [Pravachol] 20 mg PO QHS #30 tablet 10/01/20 Unknown Rx Topiramate [Topamax] 100 mg PO QHS #30 tablet 10/01/20 Unknown Rx Active Meds: Active Medications Acetaminophen (Acetaminophen 325 Mg Tab) 650 mg PO Q6H PRN PRN Reason: Pain, Mild (1-3) Aspirin (Aspirin Ec 325 Mg Tab) 325 mg PO QDAY [facility] Dextrose (Dextrose 50% In Water (25gm) 50 Ml Syringe) 50 ml IV Q30MIN PRN; Protocol PRN Reason: Hypoglycemia Furosemide (Furosemide 40 Mg/4 Ml Inj) 40 mg IV BID@0600,1800 [facility] Insulin Human Lispro (Insulin Lispro 100 Unit/Ml) 0 unit SUB-Q ACHS JAILENE; Protocol Morphine Sulfate (Morphine 4 Mg/1 Ml Inj) 2 mg IV Q5MIN PRN PRN Reason: Chest Pain Nitroglycerin (Nitroglycerin 0.4 Mg Tab Subl) 0.4 mg SL Q5M PRN PRN Reason: Chest Pain Sodium Chloride (Sodium Chloride 0.9% 10 Ml Flush Syringe) 10 ml IV PRN PRN PRN Reason: LINE FLUSH Tramadol HCl (Tramadol 50 Mg Tab) 50 mg PO Q6H PRN PRN Reason: Pain, Moderate (4-6) Review of Systems Constitutional: no fever, no chills Ears, nose, mouth and throat: no nasal congestion, no sore throat Cardiovascular: no chest pain, no palpitations Respiratory: no cough, no shortness of breath Gastrointestinal: no abdominal pain, no nausea, no vomiting, no diarrhea Genitourinary Female: no flank pain, no dysuria, no hematuria Musculoskeletal: no neck pain, no low back pain Integumentary: no rash, no pruritis Neurological: no headaches, no confusion Psychiatric: no anxiety, no depression Endocrine: no polydipsia, no polyuria, no nocturia Exam - Constitutional Vitals: Temp Pulse Resp BP Pulse Ox 98.6 F 90 18 153/68 97 02/18/21 17:30 02/18/21 17:32 02/18/21 17:32 02/18/21 17:30 02/18/21 17:32 General appearance: Present: no acute distress, well-nourished, obese - EENT Eyes: Present: PERRL, EOM intact. Absent: scleral icterus ENT: hearing intact, clear oral mucosa, dentition normal - Neck Neck: Present: supple, normal ROM - Respiratory Respiratory effort: normal Respiratory: bilateral: CTA - Cardiovascular Rhythm: regular Heart Sounds: Present: S1 & S2. Absent: gallop, systolic murmur, diastolic murmur, rub, click - Extremities Extremities: no ischemia, pulses intact, pulses symmetrical, normal temperature, normal color, Full ROM Extremity abnormal: edema (1+ bilateral lower extremity edema) Peripheral Pulses: within normal limits - Abdominal General gastrointestinal: Present: soft, non-tender, non-distended, normal bowel sounds. Absent: mass - Integumentary Integumentary: Present: clear, warm, dry. Absent: rash - Musculoskeletal Musculoskeletal: strength equal bilaterally - Psychiatric Psychiatric: appropriate mood/affect, intact judgment & insight, memory intact, cooperative - Neurologic Neurologic: CNII-XII intact, no focal deficits, moves all extremities HEART Score - HEART Score EKG: Non-specific Age: < 45 Risk factors: > 3 risk factors or hx of atherosclerotic disease Troponin: Troponin T < 0.010 ng/mL (0.00-0.029) 02/18/21 18:56 Troponin: < normal limit - Critical Actions Critical Actions: 4-6 pts:12-16.6% risk of adverse cardiac event. Should be admitted Results - Labs CBC & Chem 7: 02/18/21 23:53 02/18/21 18:56 Labs: Abnormal lab results 02/18/21 02/18/21 Range/Units 18:56 18:56 WBC 12.8 H (4.5-11.0) K/mm3 MCV 67 L (79-97) fl MCH 21 L (28-32) pg RDW 16.8 H (13.2-15.2) % Lymph % (Auto) 9.2 L (13.4-35.0) % Seg Neutrophils % 84.9 H (40.0-70.0) % Seg Neutrophils # 10.8 H (1.8-7.7) K/mm3 CK-MB (CK-2) Rel Index 4.4 H (0-4) NT-Pro-B Natriuret Pep 859.3 H (0-450) pg/mL Assessment and Plan - Patient Problems (1) Acute chest pain Current Visit: Yes Status: Acute Plan to address problem: Patient admitted and placed on telemetry. We will check serial cardiac enzymes. Patient placed on daily aspirin, sublingual nitroglycerin and IV morphine as needed for chest pain. Consult placed to cardiology for evaluation and recommendations. (2) CHF exacerbation Current Visit: Yes Status: Acute Plan to address problem: Patient placed on diuretics. We will monitor input and output and also monitor daily weight. Echocardiogram done in May 2020 shows ejection fraction of 50 to 55%. Will await further evaluation by cardiology. (3) Diabetes Current Visit: No Status: Chronic Plan to address problem: We will monitor Accu-Cheks closely. Patient placed on sliding scale insulin. (4) Hyperlipidemia Current Visit: No Status: Chronic Plan to address problem: We will resume routine home medications and monitor lipid profile. (5) Hypertension Current Visit: No Status: Chronic Qualifiers: Hypertension type: essential hypertension Plan to address problem: We will resume routine home medications and monitor vital signs closely. (6) Morbid obesity with BMI of 45.0-49.9, adult Onset Date: 09/04/19 Current Visit: No Status: Chronic Plan to address problem: Dietary consult requested. Lifestyle modification encouraged. (7) TIA (transient ischemic attack) Current Visit: No Status: Chronic Plan to address problem: Continue patient on daily aspirin and statin. Patient be scheduled for carotid Doppler and MRI of the brain. (8) DVT prophylaxis Current Visit: No Status: Acute Plan to address problem: Patient placed on subcutaneous heparin. (9) Full code status Current Visit: No Status: Acute Plan to address problem: Patient is a full code.
[2021-02-19 00:57] LABS: Basophils # (Auto) 0.1 K/mm3 (0.0-0.1); Basophils % (Auto) 0.6 % (0.0-1.8); Eosinophils # (Auto) 0.1 K/mm3 (0.0-0.4); Eosinophils % (Auto) 0.8 % (0.0-4.3); Hematocrit 34.3 % (30.3-42.9); Hemoglobin 10.9 gm/dl (10.1-14.3); Lymphocytes # (Auto) 1.6 K/mm3 (1.2-5.4); Lymphocytes % (Auto) 12.5 % (13.4-35.0); Mean Corpuscular HGB Conc 32 % (30-34); Monocytes # (Auto) 0.7 K/mm3 (0.0-0.8); Monocytes % (Auto) 5.3 % (0.0-7.3); Platelet Count 318 K/mm3 (140-440); Red Blood Count 5.04 M/mm3 (3.65-5.03); Red Cell Distribution Width 17.1 % (13.2-15.2)
[2021-02-19 00:59] LABS: Mean Corpuscular Volume 68 fl (79-97)
[2021-02-19 01:37] LABS: BUN/Creatinine Ratio 16; Blood Urea Nitrogen 13 mg/dL (7-17); Hemolysis Index 4
[2021-02-19] MEDS ORDERED: CLOPIDOGREL 75 MG TAB PO ONE (02:00)
[2021-02-19] MEDS ORDERED: FUROSEMIDE 40 MG/4 ML INJ IV ONE (02:00)
[2021-02-19] MEDS: FUROSEMIDE 40 MG/4 ML INJ IV SCH ×2 (06:29→18:23)
[2021-02-19] MEDS: methIMAzole 5 MG TAB PO SCH ×3 (06:29→22:30)
--- NOTE | 2021-02-19 08:20 | Consultation ---
History of Present Illness Consult date: 02/19/21 Reason for Consult: TIA vs. CVA Chief complaint: Tingling of the left arm with chest pain. History of present illness: 45 yo female with htn, dm, hld, chf who presented with acute chest pain, swelling, unsteady gait with tinling involving the LUE. Currently she is at her baseine from a neurologic standpoint except for continued chest pain (pressure- like) w/ left shoulder to wrist tingling sensation. Past History Past Medical History: migraines, stroke, other (gastroparesis, DKA, neuropathy, peptic ulcer disease, high cholesterol, thalassemia, low Fe, obese, palpitations (at one time was on metoprolol, DUB, Covid on Life Support 32 days March 2020) Past Surgical History: cholecystectomy, Social history: no significant social history (gastroparesis, DKA, neuropathy, peptic ulcer disease, high cholesterol, thalassemia, low Fe, obese, palpitations (at one time was on metoprolol, DUB, Covid on Life Support 32 days March 2020) Family history: no significant family history Medications and Allergies Allergies Allergy/AdvReac Type Severity Reaction Status Date / Time lisinopril Allergy Itching Verified 07/13/19 14:10 Penicillins Allergy Unknown Verified 07/13/19 14:10 ibuprofen [From Motrin] AdvReac Bleeding Verified 07/13/19 14:10 Home Medications Medication Instructions Recorded Confirmed Last Taken Type Insulin Glargine [Lantus VIAL] 75 units SQ BID 09/05/19 09/29/20 1 Day Ago Hist ory ~05/07/20 Insulin Lispro [HumaLOG VIAL] 35 unit SQ TID 09/05/19 09/29/20 1 Day Ago History ~05/07/20 Doxycycline Hyclate [Doxycycline 100 mg PO Q12HR #14 tab 05/10/20 09/29/20 Unkn own Rx Hyclate TAB] Fluconazole (Nf) [Diflucan TAB] 150 mg PO ONCE #1 tablet 05/10/20 09/29/20 Unknown Rx levoFLOXacin [Levaquin TAB] 750 mg PO Q24HR #7 tablet 05/10/20 09/29/20 Unknown Rx methIMAzole [Tapazole] 10 mg PO Q8HR #180 tablet 05/10/20 09/29/20 Unknown Rx ALPRAZolam [Xanax TAB] 2 mg PO TID #15 10/01/20 Unknown Rx AtorvaSTATin [Lipitor] 20 mg PO QHS #30 tablet 10/01/20 Unknown Rx Butalb/Acetamin/Caff 50-325-40 1 tab PO Q4H PRN #12 tablet 10/01/20 Unknown Rx [Fioricet 50-325-40] FLUoxetine [PROzac] 40 mg PO QDAY #30 capsule 10/01/20 Unknown Rx Furosemide [Lasix TAB] 40 mg PO QDAY #30 tablet 10/01/20 Unknown Rx Gabapentin 100 mg PO BID capsule 10/01/20 Unknown Rx Gabapentin 100 mg PO BID #60 cap 10/01/20 Unknown Rx Losartan [Cozaar] 100 mg PO QDAY #30 10/01/20 Unknown Rx Metoprolol [Lopressor TAB] 50 mg PO BID #30 tablet 10/01/20 Unknown Rx Pravastatin [Pravachol] 20 mg PO QHS #30 tablet 10/01/20 Unknown Rx Topiramate [Topamax] 100 mg PO QHS #30 tablet 10/01/20 Unknown Rx Active Meds: Active Medications Acetaminophen (Acetaminophen 325 Mg Tab) 650 mg PO Q6H PRN PRN Reason: Pain, Mild (1-3) Alprazolam (Alprazolam 1 Mg Tab) 2 mg PO TID [facility] Aspirin (Aspirin Ec 325 Mg Tab) 325 mg PO QDAY [facility]AILENE Atorvastatin Calcium (Atorvastatin 20 Mg Tab) 20 mg PO QHS [facility] [place] Dextrose (Dextrose 50% In Water (25gm) 50 Ml Syringe) 50 ml IV Q30MIN PRN; Protocol PRN Reason: Hypoglycemia Fluoxetine HCl (Fluoxetine 20 Mg Cap) 40 mg PO QDAY [facility]AILENE Furosemide (Furosemide 40 Mg/4 Ml Inj) 40 mg IV BID@0600,1800 [facility] Last Admin: 02/19/21 06:29 Dose: 40 mg Documented by: Gabapentin (Gabapentin 100 Mg Cap) 100 mg PO BID [facility] Insulin Human Lispro (Insulin Lispro 100 Unit/Ml) 0 unit SUB-Q ACHS [facility]; Protocol Losartan Potassium (Losartan 50 Mg Tab) 100 mg PO QDAY [facility] [place] Methimazole (Methimazole 5 Mg Tab) 10 mg PO Q8HR [facility] Last Admin: 02/19/21 06:29 Dose: 10 mg Documented by: Metoprolol Tartrate (Metoprolol Tartrate 50 Mg Tab) 50 mg PO BID [facility] Morphine Sulfate (Morphine 4 Mg/1 Ml Inj) 2 mg IV Q5MIN PRN PRN Reason: Chest Pain Nitroglycerin (Nitroglycerin 0.4 Mg Tab Subl) 0.4 mg SL Q5M PRN PRN Reason: Chest Pain Sodium Chloride (Sodium Chloride 0.9% 10 Ml Flush Syringe) 10 ml IV PRN PRN PRN Reason: LINE FLUSH Topiramate (Topiramate Tab 100 Mg Tab) 100 mg PO QHS [facility] Tramadol HCl (Tramadol 50 Mg Tab) 50 mg PO Q6H PRN PRN Reason: Pain, Moderate (4-6) Review of Systems All systems: negative Physical Examination - Vital Signs Vital Signs: Vital Signs Temp Pulse Resp BP Pulse Ox 98.6 F 90 22 153/68 97 02/18/21 17:30 02/18/21 17:30 02/18/21 17:30 02/18/21 17:30 02/18/21 17:30 - Physical Exam Narrative exam: Gen: nad, well-nourished; Head: normocephalic; Eyes: no gaze deviation; no ptosis; ENT: normal vocalization; CVS: warm and well-perfused; Pulm: no respiratory distress; GI: appears non-distended, protuberant; Ext: no cyanosis at distal extremities; Skin: no acute rash at distal extremities; Heme: no pathologic bruising or ecchymosis at distal extremities; Neuro: alert, oriented to name, age, month, year, surroundings, no dysarthria, no aphasia, CN 2 - PERRL, visual george grossly intact, CN 3, 4, 6 - EOMI, CN 5 - facial sensation symmetric to light touch, CN 7 - facial movement symmetric, CN 8 - hearing grossly intact, CN 9, 10 - uvula midline, CN 11 - shrug symmetric, CN 12 - tongue midline; Motor - at least 4/5 in all exts; Sensory - light touch symmetric except mild tinling at proximal LUE, Cerebellar - fnf /hts intact, Gait - deferred secondary to fall risk; Results - Laboratory Findings CBC and BMP: 02/18/21 23:53 02/18/21 23:53 Abnormal Lab Findings: Abnormal Labs 07/20/21 07/20/21 07/20/21 18:56 18:56 23:14 WBC 12.8 H RBC MCV 67 L MCH 21 L RDW 16.8 H Lymph % (Auto) 9.2 L Seg Neutrophils % 84.9 H Seg Neutrophils # 10.8 H POC Glucose 58 L CK-MB (CK-2) Rel Index 4.4 H NT-Pro-B Natriuret Pep 859.3 H 02/18/21 02/19/21 23:53 00:07 WBC 13.1 H RBC 5.04 H MCV 68 L MCH 22 L RDW 17.1 H Lymph % (Auto) 12.5 L Seg Neutrophils % 80.8 H Seg Neutrophils # 10.6 H POC Glucose 120 H CK-MB (CK-2) Rel Index NT-Pro-B Natriuret Pep Assessment and Plan 45 yo female with htn, dm, hld, chf who presented with acute chest pain, swelling, unsteady gait with tinling involving the LUE. Currently she is at her baseine from a neurologic standpoint except for continued chest pain (pressure- like) w/ left shoulder to wrist tingling sensation. 1. Paresthesias - concern for cardiac equivalent w/ ongoing pressure-like chest pain. 2. HTN - aim for normotension. 3. DM - maintain euglycemia. 4. HLD - goal LDL of <100. 5. Unsteady Gait - pt/ot evaluation/monitoring; worsened with swelling in feet; mri brain to confirm no evidence of posterior circulation infarct. Gregorio Mullen MD Neurology [id number]
--- NOTE | 2021-02-19 08:24 | Progress Note ---
Assessment and Plan Assessment and plan: Chest pain Acute on chronic diastolic heart failure Diabetes mellitus type 2 Hyperlipidemia Hypertension Morbid obesity TIA 02/19/2021. CT scan of the head is unremarkable. Await MRI, carotid Doppler and echocardiogram. Continue aspirin Plavix and atorvastatin for now. Neurology consultation pending. Continue GDMT for heart failure. Continue IV Lasix twice daily, losartan 100 mg daily and metoprolol 50 mg twice daily. Ischemic evaluation per cardiology. Patient had a normal stress test in September 2020 History Interval history: No new issues overnight. Hospitalist Physical - Constitutional Vitals: Temp Pulse Resp BP Pulse Ox 98.1 F 93 H 19 115/57 96 02/19/21 04:18 02/19/21 06:00 02/19/21 04:18 02/19/21 04:18 02/19/21 04:22 General appearance: Present: no acute distress, well-nourished, obese - EENT Eyes: Present: PERRL, EOM intact ENT: hearing intact, clear oral mucosa, dentition normal - Neck Neck: Present: supple, normal ROM - Respiratory Respiratory effort: normal Respiratory: bilateral: CTA - Cardiovascular Rhythm: regular Heart Sounds: Present: S1 & S2. Absent: gallop, rub - Extremities Extremities: no ischemia, No edema, Full ROM - Abdominal General gastrointestinal: soft, non-tender, non-distended, normal bowel sounds - Integumentary Integumentary: Present: clear, warm, dry - Neurologic Neurologic: CNII-XII intact, moves all extremities HEART Score - HEART Score EKG: Non-specific Age: < 45 Risk factors: > 3 risk factors or hx of atherosclerotic disease Troponin: Troponin T < 0.010 ng/mL (0.00-0.029) 02/18/21 18:56 Troponin: < normal limit - Critical Actions Critical Actions: 4-6 pts:12-16.6% risk of adverse cardiac event. Should be admitted Results - Labs CBC & Chem 7: 02/18/21 23:53 02/18/21 23:53 Labs: Laboratory Last Values WBC 13.1 K/mm3 (4.5-11.0) H 02/18/21 23:53 RBC 5.04 M/mm3 (3.65-5.03) H 02/18/21 23:53 Hgb 10.9 gm/dl (10.1-14.3) 02/18/21 23:53 Hct 34.3 % (30.3-42.9) 02/18/21 23:53 MCV 68 fl (79-97) L 02/18/21 23:53 MCH 22 pg (28-32) L 02/18/21 23:53 MCHC 32 % (30-34) 02/18/21 23:53 RDW 17.1 % (13.2-15.2) H 02/18/21 23:53 Plt Count 318 K/mm3 (140-440) 02/18/21 23:53 Lymph % (Auto) 12.5 % (13.4-35.0) L 02/18/21 23:53 Cameron % (Auto) 5.3 % (0.0-7.3) 02/18/21 23:53 Eos % (Auto) 0.8 % (0.0-4.3) 02/18/21 23:53 Baso % (Auto) 0.6 % (0.0-1.8) 02/18/21 23:53 Lymph # (Auto) 1.6 K/mm3 (1.2-5.4) 02/18/21 23:53 Cameron # (Auto) 0.7 K/mm3 (0.0-0.8) 02/18/21 23:53 Eos # (Auto) 0.1 K/mm3 (0.0-0.4) 02/18/21 23:53 Baso # (Auto) 0.1 K/mm3 (0.0-0.1) 02/18/21 23:53 Seg Neutrophils % 80.8 % (40.0-70.0) H 02/18/21 23:53 Seg Neutrophils # 10.6 K/mm3 (1.8-7.7) H 02/18/21 23:53 PT 12.7 Sec. (12.2-14.9) 02/18/21 18:56 INR 0.90 (0.87-1.13) 02/18/21 18:56 APTT 28.6 Sec. (24.2-36.6) 02/18/21 18:56 Thrombin Time 15.8 Sec. (15.1-19.6) 02/18/21 18:56 D-Dimer 169.20 ng/mlDDU (0-234) 02/18/21 18:56 Sodium 138 mmol/L (137-145) 02/18/21 23:53 Potassium 3.6 mmol/L (3.6-5.0) 02/18/21 23:53 Chloride 98.7 mmol/L (98-107) 02/18/21 23:53 Carbon Dioxide 28 mmol/L (22-30) 02/18/21 23:53 Anion Gap 15 mmol/L 02/18/21 23:53 BUN 13 mg/dL (7-17) 02/18/21 23:53 Creatinine 0.8 mg/dL (0.6-1.2) 02/18/21 23:53 Estimated GFR > 60 ml/min 02/18/21 23:53 BUN/Creatinine Ratio 16 % 02/18/21 23:53 Glucose 83 mg/dL (65-100) 02/18/21 23:53 POC Glucose 161 mg/dL (70-105) H 02/19/21 08:14 Calcium 9.0 mg/dL (8.4-10.2) 02/18/21 23:53 Magnesium 1.80 mg/dL (1.7-2.3) 02/18/21 18:56 Total Bilirubin 0.40 mg/dL (0.1-1.2) 02/18/21 18:56 AST 14 units/L (5-40) 02/18/21 18:56 ALT 15 units/L (7-56) 02/18/21 18:56 Alkaline Phosphatase 110 units/L (35-129) 02/18/21 18:56 Total Creatine Kinase 87 units/L (30-135) 02/18/21 18:56 CK-MB (CK-2) 3.9 ng/mL (0.0-4.0) 02/18/21 18:56 CK-MB (CK-2) Rel Index 4.4 (0-4) H 02/18/21 18:56 Troponin T < 0.010 ng/mL (0.00-0.029) 02/18/21 18:56 NT-Pro-B Natriuret Pep 859.3 pg/mL (0-450) H 02/18/21 18:56 Total Protein 7.2 g/dL (6.3-8.2) 02/18/21 18:56 Albumin 4.1 g/dL (3.9-5) 02/18/21 18:56 Albumin/Globulin Ratio 1.3 % 02/18/21 18:56 TSH 1.680 mlU/mL (0.270-4.200) 02/18/21 18:56 HCG, Quant < 2 mIU/mL (0-4) 02/18/21 18:56 Plasma/Serum Alcohol < 0.01 % (0-0.07) 02/18/21 18:56 [facility]/IV: Voiding Method Toilet Active Medications - Current Medications Current Medications: Generic Name Dose Route Start Last Admin Trade Name Freq PRN Reason Stop Dose Admin Acetaminophen 650 mg 02/18/21 22:26 Acetaminophen 325 Mg Tab PO Q6H PRN Pain, Mild (1-3) Alprazolam 2 mg 02/19/21 08:00 Alprazolam 1 Mg Tab PO TID [facility] Aspirin 325 mg 02/19/21 10:00 Aspirin Ec 325 Mg Tab PO QDAY [facility] Atorvastatin Calcium 20 mg 02/19/21 22:00 Atorvastatin 20 Mg Tab PO QHS [facility]AIL[facility] Dextrose 50 ml 02/18/21 22:26 Dextrose 50% In Water (25gm) 50 Ml Syringe IV Q30MIN PRN Hypoglycemia Protocol Fluoxetine HCl 40 mg 02/19/21 10:00 Fluoxetine 20 Mg Cap PO QDAY [facility] Furosemide 40 mg 02/19/21 06:00 02/19/21 06:29 Furosemide 40 Mg/4 Ml Inj IV 40 mg BID@0600,1800 [facility] Administration Gabapentin 100 mg 02/19/21 10:00 Gabapentin 100 Mg Cap PO BID [facility] Insulin Human Lispro 0 unit 02/19/21 07:30 Insulin Lispro 100 Unit/Ml SUB-Q ACHS [facility] Protocol Losartan Potassium 100 mg 02/19/21 10:00 Losartan 50 Mg Tab PO QDAY [facility] Methimazole 10 mg 02/19/21 06:00 02/19/21 06:29 Methimazole 5 Mg Tab PO 10 mg Q8HR [facility]AILENE Administration Metoprolol Tartrate 50 mg 02/19/21 10:00 Metoprolol Tartrate 50 Mg Tab PO BID [facility] Morphine Sulfate 2 mg 02/18/21 22:26 Morphine 4 Mg/1 Ml Inj IV Q5MIN PRN Chest Pain Nitroglycerin 0.4 mg 02/18/21 22:26 Nitroglycerin 0.4 Mg Tab Subl SL Q5M PRN Chest Pain Sodium Chloride 10 ml 02/18/21 22:26 Sodium Chloride 0.9% 10 Ml Flush Syringe IV PRN PRN LINE FLUSH Topiramate 100 mg 02/19/21 22:00 Topiramate Tab 100 Mg Tab PO QHS [facility] Tramadol HCl 50 mg 02/18/21 22:26 Tramadol 50 Mg Tab PO Q6H PRN Pain, Moderate (4-6)
[2021-02-19] MEDS: INSULIN LISPRO 100 UNIT/ML SUB-Q SCH ×4 (09:57→22:32)
[2021-02-19] MEDS: GABAPENTIN 100 MG CAP PO SCH ×2 (10:00→22:30)
[2021-02-19] MEDS: ALPRAZolam 1 MG TAB PO SCH ×3 (10:38→22:30)
[2021-02-19] MEDS: ASPIRIN EC 325 MG TAB PO SCH (10:38)
[2021-02-19] MEDS: LOSARTAN 50 MG TAB PO SCH (10:38)
[2021-02-19] MEDS: METOPROLOL TARTRATE 50 MG TAB PO SCH ×2 (10:38→22:38)
[2021-02-19] MEDS: FLUoxetine 20 MG CAP PO SCH (10:41)
--- NOTE | 2021-02-19 11:46 | Magnetic Resonance Report ---
MR brain wo con INDICATION / CLINICAL INFORMATION: 45 years Female; TIA VS CVA. TECHNIQUE: Multiplanar, multisequence MR images of the brain were obtained. COMPARISON: None available. FINDINGS: BRAIN / INTRACRANIAL CONTENTS: No acute hemorrhage, mass effect, midline shift, hydrocephalus, or acu te, large territorial infarct. No chronic infarct or atrophy. There are mild to moderate areas of increased signal intensity on FLAIR imaging in the white matter o f the cerebral hemispheres. These are nonspecific findings and may be related to microangiopathy (hyp ertension, diabetes, atherosclerosis), demyelinating disease, vasculitis, etc. given the patient's ag e. Some component of pontine disease suggested. Findings may have mildly progressed from prior exam. CRANIOCERVICAL JUNCTION: No significant abnormality. VASCULAR FLOW-VOIDS: No significant abnormality. ORBITS: No significant abnormality of visualized orbits. SINUSES / MASTOIDS: Partial opacification of the mastoid seen on the right. Mild mucosal thickening n oted in the ethmoids. ADDITIONAL FINDINGS: None. IMPRESSION: 1. No focal mass, hemorrhage, hydrocephalus, or acute ischemia. 2. White matter disease as described above. Signer Name: Ulisses Nagel MD, III Signed: 02/19/2021 11:41 AM Workstation Name: [id number]
[2021-02-19] MEDS ORDERED: REGADENOSON 0.4 MG/5 ML INJ IV ONE (12:51)
--- NOTE | 2021-02-19 13:03 | Consultation ---
History of Present Illness Consult date: 02/19/21 Requesting physician: TAWNYA REAVES Consult reason: chest pain History of present illness: Patient is a 45 y/o female with a PMHx of HTN, DM, HLD, and SHADIA who presented to ED on 02/18/2021 for complaints of BLE edema, abdominal swelling, and SOB x 1 day. She reports that she has been taking her Lasix but that it has not relieved her swelling. She denies any change in diet or increase in salt intake. She also reports increased fatigue, wheezing, loss of appetite, palpitations, a sharp pain in her chest which she said has turned into pressure, and numbness/tingling sensation that goes through her left arm. She reports that her symptoms have relieved slightly since receiving Lasix in the hospital. She denies nausea, vomiting, or diaphoresis. Echocardiogram 05/2020: EF 50 to 55%, mild LVH, grade 1 diastolic dysfunction Past History Past Medical History: anemia, diabetes, hypertension, migraines, other (gastroparesis, DKA, neuropathy, peptic ulcer disease, high cholesterol, thalassemia, low Fe, obese, palpitations (at one time was on metoprolol, DUB, Covid on Life Support 32 days March 2020) Past Surgical History: No surgical history Social history: no significant social history (gastroparesis, DKA, neuropathy, peptic ulcer disease, high cholesterol, thalassemia, low Fe, obese, palpitations (at one time was on metoprolol, DUB, Covid on Life Support 32 days March 2020) Family history: CAD, hypertension Medications and Allergies Allergies Allergy/AdvReac Type Severity Reaction Status Date / Time lisinopril Allergy Itching Verified 07/13/19 14:10 Penicillins Allergy Unknown Verified 07/13/19 14:10 ibuprofen [From Motrin] AdvReac Bleeding Verified 07/13/19 14:10 Home Medications Medication Instructions Recorded Confirmed Last Taken Type Insulin Glargine [Lantus VIAL] 75 units SQ BID 09/05/19 09/29/20 1 Day Ago History ~05/07/20 Insulin Lispro [HumaLOG VIAL] 35 unit SQ TID 09/05/19 09/29/20 1 Day Ago History ~05/07/20 Doxycycline Hyclate [Doxycycline 100 mg PO Q12HR #14 tab 05/10/20 09/29/20 Unknown Rx Hyclate TAB] Fluconazole (Nf) [Diflucan TAB] 150 mg PO ONCE #1 tablet 05/10/20 09/29/20 Unknown Rx levoFLOXacin [Levaquin TAB] 750 mg PO Q24HR #7 tablet 05/10/20 09/29/20 Unknown Rx methIMAzole [Tapazole] 10 mg PO Q8HR #180 tablet 05/10/20 09/29/20 Unknown Rx ALPRAZolam [Xanax TAB] 2 mg PO TID #15 10/01/20 Unknown Rx AtorvaSTATin [Lipitor] 20 mg PO QHS #30 tablet 10/01/20 Unknown Rx Butalb/Acetamin/Caff 50-325-40 1 tab PO Q4H PRN #12 tablet 10/01/20 Unknown Rx [Fioricet 50-325-40] FLUoxetine [PROzac] 40 mg PO QDAY #30 capsule 10/01/20 Unknown Rx Furosemide [Lasix TAB] 40 mg PO QDAY #30 tablet 10/01/20 Unknown Rx Gabapentin 100 mg PO BID capsule 10/01/20 Unknown Rx Gabapentin 100 mg PO BID #60 cap 10/01/20 Unknown Rx Losartan [Cozaar] 100 mg PO QDAY #30 10/01/20 Unknown Rx Metoprolol [Lopressor TAB] 50 mg PO BID #30 tablet 10/01/20 Unknown Rx Pravastatin [Pravachol] 20 mg PO QHS #30 tablet 10/01/20 Unknown Rx Topiramate [Topamax] 100 mg PO QHS #30 tablet 10/01/20 Unknown Rx Active Meds: Active Medications Acetaminophen (Acetaminophen 325 Mg Tab) 650 mg PO Q6H PRN PRN Reason: Pain, Mild (1-3) Alprazolam (Alprazolam 1 Mg Tab) 2 mg PO TID [facility] Last Admin: 02/19/21 10:38 Dose: 2 mg Documented by: Aspirin (Aspirin Ec 325 Mg Tab) 325 mg PO QDAY [facility] Last Admin: 02/19/21 10:38 Dose: 325 mg Documented by: Atorvastatin Calcium (Atorvastatin 20 Mg Tab) 20 mg PO QHS [facility] Dextrose (Dextrose 50% In Water (25gm) 50 Ml Syringe) 50 ml IV Q30MIN PRN; Protocol PRN Reason: Hypoglycemia Fluoxetine HCl (Fluoxetine 20 Mg Cap) 40 mg PO QDAY [facility] Last Admin: 02/19/21 10:41 Dose: Not Given Documented by: Furosemide (Furosemide 40 Mg/4 Ml Inj) 40 mg IV BID@0600,1800 [facility] Last Admin: 02/19/21 06:29 Dose: 40 mg Documented by: Gabapentin (Gabapentin 100 Mg Cap) 100 mg PO BID [facility] Insulin Human Lispro (Insulin Lispro 100 Unit/Ml) 0 unit SUB-Q ACHS [facility]; Protocol Last Admin: 02/19/21 09:57 Dose: Not Given Documented by: Losartan Potassium (Losartan 50 Mg Tab) 100 mg PO QDAY [facility] Last Admin: 02/19/21 10:38 Dose: 100 mg Documented by: Methimazole (Methimazole 5 Mg Tab) 10 mg PO Q8HR [facility] Last Admin: 02/19/21 06:29 Dose: 10 mg Documented by: Metoprolol Tartrate (Metoprolol Tartrate 50 Mg Tab) 50 mg PO BID [facility] Last Admin: 02/19/21 10:38 Dose: 50 mg Documented by: Morphine Sulfate (Morphine 4 Mg/1 Ml Inj) 2 mg IV Q5MIN PRN PRN Reason: Chest Pain Nitroglycerin (Nitroglycerin 0.4 Mg Tab Subl) 0.4 mg SL Q5M PRN PRN Reason: Chest Pain Sodium Chloride (Sodium Chloride 0.9% 10 Ml Flush Syringe) 10 ml IV PRN PRN PRN Reason: LINE FLUSH Topiramate (Topiramate Tab 100 Mg Tab) 100 mg PO QHS [facility] Tramadol HCl (Tramadol 50 Mg Tab) 50 mg PO Q6H PRN PRN Reason: Pain, Moderate (4-6) Review of Systems All systems: negative Constitutional: no weight loss, no weight gain, no fever, no chills, no sweats Ears, nose, mouth and throat: no ear pain, no ear discharge, no tinnitis, no decreased hearing, no nose pain Cardiovascular: chest pain, palpitations, edema, shortness of breath, dyspnea on exertion, high blood pressure, leg edema Respiratory: shortness of breath, dyspnea on exertion, wheezing, no cough, no cough with sputum, no excessive sputum Gastrointestinal: abdominal pain, other (decrease in appetite), no nausea, no vomiting Musculoskeletal: shooting arm pain, arm numbness/tingling, no neck stiffness, no neck pain Integumentary: no rash, no pruritis, no redness, no sores Neurological: no head injury, no transient paralysis, no paralysis, no weakness Psychiatric: anxiety Endocrine: no cold intolerance, no heat intolerance Hematologic/Lymphatic: no easy bruising, no easy bleeding Physical Examination Last Vital Signs Temp 98.3 F 02/19/21 08:15 Pulse 98 H 02/19/21 08:15 Resp 18 02/19/21 08:15 BP 146/75 02/19/21 08:15 Pulse Ox 98 02/19/21 11:22 General appearance: no acute distress HEENT: Positive: PERRL Neck: Positive: trachea midline Cardiac: Positive: Reg Rate and Rhythm, S1/S2 Lungs: Positive: Normal Exam, clear to auscultation, Normal Breath Sounds Neuro: Positive: Grossly Intact Abdomen: Positive: Soft, Active Bowel Sounds Skin: Positive: Clear Extremities: Present: normal, upper extr. pulses, lower extr. pulses, +1 Edema Results 02/18/21 23:53 02/18/21 23:53 Cardiac Enzymes 02/18/21 02/18/21 Range/Units 18:56 18:56 AST 14 (5-40) units/L CK-MB (CK-2) 3.9 (0.0-4.0) ng/mL Coagulation 02/18/21 Range/Units 18:56 PT 12.7 (12.2-14.9) Sec. INR 0.90 (0.87-1.13) APTT 28.6 (24.2-36.6) Sec. CBC 02/18/21 02/18/21 Range/Units 18:56 23:53 WBC 12.8 H 13.1 H (4.5-11.0) K/mm3 RBC 4.98 5.04 H (3.65-5.03) M/mm3 Hgb 10.6 10.9 (10.1-14.3) gm/dl Hct 33.5 34.3 (30.3-42.9) % Plt Count 315 318 (140-440) K/mm3 Lymph # (Auto) 1.2 1.6 (1.2-5.4) K/mm3 [place] # (Auto) 0.6 0.7 (0.0-0.8) K/mm3 Eos # (Auto) 0.1 0.1 (0.0-0.4) K/mm3 Baso # (Auto) 0.1 0.1 (0.0-0.1) K/mm3 Comprehensive Metabolic Panel 02/18/21 02/18/21 Range/Units 18:56 23:53 Sodium 140 138 (137-145) mmol/L Potassium 3.7 3.6 (3.6-5.0) mmol/L Chloride 101.1 98.7 (98-107) mmol/L Carbon Dioxide 27 28 (22-30) mmol/L BUN 14 13 (7-17) mg/dL Creatinine 0.8 0.8 (0.6-1.2) mg/dL Glucose 73 83 (65-100) mg/dL Calcium 9.1 9.0 (8.4-10.2) mg/dL AST 14 (5-40) units/L ALT 15 (7-56) units/L Alkaline Phosphatase 110 (35-129) units/L Total Protein 7.2 (6.3-8.2) g/dL Albumin 4.1 (3.9-5) g/dL - Imaging and Cardiology Echo: report reviewed EKG: report reviewed, image reviewed EKG interpretations - Telemetry EKG Rhythm: Sinus Rhythm - EKG Sinus rhythms and dysrhythmias: sinus rhythm Assessment and Plan Chest Pain * Patient is currently chest pain free * Likely secondary to decompansated HF. Patient has negative troponins x2 and EKG show signs of acute ischemic changes. AMI ruled out * Echocardiogram 05/2020: EF 50 to 55%, mild LVH, grade 1 diastolic dysfunction * Patient went for Lexiscan NPI stress test today. Results pending HFpEF * Continue diuresis with Lasix 40mg IV BID HTN * Optimize antihypertensive regimen. Continue [id number] QD, and metoprolol 50mg BID Suspected CVA/TIA * Patient being followed by neurology * MRI brain is negative for acute CVA Patient seen in conjunction with Dr. Keane who agrees with plan. We will continue to follow - Patient Problems (1) Acute chest pain Current Visit: Yes Status: Acute (2) Acute dyspnea Current Visit: Yes Status: Acute (3) BUITRAGO (dyspnea on exertion) Current Visit: Yes Status: Acute (4) Cardiomyopathy Current Visit: No Status: Acute
--- NOTE | 2021-02-19 17:26 | Vascular Lab Report ---
DUPLEX DOPPLER ULTRASOUND CAROTID, BILATERAL INDICATION / CLINICAL INFORMATION: TIA. COMPARISON: Carotid Doppler 09/01/2019. FINDINGS: RIGHT CAROTID: Minimal calcified plaque is present within the proximal ICA. - PLAQUE ESTIMATE (%): < 50% - CCA velocity: 80 cm/sec. - ICA peak systolic velocity: 86 cm/sec. - ICA/CCA PSV Ratio: Less than 2. Right Vertebral Artery: Antegrade flow. LEFT CAROTID: A small amount of calcified and noncalcified plaque is present within the bulb. - PLAQUE ESTIMATE (%): < 50% - CCA velocity: 91 cm/sec. - ICA peak systolic velocity: 103 cm/sec. - ICA/CCA PSV Ratio: Less than 2. Left Vertebral Artery: Antegrade flow. IMPRESSION: 1. Right Internal Carotid Artery: Less than 50% diameter stenosis. 2. Left Internal Carotid Artery: Less than 50% diameter stenosis. Velocity criteria are extrapolated from diameter data as defined by the Society of Radiologists in Ul trasound Consensus Conference, Radiology 2003; 229;340-346. NO STENOSIS (NORMAL) - Plaque = none; ICA PSV < 125 cm/sec; ICA/CCA PSV Ratio < 2.0 <50% STENOSIS - Plaque < 50%; ICA PSV < 125 cm/sec; ICA/CCA PSV Ratio < 2.0 50-69% STENOSIS - Plaque > 50%; ICA PSV = 125-230 cm/sec; ICA/CCA PSV Ratio = 2.0-4.0 >70% BUT <100% STENOSIS - Plaque > 50%; ICA PSV > 230 cm/sec; ICA/CCA PSV Ratio > 4.0 NEAR OCCLUSION - Plaque = visible lumen; ICA PSV = high/low/none; ICA/CCA PSV Ratio = variable TOTAL OCCLUSION - Plaque = no lumen; ICA PSV = none; ICA/CCA PSV Ratio = N/A Scribed by: Mary Mata RDMS, RVT Scribed: 02/19/2021 3:32 PM I have reviewed the images, agree with this report, and edited this report as needed. Signer Name: Satya Monzon MD Signed: 02/19/2021 5:22 PM Workstation Name: [id number]
[2021-02-19] MEDS ORDERED: TOPIRAMATE TAB 100 MG TAB PO SCH (22:00)
[2021-02-20] MEDS: FUROSEMIDE 40 MG/4 ML INJ IV SCH (07:18)
[2021-02-20] MEDS: methIMAzole 5 MG TAB PO SCH (07:19)
--- NOTE | 2021-02-20 08:29 | Nuclear Medicine Report ---
APPROVED REPORT Exam: Nuclear Stress Test Indication: Chest pain [facility] Ht: 5 ft 1 in Wt: 282 lbs BSA: 2.19 m2 HR: 80 bpmBP: 105/46 mmHgBMI: 53.27 Rhythm: Second degree AV block (Type 1) Medical History Medical History: Sinus rhythm Stress Test Details Stress Test: Pharmacologic stress testing performed using 0.4 mg of regadenoson per 5 mL given IV over 10 seconds. HR Resting HR: 80 bpm Max HR Achieved: 97 bpm Max Heart Rate (APMHR): 176.733488 bpm Target HR (85% APMHR): 149.598407 bpm % of APMHR: 55.11 Recovery HR: 95 bpm HR response to stress: Normal HR response to stress BP Resting BP: 143/69 mmHg Max BP: 143/69 mmHg Recovery BP: 105/46 mmHg ECG Resting ECG: Sinus rhythm Arrhythmia: None Clinical Reason for Termination: Completed protocol Stress Symptoms: Dizziness NM EXAM: Myocardial Perfusion REST/STRESS Imaging Protocol: Rest Tc-99m/Stress Tc-99m 1 day Resting Data Rest SPECT myocardial perfusion imaging was performed in supine position 45 minutes following the intravenous injection of 10 mCi of Tc-99m Myoview. Time of rest injection: 1135 Pharmacologic Stress Pharmacologic stress test was performed by injecting Regadenoson 0.4 mg IV push followed by the intravenous injection of 28 mCi of Tc-99m Myoview. Time of stress injection: 1310 Gated Stress SPECT was performed 30 minutes after stress injection. The images were gated to evaluate regional wall motion and calculate left ventricular ejection fraction. Study Quality Study: excellent Lung Uptake: Normal Study Data TID = 1.20. Perfusion Wall Motion The rest and stress images show normal left ventricular wall motion. Nuclear Conclusion ECG Findings: negative for ischemia Clinical Findings: negative for ischemia Nuclear Findings: negative for ischemia Exercise Capacity: not assessed Left Ventricular Function: normal Normal study. No scintigraphic evidence for myocardial ischemia or scar. Normal left ventricular size and function with no regional wall motion abnormalities.
[2021-02-20] MEDS: ALPRAZolam 1 MG TAB PO SCH (08:49)
[2021-02-20] MEDS: INSULIN LISPRO 100 UNIT/ML SUB-Q SCH ×2 (08:49→12:44)
[2021-02-20 09:07] VITALS: BP 125/57
--- NOTE | 2021-02-20 09:07 | Discharge Summary ---
Providers - Providers Date of Admission: 02/19/21 16:12 Date of discharge: 02/20/21 Attending physician: KATHRIN WILHELM 02/18/21 Consult to Cardiac Rehabilitation [CONS] Routine Reason For Exam: Phase I 02/18/21 22:27 Consult to Cardiology [CONS] Routine Consulting Provider: OK RUGGIERO Reason For Exam: Chest Pain Consult to Dietitian/Nutrition [CONS] Routine Physician Instructions: Reason For Exam: Reason for Consult: Diet education 02/18/21 22:49 Consult to Physician [CONS] Routine Comment: Consulting Provider: KAYLEY VELA Physician Instructions: Reason For Exam: TIA VS CVA Primary care physician: SAMPLE DYE MIXER Hospitalization Reason for admission: CP Condition: Stable Hospital course: Patient is a 45 y/o female with a PMHx of HTN, DM, HLD, and SHADIA who presented to ED on 02/18/2021 for complaints of BLE edema, abdominal swelling, and SOB x 1 day. She reported that she had been taking her Lasix but that it did not relieved her swelling. She denied any change in diet or increase in salt intake. She also reported increased fatigue, wheezing, loss of appetite, palpitations, a sharp pain in her chest which she said has turned into pressure, and numbness/tingling sensation that goes through her left arm. The patient was admitted with diagnosis of acute on chronic diastolic heart failure, possible CVA, hypertension and diabetes mellitus type 2. The patient was placed on the CHF pathway and received IV Lasix. She reported that her symptoms improved since receiving Lasix in the hospital. Patient had negative troponins and EKG that showed no acute ischemic changes. Cardiology saw the patient and consultation and recommended Lexiscan stress test which was completed and found to be negative. With regards to her left arm numbness, patient underwent MRI of the brain which was found to be negative for acute CVA. The patient returned back to her baseline and was felt to have received maximal hospital benefit for discharge. Dedicated discharge time 35 minutes Disposition: DC-30 STILL A PATIENT Final Discharge Diagnosis (Prints w/discharge instructions): Acute on chronic diastolic heart failure, hypertension, diabetes mellitus type 2 Core Measure Documentation - Palliative Care Palliative Care/ Comfort Measures: Not Applicable - Core Measures Any of the following diagnoses?: heart failure - Heart Failure Discharge Requirements ALFONSO/ARB for LVSD if EF <40%: Yes Beta venice at discharge: Yes Exam - Constitutional Vitals: Temp Pulse Resp BP Pulse Ox 98.7 F 97 H 18 157/87 96 02/20/21 03:52 02/20/21 06:00 02/20/21 03:52 02/20/21 03:52 02/20/21 03:52 General appearance: Present: no acute distress, well-nourished - EENT Eyes: Present: PERRL ENT: hearing intact, clear oral mucosa - Neck Neck: Present: supple, normal ROM - Respiratory Respiratory effort: normal Respiratory: bilateral: CTA - Cardiovascular Heart Sounds: Present: S1 & S2. Absent: rub, click - Extremities Extremities: pulses symmetrical, No edema Peripheral Pulses: within normal limits - Abdominal General gastrointestinal: Present: soft, non-tender, non-distended, normal bowel sounds Female genitourinary: Present: normal - Integumentary Integumentary: Present: clear, warm, dry - Musculoskeletal Musculoskeletal: gait normal, strength equal bilaterally - Psychiatric Psychiatric: appropriate mood/affect, intact judgment & insight - Neurologic Neurologic: CNII-XII intact, moves all extremities Plan Activity: advance as tolerated Weight Bearing Status: Weight Bear as Tolerated Diet: regular, low fat, low cholesterol, low salt, diabetic Special Instructions: restrict fluid intake to (1 liter) Follow up with: PRIMARY CARE, [Primary Care Provider] - 3-5 Days Prescriptions: Losartan [Cozaar] 100 mg PO QDAY #30 Aspirin EC [Ecotrin] 325 mg PO QDAY #30 tablet Gabapentin 100 mg PO BID #60 capsule Gabapentin 100 mg PO BID #60 cap Furosemide [Lasix TAB] 40 mg PO QDAY #30 tablet Metoprolol [Lopressor TAB] 50 mg PO BID #30 tablet Pravastatin [Pravachol] 20 mg PO QHS #30 tablet FLUoxetine [PROzac] 40 mg PO QDAY #30 capsule methIMAzole [Tapazole] 10 mg PO Q8HR #180 tablet Topiramate [Topamax] 100 mg PO QHS #30 tablet ALPRAZolam [Xanax TAB] 2 mg PO TID #15
[2021-02-20] MEDS: FLUoxetine 20 MG CAP PO SCH (09:12)
[2021-02-20] MEDS: ASPIRIN EC 325 MG TAB PO SCH (09:12)
[2021-02-20] MEDS: METOPROLOL TARTRATE 50 MG TAB PO SCH (09:12)
[2021-02-20] MEDS: GABAPENTIN 100 MG CAP PO SCH (09:12)
[2021-02-20] MEDS: LOSARTAN 50 MG TAB PO SCH (09:12)
--- NOTE | 2021-02-20 12:15 | Electrocardiograph Report ---
[facility] Test Date: 2021-02-18 Test Time: 18:45:40 Pat Name: LUDA FLORES Department: Room: A475 1 Gender: F Preventive Medicine Officer: MARIELY : 1975 Requested By: JU MESA Order Number: [id number] Reading MD: Starla Pat Measurements Intervals [place] Rate: 89 P: -23 RI: 122 QRS: 61 QRSD: 90 T: 56 QT: 369 QTc: 450 Interpretive Statements Sinus rhythm No previous ECG available for comparison Electronically Signed On 02-20-2021 12:14:49 EDT by Starla Pat
--- NOTE | 2021-02-20 12:22 | Electrocardiograph Report ---
[facility] Test Date: 2021-02-19 Test Time: 07:56:58 Pat Name: LUDA FLORES Department: Room: A475 1 Gender: F Associate Business Analyst: MIN : 1975 Requested By: TAWNYA REAVES Order Number: [id number] Reading MD: Starla Pat Measurements Intervals [place] Rate: 97 P: 51 PA: 120 QRS: 64 QRSD: 80 T: 24 QT: 354 QTc: 451 Interpretive Statements Sinus rhythm Compared to ECG 02/18/2021 18:45:40 No significant changes Electronically Signed On 02-20-2021 12:22:04 EDT by Starla Pat
--- NOTE | 2021-02-20 12:24 | Electrocardiograph Report ---
[facility] Test Date: 2021-02-19 Test Time: 10:47:15 Pat Name: LUDA FLORES Department: Room: A475 1 Gender: F Rolling Attendant: MIN : 1975 Requested By: TAWNYA REAVES Order Number: [id number] Reading MD: Starla Pat Measurements Intervals [place] Rate: 99 P: 63 [place]: 121 QRS: 73 QRSD: 80 T: 13 QT: 341 QTc: 439 Interpretive Statements Sinus rhythm Compared to ECG 02/19/2021 07:56:58 No significant changes Electronically Signed On 02-20-2021 12:23:41 EDT by Starla Pat
--- NOTE | 2021-02-20 12:53 | Progress Note ---
Assessment and Plan Chest Pain * Patient is currently chest pain free * Likely secondary to decompansated HF. Patient has negative troponins x2 and EKG show signs of acute ischemic changes. AMI ruled out * Echocardiogram 05/2020: EF 50 to 55%, mild LVH, grade 1 diastolic dysfunction * Patient Lexiscan MPI stress test was negative. HFpEF * Upon discharge switch to Lasix 40mg PO QD HTN * Optimize antihypertensive regimen. Continue [id number] QD, and metoprolol 50mg BID Suspected CVA/TIA * Patient being followed by neurology * MRI brain is negative for acute CVA Patient is ok to be discharged from a cardiac standpoint. Patient may follow up with Dr. Keane, [facility], in 2-3 weeks. Phone number [phone] Patient Patient seen in conjunction with Dr. Keane who agrees with plan. - Patient Problems (1) Acute chest pain Current Visit: Yes Status: Acute (2) Acute dyspnea Current Visit: Yes Status: Acute (3) BUITRAGO (dyspnea on exertion) Current Visit: Yes Status: Acute (4) Cardiomyopathy Current Visit: No Status: Acute Subjective Date of service: 02/20/21 Principal diagnosis: HFpEF Interval history: Patient sitting in bed with no complaints with no events overnight Objective Last Vital Signs Temp 97.7 F 02/20/21 07:58 Pulse 101 H 02/20/21 07:58 Resp 18 02/20/21 07:58 BP 125/57 02/20/21 07:58 Pulse Ox 96 02/20/21 10:00 - Physical Examination General: No Apparent Distress HEENT: Positive: PERRL Neck: Positive: trachea midline Cardiac: Positive: Reg Rate and Rhythm, S1/S2 Lungs: Positive: Normal Breath Sounds Neuro: Positive: Grossly Intact Abdomen: Positive: Soft, Active Bowel Sounds Skin: Positive: Clear Extremities: Present: normal, upper extr. pulses, lower extr. pulses, +1 Edema - Imaging and Cardiology EKG: report reviewed, image reviewed Echo: report reviewed - Telemetry EKG Rhythm: Sinus Rhythm - EKG Sinus rhythms and dysrhythmias: sinus rhythm
== END 2021-02-20 14:41 | disposition home or self-care (01) | DRG 292 ==
LOC: ED 17:17 → 4A 21:30 → OBSVTOIN 02-19 16:12
PROVIDERS: ADMIT Internal Medicine Geriatric Medicine; ATTEND Hospitalist
DX: I11.0 Hypertensive heart disease with heart failure (principal); Z68.42 Body mass index [BMI] 45.0-49.9, adult; R65.10 Systemic inflammatory response syndrome (SIRS) of non-infectious origin without acute organ dysfunction; G45.9 Transient cerebral ischemic attack, unspecified; I50.33 Acute on chronic diastolic (congestive) heart failure; I42.9 Cardiomyopathy, unspecified; E78.5 Hyperlipidemia, unspecified; E66.01 Morbid (severe) obesity due to excess calories; J45.909 Unspecified asthma, uncomplicated; R07.89 Other chest pain; R20.2 Paresthesia of skin; R26.81 Unsteadiness on feet; G43.909 Migraine, unspecified, not intractable, without status migrainosus; E11.40 Type 2 diabetes mellitus with diabetic neuropathy, unspecified; F41.9 Anxiety disorder, unspecified; Z88.8 Allergy status to other drugs, medicaments and biological substances; Z71.3 Dietary counseling and surveillance; Z79.4 Long term (current) use of insulin; Z88.0 Allergy status to penicillin; Z86.73 Personal history of transient ischemic attack (TIA), and cerebral infarction without residual deficits; Z90.49 Acquired absence of other specified parts of digestive tract; Z87.11 Personal history of peptic ulcer disease; Z82.49 Family history of ischemic heart disease and other diseases of the circulatory system
CPT/HCPCS: 36415; 70450; 70551; 71046; 74176; 78452; 80048; 80053; 80320; 82550; 82553; 82962; 83735; 83880; 84443; 84484; 84702; 85025; 85379; 85610; 85670; 85730; 93005; 93017; 93880; 96374; G0378; A9502; G0480; J1815; J1940; J2785

== ENCOUNTER 2021-11-09 11:12 | Emergency (ER) | payer BC, MEDICAID ==
[2021-11-09 11:28] VITALS: BP 136/69
[2021-11-09] MEDS ORDERED: CYCLOBENZAPRINE 10 MG TAB PO ONE (11:53)
[2021-11-09] MEDS ORDERED: ACETAMINOPHEN 500 MG TAB PO ONE (11:54)
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
== END 2021-11-09 13:48 | disposition home or self-care (01) ==
LOC: ED 11:12
DX: S13.4XXA Sprain of ligaments of cervical spine, initial encounter (principal); S39.92XA Unspecified injury of lower back, initial encounter; I10 Essential (primary) hypertension; X58.XXXA Exposure to other specified factors, initial encounter; Y93.89 Activity, other specified; Y92.89 Other specified places as the place of occurrence of the external cause; Y99.8 Other external cause status
CPT/HCPCS: 72040; 72070; 72100; 99283